=== PATIENT | female | born 1955 | race Caucasian/White ===

== ENCOUNTER 2022-08-14 15:47 | Outpatient (CLI) | payer MEDICARE, SELFPAY ==
--- NOTE | 2022-08-14 16:00 | CRLHL7_ITS ---
For Patients: As a result of the Century Cures Act, medical imaging exams and procedure reports are released immediately into your electronic medical record. You may view this report before your referring provider. If you have questions, please contact your health care provider. INDICATION: Lumbar fusion. COMPARISON: 04/04/2021. TECHNIQUE: Noncontrast CT lumbar spine. FINDINGS: Grade 1 anterolisthesis of L4 on L5 measures approximately 5 mm. Otherwise, normal alignment. Since previous MRI, interval postoperative changes of laminectomies and posterior sho transpedicular screw fixation L4-S1. Hardware appears well-seated. T12-L1 L1-2: No spinal canal neural foraminal narrowing. L2-3: No narrowing of the spinal canal. No neural foraminal narrowing. L3-4: Annular bulge. Flattening of ventral thecal sac. Mild narrowing of spinal canal. No neural foraminal narrowing. Mild facet arthropathy. L4-5: Grade 1 anterolisthesis. Unroofed posterior disc bulge. Spinal canal is decompressed by laminectomy. Allowing for artifact, no severe narrowing of the neural foramina. L5-S1: Postoperative changes. Spinal canal is decompressed by laminectomy. Allowing for artifact, no severe spinal canal narrowing. There may be mild narrowing of bilateral foramina. Degenerative changes of visualized SI joints. Vascular calcifications. IMPRESSION: 1. Grade 1 anterolisthesis of L4 on L5. 2. Otherwise, normal alignment. 3. Interval postop changes L4-S1. Hardware appears well seated. 4. At L3-4, mild narrowing of the spinal canal 5. At L4-5, grade 1 anterolisthesis. No narrowing of the spinal canal. No neural foraminal narrowing. 6. At L5-S1, postoperative changes. Allowing for artifact, there may be mild narrowing of the bilateral neural foramina Please note that all CT scans at this facility use dose modulation, iterative reconstruction, and/or weight-based dosing when appropriate to reduce radiation dose to as low as reasonably achievable. Dictated by Carter Valladares MD @ 08/14/2022 4:23:58 PM (Electronically Signed)
== END 2022-08-14 15:48 | disposition home or self-care (01) ==
LOC: CT 15:49
PROVIDERS: PCP Family Medicine; Visit Provider Physician Assistant Surgical
DX: Q75.0 Craniosynostosis (principal); M51.26 Other intervertebral disc displacement, lumbar region
CPT/HCPCS: 72131

== ENCOUNTER 2023-06-04 14:49 | Outpatient (CLI) | payer MEDICARE, SELFPAY ==
--- NOTE | 2023-06-04 15:20 | CRLHL7_ITS ---
For Patients: As a result of the Century Cures Act, medical imaging exams and procedure reports are released immediately into your electronic medical record. You may view this report before your referring provider. If you have questions, please contact your health care provider. BILATERAL SCREENING MAMMOGRAM WITH COMPUTER-AIDED DETECTION TECHNIQUE: CC and MLO views were obtained. These mammographic images have been obtained using full-field digital technique. These mammographic images were interpreted with the benefit of computer-aided detection. COMPARISON FILM: 04/01/22, 01/14/21, 03/03/18. FINDINGS: There are scattered areas of fibroglandular density. IMPRESSION: There is no radiographic evidence for malignancy. ASSESSMENT: BI-RADS Category 1: Negative RECOMMENDATION: Routine screening mammogram in 1 year. A lay language report of this examination will be provided to the patient. VINCE RHODES M.D. Diagnostic Radiologist [email or web address] Transcribed: 06/07/2023, 1:[address]/Dictated by: Vince Rhodes MD @ 06/07/2023 9:06:00 AM (Electronically Signed)
== END 2023-06-04 14:50 | disposition home or self-care (01) ==
LOC: MAMMO 14:50
PROVIDERS: PCP Family Medicine; Visit Provider Family Medicine
DX: Z12.31 Encounter for screening mammogram for malignant neoplasm of breast (principal)
CPT/HCPCS: 77067

== ENCOUNTER 2023-08-24 16:29 | Outpatient (CLI) | payer MEDICARE, SELFPAY ==
--- NOTE | 2023-08-24 17:00 | CRLHL7_ITS ---
For Patients: As a result of the Century Cures Act, medical imaging exams and procedure reports are released immediately into your electronic medical record. You may view this report before your referring provider. If you have questions, please contact your health care provider. Indication: S/P BACK SURGERY 6 WEEKS AGO, NOW INCREASING LT UPPER ARM SWELLING AND PAIN Technique: Ultrasound venous duplex upper left extremity. Compression venous exam was performed using carvajal-scale, color Doppler, and spectral Doppler imaging. Comparison: none Findings: The left internal jugular, subclavian, and axillary veins are patent with normal waveforms. Occlusive thrombus within the proximal-distal basilic vein. The brachial and cephalic veins are fully compressible. Impression: Occlusive thrombus within the proximal-distal basilic vein. No evidence of DVT. Dictated by Lucio Miranda MD @ 08/24/2023 7:02:07 PM (Electronically Signed)
== END 2023-08-24 16:30 | disposition home or self-care (01) ==
LOC: US 16:30
PROVIDERS: PCP Family Medicine
DX: I82.409 Acute embolism and thrombosis of unspecified deep veins of unspecified lower extremity (principal); I82.4Z2 Acute embolism and thrombosis of unspecified deep veins of left distal lower extremity
CPT/HCPCS: 93971

== ENCOUNTER 2023-08-24 18:05 | Emergency (ER) | payer MEDICARE, SELFPAY ==
[2023-08-24 18:13] VITALS: BP 146/89; PULSE 89; RESP 18; TEMP 36.7; O2SAT 99; BMI 43.1
--- NOTE | 2023-08-24 18:50 | ED_ITS ---
HPI - General Adult General Time Seen by Provider: 18:50 Date Seen: 08/24/23 Chief complaint: Extremity Pain/Injury, Upper Stated complaint: Blood clot L arm Time Seen by Provider: 08/24/23 18:23 History of Present Illness HPI narrative: This is a very pleasant 68-year-old female who was referred from our ultrasound department for evaluation of an ultrasound showing a positive DVT in her left upper extremity basilic vein. She has symptoms of pain and redness and swelling involving the medial aspect of her left arm on the medial aspect of the elbow. It began yesterday morning. She has now also developed mild pain and swelling throughout her left forearm and little bit of pain and swelling up to her left shoulder. She does not have any recent trauma. No recent injury to her arm. No fever chills. No shortness of breath. No history of DVT or PE. Her past medical history includes low back problems. She recently underwent a very large lumbar spine fusion surgery with an anterior and posterior approach. This was done by her surgeon, Dr. Resendez in the [facility], [place]. She recovered in the TCU here in [place] fair few weeks. She has been recovering home now for several weeks. She does not have any recent IV access into her arm or no long to PICC line. She is not having any swelling in her right arm or in her legs. No chest pain or shortness of breath. Her brother had a DVT, associated with malignancy. No other family history of hypercoagulability. Related Data Home Medications Medication Instructions Recorded Confirmed atenolol .ROUTE 08/24/23 cetirizine .ROUTE 08/24/23 duloxetine PO 08/24/23 gabapentin .ROUTE 08/24/23 insulin NPH-regular 70-30 U-100 subcut 08/24/23 insulin 100 unit/mL subcutaneous pen (Novolin 70-30 FlexPen U-100 Insulin) lansoprazole PO 08/24/23 levothyroxine 125 mcg tablet 125 mcg PO DAILY 08/24/23 08/24/23 lisinopril 10 mg tablet 10 mg PO DAILY 08/24/23 08/24/23 simvastatin 40 mg tablet 40 mg PO QPM 08/24/23 08/24/23 tramadol .ROUTE 08/24/23 Allergies Allergy/AdvReac Type Severity Reaction Status Date / Time cephalexin [From Keflex] AdvReac Verified 08/24/23 18:29 cinnamon AdvReac Verified 08/24/23 18:29 clarithromycin [From Biaxin] AdvReac Verified 08/24/23 18:29 erythromycin base AdvReac Verified 08/24/23 18:29 Fish Containing Products AdvReac Verified 08/24/23 18:20 iodine AdvReac Verified 08/24/23 18:29 lanolin AdvReac Hives Verified 08/24/23 18:29 metformin AdvReac Verified 08/24/23 18:20 nystatin AdvReac Verified 08/24/23 18:29 Penicillins AdvReac Verified 08/24/23 18:20 Quinolones AdvReac Verified 08/24/23 18:29 concentrated egg white Allergy Uncoded 08/24/23 18:20 [facility] Medical History (Updated 08/24/23 @ 19:23 by Ran Richter MD) Obesity ?E66.9 - Obesity, unspecified (ICD-10) Loss of all teeth ?K08.109 - Complete loss of teeth, unspecified cause, unspecified class (ICD- 10) Type 2 diabetes mellitus ?E11.9 - Type 2 diabetes mellitus without complications (ICD-10) Adult hypothyroidism ?E03.9 - Hypothyroidism, unspecified (ICD-10) Borderline hyperlipidemia ?E78.5 - Hyperlipidemia, unspecified (ICD-10) HTN (hypertension) ?I10 - Essential (primary) hypertension (ICD-10) JESS (obstructive sleep apnea) ?G47.33 - Obstructive sleep apnea (adult) (pediatric) (ICD-10) GERD (gastroesophageal reflux disease) ?K21.9 - Gastro-esophageal reflux disease without esophagitis (ICD-10) Foot drop, right ?M21.371 - Foot drop, right foot (ICD-10) Acute eczema ?L30.9 - Dermatitis, unspecified (ICD-10) DJD (degenerative joint disease) ?M19.90 - Unspecified osteoarthritis, unspecified site (ICD-10) Depression ?F32.A - Depression, unspecified (ICD-10) Chronic low back pain ?M54.50 - Low back pain, unspecified (ICD-10) ?G89.29 - Other chronic pain (ICD-10) Bulging disc History of anesthesia complications ?Z87.898 - Personal history of other specified conditions (ICD-10) Asthma ?J45.909 - Unspecified asthma, uncomplicated (ICD-10) Anemia ?D64.9 - Anemia, unspecified (ICD-10) Social History Smoking Status: Never smoker How often do you have a drink containing alcohol: never AUDIT-C Alcohol total score: 0 Non-prescribed substance use: denies use Exam Narrative: Exam Narrative: Constitutional: Appears well-developed and well-nourished. Alert. Conversant. Non toxic. HENT: Head: Atraumatic. Nose: Nose normal. Mouth/Throat: Oral mucosa is clear and moist. no trismus. Pharynx normal. Tonsils symmetric. No tonsillar enlargement, erythema, or exudate. Eyes: Conjunctivae normal. EOM normal. Pupils equal, round, and reactive to light. No scleral icterus. Neck: Normal range of motion. Neck supple. No tracheal deviation present. Cardiovascular: Normal rate, regular rhythm. No gallop. No friction rub. No murmur heard. Symmetric radial and PT/deep artery pulses Pulmonary/Chest: Effort normal. No stridor. No respiratory distress. No wheezes. No rales. No rhonchi . No tenderness. Abdominal: Soft. No distension. No mass. No tenderness. No rebound. No guarding. Musculoskeletal: RUE: Normal range of motion. No tenderness. No deformity LUE: She has erythema with mild swelling and tenderness over the skin on the medial aspect of her arm affecting the distal 1/4 of her upper arm/humerus, medial elbow, and proximal 2-3 cm of her medial forearm. She has perhaps subtle edema affecting the rest of her forearm. Range of motion the elbow is limited by discomfort but there is no obvious bony deformity, crepitus, or other signs of fracture on exam. RLE: Normal range of motion. No edema. No tenderness. No deformity LLE: Normal range of motion. No edema. No tenderness. No deformity Lymph: No cervical adenopathy. Neurological: Alert and oriented to person, place, and time. Normal strength. CN II-VII intact. No sensory deficit. GCS eye subscore is 4. GCS verbal subscore is 5. GCS motor subscore is 6. Normal coordination Skin: Skin is warm and dry. No rash noted. No pallor. Normal capillary refill. Psychiatric: Normal mood. Normal affect. Const: Vital Signs, click to edit/add: Vital Signs - 24 hr 10/17/23 18:13 08/24/23 19:34 Temperature 98.0 F Pulse Rate [Left P ulse Oximeter] 89 84 Respiratory Rate 18 18 Blood Pressure [Ri ght Upper Arm] 146/89 H 138/81 Pulse Oximetry 99 Oxygen Delivery Me thod Room Air Course Vital Signs Vital signs: Initial Vital Signs Temperature 98.0 F 08/24/23 18:13 Temperature Source Temporal Artery Scan 08/24/23 18:13 Pulse Rate 89 08/24/23 18:13 Respiratory Rate 18 08/24/23 18:13 Blood Pressure 146/89 H 08/24/23 18:13 Blood Pressure Mean 108 H 08/24/23 18:13 Blood Pressure Position Sitting 08/24/23 18:13 Pulse Oximetry 99 08/24/23 18:13 Oxygen Delivery Method Room Air 08/24/23 18:13 Vital Signs Temperature 98.0 F 08/24/23 18:13 Pulse Rate 89 08/24/23 18:13 Respiratory Rate 18 08/24/23 18:13 Blood Pressure 146/89 H 08/24/23 18:13 Pulse Oximetry 99 08/24/23 18:13 Oxygen Delivery Method Room Air 08/24/23 18:13 Temperature 98.0 F 08/24/23 18:13 Pulse Rate 84 08/24/23 19:34 Respiratory Rate 18 08/24/23 19:34 Blood Pressure 138/81 08/24/23 19:34 Pulse Oximetry 99 08/24/23 18:13 Oxygen Delivery Method Room Air 08/24/23 18:13 Medical Decision Making [facility] Narrative Medical decision making narrative: Pleasant 68-year-old female with no past history of venous thromboembolic disease presents to the ER today with reported left upper extremity DVT affecting her left arm. However, the formal ultrasound report from radiology indicates that this is actually a superficial thrombosis in the base iliac vein, not a deep vein thrombosis. Superficial thrombosis would correlate with a localized area of redness and swelling on her left medial arm, on the medial aspect of the elbow. She is not having history or exam findings of PE. No sign s of phlegmasia cerulea dolens, compartment syndrome, or other arterial compromise of her left upper extremity. At this point I do not think she needs to be hospitalized for anticoagulation or surgical intervention. Will treat supportively for now. Recommend follow-up ultrasound within 3-6 days to make sure there is no extension of the superficial thrombosis. Laboratory workup shows normal kidney function. Electrolytes normal. CbC shows anemia, HGB 9.5 , but otherwise reassuring white count and platelets. She has not had any recent bleeding to suggest an acute anemia. Blood pressure stable. Recommend outpatient follow-up for repeat CBC. Lab Data Labs: Lab Results 08/24/23 Range/Units 19:01 WBC 7.72 (4.50-11.00) K/uL RBC 4.43 (4.00-5.20) m/uL Hgb 9.5 L (12.0-16.0) gm/dL Hct 33.0 (33.0-51.0) % MCV 75 L (80-100) fL MCH 21 L (26-34) pg MCHC 29 L (32-36) gm/dL RDW Coeff of Edwin 16.6 H (11.5-15.5) % Plt Count 305 (140-440) K/uL Neut % (Auto) 65.6 (42.0-72.0) % Lymph % (Auto) 23.8 (20-44) % [place] % (Auto) 7.4 (0.0-11.0) % Eos % (Auto) 3.0 (0.0-7.0) % Baso % (Auto) 0.1 (0.0-3.0) % Neut # (Auto) 5.06 (1.7-7.0) K/uL Lymph # (Auto) 1.84 (0.90-2.90) K/uL Lajas # (Auto) 0.60 (0.00-0.90) K/UL Eos # (Auto) 0.23 (0.00-0.50) K/uL Baso # (Auto) 0.01 (0.00-0.30) K/uL Abs Immat Gran (auto) 0.01 (0.00-0.30) K/uL Imm/Tot Granulo (auto) 0.1 % Sodium 138 (135-149) mmol/L Potassium 3.9 (3.6-5.1) mmol/L Chloride 102 (96-114) mmol/L Carbon Dioxide 25 (20-32) mmol/L Anion Gap 11 (7-15) mEq/L BUN 30 (7-30) mg/dL Creatinine 0.9 (0.5-1.5) mg/dL Estimated Creat Clear 47.14 Estimated GFR 70 ml/min Glucose 114 (60-115) mg/dL Calcium 8.9 (8.4-10.6) mg/dL Imaging Data US Venous LUE: Attestation: I have reviewed the pertinent imaging results. My impression: Preliminary report from semiconductor development technician is that there is a DVT in the left upper extremity. Radiologist's impression: Impression: Occlusive thrombus within the proximal-distal basilic vein. No evidence of DVT. Discharge Plan Discharge Clinical Impression: Superficial venous thrombosis of arm Patient Disposition: Home, Self-Care Condition: Stable Instructions: Superficial Thrombophlebitis (ED) Additional Instructions: Please return to the ER or see your doctor right away if you have worsening symptoms especially worsening pain or swelling in your arm, chest pain or trouble breathing, high fever, or any other problems. Please try to treat the pain in her arm with your regular pain medications, gently elevating her arm, warm packs on the swollen area, and use Percocet if needed for breakthrough pain. Be careful the Percocet because it causes drowsiness, sedation, constipation, and can be addictive. Even if you are not getting worse Follow-up with your regular doctor or come back to the ER for a repeat ultrasound of your arm within the next 3-6 days. Prescriptions: No Action simvastatin 40 mg tablet 40 mg PO QPM levothyroxine 125 mcg tablet 125 mcg PO DAILY lisinopril 10 mg tablet 10 mg PO DAILY Novolin 70-30 FlexPen U-100 100 unit/mL (70-30) insulin pen subcut duloxetine PO cetirizine [Zyrtec] .ROUTE atenolol .ROUTE lansoprazole [Prevacid] PO tramadol .ROUTE gabapentin .ROUTE Follow Up/Referrals: Abilio Reyes MD [Primary Care Provider] - Stand Alone Forms: [employer] Info Instructions
[2023-08-24 19:06] LABS: Basophils Absolute Auto 0.01 K/uL (0.00-0.30); Basophils Percent Auto 0.1 % (0.0-3.0); Eosinophils Absolute Auto 0.23 K/uL (0.00-0.50); Hemoglobin* 9.5 gm/dL (12.0-16.0); Immature Granulocytes Abs Auto 0.01 K/uL (0.00-0.30); Immature Granulocytes Pct Auto 0.1 %; Lymphocytes Absolute Auto 1.84 K/uL (0.90-2.90); Lymphocytes Percent Auto 23.8 % (20-44); Mean Corpuscular HGB Conc 29 gm/dL (32-36); Mean Corpuscular Hemoglobin 21 pg (26-34); Mean Corpuscular Volume 75 fL (80-100); Monocytes Percent Auto 7.4 % (0.0-11.0); Neutrophils Absolute Auto 5.06 K/uL (1.7-7.0); Neutrophils Percent Auto 65.6 % (42.0-72.0); Platelet Count* 305 K/uL (140-440); RDW Coefficient of Variation % 16.6 % (11.5-15.5); Red Blood Count 4.43 m/uL (4.00-5.20); Slide Review Reflex No; White Blood Count* 7.72 K/uL (4.50-11.00)
[2023-08-24 19:17] LABS: Chloride* 102 mmol/L (96-114)
[2023-08-24 19:18] LABS: Potassium* 3.9 mmol/L (3.6-5.1); Sodium* 138 mmol/L (135-149)
[2023-08-24 19:20] LABS: Creatinine* 0.9 mg/dL (0.5-1.5); Est. Creatinine Clearance* 47.14; Estimated Glomerular Filt Rate 70 ml/min
[2023-08-24 19:21] LABS: Anion Gap 11 mEq/L (7-15); Blood Urea Nitrogen* 30 mg/dL (7-30); Calcium* 8.9 mg/dL (8.4-10.6); Carbon Dioxide* 25 mmol/L (20-32); Glucose* 114 mg/dL (60-115)
[2023-08-24 19:34] VITALS: BP 138/81; PULSE 84; RESP 18
== END 2023-08-24 19:34 | disposition home or self-care (01) ==
PROVIDERS: Emergency Provider Emergency Medicine; PCP Family Medicine
DX: I82.612 Acute embolism and thrombosis of superficial veins of left upper extremity (principal)
CPT/HCPCS: 36415; 80048; 85025; 99283

== ENCOUNTER 2023-08-25 13:47 | Outpatient (CLI) | payer MEDICARE, SELFPAY ==
--- NOTE | 2023-08-25 14:00 | CRLHL7_ITS ---
For Patients: As a result of the Century Cures Act, medical imaging exams and procedure reports are released immediately into your electronic medical record. You may view this report before your referring provider. If you have questions, please contact your health care provider. INDICATION: Six weeks status post lumbar decompression an anterior fusion. TECHNIQUE: CT images were acquired through the lumbar spine. Multiplanar reconstructions. COMPARISON: CT lumbar spine dated 08/14/2022. FINDINGS: There has been interval anterior spinal fusion at the L5-S1 level with a at interbody cylinder, and anchoring screws. Preexistent posterior pedicle screw fusion extends from L4 through S1. At the L5-S1 level the bilateral decompressive laminectomy. Bony dimensions of the spinal canal and foramen are adequate. Pedicle screws appear to be in good position. At the L4-5 level preexistent mild grade 1 anterolisthesis. Bilateral decompressive laminectomy. The bony dimensions of the spinal canal and neural foramen appear adequate. At the L3-4 level bilateral decompressive laminectomy. Bony dimensions the spinal canal and neural foramen appear adequate. The no bony stenosis at the L2-3 or L1-2 levels. IMPRESSION: 1. Interval anterior hardware fusion at the L5-S1 level including interbody fusion cylinder and anchoring screws. Intraluminal fusion bone. 2. Preexistent bilateral pedicle screws at L4, L5 and S1 and associated connecting hardware. Unchanged. 3. Bilateral decompressive laminectomies at the L5-S1 L4-5 and L3-4 levels. 4. Preexistent grade 1 anterolisthesis at L4-5 unchanged. Please note that all CT scans at this facility use dose modulation, iterative reconstruction, and/or weight-based dosing when appropriate to reduce radiation dose to as low as reasonably achievable. Dictated by Manjit Robertson MD @ 08/27/2023 9:05:46 AM (Electronically Signed)
== END 2023-08-25 13:48 | disposition home or self-care (01) ==
LOC: CT 13:48
PROVIDERS: PCP Family Medicine; Visit Provider Specialist
DX: M54.16 Radiculopathy, lumbar region (principal); Z48.89 Encounter for other specified surgical aftercare
CPT/HCPCS: 72131

== ENCOUNTER 2023-08-30 13:42 | Outpatient (CLI) | payer MEDICARE, SELFPAY ==
--- NOTE | 2023-08-30 14:00 | CRLHL7_ITS ---
For Patients: As a result of the Century Cures Act, medical imaging exams and procedure reports are released immediately into your electronic medical record. You may view this report before your referring provider. If you have questions, please contact your health care provider. INDICATION: RECHECK SVT COMPARISON: 08/24/2023 TECHNIQUE: Left upper extremity and neck venous ultrasound performed as well as ultrasound of right internal jugular vein including carvajal scale/2D, color Doppler, and spectral Doppler imaging including spectral waveform analysis. FINDINGS: The internal jugular, innominate, subclavian, axillary, cephalic, and brachial veins were patent and negative for thrombus. The right internal jugular vein was also patent and negative for thrombus where seen. Long segment superficial clot within the basilic vein, located 1.5 cm from the axillary vein and extending distally into the mid forearm. IMPRESSION: Long segment superficial clot within the basilic vein, probably similar to the prior study. No DVT. Dictated by Vince Escobar MD @ 08/31/2023 8:39:48 AM (Electronically Signed)
--- NOTE | 2023-08-30 14:00 | CRLHL7_ITS ---
For Patients: As a result of the Century Cures Act, medical imaging exams and procedure reports are released immediately into your electronic medical record. You may view this report before your referring provider. If you have questions, please contact your health care provider. INDICATION: Lung cancer screening. History of smoking. High risk patient with greater than 32 pack-year smoking history. TECHNIQUE: Low-dose lung cancer screening non-contrast CT chest. Dose reduction techniques were used. COMPARISON: None. FINDINGS: NODULES: None. LUNGS AND PLEURA: No infiltrate. MEDIASTINUM: Atherosclerotic changes. No adenopathy. Tortuosity of the descending thoracic aorta. CORONARY ARTERY CALCIFICATION: Present. LIMITED UPPER ABDOMEN: 7.5 cm hiatal hernia. Vascular calcifications. MUSCULOSKELETAL: Degenerative changes at the left shoulder with loose bodies in the subcoracoid recess. Degenerative changes also present at the right shoulder. Degenerative disc disease thoracic spine. No fracture. IMPRESSION: Negative for lung cancer screening purposes. LUNG-RADS CATEGORY: 1: Negative. RADIOLOGIST RECOMMENDATION: Continue annual screening with low-dose CT chest in 12 months. Please note that all CT scans at this facility use dose modulation, iterative reconstruction, and/or weight-based dosing when appropriate to reduce radiation dose to as low as reasonably achievable. Dictated by Vince Escobar MD @ 08/31/2023 9:18:15 AM (Electronically Signed)
== END 2023-08-30 13:43 | disposition home or self-care (01) ==
LOC: CT 13:44
PROVIDERS: PCP Family Medicine; Visit Provider Family Medicine
DX: I82.612 Acute embolism and thrombosis of superficial veins of left upper extremity (principal); Z12.2 Encounter for screening for malignant neoplasm of respiratory organs; Z87.891 Personal history of nicotine dependence
CPT/HCPCS: 71271; 93971

== ENCOUNTER 2023-11-22 13:45 | Outpatient (RCR) | payer MEDICARE, SELFPAY | END 2023-11-22 16:00 | disposition home or self-care (01) | PROVIDERS: PCP Family Medicine; Visit Provider Specialist | DX: Z48.89 Encounter for other specified surgical aftercare (principal); Z51.89 Encounter for other specified aftercare | CPT/HCPCS: 97110; 97140; 97162; 97535 ==

== ENCOUNTER 2023-11-24 06:06 | Day surgery (SDC) | payer MEDICARE, SELFPAY ==
[2023-11-24] MEDS: TETRACAINE 0.5% OPHTH 1 DROP EYE-LEFT ×2 (06:18→06:25)
[2023-11-24] MEDS: KETOROLAC OPHTH 0.5% 1 DROP EYE-LEFT ×2 (06:18→06:25)
[2023-11-24 06:19] VITALS: BMI 41.6
[2023-11-24 06:39] VITALS: BP 155/91; PULSE 60; RESP 18; TEMP 36.4; O2SAT 94
[2023-11-24] MEDS: SODIUM CHLORIDE 0.9 % (FLUSH) 10 ML SYRINGE IVF (06:48)
--- NOTE | 2023-11-24 07:08 | SUR.OPER ---
MD spoke to patient about Iodine allergy. Patient states it is mostly to contrast and caused hives. Patient educated on risks associated with Iodine prep, verbalized understanding of the risks and agrees to continue.
[2023-11-24] MEDS: TETRACAINE 0.5% OPHTH 2 DROP EYE-LEFT (07:14)
[2023-11-24] MEDS: BALANCED SALT IRRIG SOLN 15 ML EYE-LEFT (07:19)
--- NOTE | 2023-11-24 07:27 | W.ANESCHARGE ---
Anesthesia Charges Start Date/Time Anesthesia Start Date: 11/24/23 Anesthesia Start Time: 07:10 Stop Date/Time Anesthesia Stop Date: 11/24/23 Anesthesia Stop Time: 07:42
[2023-11-24 07:37] VITALS: BP 135/91; PULSE 61; RESP 16; TEMP 36.7; O2SAT 95
--- NOTE | 2023-11-24 07:42 | P.OPTPRC_ITS ---
Procedure Note Date of procedure: 11/24/23 Will [facility] bill your pro fee for this procedure?: Yes Procedure Description: SURGEON: Jennifer Davis MD PREOPERATIVE DIAGNOSIS: Nuclear sclerotic cataract, left eye. POSTOPERATIVE DIAGNOSIS: Nuclear sclerotic cataract, left eye. NAME OF OPERATION: Phacoemulsification of cataract with posterior chamber intraocular lens implantation in the left eye. ANESTHESIA: Topical. ESTIMATED BLOOD LOSS: Less than 2 cc. COMPLICATIONS: None. PATHOLOGY SPECIMEN: None. INDICATIONS: See consult note for details. The risks, benefits and alternatives of the procedure were explained to the patient, who elected to proceed and signed informed consent to do so. PROCEDURE: The patient was brought to the pre-holding area where the left eye was identified as the operative eye. I placed my initials above this eye. The patient received eye drops consisting of 0.5% tetracaine, 1% tropicamide, 10% phenylephrine, and 0.5% ketorolac. I discussed the patient's iodine allergy with her. She states that it was not life-threatening and that it was to IV contrast. She states that it caused hives. She is willing to accept the risks with Betadine prep and the dilating drops. The patient was then brought to the operating room where the left eye was again identified as the operative eye. The eye was prepped with Betadine and draped in the usual sterile ophthalmic fashion. A #15 super-sharp blade was used to create a paracentesis site. 1% non-preserved intracameral lidocaine was injected into the anterior chamber. Endocoat was injected into the anterior chamber. A 2.4 mm keratome was used to create a three-plane self-sealing incision 1 mm anterior to the temporal limbus. A cystotome was used to create an anterior capsular leaflet. The Utrata forceps were used to extend this to form a continuous curvilinear capsulorrhexis. Hydrodissection was performed. The cataract was removed with phacoemulsification using the [id number] technique. The irrigation and aspiration tip was used to remove the remaining cortex. Healon was injected into the capsular bag. An FRANTZ ZCB00 intraocular lens of 22.0 diopters was injected into the capsular bag. The irrigation and aspiration tip was used to remove the remaining viscoelastic. Balanced salt solution on a cannula was used to hydrate the wound, and the wound was found to be watertight. The pupil was noted to be round. DISPOSITION: The patient was taken to the recovery room and discharged to home in stable condition. The patient was instructed to call me or go to the emergency department with any sudden change, including dramatic loss of vision, severe pain in the eye or eyebrow region, nausea, or vomiting. The patient will follow up in the clinic tomorrow morning.
--- NOTE | 2023-11-24 08:04 | W.ANESCHARGE ---
Anesthesia Charges Start Date/Time Anesthesia Start Date: 11/24/23 Anesthesia Start Time: 07:10 Stop Date/Time Anesthesia Stop Date: 11/24/23 Anesthesia Stop Time: 07:42
--- NOTE | 2023-11-24 09:32 | SUR.PREOP ---
The eye drops brought by the patient (Ketorolac and Prednisolone) are examined and I have determined they are labeled by the patient's pharmacy for this patient as prescribed by the surgeon. The bottles are intact, recently obtained and appear to be correct. celestina
== END 2023-11-24 08:14 | disposition home or self-care (01) ==
PROVIDERS: PCP Family Medicine; Visit Provider Ophthalmology
PROC: (CPT 66984; principal; 2023-11-24 06:15)
DX: H25.12 Age-related nuclear cataract, left eye (principal); E11.9 Type 2 diabetes mellitus without complications
CPT/HCPCS: 66984; 00142; 82962; A9270; J2250; J3010; V2632

== ENCOUNTER 2023-12-08 06:11 | Day surgery (SDC) | payer MEDICARE, SELFPAY ==
[2023-12-08] MEDS: KETOROLAC OPHTH 0.5% 1 DROP EYE-RIGHT ×2 (06:30→06:45)
[2023-12-08] MEDS: TETRACAINE 0.5% OPHTH 1 DROP EYE-RIGHT ×2 (06:30→06:38)
--- NOTE | 2023-12-08 06:44 | SUR.PREOP ---
The eye drops brought by the patient (Ketorolac and Prednisolone) are examined and I have determined they are labeled by the patient's pharmacy for this patient as prescribed by the surgeon. The bottles are intact, recently obtained and appear to be correct.
[2023-12-08 06:58] VITALS: BP 142/86; PULSE 63; RESP 16; TEMP 36.5; O2SAT 97; BMI 41.8
[2023-12-08] MEDS: SODIUM CHLORIDE 0.9 % (FLUSH) 10 ML SYRINGE IVF (07:04)
[2023-12-08] MEDS: TETRACAINE 0.5% OPHTH 2 DROP EYE-RIGHT (07:10)
[2023-12-08] MEDS: BALANCED SALT IRRIG SOLN 15 ML EYE-RIGHT (07:16)
[2023-12-08 07:33] VITALS: BP 129/82; PULSE 61; RESP 16; TEMP 36.1; O2SAT 93
--- NOTE | 2023-12-08 07:41 | W.ANESCHARGE ---
Anesthesia Charges Start Date/Time Anesthesia Start Date: 12/08/23 Anesthesia Start Time: 07:05 Stop Date/Time Anesthesia Stop Date: 12/08/23 Anesthesia Stop Time: 07:36
--- NOTE | 2023-12-08 07:41 | W.ANESCHARGE ---
Anesthesia Charges Start Date/Time Anesthesia Start Date: 12/08/23 Anesthesia Start Time: 07:05 Stop Date/Time Anesthesia Stop Date: 12/08/23 Anesthesia Stop Time: 07:36
--- NOTE | 2023-12-08 09:05 | P.OPTPRC_ITS ---
Procedure Note Date of procedure: 12/08/23 Will [facility] bill your pro fee for this procedure?: Yes Procedure Description: SURGEON: Jennifer Davis MD PREOPERATIVE DIAGNOSIS: Nuclear sclerotic cataract, right eye. POSTOPERATIVE DIAGNOSIS: Nuclear sclerotic cataract, right eye. NAME OF OPERATION: Phacoemulsification of cataract with posterior chamber intraocular lens implantation in the right eye. ANESTHESIA: Topical. ESTIMATED BLOOD LOSS: Less than 2 cc. COMPLICATIONS: None. PATHOLOGY SPECIMEN: None. INDICATIONS: See consult note for details. The risks, benefits and alternatives of the procedure were explained to the patient, who elected to proceed and signed informed consent to do so. PROCEDURE: The patient was brought to the pre-holding area where the right eye was identified as the operative eye. I placed my initials above this eye. The patient received eye drops consisting of 0.5% tetracaine, 1% tropicamide, 10% phenylephrine, and 0.5% ketorolac. The patient was then brought to the operating room where the right eye was again identified as the operative eye. The eye was prepped with Betadine and draped in the usual sterile ophthalmic fashion. A #15 super-sharp blade was used to create a paracentesis site. 1% non-preserved intracameral lidocaine was injected into the anterior chamber. Endocoat was injected into the anterior chamber. A 2.4 mm keratome was used to create a three-plane self-sealing incision 1 mm anterior to the temporal limbus. A cystotome was used to create an anterior capsular leaflet. The Utrata forceps were used to extend this to form a continuous curvilinear capsulorrhexis. Hydrodissection was performed. The cataract was removed with phacoemulsification using the [id number] technique. The irrigation and aspiration tip was used to remove the remaining cortex. Healon was injected into the capsular bag. An FRANTZ ZCB00 intraocular lens of 21.5 diopters was injected into the capsular bag. The irrigation and aspiration tip was used to remove the remaining viscoelastic. Balanced salt solution on a cannula was used to hydrate the wound, and the wound was found to be watertight. The pupil was noted to be round. DISPOSITION: The patient was taken to the recovery room and discharged to home in stable condition. The patient was instructed to call me or go to the emergency department with any sudden change, including dramatic loss of vision, severe pain in the eye or eyebrow region, nausea, or vomiting. The patient will follow up in the clinic tomorrow morning.
--- NOTE | 2023-12-08 10:33 | W.ANESCHARGE ---
Anesthesia Charges Start Date/Time Anesthesia Start Date: 12/08/23 Anesthesia Start Time: 07:05 Stop Date/Time Anesthesia Stop Date: 12/08/23 Anesthesia Stop Time: 07:36
== END 2023-12-08 08:20 | disposition home or self-care (01) ==
LOC: OR 06:12
PROVIDERS: PCP Family Medicine; Visit Provider Ophthalmology
PROC: (CPT 66984; principal; 2023-12-08 06:15)
DX: H25.11 Age-related nuclear cataract, right eye (principal); E11.9 Type 2 diabetes mellitus without complications
CPT/HCPCS: 66984; 00120; 00142; 82962; A9270; J2250; J3010; V2632

== ENCOUNTER 2023-12-13 13:18 | Outpatient (CLI) | payer MEDICARE, SELFPAY | END 2023-12-13 13:19 | disposition home or self-care (01) | LOC: NFLDREF 12-15 11:35 | PROVIDERS: PCP Family Medicine; Referring Provider Family Medicine; Visit Provider Family Medicine | DX: D64.9 Anemia, unspecified (principal); E03.9 Hypothyroidism, unspecified; E11.9 Type 2 diabetes mellitus without complications; I10 Essential (primary) hypertension; M85.80 Other specified disorders of bone density and structure, unspecified site; M81.0 Age-related osteoporosis without current pathological fracture; E78.5 Hyperlipidemia, unspecified; Z79.4 Long term (current) use of insulin | CPT/HCPCS: 80053; 80061; 82043; 82306; 82570; 82607; 82728; 84443 ==

== ENCOUNTER 2024-01-18 07:05 | Outpatient (CLI) | payer MEDICARE, SELFPAY ==
--- NOTE | 2024-01-18 08:49 | W.ANESCHARGE ---
Anesthesia Charges Start Date/Time Anesthesia Start Date: 01/18/24 Anesthesia Start Time: 07:05 Stop Date/Time Anesthesia Stop Date: 01/18/24 Anesthesia Stop Time: 07:36
--- NOTE | 2024-01-18 09:17 | W.ANESCHARGE ---
Anesthesia Charges Start Date/Time Anesthesia Start Date: 01/18/24 Anesthesia Start Time: 08:06 Stop Date/Time Anesthesia Stop Date: 01/18/24 Anesthesia Stop Time: 09:14
== END 2024-01-18 07:06 | disposition home or self-care (01) ==
LOC: OP CLINIC 07:06
PROVIDERS: PCP Family Medicine; Visit Provider Surgery
DX: K63.5 Polyp of colon (principal); K62.1 Rectal polyp; D17.5 Benign lipomatous neoplasm of intra-abdominal organs; Z86.010 Personal history of colon polyps
CPT/HCPCS: 00811; 45380; 45385; 88305; 88341; 88342; J2704

== ENCOUNTER 2024-03-17 13:20 | Outpatient (CLI) | payer MEDICARE, SELFPAY ==
--- OUTSIDE RECORDS SUMMARY | 2024-04-03 15:43 | XMS_ITS | Encounter Summary ---
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 * Telephone Encounter - Kamilah Mayberry RN - 08/26/2018 8:24 AM CDT Please fax Rx to [facility]. * Telephone Encounter - Frida Almazan MA - 08/25/2018 2:01 PM CDT Patient's last appointment was 02/28/2018, No follow up scheduled at this time. Please advise if patient needs an appointment. documented in this encounter Plan of Treatment Not on file documented as of this encounter Visit Diagnoses Diagnosis Chronic pain due to trauma- Primary documented in this encounter Additional Health Concerns Infection Onset Date Last Indicated Resolved Time COVID-19 Rule Out 05/13/2020 06/04/2020 06/05/2020 7:32 PM CDT documented as of this encounter Care Teams Electric Locomotive Crane Operator Relationship Specialty Start Date End Date Rosalinda Marinelli, GARMENT PARTS CUTTER MACHINE [address] [place] [id number] PCP - General 08/26/23 documented as of this encounter
--- OUTSIDE RECORDS SUMMARY | 2024-04-03 15:43 | XMS_ITS | Encounter Summary ---
Author Organization [facility] er Address [address] [place] [address] Care Team Providers Care Billing Customer Service Representative Name Role Phone Rosalinda Marinelli APRN Primary Care Provider Reason for Visit * Reason Comments Med Refill Encounter Details Date Type Department Care Team (Late st Contact Info) Description 01/20/2021 Refill [place] [address] [place] [address] Nara Reyes MD [address] [place] [address] Encounter for screening colonoscopy Social History Tobacco Use Types Packs/Day Years Used Date Smoking Tobacco: Former Cigarettes Q uit: 2010 Smokeless Tobacco: Never Alcohol Use Standard Drinks/Week Comments Yes 0 (1 standard drink = 0.6 oz pur e alcohol) rare AUDIT-C Answer Date Recorded Frequency of Alcohol Consumption Monthly or less 09/15/2018 Average Number of Drinks 1 or 2 018 Frequency of Binge Drinking Not on file 06/2018 PHQ-2 Answer Date Recorded PHQ-2 Score 0 05/22/2019 [facility] [place] of Occupat ional Health - Occupational Stress Questionnaire Answer Date Recorded Feeling of Stress Not at all 06/14/2019 Exercise Vital Sign Answer Date Recorde d Days of Exercise per Week 0 days 2018 Minutes of Exercise per Session 0 min 06/14/2019 Sex and Gender Information Value Date Recorded Sex Assigned at Not on file Gender Identity Not on file Sexual Orientation Not on file documented as of this encounter Miscellaneous Notes * Telephone Encounter - Licha Cesar LPN - 01/22/2021 12:25 PM CDT Requested Prescriptions Pending Prescriptions Disp Refills ??? polyethylene glycol-electrolytes (NULYTELY) 420 g solution [Pharmacy Med Name: PEG 3350-KCL-NA BICARB-NAC 420 SOLR] 0 Sig: MIX AND DRINK ACCORDING TO DIRECTIONS ON YOUR [facility] [place]P SHEET Pre-procedural rx, no refill. Pharmacy notified. documented in this encounter Plan of Treatment Not on file documented as of this encounter Visit Diagnoses Diagnosis Encounter for screening colonoscopy documented in this encounter Care Teams Billing Customer Service Representative Relationship Specialty Start Date End Date Rosalinda Marinelli, MARINE DRAFTER [address] [place] [address] PCP - General 08/26/23 documented as of this encounter
--- OUTSIDE RECORDS SUMMARY | 2024-04-03 15:43 | XMS_ITS | Encounter Summary ---
Author Organization [facility] er Address [address] [place] [address] Care Team Providers Care Vat Skimmer Name Role Phone Rosalinda Marinelli APRN Primary Care Provider Reason for Visit * Reason Comments Med Refill Encounter Details Date Type Department Care Team (Late st Contact Info) Description 04/26/2020 Refill [place] [address] [place] [address] Nara Reyes MD [address] [facility] [address] [place] [address] Chronic pain due to trauma Social History Tobacco Use Types Packs/Day Years Used Date Smoking Tobacco: Former Cigarettes Q uit: 2010 Smokeless Tobacco: Never Alcohol Use Standard Drinks/Week Comments Yes 0 (1 standard drink = 0.6 oz pur e alcohol) AUDIT-C Answer Date Recorded Frequency of Alcohol Consumption Monthly or less 09/15/2018 Average Number of Drinks 1 or 2 018 Frequency of Binge Drinking Not on file 06/2018 PHQ-2 Answer Date Recorded PHQ-2 Score 0 05/22/2019 [facility] [place] of Occupat ional Health - Occupational Stress [...] encounter Miscellaneous Notes * Telephone Encounter - Luann Loyola - 04/30/2020 4:53 PM CDT Fax rx to [facility] * Telephone Encounter - Randi Nuñez LPN - 04/30/2020 11:09 AM CDT Last visit in provider department: 04/03/2020 Last visit requested medication was discussed: 12/01/2019 Upcoming appointment with provider: Visit date not found Last Rx: 03/27/2020 # 180, 0 refills Requested Prescriptions Pending Prescriptions Disp Refills ??? traMADol (ULTRAM) 50 MG tablet [Pharmacy Med Name: TRAMADOL HCL 50MG TABS] 180 tablet 0 Sig: TAKE TWO TABLETS BY MOUTH THREE TIMES A DAY FOR CHRONIC PAIN (REFILLS NO SOONER THAN EVERY 30 DAYS) documented in this encounter Plan of Treatment Not on file documented as of this encounter Visit Diagnoses Diagnosis Chronic pain due to trauma documented in this encounter Additional Health Concerns Infection Onset Date Last Indicated Resolved Time COVID-19 Rule Out 05/13/2020 06/04/2020 06/05/2020 7:32 PM CDT documented as of this encounter Care Teams Vat Skimmer Relationship Specialty Start Date End Date Rosalinda Marinelli, DATA ENTRY SUPERVISOR [address] [place] [id number] PCP - General 08/26/23 documented as of this encounter
--- OUTSIDE RECORDS SUMMARY | 2024-04-03 15:43 | XMS_ITS | Encounter Summary ---
Author Organization [facility] er Address [address] [place] [address] Care Team Providers Care Epic Willow Specialist Name Role Phone Rosalinda Marinelli APRN Primary Care Provider Encounter Details Date Type Department Care Team (Late st Contact Info) Description 01/19/2024 Orders Only [place] [address] [place] [address] Rosalinda Marinelli APRN [address] [place] [address] Social History Tobacco Use Types Packs/Day Years Used Date Smoking Tobacco: Former Cigarettes Q uit: 2010 Smokeless Tobacco: Never Alcohol Use Standard Drinks/Week Comments Yes 0 (1 standard drink = 0.6 oz pur e alcohol) rare Humiliation, Afraid, Rape, and Kick questionnair e Answer Date Recorded Within the last year, have y ou been afraid of your partner or ex-partner? No 08/02/2023 Within the last year, have y ou been humiliated or emotionally abused in other ways by your partner or ex-partner? No Within the last year, have y ou been kicked, hit, slapped, or otherwise physically hurt by your partner or ex-partner? No 08/02/2023 Within the last year, have y ou been raped or forced to have any kind of sexual activity by your partner or ex-partner? No 08/02/2023 Social Connection and Isolat ion Panel [NHANES] Answer Date Recorded In a typical week, how many times do you talk on the phone with family, friends, or neighbors? More than three times a week 08/02/2023 How often do you get togethe r with friends or relatives? Once a week 08/02/2023 How often do you attend chur or gnosticism services? Never 08/02/2023 Do you belong to any clubs o r organizations such as religion groups, unions, fraternal or athletic groups, or school groups? Yes 08/02/2023 How often do you attend meet ings of the clubs or organizations you belong to? More than 4 times per year 08/02/2023 Are you , , di vorced, , never , or living with a partner? 08/02/2023 AUDIT-C Answer Date Recorded Q1: How often do you have a drink containing alcohol? Never 08/02/2023 Q2: How many drinks containi ng alcohol do you have on a typical day when you are drinking? Patient does not drink Q3: How often do you have si x or more drinks on one occasion? Never 08/02/2023 Overall Financial Resource Strain (CARDIA) Answe r Date Recorded How hard is it for you to pa y for the very basics like food, housing, medical care, and heating? Not hard at all 08/02/2023 PHQ-2 Answer Date Recorded PHQ-9 Total Score 9 08/02/2023 [facility] - Occupational Stress Questionnaire Answer Date Recorded Do you feel stress - tense, restless, nervous, or anxious, or unable to sleep at night because your mind is troubled all the time - these days? Only a little 08/02/2023 Exercise Vital Sign Answer Date Recorde d On average, how many days pe r week do you engage in moderate to strenuous exercise (like a brisk walk)? 0 days 08/02/2023 On average, how many minutes do you engage in exercise at this level? 0 min 08/02/2023 Hunger Vital Sign Answer Date Recorded Within the past 12 months, y ou worried that your food would run out before you got the money to buy more. Never true 08/02/20 23 Within the past 12 months, t he food you bought just didn't last and you didn't have money to get more. Never true 08/02/2023 PRAPARE - Transportation Answer Date Re corded In the past 12 months, has l ack of transportation kept you from medical appointments or from getting medications? No 07/10 In the past 12 months, has l ack of transportation kept you from meetings, work, or from getting things needed for daily living? No 08/02/2023 Housing Stability Vital Sign Answer Shyam e Recorded In the last 12 months, was t here a time when you were not able to pay the mortgage or rent on time? No 08/02/2023 In the last 12 months, how many places have you lived? 1 08/02/2023 In the last 12 months, was t here a time when you did not have a steady place to sleep or slept in a mcc (including now)? No 08/02/2023 Sex and Gender Information Value Date Recorded Sex Assigned at Not on file Gender Identity Not on file Sexual Orientation Not on file documented as of this encounter Plan of Treatment Not on file documented as of this encounter Visit Diagnoses Not on filedocumented in this encounter Care Teams Epic Willow Specialist Relationship Specialty Start Date End Date Rosalinda Marinelli, PROGRAMMER ANALYST [address] [place] [phone] PCP - General 08/26/23 documented as of this encounter
--- OUTSIDE RECORDS SUMMARY | 2024-04-03 15:43 | XMS_ITS | Encounter Summary ---
Author Organization [facility] er Address [address] [place] [address] Care Team Providers Care Technology Infusion Specialist Name Role Phone Rosalinda Marinelli APRN Primary Care Provider Reason for Visit * Reason Comments Med Refill Encounter Details Date Type Department Care Team (Late st Contact Info) Description 12/03/2020 Refill [place] [address] [place] [address] Nara Reyes MD [address] [place] [address] Chronic pain syndrome Social History Tobacco Use Types Packs/Day Years [...] Answer Date Recorded PHQ-2 Score 0 05/22/2019 [facility] [place] of Occupat ional Health - Occupational Stress [...] encounter Miscellaneous Notes * Telephone Encounter - Lilia Zamudio MA - 12/05/2020 11:27 AM CST [facility] 12/05/2020 and its a WC. It was filled 12/03/2020 # 180, 3 refill. E PAINTER HELPER documented in this encounter Plan of Treatment Not on file documented as of this encounter Visit Diagnoses Diagnosis Chronic pain syndrome documented in this encounter Care Teams Technology Infusion Specialist Relationship Specialty Start Date End Date Rosalinda Marinelli, SENIOR HADOOP DEVELOPER [address] [place] [phone] PCP - General 08/26/23 documented as of this encounter
--- OUTSIDE RECORDS SUMMARY | 2024-04-03 15:43 | XMS_ITS | Encounter Summary ---
Author Organization [facility] er Address [address] [place] [address] Care Team Providers Care Lathe Set Up Operator Name Role Phone Rosalinda Marinelli APRN Primary Care Provider Reason for Visit * Reason Comments Med Refill Encounter Details Date Type Department Care Team (Late st Contact Info) Description 07/20/2022 Refill [place] [address] [place] [address] Nara Reyes MD [address] [place] [address] Chronic pain due to trauma Social History Tobacco Use Types Packs/Day Years Used Date Smoking Tobacco: Former Cigarettes Q uit: 2011 Smokeless Tobacco: Never Alcohol Use Standard Drinks/Week Comments Yes 0 (1 standard drink = 0.6 oz pur e alcohol) rare AUDIT-C Answer Date Recorded Q1: How often do you have a drink containing alc ohol? Monthly or less 03/06/2021 Q2: How many drinks containi ng alcohol do you have on a typical day when you are drinking? 1 or 2 03/06/2021 Frequency of Binge Drinking Not on file 02/07 PHQ-2 Answer Date Recorded PHQ-9 Total Score 0 12/24/2021 [facility] [place] of Occupat ional Health - Occupational Stress [...] * Telephone Encounter - Deja Hart - 07/21/2022 10:00 AM CDT Tramadol Rx faxed to [facility] * Telephone Encounter - Lesli Bryant RN - 07/21/2022 9:33 AM CDT Please fax. Thank you. * Telephone Encounter - Kamilah Mayberry RN - 07/20/2022 4:35 PM CDT Please review. * Telephone Encounter - Elmira Starr LPN - 07/20/2022 4:17 PM CDT Last visit in provider department: 02/04/2022 Last visit requested medication was discussed: 02/04/2022 Last Rx: #180 with 5 refills 01/01/2022 Requested Prescriptions Pending Prescriptions Disp Refills ??? traMADol (ULTRAM) 50 MG tablet [Pharmacy Med Name: TRAMADOL HCL 50MG TABS] 180 tablet 5 Sig: TAKE TWO TABLETS BY MOUTH THREE TIMES A DAY Labs: n/a RUDS in last 12 months: none CSA signed in last 12 months: none Vitals: BP Readings from Last 2 Encounters: 02/04/22 132/88 12/24/21 112/86 Upcoming appointment with provider: Visit date not found Patient is due for 3 month follow up appointment. PSR/Nurse: Please contact patient to assist with scheduling. documented in this encounter Plan of Treatment Not on file documented as of this encounter Visit Diagnoses Diagnosis Chronic pain due to trauma documented in this encounter Care Teams Lathe Set Up Operator Relationship Specialty Start Date End Date Rosalinda Marinelli APRN [address] [place] [id number] PCP - General 08/26/23 documented as of this encounter
--- OUTSIDE RECORDS SUMMARY | 2024-04-03 15:43 | XMS_ITS | Encounter Summary ---
Author Organization [facility] er Address [address] [facility] [place] [address] Care Team Providers Care Oracle Etl Developer Name Role Phone Rosalinda Marinelli APRN Primary Care Provider Reason for Visit * Reason Comments Med Refill Encounter Details Date Type Department Care Team (Late st Contact Info) Description 01/19/2024 Refill [place] [address] [place], [place] [id number] Rosalinda Marinelli APRN [address] [place], [place] [address] Gastroesophageal reflux disease without esophagitis Social History Tobacco Use Types Packs/Day Years [...] 08/02/2023 How often do you attend chur ch or yazidism services? Never 08/02/2023 Do you belong to any clubs o r organizations such as islam groups, unions, fraternal or athletic groups, or [...] Date Recorded PHQ-9 Total Score 9 08/02/2023 [facility] of Occupat ional Health - Occupational Stress [...] place to sleep or slept in a retirement (including now)? No 08/02/2023 Sex and Gender Information Value Date Recorded Sex Assigned at Not on file Gender Identity Not on file Sexual Orientation Not on file documented as of this encounter Miscellaneous Notes * Telephone Encounter - Anastasiia Cotton LPN - 01/19/2024 2:46 PM CDT Patient informed * Telephone Encounter - Rosalinda Marinelli APRN - 01/19/2024 2:00 PM CDT Ok, looks like it was sent to [facility] * Telephone Encounter - Anastasiia Cotton LPN - 01/19/2024 12:55 PM CDT Yeap that is the correct pharmacy. * Telephone Encounter - Rosalinda Marinelli APRN - 01/19/2024 12:32 PM CDT What pharmacy? Looks like [facility] is the only pharmacy we have. * Telephone Encounter - Rosalinda Marinelli APRN - 01/19/2024 11:44 AM CDT RX sent to pharmacy * Telephone Encounter - Lesli Bryant RN - 01/19/2024 11:43 AM CDT Sent to [facility]. * Telephone Encounter - Licha Cesar LPN - 01/19/2024 10:44 AM CDT Patient is due for CP appointment. PSR: Please contact patient to assist with scheduling. Upcoming appointment with provider: Visit date not found Last visit in provider department: 08/25/2023 Last visit requested medication was discussed: med/dx has not been reviewed in the last year Last Rx: #180, 3 refills 12/17/2022 Requested Prescriptions Pending Prescriptions Disp Refills lansoprazole (PREVACID) [address] capsule [Pharmacy Med Name: LANSOPRAZOLE 30MG CPDR] 180 capsule 3 Sig: TAKE ONE CAPSULE BY MOUTH TWICE A DAY FOR SEVERE HEART BURN Vitals: BP Readings from Last 2 Encounters: 08/25/23 112/78 08/24/23 (!) 156/86 documented in this encounter Plan of Treatment Not on file documented as of this encounter Visit Diagnoses Diagnosis Gastroesophageal reflux disease without esophagitis Esophageal reflux documented in this encounter Care Teams Oracle Etl Developer Relationship Specialty Start Date End Date Rosalinda Marinelli APRN [address] [place] [id number] PCP - General 08/26/23 documented as of this encounter
--- OUTSIDE RECORDS SUMMARY | 2024-04-03 15:43 | XMS_ITS | Encounter Summary ---
Author Organization [facility] er Address [address] [place] [address] Care Team Providers Care Cotton Gin Yard Supervisor Name Role Phone Rosalinda Marinelli APRN Primary Care Provider Encounter Details Date Type Department Care Team (Late st Contact Info) Description 06/10/2020 Telephone [facility] Medical[facility] [address] [place] [address] [place] [address] [place] [phone] Social History Tobacco Use Types Packs/Day Years [...] Answer Date Recorded PHQ-2 Score 0 05/22/2019 [facility] of Occupat ional Health - Occupational Stress [...] on file Sexual Orientation Not on file COVID-19 Exposure Response Date Recorded In the last month, have you been in contact with someone who was confirmed or suspected to have Coronavirus / COVID-19? No / Unsure 06/07/2020 5:56 AM CDT documented as of this encounter Plan of Treatment Not on file documented as of this encounter Visit Diagnoses Not on filedocumented in this encounter Care Teams Cotton Gin Yard Supervisor Relationship Specialty Start Date End Date Rosalinda Marinelli, ACCESS CLERK [address] [place] [phone] PCP - General 08/26/23 documented as of this encounter
--- OUTSIDE RECORDS SUMMARY | 2024-04-03 15:43 | XMS_ITS | Continuity of Care Document ---
Author Organization [facility] Address [address] [place] [address] Phone Care Team Providers Care Continuous Absorption Process Operator Name Role Phone Doug Resendez MD Unavailable Unavailable Allergies, Adverse Reactions, Alerts Substance Reaction Status Criticality Penicillins Active No Information EGG WHITE Active No Information PENICILLIN Active No Information Fish Containing Products Active No Information DYE Active No Information Medications Medication Instructions Dosage Effective Dates (start - stop) Status Comments meloxicam 15 mg tablet take 1 tablet by oral route every day. Do not take with other NSAIDS - Active TIZANIDINE HCL (unknown strength) Not Available - Active ASPIRIN (unknown strength) Not Available - Active GABAPENTIN (unknown strength) Not Available - Active SIMVASTATIN (unknown strength) Not Available - Active TRAMADOL HCL (unknown strength) Not Available - Active ATENOLOL (unknown strength) Not Available - Active LEVOTHYROXINE SODIUM (unknown strength) Not Available - Active GLIPIZIDE (unknown strength) Not Available - Active PREVACID (unknown strength) Not Available - Active ZYRTEC (unknown strength) Not Available - Active DULOXETINE HCL (unknown strength) Not Available - Active LISINOPRIL (unknown strength) Not Available - Active Procedures Procedure Date Office/Outpatient Visit,Est, Mod 2022 POSTOP FOLLOW-UP VISIT Telephone 2022 PSF, Lumbar - PA Reinsertion of Instrumentation - PA Lami, Facetectomy/Foraminotomy, Lumbar ( Stenosis) Lami, Facetectomy/Foraminotomy - Additio nal Level(s) - PA PEEK/ Cage/ Implant, For Interbody Fusio n - PA PSF, Lumbar Reinsertion of Instrumentation 23 ALIF / OLIF Anterior Lumbar Interbody Fu douglas Lami, Facetectomy/Foraminotomy, Lumbar ( Stenosis) Lami, Facetectomy/Foraminotomy - Additio nal Level(s) PEEK/ Cage/ Implant, For Interbody Fusio n Office/Outpatient Visit,Est, Mod 2022 Office/Outpatient Visit,Est, Mod 2021 Office/Outpatient Visit,Est, Mod 2021 Postop Followup Visit PSF, Lumbar - PA PSF - Additional Level(s) - PA 22 Lami, Facetectomy/Foraminotomy, Lumbar ( Stenosis) Lami, Facetectomy/Foraminotomy - Additio nal Level(s) - PA Posterior Instrumentation, 3-6 Segments - PA PSF, Lumbar PSF - Additional Level(s) Lami, Facetectomy/Foraminotomy, Lumbar ( Stenosis) Lami, Facetectomy/Foraminotomy - Additio nal Level(s) Posterior Instrumentation, 3-6 Segments Bone Marrow Aspiration, From I ncision Allograft, Morcelized, and/or BMP Office/Outpatient Visit,New, Mod 2020 Advance Directives Directive Yes / No Effective Date File Name No Information Encounters Encounter Description Practice Location Reason(s) For Visit Diagnoses Date Provider Providers Copied on Encounter Office/Outpat ient Visit,Est, Mod [facility], [address], [place], [id number], [place] tel:[phone] [facility] Encounter for other specified surgical aftercare 3 Dipti Camacho. [facility], [address] [place] [address], [address], [place], [place], [id number] , [place]. tel:[phone] Referring Provider: Abilio Del Cid, [address] , [place], [address]. tel:[phone] [facility], [address], [place], [id number], [place] tel:[phone] [facility] No Information 3 Resendez Doug. [facility], [address], [address], [place], [place], [id number] , [place]. tel:[phone] Referring Provider: Abilio Del Cid, [address] , [place], [address]. tel:[phone] [facility], [address], [place], [id number], [place] tel:[phone] [facility] No Information 3 Panvica Lee. [facility], [address], [address], [place], [place], [id number] , [place]. tel:[phone] Referring Provider: Abilio Del Cid, [address], [place], [address]. tel:[phone] [facility], [address], [place], [id number], [place] tel:[phone] [facility] No Information 3 Resendez Doug. [facility], [address], [address], [place], [place], [id number] , [place]. tel:[phone] Referring Provider: Abilio Del Cid, [address], [place], [address]. tel:[phone] Office/Outpat ient Visit,Est, Mod [facility], [address], [place], [id number], [place] tel:[phone] [facility] Pseudarthrosis after fusion or arthrodesis March-0 3 Resendez Doug. [facility], [address] [place] [address], [address], [place], [place], [id number] , [place]. [phone] Referring Provider: Abilio Del Cid, [address] , [place], [address]. tel:[phone] Office/Outpat ient Visit,Est, Mod [facility], [address], [place], [id number], [place] tel:[phone] [facility] Encounter for other specified surgical aftercare Sep-2 2 Panvica Lee. [facility], [address] [place] [address], [address], [place], [place], [id number] , [place]. [phone] Referring Provider: Abilio Del Cid, [address], [place], [address]. tel:[phone] Office/Outpat ient Visit,Est, Mod [facility], [address], [place], [id number], [place] tel:[phone] [facility] Encounter for other specified surgical aftercare Andre-3 2 Panvica Lee. [facility], [address] [place] [address], [address], [place], [place], [id number] , [place]. tel:[phone] Referring Provider: Abilio Del Cid, [address], [place], [address]. tel:[phone] [facility], [address], [place], [id number], [place] tel:[phone] [facility] Encounter for other specified surgical aftercare Apr- 2 Resendez Doug. [facility], [address] [place] [address], [address], [place], [place], [id number] , [place]. tel:[phone] Referring Provider: Abilio Del Cid, [address], [place], [address]. tel:[phone] [facility], [address], [facility] [place], [id number], [place] tel:[phone] [facility] No Information Jan-0 3- 2 Panwua Lee. [facility], [address] [place] [address], [facility] [address], [place], [place], [id number] , [place]. tel:[phone] Referring Provider: Abilio Del Cid, [address], [address]. tel:[phone] [facility], [address], [facility] [place], [id number], [place] tel:[phone] [facility] No Information 0 2-202 2 Dipti Camacho. [facility], [address] [place] [address] [address], [place], [place], [id number] , [place]. tel:[phone] Referring Provider: Abilio Del Cid, [address], [place], [address]. tel:[phone] Office/Outpat ient Visit,New, Mod [facility], [address], [facility] [place], [id number], [place] tel:[phone] [facility] - [facility] Other spondylosis, lumbosacral regionSpondylol isthesis, lumbar regionOther intervertebral disc displacement, lumbosacral regionRadiculop athy, lumbosacral region 1 Perez Cook. [facility], [address] [place] [address] [address], [place], [place], [id number] , [place]. tel:[phone] Referring Provider: Abilio Del Cid, [address], [place], [address]. tel:[phone] Family History Family Member Type Diagnosis Age At Onset No Information Payers Payer name Insurance type Covered republican ID Tami burroughs(s) jason Medicare [facility] 2021 CI [id number] Social History Type Description Quantity Date Captured Comments Alcohol Use Details Unknown Caffeine Use Details Unknown Tobacco Use Status Ex-cigarette smoker 023 Smoking Status Former smoker Non-Smoking Tobacco Use Details : No Details Available : No Details Available Sex Female Vital Signs Date / Time: Height Weight BMI Pulse Rate Blood Pressure Temperature Respiratory Rate Body Surface Area Head Circumference Head Circ. Percentile Wt./[place]. Percentile BMI percentile Pulse Ox Inhaled Ox 9:02 AM 63.50 in 108.862 kg (240.00 lbs) 41.8 5 kg/m eter (2) Chief Complaint And Reason For Visit No Information Reason For Referral Reason For Referral No Information Plan Of Treatment Date Type Action Status Appointment Yesica Cancino BOOKED History Of Present Illness Encounter Date Complaint History Of Prese nt Illness No Information Functional Status Date Functional Assessmen t No Information Instructions Date Instruction Additional Infor mation No Information Assessments Type Assessment Date No Information Patient Care Teams Name Effective Dates (start - stop) Status Members No Information
--- OUTSIDE RECORDS SUMMARY | 2024-04-03 15:43 | XMS_ITS | Encounter Summary ---
Author Organization [facility] er Address [address] [place] [address] Care Team Providers Care Quality Assurance Monitor Body Name Role Phone Rosalinda Marinelli APRN Primary Care Provider Encounter Details Date Type Department Care Team (Late st Contact Info) Description 05/07/2023 Telephone [facility] [address] [place] [address] Rad Cerda RN [address] [place] [address] Social History Tobacco Use Types Packs/Day Years [...] Date Recorded PHQ-9 Total Score 0 12/24/2021 [facility] - Occupational [...] on filedocumented in this encounter Care Teams Quality Assurance Monitor Body Relationship Specialty Start Date End Date Rosalinda Marinelli, MASTER YACHT [address] [place] [address] PCP - General 08/26/23 documented as of this encounter
--- OUTSIDE RECORDS SUMMARY | 2024-04-03 15:43 | XMS_ITS | Encounter Summary ---
Author Organization [facility] er Address [address] [place] [address] Care Team Providers Care An/Sqq 89(V)15 Sonar System Journeyman Name Role Phone Rosalinda Marinelli APRN Primary Care Provider Encounter Details Date Type Department Care Team (Late st Contact Info) Description 05/24/2020 Telephone [facility] [address] [place] [address] [place] [address] [place] [address] Social History Tobacco Use Types Packs/Day [...] Answer Date Recorded PHQ-2 Score 0 05/22/2019 [facility] [place] of Occupat ional Health - Occupational Stress [...] Diagnoses Not on filedocumented in this encounter Additional Health Concerns Infection Onset Date Last Indicated Resolved Time COVID-19 Rule Out 05/13/2020 06/04/2020 06/05/2020 7:32 PM CDT documented as of this encounter Care Teams An/Sqq 89(V)15 Sonar System Journeyman Relationship Specialty Start Date End Date Rosalinda Marinelli APRN [address] [place] [address] PCP - General 08/26/23 documented as of this encounter
--- OUTSIDE RECORDS SUMMARY | 2024-04-03 15:43 | XMS_ITS | Encounter Summary ---
Author Organization [facility] er Address [address] [place] [address] Care Team Providers Care Driver Operator Name Role Phone Rosalinda Marinelli APRN Primary Care Provider Encounter Details Date Type Department Care Team (Late st Contact Info) Description 06/10/2020 Telephone [facility] [address] [place] [address] Lesli Valadez RN [address] [place] [address] Social History Tobacco Use Types Packs/Day [...] Answer Date Recorded PHQ-2 Score 0 05/22/2019 [facility] [place] of Occupat ional Health - Occupational Stress [...] on filedocumented in this encounter Care Teams Driver Operator Relationship Specialty Start Date End Date Rosalinda Marinelli APRN [address] [place] [address] PCP - General 08/26/23 documented as of this encounter
--- OUTSIDE RECORDS SUMMARY | 2024-04-03 15:43 | XMS_ITS | Clinical Summary ---
Author Organization [facility] Address [place], [place] [address] Care Team Providers Care Sales Support Advisor Name Role Phone Abilio Reyes Primary Care Provider [phone] Allergies Active Allergy Reactions Criticality Noted Date Comments Animal Dander Shortness Of Breath 12/14/2013 Clarithromycin Dyspnea High 04/05/2007 Asthma attack Cinnamon Other - Describe In Comment Field 01/06/2022 Dust , gives asthma attack Erythromycin Hives High 02/15/2012 Fish Containing Products Anaphylaxis,Karime rtnes s Of Breath High 08/02/2019 Facial swelling Iodine Hives,Dyspnea High 04/05/2007 Contrast dye Cephalexin Hives,Dyspnea High 04/05/2007 Allergies to other abx ; doesn't not know the names Lanolin Hives 01/07/2022 Levofloxacin Other - Describe In Comment Field 01/05/2012 Pain, tendon damage Metformin Hives 04/21/2021 Tree Nut Anaphylaxis High 01/07/2022 Nystatin Hives 01/07/2022 Penicillins Rash,Dyspnea High 04/05/2007 Pollen Extracts Other - Describe In Comment Field 01/06/2022 Asthma, breathing ,Environmental, trees Quinolones *Unknown 07/06/2023 Ragweed Runny Nose 01/07/2022 Unlisted Allergen (Include Detail In Comments) Runny Nose 08/26/2018 Trees, [place], [place], wool, feathers, Venom-Honey Bee Anaphylaxis High 12/14/2013 Medications Medication Sig Dispensed Refills Start Date End Date Status LANSOPRAZOLE (PREVACID ORAL)Indications:symp tomatic gastroesophageal reflux disease Take 30 mg by mouth 2 times daily. Active gabapentin (NEURONTIN) 800 mg tablet Take by mouth three times daily. 1.5 tablets (1200 mg) in morning and afternoon, 1 tablet (800 mg) at bedtime. 0 08/02/2019 Active simvastatin (ZOCOR) 40 mg tabletIndications:mix ed hyperlipidemia Take 1 tablet by mouth at bedtime. 0 08/02/2019 Active aspirin (ECOTRIN) 81 mg enteric coated tablet Take 1 tablet by mouth once daily with a meal. 0 08/02/2019 Active cetirizine (ZYRTEC) 10 mg tabletIndications:per ennial allergic rhinitis Take 1 tablet by mouth once daily. 0 08/02/2019 Active DULoxetine (CYMBALTA) 60 mg Delayed-release capsuleIndications:di abetic peripheral neuropathy Take 60 mg by mouth once daily. Active ondansetron (ZOFRAN) 4 mg tablet Take 4 mg by mouth every 8 hours if needed for Nausea/Vomiting. Active levothyroxine (SYNTHROID) 125 mcg tabletIndications:hyp othyroidism Take 125 mcg by mouth before breakfast. Active sennosides-docusate (SENOKOT S) (8.6-50 mg) tabletIndications:Con stipation due to opioid therapy Take 2 Tablets by mouth 2 times daily if needed for Constipation. 20 tablet. 01/11/2022 Active atenoloL (TENORMIN) 50 mg tabletIndications:hyp ertension Take 50 mg by mouth once daily. 03/16/2023 Active NovoLIN 70-30 FlexPen U-100 100 unit/mL (70-30) penIndications:Type 2 diabetes mellitus without complication, with long-term current use of insulin (HC) Inject 12 units subcutaneous two times daily before meals. 0 07/14/2023 Active lisinopriL (PRINIVIL; ZESTRIL) 10 mg tabletIndications:HTN (hypertension) Take 0.5 Tablets (5 mg) by mouth once daily. Hold if SBP if under 110 0 07/20/2023 Active oxyCODONE (ROXICODONE) 5 mg immediate release tabletIndications:Spo ndylolisthesis of lumbar region Take 1-2 Tablets (5-10 mg) by mouth every 4 hours if needed for Pain. 50 Tablet 07/20/2023 Active methocarbamoL (ROBAXIN) 500 mg tabletIndications:Sta tus post lumbar spine surgery for decompression of spinal cord Take 250 mg every 4 hours as needed for muscle spasm, pain. 0 07/20/2023 Active Active Problems Problem Noted Date Diagnosed Date LINDA (acute kidney injury) 01/09/2022 Normocytic anemia 01/09/2022 ACP (advance care planning) 01/09/2022 Overview: Patient has identified Health Care Agent(s): Yes Add Health Care Agents: Yes Health Care Agent(s): Primary Health Care Agent: Ruperto Cancino Relationship: Secondary Health Care Agent: Relationship: Phone: Conservator: Relationship: Phone: Guardian: Relationship: Phone: Patient has Advance Care Plan Documents (Health Care Directive, POLST): No, Health Care Packet given to declined. Patient has identified Specific Treatment Preferences: No Specific limits to treatment preferences NOT identified: ASSUME FULL TREATMENT. Spondylolisthesis of lumbar region 01/07/2022 DM2 (diabetes mellitus, type 2) 01/07/2022 JESS (obstructive sleep apnea) 01/07/2022 Narcotic dependence 01/07/2022 HTN (hypertension) 01/07/2022 Hyperlipidemia 01/07/2022 Morbid obesity 01/07/2022 Encounters Date Type Department Care Team Description 01/18/2024 Lab Requisition [facility] [phone] Elisabeth Medina MD from Last 3 Months Family History Medical History Relation Name Comments Hypertrophic cardiomyopathy Mother Relation Name Status Comments Mother Social History Tobacco Use Types Packs/Day Years Used Date Smoking Tobacco: Former Cigarettes Q uit: 04/05/2005 Smokeless Tobacco: Never Tobacco Cessation:Counseling Given: Not Answered Comments:chews nicorette gum Alcohol Use Standard Drinks/Week Comments No 0 (1 standard drink = 0.6 oz pur e alcohol) minimal Social Connections Answer Date Recorded Frequency of Communication with Friends and Fami ly Not on file 07/07/2023 Sex and Gender Information Value Date Recorded Sex Assigned at Not on file Gender Identity Not on file Sexual Orientation Not on file Obstetrics History Last Filed Vital Signs Vital Sign Reading Time Taken Comments Blood Pressure 144/67 07/14/2023 3:36 PM CDT Pulse 69 07/14/2023 3:36 PM CDT Temperature 36.8 ??C (98.2 ??F) 07/14/2023 3:36 PM CD T Respiratory Rate 17 07/14/2023 3:36 PM CDT Oxygen Saturation 98% 07/14/2023 3:36 PM CDT Inhaled Oxygen Concentration - - Weight 108.7 kg (239 lb 10.2 oz) 07/07/2023 7:24 AM CDT Height 161.8 cm (5' 3.7) 07/07/2023 7:24 AM CDT Body Mass Index 41.52 07/07/2023 7:24 AM CDT Plan of Treatment Health Maintenance Due Date Last Done Comments Pneumococcal series for age 65+ (1 of 2 - PCV) 962 Tdap 1967 Depression screening for age 12+ 1968 BMI (ht and wt on same day) for age 18+ 1974 Hepatitis C screening for age 18-79 1974 Tetanus booster 1976 Colonoscopy through age 75 2001 Lipids for age 45-75 2001 Mammogram for age 45-75 2001 Zoster (shingles) series for age 50+ (1 of 2) 03/08/20 06 DEXA/DXA scan for age 65+ 2021 Medicare Wellness for age 65+ 2021 COVID-19 vaccine series (2022- season) 3 Influenza for age 65+ 07/09/2024 Medical Devices Implanted Type Area Funds Development Director Device Identifier Shelf Expiration Date Model / Serial / Lot Bone 1-4mm 90cc Medtronic Chips Canclls Freeze Dried - Sabino: [id number] Implanted:Qty: 1 on 01/07/2022 by Doug Resendez MD at [facility] Lumbar Vertebrae Medtronic Spine/Ortho 02/21/2026 [id number] / ID: [id number] / [id number] Description: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 L4-S1 Screw Lmbr Post 7.5x45mm Solera 5.5/6 Va Cocr - [id number] Implanted:Qty: 1 on 07/07/2023 by Doug Resendez MD at [facility] N/A: Lumbar Vertebrae Medtronic Spine/Ortho [id number] / / Screw Lmbr Post 8.5x45mm Solera 5.5/6 Va Cocr - [id number] Implanted:Qty: 3 on 07/07/2023 by Doug Resendez MD at [facility] N/A: Lumbar Vertebrae Medtronic Spine/Ortho [id number] / / Screw Lmbr Post 9.5x40mm Solera 5.5/6 Va Cocr - [id number] Implanted:Qty: 2 on 07/07/2023 by Doug Resendez MD at [facility] N/A: Lumbar Vertebrae Medtronic Spine/Ortho [id number] / / Nawaf Lmbr 70x5.5mm Solera 5.5/6 Cvd Titnm - [id number] Implanted:Qty: 2 on 07/07/2023 by Doug Resendez MD at [facility] N/A: Lumbar Vertebrae Medtronic Spine/Ortho [id number] / / Putty Easypack 5cc Magnetos - [id number] Implanted:Qty: 1 on 07/07/2023 by Doug Resendez MD at [facility] N/A: Lumbar Vertebrae [employer] 10/08/2025 [id number] / / [id number] Endoskeleton Tas Implant Implanted:Qty: 1 on 07/07/2023 by Dogu Resendez MD at [facility] N/A: Lumbar Vertebrae Medtronic 10/08/2026 [id number] / / [id number] 5.5x25 Screw Implanted:Qty: 3 on 07/07/2023 by Doug Resendez MD at [facility] N/A: Lumbar Vertebrae Medtronic [id number] / / Description:anterior Bone Matrix 3cc [place] Dbf Putty Dbm - [id number] Implanted:Qty: 1 on 07/07/2023 by Doug Resendez MD at [facility] N/A: Lumbar Vertebrae Medtronic Spine/Ortho 05/24/2025 [id number] / [id number] / Bone Matrix 3cc [employer] [place] Dbf Putty Dbm - [id number] Implanted:Qty: 1 on 07/07/2023 by Doug Resendez MD at [facility] N/A: Lumbar Vertebrae Medtronic Spine/Ortho 05/24/2025 [id number] / [id number] / Bone Matrix Sm Infuse Bmp - [id number] Implanted:Qty: 1 on 07/07/2023 by Doug Resendez MD at [facility] N/A: Lumbar Vertebrae Medtronic Spine/Ortho 11/08/2024 [id number] / / [id number] Bone 1-4mm 60cc Medtronic Fine Canclls Freeze Dried - [id number] Implanted:Qty: 1 on 07/07/2023 by Doug Resendez MD at [facility] N/A: Lumbar Vertebrae Medtronic Spine/Ortho 01/20/2027 [id number] / [id number] / Set Screw Lmbr Ant 5.5mm Solera Break Off - [id number] Implanted:Qty: 6 on 07/07/2023 by Doug Resendez MD at [facility] N/A: Lumbar Vertebrae Medtronic Spine/Ortho [id number] / / Explanted Type Area Funds Development Director Device Identifier Shelf Expiration Date Model / Serial / Lot Set Screw Lmbr Ant 5.5mm Solera Break Off - [id number] Implanted:Qty : 6 on 01/07/2022 by Doug Resendez MD at [facility] Explanted:Qty : 6 on 07/07/2023 by Doug Resendez MD at [facility] Lumbar Vertebrae Medtronic Spine/Ortho [id number] / / Description: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 L4-S1 Screw Lmbr Post 6.5x45mm Solera 5.5/6 Va Cocr - [id number] Implanted:Qty : 1 on 01/07/2022 by Doug Resendez MD at [facility] Explanted:Qty : 1 on 07/07/2023 by Doug Resendez MD at [facility] Lumbar Vertebrae Medtronic Spine/Ortho [id number] / / Description: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 L4-S1 Screw Lmbr Post 7.5x40mm Solera 5.5/6 Va Cocr - [id number] Implanted:Qty : 2 on 01/07/2022 by Doug Resendez MD at [facility] Explanted:Qty : 2 on 07/07/2023 by Doug Resendez MD at [facility] Lumbar Vertebrae Medtronic Spine/Ortho [id number] / / Description: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 L4-S1 Screw Lmbr Post 7.5x45mm Solera 5.5/6 Va Cocr - [id number] Implanted:Qty : 3 on 01/07/2022 by Doug Resendez MD at [facility] Explanted:Qty : 3 on 07/07/2023 by Doug Resendez MD at [facility] Lumbar Vertebrae Medtronic Spine/Ortho [id number] / / Description: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 L4-S1 Nawaf Lmbr 70x5.5mm Solera 5.5/6 Cvd Titnm - [id number] Implanted:Qty : 2 on 01/07/2022 by Doug Resendez MD at [facility] Explanted:Qty : 2 on 07/07/2023 by Doug Resendez MD at [facility] Lumbar Vertebrae Medtronic Spine/Ortho [id number] / / Description: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 [place] [address], * PATH TISSUE EXAM (01/18/2024 8:40 AM CDT) Case Report Pathology Report ?Case: [id number] ? Authorizing Provider: ??Elisabeth Medina MD ??Collected: ? 01/18/2024 0840 ? Ordering Location: ? [facility] ?Received: ?01/19/2024826 ? Pathologist: ? Gricelda Olson MD ? Specimens: ?? A) - Splenic Flexure Polyp ? B) - Descending Colon Polyp ? C) - Rectal Biopsy ? 01/21/2024 11:26 AM CDT [facility] Final Diagnosis A) COLON, SPLENIC FLEXURE, BIOPSY: 1. Normal colonic mucosa; a lymphoid aggregate is present (clinically,1 polyp) 2. Negative for serrated change, dysplasia, and malignancy B) COLON, DESCENDING, BIOPSY: 1. Normal colonic mucosa; a lymphoid aggregate is present (clinically,1 polyp) 2. Negative for serrated change, dysplasia, and malignancy C) RECTUM, LIPOMA, BIOPSY: 1. Colonic mucosa with no diagnostic abnormalities (see comment) 2. Negative for serrated change, dysplasia and malignancy 01/21/2024 11:26 AM CDT [facility] Comment B) Seen in consultation with Dr. Diego C) The clinical impression of a possible lipoma is noted; there is too little submucosal tissue present here to histologically evaluate this possibility. There is no diagnostic abnormalities in the sampled tissue. 01/21/2024 11:26 AM CDT [facility] Clinical Information Surveillance colonoscopy 01/21/2024 11:26 AM CDT [facility] Gross Description A) Received in formalin is a arias mucosal fragment measuring 4 mm in greatest dimension, which is entirely submitted in one cassette. It is labeled with the patient's name and designated splenic flexure polyp. B) Received in formalin are 4 arias mucosal fragments averaging 3 mm in greatest dimension, which are entirely submitted in one cassette. It is labeled with the patient's name and designated descending polyp. C) Received in formalin are 2 arias mucosal fragments averaging 2 mm in greatest dimension, which are entirely submitted in one cassette. It is labeled with the patient's name and designated rectum, lipoma. Yulisa Dorsey 01/19/2024 11:12 AM 01/21/2024 11:26 AM CDT [facility] Microscopic Description The final diagnosis is based on microscopic examination of appropriate sections of all specimens. Immunohistochemical stains were performed on block B1. CD3: Highlights T cells CD20: Highlights B cells CD5: Shows coexpression in T cells only CD43: Shows coexpression in T cells only These findings support a reactive lymphoid population. 01/21/2024 11:26 AM CDT [facility] Additional Information Interpreted at [facility] - [address], [place] [address] 01/21/2024 11:26 AM CDT [facility] Other (Splenic Flexure Polyp) 01/18/2024 8:40 AM CDT 01/19/2024 8:27 AM CDT Specimen (specimen) (Descending Colon Polyp) 01/18/2024 8:40 AM CDT 01/19/2024 8:27 AM CDT Specimen (specimen) (Rectal Biopsy) 01/18/2024 8:40 AM CDT 01/19/2024 8:27 AM CDT Elisabeth Medina MD PATHOLOGY/CYTOLO GY [facility] [address] [address], [place] from Last 3 Months Advance Directives * Full Code (Latest Code Status on File) Date Activated Date Inactivated Comments 07/07/2023 3:37 PM 07/14/2023 6:19 PM Question Answer Comments Code Status Discussion: Reviewed Preferences * Full Code Date Activated Date Inactivated Comments 01/07/2022 5:14 PM 01/13/2022 12:20 PM Question Answer Comments Code Status Discussion: Reviewed Preferences * Full Code Date Activated Date Inactivated Comments 02/15/2012 8:07 AM 02/15/2012 1:49 PM Care Teams Sales Support Advisor Relationship Specialty Start Date End Date Abilio Reyes [address] [place] [address] PCP - General Family Practice 12/17/21
--- OUTSIDE RECORDS SUMMARY | 2024-04-03 15:43 | XMS_ITS | Clinical Summary ---
Author Organization [facility] er Address [address] [place] [address] Care Team Providers Care Residential Collections Name Role Phone Rosalinda Marinelli APRN Primary Care Provider Allergies Active Allergy Reactions Criticality Noted Date Comments Animal Dander 12/14/2013 Bee Venom 12/14/2013 Cephalexin Shortness of breath,Hives High 04/05/2007 Allergies to other abx ; doesn't not know the names Cinnamon Clarithromycin Anaphylaxis High Egg-Derived Products Patient can eat foods that contain eggs ( example brownie, pancakes, mayonnaise) Fish Nausea And Vomiting,Other (see comments) 08/26/2018 BREATHING DIFFICULTY, FACIAL EDEMA, Iodinated Contrast Media Iodine Shortness of breath,Hives High 04/05/2007 Contrast dye Lanolin Levofloxacin Other (see comments) 01/05/2012 Pain, tendon damage Metformin Hives 04/21/2021 Nuts Nystatin Other 08/26/2018 Trees, [place], [place], wool, feathers, Penicillins Most of this family Ragweed Medications Medication Sig Dispensed Refills Start Date End Date Status aspirin 81 MG chewable tablet Chew 1 tablet (81 mg total) 1 (one) time each day Active cetirizine (ZyrTEC) 10 MG tablet Take 1 tablet (10 mg total) by mouth 1 (one) time each day Seasonal allergies Active EPINEPHrine (EpiPen 2-Christ) 0.3 MG/0.3ML injection syringeIndications:B ee sting allergy Inject 0.3 mL (0.3 mg total) into the thigh if needed for anaphylaxis. Call 911 after use. Use as directed for severe allergy reaction 1 each 2 05/15/2020 Active Additional Information Patient not taking.Reported on 08/25/2023 hydroCHLOROthiazide (HYDRODIURIL) 12.5 MG tabletIndications:Es sential hypertension TAKE ONE TABLET BY MOUTH EVERY DAY FOR BLOOD PRESSURE/FLUID 90 tablet 3 07/30/2022 Active Additional Information Patient not taking.Reported on 08/25/2023 ondansetron (ZOFRAN) 4 MG tabletIndications:Na usea TAKE ONE TABLET BY MOUTH EVERY 6 HOURS NEEDED FOR NAUSEA 30 tablet 3 09/02/2022 Active insulin NPH-insulin regular (NovoLIN 70/30 FlexPen) (70-30) 100 UNIT/ML injectionIndications :Type 2 diabetes mellitus without complication, with long-term current use of insulin (HCC) Inject 70/30 insulin twice a day: Current doses: Mornin units. Evenin units. Doses will be titrated. (Doses adjusted: 02/05/2023). 36 mL 5 02/13/2023 Active Additional Information Patient taking differently: Inject 70/30 insulin twice a day: Current doses: Mornin units. Evenin units. (Doses adjusted: 09/10/2023)., Reported on 09/10/2023 TechLite Pen [place] 31G X 5 MM [facility] [place] Active Fluocinonide Emulsified Base 0.05 % creamIndications:Ecz mac, unspecified type May use a SMALL amount up to twice a day for eczema/itchy skin sparingly. Do not use of face/groin or sensitive skin areas. 60 g 08/02/2023 Active methocarbamol (ROBAXIN) 500 MG tabletIndications:Mu scle spasm May take 1/2 to one tab every 4-6 hours if needed for muscle spasm/pain limit four tabs in a day. 60 tablet 2 08/05/2023 Active Additional Information Patient taking differently: 500 mg Oral, May take 1/2 to one tab every 4-6 hours if needed for muscle spasm/pain limit four tabs in a day., Reported on 08/25/2023 DULoxetine (CYMBALTA) [address] capsuleIndications:D epression, unspecified depression type TAKE ONE CAPSULE BY MOUTH ONCE EVERY DAY FOR PAIN DO NOT CRUSH OR CHEW 90 capsule 3 08/15/2023 Active traMADol (ULTRAM) 50 MG tabletIndications:Ch ronic pain due to trauma TAKE TWO TABLETS BY MOUTH THREE TIMES A DAY CAUTION: OPIOID - RISK OF OVERDOSE AND ADDICTION . 180 tablet 5 08/19/2023 Active Additional Information Patient taking differently: 100 mg Oral 2 times daily, TAKE TWO TABLETS BY MOUTH THREE TIMES A DAY CAUTION: OPIOID - RISK OF OVERDOSE AND ADDICTION .Patient reports will go back to TID when done with Oxycodone, Reported on 08/25/2023 lisinopril (ZESTRIL) 10 MG tabletIndications:Es sential hypertension TAKE ONE TABLET BY MOUTH ONCE EVERY DAY 90 tablet 3 09/09/2023 Active simvastatin (ZOCOR) 40 MG tabletIndications:Mi xed hyperlipidemia TAKE ONE TABLET BY MOUTH EVERY EVENING 90 tablet 3 09/09/2023 Active oxyCODONE (ROXICODONE) 10 MG immediate release tabletIndications:Po stoperative pain May take 1/2 to one tab every 6-8 hours if needed for pain 20 tablet 09/13/2023 Active levothyroxine (SYNTHROID) 125 MCG tabletIndications:Hy pothyroidism, unspecified type TAKE ONE TABLET BY MOUTH EVERY DAY 90 tablet 3 09/23/2023 Active gabapentin (NEURONTIN) 800 MG tabletIndications:Ne uropathy TAKE ONE AND ONE-HALF TABLET (1200MG) BY MOUTH EVERY MORNING AND AFTERNOON, AND ONE TABLET AT BEDTIME DIRECTED 360 tablet 3 10/11/2023 Active atenolol (TENORMIN) 50 MG tabletIndications:Es sential hypertension TAKE ONE TABLET BY MOUTH ONCE EVERY DAY . 90 tablet 1 12/10/2023 Active lansoprazole (PREVACID) [address] capsuleIndications:G astroesophageal reflux disease without esophagitis TAKE ONE CAPSULE BY MOUTH TWICE A DAY FOR SEVERE HEART BURN 180 capsule 01/19/2024 Active Active Problems Problem Noted Date Diagnosed Date Elevated blood pressure read ing in office with diagnosis of hypertension 08/24/2023 Last Assessment & Plan: Return in 1-2 weeks for blood pressure recheck when not in pain Suspected DVT (deep vein thrombosis) 08/24/2023 Last Assessment & Plan: Ultrasound of left upper extremity to rule out DVT today at 5 pm at [facility]. LINDA (acute kidney injury) 01/09/2022 Normocytic anemia 01/09/2022 JESS (obstructive sleep apnea) 01/07/2022 Spondylolisthesis of lumbar region 01/07/2022 Adenomatous polyp of ascending colon 08/09/2021 Lumbosacral radiculopathy 05/22/2021 Lumbosacral spondylosis 05/22/2021 Osteoarthritis of spine with radiculopathy, lumb ar region 12/03/2020 DJD (degenerative joint disease), ankle and foot , right 12/03/2020 Abnormality of gait and mobility 06/10/2020 H/O total ankle replacement 06/07/2020 Family history of hypertrophic cardiomyopathy Chronic pain syndrome 12/31/2018 Class 2 obesity due to exces s calories without serious comorbidity with body mass index (BMI) of 35.0 to 35.9 in adult 12/31/2018 Essential hypertension 12/31/2018 Right foot drop 12/31/2018 Major depressive disorder wi th single episode, in full remission 12/31/2018 Postoperative hypothyroidism 12/31/2018 Uncomplicated opioid dependence 08/18/2017 Type 2 diabetes mellitus without complications 1 12/26/2014 Asthma 10/07/2011 Overview: Asthma (bronchial) (allergic) Asthma GERD (gastroesophageal reflux disease) 1 Mixed hyperlipidemia 11/13/2010 Resolved Problems Problem Noted Date Diagnosed Date Resolved Date Encounter for screening for malignant neoplasm of lung in former smoker who quit in past 15 years with 30 pack year history or greater 08/31/2023 08/31/2023 Preoperative cardiovascular examination 04/18/2020 12/03/2020 Mixed hyperlipidemia 12/31/2018 020 Gastroesophageal reflux dise ase without esophagitis 12/31/2018 12/03/2020 Subclinical hypothyroidism 12/14/2013 0 05/16/2020 Essential (primary) hypertension 11/13/2010 12/03/2020 Overview: Benign Essential Hypertension Essential hypertension, benign Encounters Date Type Department Care Team Description 01/19/2024 Orders Only [facility] [place] [address] [place] [address] Rosalinda Marinelli, ADMINISTRATION DEAN 01/19/[address] [address] Rosalinda Marinelli APRN Gastroesophageal reflux disease without esophagitis from Last 3 Months Immunizations Name Administration Dates Next Due Hepatitis B 10/27/1996,06/23/1996,04/28/1996 Pneumococcal Polysaccharide 11/22/2013, 4 Tdap 11/22/2013,11/10/2013 Family History Medical History Relation Comments Cancer Brother 1 Adrenal Cardiomyopathy Brother 1 Clotting disorder Brother 1 Cancer Father LUNG Heart disease Mother Hypertension Mother Relation Status Comments Brother 1 Brother 2 Alive Father Mother Sister 1 Alive Sister 2 Alive Son 1 Alive Son 2 Alive Social History Tobacco Use Types Packs/Day Years Used Date Smoking Tobacco: Former Cigarettes Q uit: 2010 Smokeless Tobacco: Never Tobacco Cessation:Counseling Given: Not Answered Alcohol Use Standard Drinks/Week Comments Yes 0 [...] often do you attend chur ch or druze services? Never 08/02/2023 Do you belong to any clubs o r organizations such as mandaen groups, unions, fraternal or athletic groups, or [...] Date Recorded PHQ-9 Total Score 9 08/02/2023 [facility] - Occupational [...] place to sleep or slept in a group home (including now)? No 08/02/2023 Sex and Gender Information Value Date Recorded Sex Assigned at Not on file Gender Identity Not on file Sexual Orientation Not on file Last Filed Vital Signs Vital Sign Reading Time Taken Comments Blood Pressure 112/78 08/25/2023 10:45 AM CDT Pulse 65 08/25/2023 10:45 AM CDT Temperature 36.6 ??C (97.8 ??F) 08/25/2023 10:45 AM C DT Respiratory Rate 20 08/25/2023 10:45 AM CDT Oxygen Saturation 94% 08/25/2023 10:45 AM CDT Inhaled Oxygen Concentration - - Weight 109 kg (241 lb 6.4 oz) 08/25/2023 10:45 A M CDT Height 162 cm (5' 3.78) 08/24/2023 3:09 PM CDT Body Mass Index 41.72 08/24/2023 3:09 PM CDT Plan of Treatment Health Maintenance Due Date Last Done Comments CT Colonography 1956 FIT-DNA 1956 Sigmoidoscopy 1955 iFOBT 1956 Zoster Vaccines (1 of 2) 2006 Pneumococcal Vaccine: 65+ Years (2 of 2 - PCV) 11/22/2014 11/22/2013, 11/10/2013 Diabetes: Retinopathy Screening 05/08/2021 05/08/2019 Diabetes: Urine Protein Screening 02/04/2023 02/04/2022, 12/02/2020, 12/01/2019, Additional history exists COVID-19 Vaccine ( - season) 2023 Lipid Panel 08/27/2023 08/27/2022, 11/09, 12/01/2019, Additional history exists DTaP,Tdap,and Td Vaccines (3 - Td or Tdap) 11/22/2023 11/22/2013, 11/10/2013 Diabetes: Hemoglobin A1C 12/24/2023 023, 03/22/2023, 08/27/2022, Additional history exists Mammogram 06/04/2024 06/04/2023, 04/01/2022 Diabetic: Foot Exam 06/23/2024 06/23/2023, 02/04/2022, 12/02/2020, Additional history exists Fall Risk Performed 06/23/2024 06/23/2023 Medicare Annual Wellness Visit (AWV) 06/23/2024 06/23/2023 Influenza Vaccine (Season Ended) 2024 Colonoscopy 01/16/2026 01/16/2021 Colorectal Cancer Screening 01/16/2026 Bone Density Scan 04/07/2028 04/07/2023, 11/07/2014 HPV Vaccines Aged Out No longer eligi ble based on patient's age to complete this topic Medical Devices Implanted Type Area Technical Rep Device Identifier Shelf Expiration Date Model / Serial / Lot Infinity Tibial Tray Sz 3 Lng Total Ankle System - [id number] Implanted:Qty: 1 on 06/07/2020 by Jordan Tan MD at [facility] Right: Ankle 06/19/2027 REF [id number] / / [id number] Infinity Talar Dome Sz 2 Total Ankle System - [id number] Implanted:Qty: 1 on 06/07/2020 by Jordan Tan MD at [facility] Right: Ankle 03/19/2028 REF# [id number] / / [id number] Infinity Poly Sz 2+ 6mm Total Ankle System - [id number] Implanted:Qty: 1 on 06/07/2020 by Jordan Tan MD at [facility] Right: Ankle 04/19/2027 REF# [id number] / / [id number] Procedures Procedure Name Priority Date/Time Associated Diagnosis Comments HEMOGLOBIN A1C Routine 06/23/2023 3:18 PM CDT Preop examination LIPID PANEL Routine 08/27/2022 2:43 PM CDT Screening cholesterol level MICROALBUMIN/CREATI NINE RATIO Routine 02/04/2022 3:35 PM CDT Type 2 diabetes mellitus without complication, without long-term current use of insulin (HCC) DEXA BONE DENSITY Routine 11/07/2014 1:5 1 PM PASSENGER CAR INSPECTOR from Last 3 Months or Most Recently Relevant to Health Maintenance Results * (ABNORMAL) Hemoglobin A1c (06/23/2023 3:18 PM CDT) Hemoglobin A1C 6.9(H) 4.0 - 5.6 % A1C 06/24/2023 4:13 PM CDT [facility] Comment: Reference Range 4.0-5.6% is for non- adults >=18 yrs <5.6% ? Non-Diabetic 5.7-6.4% ??Increased risk of Diabetes >=6.5% ?Indicative of Diabetes <7.0% ? ADA goal for glycemic control Methodology may not detect all hemoglobin variants which can affect A1c results. Method certified by National Glycohemoglobin Standardization Program. Blood 06/23/2023 3:18 PM CDT 06/24/2023 12:41 PM CDT Nara Reyes MD LAB BLOOD ORDERABLES [facility] [address] [place] [address] * (ABNORMAL) Lipid panel (08/27/2022 2:43 PM CDT) Cholesterol 205(H) 0 - 199 mg/dL 08/28/2022 2:05 PM CDT [facility] Comment: Recommended by National Cholesterol Education Program (ATP III) -------- Cholesterol Ranges -------- <200 ?Desirable 200-239 ? Borderline high >=240 ? High Triglycerides 190(H) 0 - 149 mg/dL 08/28/2022 2:05 PM CDT [facility] Comment: -------- TRIG Ranges -------- <150 ?Normal 150-199 ? Borderline high 200-499 ? High >=500 ? Very high HDL 41 40 - 250 mg/dL 08/28/2022 2:05 PM CDT [facility] Comment: -------- HDL Ranges -------- <40 ?Low 40-59 ?Normal >=60 ? Optimal LDL Calculated 126(H) 0 - 99 mg/dL 08/28/2022 2:05 PM CDT [facility] Comment: -------- LDL Ranges -------- <100 ? Optimal 100-129 ?Near optimal/above optimal 130-159 ?Borderline high 160-189 ?High >=190 ?Very high Blood 08/27/2022 2:43 PM CDT 08/28/2022 12:45 PM CDT Nara Reyes MD LAB BLOOD ORDERABLES Performing Organization Address City/[facility] Co de Phone Number [facility] [address] [place] [address] * (ABNORMAL) Microalbumin/Creatinine Ratio (02/04/2022 3:35 PM CDT) Microalbumin,mg/ day 94.1(H) 0.0 - 16.6 mg/L 02/05/2022 2:26 PM CDT [facility] Comment: . Creatinine, Urine 182 mg/dL 02/05/2022 2:26 PM CDT [facility] Comment: No established reference range. Microalb/Creat Ratio 52(H) 0 - 24 mg/g 02/05/2022 2:26 PM CDT [facility] Urine 02/04/2022 3:35 PM CDT 02/05/2022 12:33 PM CDT Narrative Authorizing Provider Result Kimo Reyes MD LAB URINE ORDERABLES [facility] [address] [place] [address] * Dexa bone density axial skeleton (11/07/2014 1:51 PM PASSENGER CAR INSPECTOR) Anatomical Region Laterality Modality Wrist, Hip, L-spine Radiographic Imaging 11/07/2014 1:51 PM PASSENGER CAR INSPECTOR Narrative 11/07/2014 5:10 PM PASSENGER CAR INSPECTOR Clinical History Hyperthyroidism/Post menopause; Indication for exam: Post menopause (age-related, natural); Select if this is not a new diagnosis: New Diagnosis; Current treatment: New Diagnosis; Any additional reason for follow-up exam (cannot be listed alone): New Diagnosis; Comparison None Findings DXA SCAN ?? AP spine L1 through L4 bone mineral density is 1.334 grams per cm squared (T-score 1.3 ). Left femoral neck bone mineral density is 0.768 grams per cm squared (T-score -1.9 ). Right femoral neck bone mineral density is 0.736 grams per cm squared (T-score -2.2 ). Left femoral total bone mineral density is 0.992 grams per cm squared (T-score -0.1 ). Right femoral total bone mineral density is 0.948 grams per cm squared (T-score -0.5 ). Bilateral femoral total mean bone mineral density is 0.970 grams per cm squared (T-score -0.3 ). Impression AP spine L1 through L4 total T-score is considered normal. Or Bilateral femoral total mean T-score is considered normal. National Osteoporosis Foundation Guidelines recommend initiating therapy to reduce fracture risk in patients with bone mineral density T-score below -1.5 with risk factors present or below -2 without risk factors. Follow-up DXA exam in 1-2 years may be helpful in monitoring response to therapy. ?? Definition of T-score: ?? T-score is the number of standard deviations that the bone mineral density is above or below the mean compared to young adult normal standard. If the T-score is 0.0, then the bone mineral density is equal to the mean compared to young adult normal standard. Normal, osteopenic and osteoporotic are defined as follows when referencing the T-score: Normal: ?? T-score at or above -1 ?? Osteopenic: ?? T-score between -1 and -2.5 Osteoporotic: ?? T-score at or below -2.5 Procedure Note Dashawn Cisneros - 07/31/2018 Clinical History Hyperthyroidism/Post menopause; Indication for exam: Post menopause (age-related, natural); Select if this is not a new diagnosis: New Diagnosis; Current treatment: New Diagnosis; Any additional reason for follow-up exam (cannot be listed alone): New Diagnosis; Comparison None Findings DXA SCAN AP spine L1 through L4 bone mineral density is 1.334 grams per cm squared (T-score 1.3 ). Left femoral neck bone mineral density is 0.768 grams per cm squared (T-score -1.9 ). Right femoral neck bone mineral density is 0.736 grams per cm squared (T-score -2.2 ). Left femoral total bone mineral density is 0.992 grams per cm squared (T-score -0.1 ). Right femoral total bone mineral density is 0.948 grams per cm squared (T-score -0.5 ). Bilateral femoral total mean bone mineral density is 0.970 grams per cm squared (T-score -0.3 ). Impression AP spine L1 through L4 total T-score is considered normal. Or Bilateral femoral total mean T-score is considered normal. National Osteoporosis Foundation Guidelines recommend initiating therapy to reduce fracture risk in patients with bone mineral density T-score below -1.5 with risk factors present or below -2 without risk factors. Follow-up DXA exam in 1-2 years may be helpful in monitoring response to therapy. Definition of T-score: T-score is the number of standard deviations that the bone mineral density is above or below the mean compared to young adult normal standard. If the T-score is 0.0, then the bone mineral density is equal to the mean compared to young adult normal standard. Normal, osteopenic and osteoporotic are defined as follows when referencing the T-score: Normal: T-score at or above -1 Osteopenic: T-score between -1 and -2.5 Osteoporotic: T-score at or below -2.5 Giovanna VENTURA DXA PROCEDURES from Last 3 Months or Most Recently Relevant to Health Maintenance Advance Directives For more information, please contact: [phone] * Full Code (Latest Code Status on File) Date Activated Date Inactivated Comments 06/07/2020 11:29 AM 06/08/2020 12:03 PM Care Teams Residential Collections Relationship Specialty Start Date End Date Rosalinda Marinelli, ADMINISTRATION DEAN [address] [place] [id number] PCP - General 08/26/23
== END 2024-03-17 13:21 | disposition home or self-care (01) ==
LOC: NFLDREF 04-03 15:41
PROVIDERS: PCP Family Medicine; Referring Provider Family Medicine; Visit Provider Family Medicine
DX: D64.9 Anemia, unspecified (principal); E03.9 Hypothyroidism, unspecified; E11.9 Type 2 diabetes mellitus without complications; I10 Essential (primary) hypertension; M85.80 Other specified disorders of bone density and structure, unspecified site; D51.9 Vitamin B12 deficiency anemia, unspecified; E55.9 Vitamin D deficiency, unspecified; E78.5 Hyperlipidemia, unspecified; M81.0 Age-related osteoporosis without current pathological fracture
CPT/HCPCS: 80053; 80061; 82043; 82306; 82570; 82607

== ENCOUNTER 2024-05-03 12:42 | Outpatient (CLI) | payer MEDICARE, SELFPAY ==
--- OUTSIDE RECORDS SUMMARY | 2024-05-03 12:46 | XMS_ITS | Encounter Summary ---
Author Organization [facility] er Address [address] [place] [address] Care Team Providers Care Fry Cook Name Role Phone Rosalinda Marinelli APRN Primary Care Provider Reason for Visit * Reason Comments Med Refill Encounter Details Date Type Department Care Team (Late st Contact Info) Description 04/26/2020 Refill [place] [address] [place] [address] Nara Reyes MD [address] [facility] [address] [place] [address] Chronic pain due to trauma Social History [...] Answer Date Recorded PHQ-2 Score 0 05/22/2019 [facility] [place] [facility] Occupat ional Health - Occupational Stress [...] 04/30/2020 4:53 PM CDT Fax rx to [facility] * Telephone Encounter - Randi Nuñez LPN [...] documented as of this encounter Care Teams Fry Cook Relationship Specialty Start Date End Date Rosalinda Marinelli, PLATE AND WELD INSPECTOR [address] [place] [id number] PCP - General 08/26/23 documented as of this encounter
--- OUTSIDE RECORDS SUMMARY | 2024-05-03 12:46 | XMS_ITS | Encounter Summary ---
Author Organization [facility] er Address [address] [place] [address] Care Team Providers Care Diet Assistant Name Role Phone Rosalinda Marinelli APRN Primary Care Provider Encounter Details Date Type Department Care Team (Late st Contact Info) Description 06/10/2020 Telephone [facility] [address] [place] [id number] Lesli Valadez RN [address] [place] [address] Social History Tobacco Use Types [...] Answer Date Recorded PHQ-2 Score 0 05/22/2019 [facility] [place] of Occupat ional Health - Occupational Stress [...] on filedocumented in this encounter Care Teams Diet Assistant Relationship Specialty Start Date End Date Rosalinda Marinelli APRN [address] [place] [id number] PCP - General 08/26/23 documented as of this encounter
--- OUTSIDE RECORDS SUMMARY | 2024-05-03 12:46 | XMS_ITS | Clinical Summary ---
Author Organization [facility] Address [place], [place] [address] Care Team Providers Care Account Officer Name Role Phone Abilio Reyes Primary Care Provider [phone] Allergies Active Allergy Reactions Criticality Noted Date [...] Detail In Comments) Runny Nose 08/26/2018 Trees, Navarro, Capok, wool, feathers, Venom-Honey Bee Anaphylaxis High [...] (hypertension) 01/07/2022 Hyperlipidemia 01/07/2022 Morbid obesity 01/07/2022 Family History Medical History Relation Name Comments [...] 65+ 07/09/2024 Medical Devices Implanted Type Area Legal Executive Device Identifier Shelf Expiration Date Model / Serial / Lot Bone 1-4mm 90cc Medtronic Chips Canclls Freeze Dried - Sabino: [id number] Implanted:Qty: 1 on 01/07/2022 by Doug Resendez MD at [facility] Lumbar Vertebrae Medtronic Spine/Ortho 02/21/2026 [id number] / ID: [id number] / [id number] Description:Implanted foundry molder ior spine L4-S1 Screw Lmbr Post 7.5x45mm Solera 5.5/6 Va Cocr - [id number] Implanted:Qty: 1 on 07/07/2023 by Doug Resendez MD at [facility] N/A: Lumbar Vertebrae Medtronic Spine/Ortho [id number] / / Screw Lmbr Post 8.5x45mm Solera 5.5/6 Va Cocr - [id number] Implanted:Qty: 3 on 07/07/2023 by Doug Resendez MD at [facility] N/A: Lumbar Vertebrae Medtronic Spine/Ortho [id number] / / Screw Lmbr Post 9.5x40mm Solera 5.5/6 Va Cocr - [id number] Implanted:Qty: 2 on 07/07/2023 by Doug Resendez MD at [facility] N/A: Lumbar Vertebrae Medtronic Spine/Ortho [id number] / / Nawaf Lmbr 70x5.5mm Solera 5.5/6 Cvd Titnm - [id number] Implanted:Qty: 2 on 07/07/2023 by Doug Resendez MD at [facility] N/A: Lumbar Vertebrae Medtronic Spine/Ortho [id number] / / Putty Easypack 5cc Magnetos - [id number] Implanted:Qty: 1 on 07/07/2023 by Doug Resendez MD at [facility] N/A: Lumbar Vertebrae [employer] 10/08/2025 [id number] / / [id number] Endoskeleton Tas Implant Implanted:Qty: 1 on 07/07/2023 by Doug Resendez MD at [facility] N/A: Lumbar Vertebrae Medtronic 10/08/2026 [id number] / / [id number] 5.5x25 Screw Implanted:Qty: 3 on 07/07/2023 by Doug Resendez MD at [facility] N/A: Lumbar Vertebrae Medtronic [id number] / / Description:anterior Bone Matrix 3cc Nowata Dbf Putty Dbm - [id number] Implanted:Qty: 1 on 07/07/2023 by Doug Resendez MD at [facility] N/A: Lumbar Vertebrae Medtronic Spine/Ortho 05/24/2025 [id number] / [id number] / Bone Matrix 3cc Nowata Dbf Putty Dbm - [id number] Implanted:Qty: 1 on 07/07/2023 by Doug Resendez MD at [facility] N/A: Lumbar Vertebrae Medtronic Spine/Ortho 05/24/2025 [id number] / [id number] / Bone Matrix Sm Infuse Bmp - [id number] Implanted:Qty: 1 on 07/07/2023 by Doug Resendez MD at [facility] N/A: Lumbar Vertebrae Medtronic Spine/Ortho 11/08/2024 [id number] / / [id number] Bone 1-4mm 60cc Medtronic Fine Canclls Freeze Dried - [id number] Implanted:Qty: 1 on 07/07/2023 by Doug Resendez MD at [facility] N/A: Lumbar Vertebrae Medtronic Spine/Ortho 01/20/2027 [id number] / [id number] / Set Screw Lmbr Ant 5.5mm Solera Break Off - [id number] Implanted:Qty: 6 on 07/07/2023 by Doug Resendez MD at [facility] N/A: Lumbar Vertebrae Medtronic Spine/Ortho [id number] / / Explanted Type Area Legal Executive Device Identifier Shelf Expiration Date Model / Serial / Lot Set Screw Lmbr Ant 5.5mm Solera Break Off - [id number] Implanted:Qty : 6 on 01/07/2022 by Doug Resendez MD at [facility] Explanted:Qty : 6 on 07/07/2023 by Doug Resendez MD at [facility] Lumbar Vertebrae Medtronic Spine/Ortho [id number] / / Description:Implanted foundry molder ior spine L4-S1 Screw Lmbr Post 6.5x45mm Solera 5.5/6 Va Cocr - [id number] Implanted:Qty : 1 on 01/07/2022 by Doug Resendez MD at [facility] Explanted:Qty : 1 on 07/07/2023 by Doug Resendez MD at [facility] Lumbar Vertebrae Medtronic Spine/Ortho [id number] / / Description:Implanted foundry molder ior spine L4-S1 Screw Lmbr Post 7.5x40mm Solera 5.5/6 Va Cocr - [id number] Implanted:Qty : 2 on 01/07/2022 by Doug Resendez MD at [facility] Explanted:Qty : 2 on 07/07/2023 by Doug Resendez MD at [facility] Lumbar Vertebrae Medtronic Spine/Ortho [id number] / / Description:Implanted foundry molder ior spine L4-S1 Screw Lmbr Post 7.5x45mm Solera 5.5/6 Va Cocr - [id number] Implanted:Qty : 3 on 01/07/2022 by Doug Resendez MD at [facility] Explanted:Qty : 3 on 07/07/2023 by Doug Resendez MD at [facility] Lumbar Vertebrae Medtronic Spine/Ortho [id number] / / Description:Implanted foundry molder ior spine L4-S1 Nawaf Lmbr 70x5.5mm Solera 5.5/6 Cvd Titnm - [id number] Implanted:Qty : 2 on 01/07/2022 by Doug Resendez MD at [facility] Explanted:Qty : 2 on 07/07/2023 by Doug Resendez MD at [facility] Lumbar Vertebrae Medtronic Spine/Ortho [id number] / / Description:Implanted foundry molder ior spine L4-S1 Advance Directives * Full Code (Latest Code [...] 8:07 AM 02/15/2012 1:49 PM Care Teams Account Officer Relationship Specialty Start Date End Date Abilio Reyes [address] [place] [address] PCP - General Family Practice 12/17/21
--- OUTSIDE RECORDS SUMMARY | 2024-05-03 12:46 | XMS_ITS | Encounter Summary ---
Author Organization [facility] er Address [address] [place] [address] Care Team Providers Care Locomotive Engineer Electric Name Role Phone Rosalinda Marinelli APRN Primary Care Provider Reason for Visit * Reason Comments Med Refill Encounter Details Date Type Department Care Team (Late st Contact Info) Description 12/03/2020 Refill [place] [address] [place] [address] Nara Reyes MD [address] [place] [address] Chronic pain syndrome Social History Tobacco Use [...] Answer Date Recorded PHQ-2 Score 0 05/22/2019 [facility] [place] of Occupat ional Health - Occupational Stress [...] was filled 12/03/2020 # 180, 3 refill. ICATION SECURITY ENGINEER documented in this encounter Plan of Treatment Not on file documented as of this encounter Visit Diagnoses Diagnosis Chronic pain syndrome documented in this encounter Care Teams Locomotive Engineer Electric Relationship Specialty Start Date End Date Rosalinda Marinelli, WILDLIFE VETERINARIAN [address] [place] [address] PCP - General 08/26/23 documented as of this encounter
--- OUTSIDE RECORDS SUMMARY | 2024-05-03 12:46 | XMS_ITS | Encounter Summary ---
Author Organization [facility] er Address [address] [place] [address] Care Team Providers Care Ui Ux Engineer Name Role Phone Rosalinda Marinelli APRN Primary Care Provider Encounter Details Date Type Department Care Team (Late st Contact Info) Description 05/07/2023 Telephone [facility] [address] [place] [address] Rad Cerda RN [address] [place] [address] Social History Tobacco Use Types [...] Date Recorded PHQ-9 Total Score 0 12/24/2021 [facility] of Occupat ional Health - Occupational Stress [...] on filedocumented in this encounter Care Teams Ui Ux Engineer Relationship Specialty Start Date End Date Rosalinda Marinelli, SOIL TECHNOLOGIST [address] [place] [address] PCP - General 08/26/23 documented as of this encounter
--- OUTSIDE RECORDS SUMMARY | 2024-05-03 12:46 | XMS_ITS | Encounter Summary ---
Author Organization [facility] er Address [address] [place] [address] Care Team Providers Care Diamond Merchant Name Role Phone Rosalinda Marinelli APRN Primary Care Provider Reason for Visit * Reason Comments Med Refill Encounter Details Date Type Department Care Team (Late st Contact Info) Description 07/20/2022 Refill [place] [address] [place] [address] Nara Reyes MD [address] [place] [address] Chronic pain due to trauma Social History [...] Date Recorded PHQ-9 Total Score 0 12/24/2021 [facility] [place] of Occupat ional Health - Occupational Stress [...] trauma documented in this encounter Care Teams Diamond Merchant Relationship Specialty Start Date End Date Rosalinda Marinelli APRN [address] [place] [address] PCP - General 08/26/23 documented as of this encounter
--- OUTSIDE RECORDS SUMMARY | 2024-05-03 12:46 | XMS_ITS | Encounter Summary ---
Author Organization [facility] er Address [address] [place] [address] Care Team Providers Care Panel Sewer Name Role Phone Rosalinda Marinelli APRN Primary Care Provider Encounter Details Date Type Department Care Team (Late st Contact Info) Description 01/19/2024 Orders Only [place] [address] [place] [address] Rosalinda Marinelli APRN [address] [place] [address] Social History Tobacco Use Types Packs/Day Years [...] How often do you attend chur or moravian services? Never 08/02/2023 Do you belong to any clubs o r organizations such as temple groups, unions, fraternal or athletic groups, or [...] Date Recorded PHQ-9 Total Score 9 08/02/2023 [facility] of Occupat community healthal Health - Occupational Stress Questionnaire Answer Date [...] place to sleep or slept in a penitentiary (including now)? No 08/02/2023 Sex and Gender Information Value Date Recorded Sex Assigned at Not on file Gender Identity Not on file Sexual Orientation Not on file documented as of this encounter Plan of Treatment Not on file documented as of this encounter Visit Diagnoses Not on filedocumented in this encounter Care Teams Panel Sewer Relationship Specialty Start Date End Date Rosalinda Marinelli, MEDICAL SALES CONSULTANT [address] [place] [address] PCP - General 08/26/23 documented as of this encounter
--- OUTSIDE RECORDS SUMMARY | 2024-05-03 12:46 | XMS_ITS | Encounter Summary ---
Author Organization [facility] er Address [address] [place] [address] Care Team Providers Care Linen Supervisor Name Role Phone Rosalinda Marinelli APRN Primary Care Provider Encounter Details Date Type Department Care Team (Late st Contact Info) Description 05/24/2020 Telephone [facility] [address] [place] [address] [place] [address] [place] [address] Social History Tobacco Use Types Packs/Day [...] Answer Date Recorded PHQ-2 Score 0 05/22/2019 [facility] [place] of Occupat ional Health - Occupational Stress [...] documented as of this encounter Care Teams Linen Supervisor Relationship Specialty Start Date End Date Rosalinda Marinelli APRN [address] [place] [address] PCP - General 08/26/23 documented as of this encounter
--- OUTSIDE RECORDS SUMMARY | 2024-05-03 12:46 | XMS_ITS | Encounter Summary ---
Author Organization [facility] er Address [address] [place] [address] Care Team Providers Care Civil Preparedness Training Officer Name Role Phone Rosalinda Marinelli APRN Primary Care Provider Reason for Visit * Reason Onset Date Comments Med Refill 08/25/2018 Encounter Details Date Type Department Care Team (Late st Contact Info) Description 08/25/2018 Refill [place] [address] [place] [address] Nara Reyes MD [address] [place] [address] Chronic pain due to trauma (Primary Dx) [...] 08/26/2018 8:51 AM [facility] * Telephone Encounter - Kamilah Mayberry RN - 08/26/2018 8:24 AM CDT Please fax Rx to [facility]. * Telephone Encounter - Frida [...] documented as of this encounter Care Teams Civil Preparedness Training Officer Relationship Specialty Start Date End Date Rosalinda Marinelli, GUIDANCE CONSULTANT [address] [place] [address] PCP - General 08/26/23 documented as of this encounter
--- OUTSIDE RECORDS SUMMARY | 2024-05-03 12:46 | XMS_ITS | Continuity of Care Document ---
Author Organization [facility] Address [address] [place] [address] Phone Care Team Providers Care Counter Helper Name Role Phone Lee Coates Unavailable Unavailable Allergies, Adverse Reactions, Alerts Substance [...] not take with other NSAIDS - Active LISINOPRIL (unknown strength) Not Available - Active DULOXETINE HCL (unknown strength) Not Available - Active ZYRTEC (unknown strength) Not Available - Active PREVACID (unknown strength) Not Available - Active GLIPIZIDE (unknown strength) Not Available - Active LEVOTHYROXINE SODIUM (unknown strength) Not Available - Active ATENOLOL (unknown strength) Not Available - Active TRAMADOL HCL (unknown strength) Not Available - Active SIMVASTATIN (unknown strength) Not Available - Active GABAPENTIN (unknown strength) Not Available - Active ASPIRIN (unknown strength) Not Available - Active TIZANIDINE HCL (unknown strength) Not Available - Active Procedures Procedure Date Office/Outpatient Visit,Est, Mod 2023 Office/Outpatient Visit,Est, Mod 2022 POSTOP FOLLOW-UP VISIT [...] PA PSF - Additional Level(s) - PA Lami, Facetectomy/Foraminotomy, Lumbar ( Stenosis) [...] Copied on Encounter Office/Outpat ient Visit,Est, Mod [facility], [address], [place], [id number], [place] tel:[phone] [facility] Encounter for other specified surgical aftercare Lazara Howard. [facility], [address], [address], [facility] [place], [place], [id number] , [place]. tel:[phone] Referring Provider: Lee Escamilla, [facility] [address] [place] [address], [address], [place], [address] . tel:[phone] Office/Outpat ient Visit,Est, Mod [facility], [address], [place], [id number], [place] tel:[phone] [facility] Encounter for other specified surgical aftercare 3 Resendez Doug. [facility], [address], [address], [facility] [place], [place], [id number] , [place]. tel:[phone] Referring Provider: Abilio Del Cid, [address] , [place], [address]. tel:[phone] [facility], [address], [facility], [id number], [place] tel:[phone] [facility] No Information 3 Resendez Doug. [facility], [address], [address], [facility] [place], [id number] , [place]. tel:[phone] Referring Provider: Abilio Del Cid, [address], [place], [address]. tel:[phone] [facility], [address], [place], [id number], [place] tel:[phone] [facility] No Information 3 Lazara Howard. [facility], [address], [address], [facility] [place], [place], [id number] , [place]. tel:[phone] Referring Provider: Abilio Del Cid, [address], [place], [address]. tel:[phone] [facility], [address], [place], [id number], [place] tel:[phone] [facility] Information 3 Resendez Doug. [facility], [address], [address], [place], [place], [id number] , [place]. tel:[phone] Referring Provider: Abilio Del Cid, [address] , [place], [address]. tel:[phone] Office/Outpat ient Visit,Est, Mod [facility], [address], [place], [id number], [place] tel:[phone] [facility] Pseudarthrosis after fusion or arthrodesis 3 Resendez Doug. [facility], [address] [place] [address], [address], [place], [place], [id number] , [place]. tel:[phone] Referring Provider: Abilio Del Cid, [address], [place], [address]. tel:[phone] Office/Outpat ient Visit,Est, Mod [facility], [address], [place], [id number], [place] tel:[phone] [facility] Encounter for other specified surgical aftercare 2 Panvica Lee. [facility], [address] [place] [address], [address], [facility] [place], [id number] , [place]. tel:[phone] Referring Provider: Abilio Del Cid, [address], [place], [address]. tel:[phone] Office/Outpat ient Visit,Est, Mod [facility], [address], [place], [id number], [place] tel:[phone] [facility] Encounter for other specified surgical aftercare 2 Panvica Lee. [facility], [address], [address], [place], [place], [id number] , [place]. tel:[phone] Referring Provider: Abilio eDl Cid, [address] , [place], [address]. tel:[phone] [facility], [address], [facility] [place], [id number], [place] tel:[phone] [facility] Encounter for other specified surgical aftercare Apr- 4-202 2 Resendez Doug. [facility], [address], [address], [place], [place], [id number] , [place]. tel:[phone] Referring Provider: Abilio Del Cid, [address], [place], [address]. tel:[phone] [facility], [address], [place], [place], [id number], [place] tel:[phone] [facility] No Information Mar-0 3-202 2 Panvica Lee. [facility], [address], [address], [place], [place], [id number] , [place]. tel:[phone] Referring Provider: Abilio Del Cid, [address], [place], [address]. tel:[phone] [facility], [address], [facility] [place], [id number], [place] tel:[phone] [facility] No Information Mar-0 2-202 2 Resendez Doug. [facility], [address], [address], [place], [place], [id number] , [place]. tel:[phone] Referring Provider: Abilio Del Cid, [address], [place], [address]. tel:[phone] Office/Outpat ient Visit,New, Mod [facility], [address], [place], [id number], [place] tel:[phone] [facility] Other spondylosis, lumbosacral regionSpondylol isthesis, lumbar regionOther intervertebral disc displacement, lumbosacral regionRadiculop athy, lumbosacral region 1 Perez Cook. [facility], [address], [place], [id number] , [place]. tel:[phone] Referring Provider: Abilio Del Cid, [facility] [address] [facility] [address], [place], [address]. tel:[phone] Family History Family Member Type Diagnosis Age At Onset No Information Payers Payer name Insurance type Covered alliance party ID Tami burroughs(s) [facility] Medicare [facility] 2021 CI [id number] Social History Type Description Quantity Date Captured Comments Alcohol Use Details Unknown Caffeine Use Details Unknown Tobacco Use Status No Information Smoking Status No Information Sex Female Vital Signs Date / Time: Height Weight BMI Pulse Rate Blood Pressure Temperature Respiratory Rate Body Surface Area Head Circumference Head Circ. Percentile Wt./Domingo. Percentile BMI percentile Pulse Ox Inhaled Ox 10:16 AM 63.50 in 107.955 kg (238.00 lbs) 41.5 0 kg/m eter (2) Chief Complaint And Reason For Visit No Information Reason For Referral Reason For Referral No Information History Of Present Illness Encounter Date Complaint History Of Prese nt Illness No Information Functional Status Date Functional Assessmen t No Information Instructions Date Instruction Additional Infor mation No Information Assessments Type Assessment Date assessment Encounter for other specified erickson rgical aftercare Patient Care Teams Name Effective Dates (start - stop) Status Members No Information
--- OUTSIDE RECORDS SUMMARY | 2024-05-03 12:46 | XMS_ITS | Clinical Summary ---
Author Organization [facility] er Address [address] [place] [address] Care Team Providers Care Slab Worker Name Role Phone Rosalinda Marinelli APRN Primary [...] Hives 04/21/2021 Nuts Nystatin Other 08/26/2018 Trees, [place], [place], wool, feathers, Penicillins Most of this [...] adjusted: 09/10/2023)., Reported on 09/10/2023 TechLite Pen [place] 31G X 5 MM [facility] 06/29/2023 Active Fluocinonide Emulsified Base 0.05 % [...] out DVT today at 5 pm at [facility]. LINDA (acute kidney injury) 01/09/2022 Normocytic anemia [...] Overview: Benign Essential Hypertension Essential hypertension, benign Immunizations Name Administration Dates Next Due Hepatitis [...] Cigarettes Q uit: 2011 Smokeless Tobacco: Never Tobacco Cessation:Counseling Given: Not [...] often do you attend chur ch or quaker services? Never 08/02/2023 Do you belong to [...] Date Recorded PHQ-9 Total Score 9 08/02/2023 [facility] of Occupat ional Health - Occupational Stress [...] place to sleep or slept in a care home (including now)? No 08/02/2023 Sex and [...] 12/01/2019, Additional history exists COVID-19 Vaccine ( season) 2023 Lipid Panel 08/27/2023 08/27/2022, 11/09, [...] this topic Medical Devices Implanted Type Area Computer Aide Device Identifier Shelf Expiration Date Model / Serial / Lot Infinity Tibial Tray Sz 3 Lng Total Ankle System - [id number] Implanted:Qty: 1 on 06/07/2020 by Jordan Tan MD at [facility] Right: Ankle 06/19/2027 REF [id number] / / [id number] Infinity Talar Dome Sz 2 Total Ankle System - [id number] Implanted:Qty: 1 on 06/07/2020 by Jordan Tan MD at [facility] Right: Ankle 03/19/2028 REF# [id number] / / [id number] Infinity Poly Sz 2+ 6mm Total Ankle System - [id number] Implanted:Qty: 1 on 06/07/2020 by Jordan Tan MD at [facility] Right: Ankle 04/19/2027 REF# [id number] / / [id number] Procedures Procedure Name Priority Date/Time Associated Diagnosis Comments HEMOGLOBIN A1C Routine 06/23/2023 3:18 PM CDT Preop examination LIPID PANEL Routine 08/27/2022 2:43 PM CDT Screening cholesterol level MICROALBUMIN/CREATI NINE RATIO Routine 02/04/2022 3:35 PM CDT Type 2 diabetes mellitus without complication, without long-term current use of insulin (HCC) DEXA BONE DENSITY Routine 11/07/2014 1:5 1 PM MOTHER REPAIRER from Last 3 Months or Most Recently Relevant to Health Maintenance Results * (ABNORMAL) Hemoglobin A1c (06/23/2023 3:18 PM CDT) Hemoglobin A1C 6.9(H) 4.0 - 5.6 % A1C 06/24/2023 4:13 PM CDT [facility] Comment: Reference Range 4.0-5.6% is for [...] CDT Nara Reyes MD LAB BLOOD ORDERABLES [facility] [address] [place] [address] * (ABNORMAL) Lipid panel (08/27/2022 2:43 PM CDT) Cholesterol 205(H) 0 - 199 mg/dL 08/28/2022 2:05 PM T [facility] Comment: Recommended by National Cholesterol Education Program (ATP III) -------- Cholesterol Ranges -------- <200 ?Desirable 200-239 ? Borderline high >=240 ? High Triglycerides 190(H) 0 - 149 mg/dL 08/28/2022 2:05 PM T [facility] Comment: -------- TRIG Ranges -------- <150 ?Normal 150-199 ? Borderline high 200-499 ? High >=500 ? Very high HDL 41 40 - 250 mg/dL 08/28/2022 2:05 PM T [facility] Comment: -------- HDL Ranges -------- <40 ?Low 40-59 ?Normal >=60 ? Optimal LDL Calculated 126(H) 0 - 99 mg/dL 08/28/2022 2:05 PM CDT [facility] Comment: -------- LDL Ranges -------- <100 ? Optimal 100-129 ?Near optimal/above optimal 130-159 ?Borderline high 160-189 ?High >=190 ?Very high Blood 08/27/2022 2:43 PM CDT 08/28/2022 12:45 PM CDT Nara Reyes MD LAB BLOOD ORDERABLES Performing Organization Address [facility] de Phone Number [facility] [address] [place] [address] * (ABNORMAL) Microalbumin/Creatinine Ratio (02/04/2022 3:35 PM CDT) Microalbumin,mg/ day 94.1(H) 0.0 - 16.6 mg/L 02/05/2022 2:26 PM CDT [facility] Comment: . Creatinine, Urine 182 mg/dL 02/05/2022 2:26 PM T [facility] Comment: No established reference range. Microalb/Creat Ratio 52(H) 0 - 24 mg/g 02/05/2022 2:26 PM CDT [facility] Urine 02/04/2022 3:35 PM CDT 02/05/2022 12:33 PM CDT Nara Reyes MD LAB URINE ORDERABLES Performing Organization Address [facility] Co de Phone Number [facility] [address] [place] [address] * Dexa bone density axial skeleton (11/07/2014 1:51 PM MOTHER REPAIRER) Anatomical Region Laterality Modality Wrist, Hip, L-spine Radiographic Imaging 11/07/2014 1:51 PM MOTHER REPAIRER Narrative 11/07/2014 5:10 PM MOTHER REPAIRER Clinical History Hyperthyroidism/Post menopause; Indication for exam: [...] Osteoporotic: T-score at or below -2.5 Giovanna Jimenez MD IMG DXA PROCEDURES from Last 3 Months or Most Recently Relevant to Health Maintenance Advance Directives For more information, please contact: [phone] * Full Code (Latest Code Status on File) Date Activated Date Inactivated Comments 06/07/2020 11:29 AM 06/08/2020 12:03 PM Care Teams Slab Worker Relationship Specialty Start Date End Date Rosalinda Marinelli APRN [address] [place] [address] PCP - General 08/26/23
--- OUTSIDE RECORDS SUMMARY | 2024-05-03 12:46 | XMS_ITS | Encounter Summary ---
Author Organization [facility] er Address [address] [place] [address] Care Team Providers Care Veneer Matcher Name Role Phone Rosalinda Marinelli APRN Primary Care Provider Reason for Visit * Reason Comments Med Refill Encounter Details Date Type Department Care Team (Late st Contact Info) Description 01/20/2021 Refill [place] [address] [place] [address] Nara Reyes MD [address] [place] [address] Encounter for screening colonoscopy Social History Tobacco [...] Answer Date Recorded PHQ-2 Score 0 05/22/2019 [facility] [place] of Occupat ional Health - Occupational Stress [...] AND DRINK ACCORDING TO DIRECTIONS ON YOUR [facility] [place]ONOSCOPY PREP SHEET Pre-procedural rx, no refill. Pharmacy notified. documented in this encounter Plan of Treatment Not on file documented as of this encounter Visit Diagnoses Diagnosis Encounter for screening colonoscopy documented in this encounter Care Teams Veneer Matcher Relationship Specialty Start Date End Date Rosalinda Marinelli, BULK FOLDER [address] [place] [address] PCP - General 08/26/23 documented as of this encounter
--- OUTSIDE RECORDS SUMMARY | 2024-05-03 12:46 | XMS_ITS | Encounter Summary ---
Author Organization [facility] er Address [address] [place] [address] Care Team Providers Care Peoplesoft Business Analyst Name Role Phone Rosalinda Marinelli APRN Primary Care Provider Encounter Details Date Type Department Care Team (Late st Contact Info) Description 06/10/2020 Telephone [facility] [address] [place] [address] [place] [address] [place] [address] Social History Tobacco Use Types Packs/Day [...] Answer Date Recorded PHQ-2 Score 0 05/22/2019 [facility] [place] of Occupat ional Health - Occupational Stress [...] on filedocumented in this encounter Care Teams Peoplesoft Business Analyst Relationship Specialty Start Date End Date Rosalinda Marinelli, SCIENTIST PROPAGATOR [address] [place] [address] PCP - General 08/26/23 documented as of this encounter
--- NOTE | 2024-05-03 13:00 | CRLHL7_ITS ---
For Patients: As a result of the Century Cures Act, medical imaging exams and procedure reports are released immediately into your electronic medical record. You may view this report before your referring provider. If you have questions, please contact your health care provider. Indication: Lumbar pain status post lumbar spinal fusion Technique: Noncontrast axial CT of the lumbar spine with coronal and sagittal reformats. Comparison: No relevant comparison studies available at this institution. Findings: The normal lumbar lordosis is preserved. There is grade 1 anterolisthesis at L4-5, with posterior transpedicular screw and sho fusion changes at L4-S1, and anterior interbody fusion changes at L5-S1. Spinal hardware appears intact and well-seated. No acute osseous abnormality identified. Included SI joints are unremarkable. Aortoiliac atherosclerotic plaquing. T11-T12: Diffuse right eccentric disc-osteophyte complex, facet arthropathy. No right, mild left neural foraminal narrowing. No spinal canal stenosis. T12-L1: No neural foraminal or spinal canal stenosis. L1-L2: Mild diffuse disc bulge. No neural foraminal or spinal canal stenosis. L2-L3: Mild diffuse disc bulge. No right, mild left neural foraminal narrowing. No spinal canal stenosis. L3-L4: Mild diffuse disc bulge, mild facet arthropathy. No right, mild-moderate left neural foraminal narrowing. Laminectomy decompression of the spinal canal. L4-L5: Postop changes, disc unroofing/bulge, left asymmetric facet arthropathy. No neural foraminal stenosis. Laminectomy decompression of the spinal canal. L5-S1: Postop changes, facet arthropathy. Suspect no right and mild left neural foraminal narrowing. Artifact obscures the spinal canal. Impression: 1. Postsurgical changes of L4-S1 spinal fusion, with grade 1 anterolisthesis at L4-5. 2. Spinal hardware appears intact and well seated. No acute osseous abnormality identified. 3. Scattered spondylosis and low-grade neural foraminal narrowing as detailed. No convincing spinal canal stenosis. Please note that all CT scans at this facility use dose modulation, iterative reconstruction, and/or weight-based dosing when appropriate to reduce radiation dose to as low as reasonably achievable. Dictated by Miracle Guardado MD @ 05/04/2024 10:08:12 AM (Electronically Signed)
== END 2024-05-03 12:43 | disposition home or self-care (01) ==
LOC: CT 12:44
PROVIDERS: PCP Family Medicine; Visit Provider Physician Assistant Surgical
DX: M54.16 Radiculopathy, lumbar region (principal); M47.896 Other spondylosis, lumbar region
CPT/HCPCS: 72131

== ENCOUNTER 2024-05-12 14:01 | Outpatient (CLI) | payer MEDICARE, SELFPAY ==
--- OUTSIDE RECORDS SUMMARY | 2024-05-12 14:03 | XMS_ITS | Encounter Summary ---
Author Organization [facility] er Address [address] [place] [address] Care Team Providers Care Sole Layer Hand Name Role Phone Rosalinda Marinelli APRN Primary Care Provider Reason for Visit * Reason Comments Med Refill Encounter Details Date Type Department Care Team (Late st Contact Info) Description 04/26/2020 Refill [place] [address] [place] [address] Nara Reyes MD [address] [facility] 20 [place] [address] Chronic pain due to trauma Social History [...] Answer Date Recorded PHQ-2 Score 0 05/22/2019 [place] [facility] [place] of Occupat ional Health - Occupational Stress [...] 04/30/2020 4:53 PM CDT Fax rx to [facility] * Telephone Encounter - Randi [...] documented as of this encounter Care Teams Sole Layer Hand Relationship Specialty Start Date End Date Rosalinda Marinelli, FIELD ARTILLERY BASIC [address] [place] [address] PCP - General 08/26/23 documented as of this encounter
--- OUTSIDE RECORDS SUMMARY | 2024-05-12 14:03 | XMS_ITS | Encounter Summary ---
Author Organization [facility] er Address [address] [place] [address] Care Team Providers Care Commercial Lender Name Role Phone Rosalinda Marinelli APRN Primary Care Provider Encounter Details Date Type Department Care Team (Late st Contact Info) Description 06/10/2020 Telephone [facility] [address] [place] [address] Lesli Valadez RN [address] [place] [address] Social History Tobacco Use Types [...] Answer Date Recorded PHQ-2 Score 0 05/22/2019 [facility] of Occupat ional Health - Occupational Stress [...] on filedocumented in this encounter Care Teams Commercial Lender Relationship Specialty Start Date End Date Rosalinda Marinelli APRN [address] [place] [address] PCP - General 08/26/23 documented as of this encounter
--- OUTSIDE RECORDS SUMMARY | 2024-05-12 14:03 | XMS_ITS | Encounter Summary ---
Author Organization [facility] er Address [address] [place] [address] Care Team Providers Care Museum Security Chief Name Role Phone Rosalinda Marinelli APRN Primary Care Provider Reason for Visit * Reason Comments Med Refill Encounter Details Date Type Department Care Team (Late st Contact Info) Description 12/03/2020 Refill [place] [address] [place] [address] Nara Reyes MD [address] [place] [address] Chronic pain syndrome Social History Tobacco Use [...] Answer Date Recorded PHQ-2 Score 0 05/22/2019 [facility] [place] of Occupat ional Health - Occupational Stress [...] was filled 12/03/2020 # 180, 3 refill. CREW LABORER documented in this encounter Plan of Treatment Not on file documented as of this encounter Visit Diagnoses Diagnosis Chronic pain syndrome documented in this encounter Care Teams Museum Security Chief Relationship Specialty Start Date End Date Rosalinda Marinelli, TELECOMMUNICATIONS EQUIPMENT INSTALLER [address] [place] [address] PCP - General 08/26/23 documented as of this encounter
--- OUTSIDE RECORDS SUMMARY | 2024-05-12 14:03 | XMS_ITS | Encounter Summary ---
Author Organization [facility] er Address [address] [place] [address] Care Team Providers Care Regional Sales Trainer Name Role Phone Rosalinda Marinelli APRN Primary Care Provider Reason for Visit * Reason Comments Med Refill Encounter Details Date Type Department Care Team (Late st Contact Info) Description 07/20/2022 Refill [place] [address] [place] [address] Nara Reyes MD [address] [place] [address] Chronic pain due to trauma Social History [...] Date Recorded PHQ-9 Total Score 0 12/24/2021 [facility] of Occupat ional Health - Occupational Stress [...] trauma documented in this encounter Care Teams Regional Sales Trainer Relationship Specialty Start Date End Date Rosalinda Marinelli APRN [address] [place] [address] PCP - General 08/26/23 documented as of this encounter
--- OUTSIDE RECORDS SUMMARY | 2024-05-12 14:03 | XMS_ITS | Continuity of Care Document ---
Author Organization [facility] Address [address] [place] [address] Phone Care Team Providers Care Forge Operator Name Role Phone Lee Coates Unavailable Unavailable [...] ient Visit,Est, Mod [facility], [address], [place], [id number], [place] tel:[phone] [facility] Encounter for other specified surgical aftercare Lazara Howard. [facility], [address], [address], [facility], [place], [id number] , [place]. tel:[phone] Referring Provider: Lee Escamilla, [facility] [address] [place] [address], [address], [place], [address] . tel:[phone] Office/Outpat ient Visit,Est, Mod [facility], [address], [place], [id number], [place] tel:[phone] [facility] Encounter for other specified surgical aftercare 3 Resendez Doug. [facility], [address], [address], [facility] [place], [id number] , [place]. tel:[phone] Referring Provider: Abilio Del Cid, [address] , [place], [address]. tel:[phone] [facility], [address], [place], [id number], [place] tel:[phone] [facility] No Information 3 Resendez Doug. [facility], [address], [address], [facility] [place], [place], [id number] , [place]. tel:[phone] Referring Provider: Abilio Del Cid, [address], [place], [address]. tel:[phone] [facility], [address], [place], [id number], [place] tel:[phone] [facility] No Information 3 Lazara Howard. [facility], [address], [address], [facility], [place], [id number] , [place]. tel:[phone] Referring Provider: Abilio Del Cid, [address], [place], [address]. tel:[phone] [facility], [address], [place], [id number], [place] tel:[phone] [facility] Information 3 Resendez Doug. [facility], [address], [address], [place], [place], [id number] , [place]. tel:[phone] Referring Provider: Abilio Del Cid, [address] , [place], [address]. tel:[phone] Office/Outpat ient Visit,Est, Mod [facility], [address], [place], [id number], [place] tel:[phone] [facility] Pseudarthrosis after fusion or arthrodesis 3 Resendez Doug. [facility], [address] [place] [address], [address], [place], [place], [id number] , [place]. tel:[phone] Referring Provider: Abilio Del Cid, [address], [place], [address]. tel:[phone] Office/Outpat ient Visit,Est, Mod [facility], [address], [place], [id number], [place] tel:[phone] [facility] Encounter for other specified surgical aftercare 2 Panvica Lee. [facility], [address] [place] [address], [address], [facility] [place], [id number] , [place]. tel:[phone] Referring Provider: Abilio Del Cid, [address], [place], [address]. tel:[phone] Office/Outpat ient Visit,Est, Mod [facility], [address], [place], [id number], [place] tel:[phone] [facility] Encounter for other specified surgical aftercare 2 Panvica Lee. [facility], [address], [address], [place], [place], [id number] , [place]. tel:[phone] Referring Provider: Abilio Del Cid, [address] , [place], [address]. tel:[phone] [facility], [address], [facility], [id number], [place] tel:[phone] [facility] Encounter for other specified surgical aftercare Apr- 4-202 2 Resendez Doug. [facility], [address], [address], [place], [place], [id number] , [place]. tel:[phone] Referring Provider: Abilio Del Cid, [address], [place], [address]. tel:[phone] [facility], [address], [place], [place], [id number], [place] tel:[phone] [facility] No Information Mar-0 3-202 2 Panvica Lee. [facility], [address], [address], [place], [place], [id number] , [place]. tel:[phone] Referring Provider: Abilio Del Cid, [address], [place], [address]. tel:[phone] [facility], [address], [facility], [id number], [place] tel:[phone] [facility] No Information Mar-0 2-202 2 Resendez Doug. [facility], [address], [address], [place], [place], [id number] , [place]. tel:[phone] Referring Provider: Abilio Del Cid, [address], [place], [address]. tel:[phone] Office/Outpat ient Visit,New, Mod [facility], [address], [place], [id number], [place] tel:[phone] [facility] Other spondylosis, lumbosacral regionSpondylol isthesis, lumbar regionOther intervertebral disc displacement, lumbosacral regionRadiculop athy, lumbosacral region 1 Perez Cook. [facility], [address], [place], [id number] , [place]. tel:[phone] Referring Provider: Abilio Del Cid, [facility] [address] [facility] [address], [place], [address]. tel:[phone] Family History Family Member Type Diagnosis Age At Onset No Information Payers Payer name Insurance type Covered green party ID Tami burroughs(s) [facility] Medicare [facility] 2021 CI [id number] Social History Type Description Quantity Date Captured [...]
--- OUTSIDE RECORDS SUMMARY | 2024-05-12 14:03 | XMS_ITS | Encounter Summary ---
Author Organization [facility] er Address [address] [place] [address] Care Team Providers Care Business Center Representative Name Role Phone Rosalinda Marinelli APRN Primary Care Provider Encounter Details Date Type Department Care Team (Late st Contact Info) Description 05/07/2023 Telephone [facility] [address] [place] [address] Rad Cerda RN [address] [place] [address] Social History Tobacco Use Types [...] Date Recorded PHQ-9 Total Score 0 12/24/2021 [facility] of Occupat ional Health - [...] on filedocumented in this encounter Care Teams Business Center Representative Relationship Specialty Start Date End Date Rosalinda Marinelli, AGRICULTURAL SERVICES DIRECTOR [address] [place] [address] PCP - General 08/26/23 documented as of this encounter
--- OUTSIDE RECORDS SUMMARY | 2024-05-12 14:03 | XMS_ITS | Clinical Summary ---
Author Organization [facility] er Address [address] [place] [address] Care Team Providers Care Flower Cheniller Name Role Phone Rosalinda Marinelli APRN Primary [...] Hives 04/21/2021 Nuts Nystatin Other 08/26/2018 Trees, [place], Capok, wool, feathers, Penicillins Most of this [...] adjusted: 09/10/2023)., Reported on 09/10/2023 TechLite Pen [place] 31G X 5 MM [facility] 06/29/2023 Active Fluocinonide Emulsified Base 0.05 % [...] out DVT today at 5 pm at [employer] LINDA (acute kidney injury) 01/09/2022 Normocytic anemia [...] often do you attend chur ch or taoism services? Never 08/02/2023 Do you belong to any clubs o r organizations such as holiness groups, unions, fraternal or athletic groups, or [...] Date Recorded PHQ-9 Total Score 9 08/02/2023 [facility] ional [facility] - Occupational [...] place to sleep or slept in a senior living (including now)? No 08/02/2023 Sex and Gender [...] Wellness Visit (AWV) 06/23/2024 06/23/2023 Influenza Vaccine (#1) 2024 Colonoscopy 01/16/2026 01/16/2021 Colorectal Cancer Screening 01/16/2026 Bone Density Scan 04/07/2028 04/07/2023, 11/07/2014 HPV Vaccines Aged Out No longer eligi ble based on patient's age to complete this topic Medical Devices Implanted Type Area Cigarette Tester Device Identifier Shelf Expiration Date Model / Serial / Lot Infinity Tibial Tray Sz 3 Lng Total Ankle System - [id number] Implanted:Qty: 1 on 06/07/2020 by Jordan Tan MD at [facility] Right: Ankle 06/19/2027 REF [id number] / / [id number] Infinity Talar Dome Sz 2 Total Ankle System - [id number] Implanted:Qty: 1 on 06/07/2020 by Jordan Tan MD at [facility] Right: Ankle 03/19/2028 REF# [id number] / / [id number] Infinity Poly Sz 2+ 6mm Total Ankle System - [id number] Implanted:Qty: 1 on 06/07/2020 by Jordan Tan MD at [facility] Right: Ankle 04/19/2027 REF# [id number] / / [id number] Procedures Procedure Name Priority Date/Time Associated Diagnosis Comments HEMOGLOBIN A1C Routine 06/23/2023 3:18 PM CDT Preop examination LIPID PANEL Routine 08/27/2022 2:43 PM CDT Screening cholesterol level MICROALBUMIN/CREATI NINE RATIO Routine 02/04/2022 3:35 PM CDT Type 2 diabetes mellitus without complication, without long-term current use of insulin (HCC) DEXA BONE DENSITY Routine 11/07/2014 1:5 1 PM HOSE STRIPPER from Last 3 Months or Most Recently Relevant to Health Maintenance Results * (ABNORMAL) Hemoglobin A1c (06/23/2023 3:18 PM CDT) Hemoglobin A1C 6.9(H) 4.0 - 5.6 % A1C 06/24/2023 4:13 PM CDT [facility] Comment: Reference Range 4.0-5.6% is [...] CDT Nara Reyes MD LAB BLOOD ORDERABLES [facility] [address] [place] [address] * (ABNORMAL) Lipid panel (08/27/2022 2:43 PM CDT) Cholesterol 205(H) 0 - 199 mg/dL 08/28/2022 2:05 PM T [facility] Comment: Recommended by National Cholesterol Education Program (ATP III) -------- Cholesterol Ranges -------- <200 ?Desirable 200-239 ? Borderline high >=240 ? High Triglycerides 190(H) 0 - 149 mg/dL 08/28/2022 2:05 PM T [facility] Comment: -------- TRIG Ranges -------- <150 ?Normal 150-199 ? Borderline high 200-499 ? High >=500 ? Very high HDL 41 40 - 250 mg/dL 08/28/2022 2:05 PM T [facility] Comment: -------- HDL Ranges -------- <40 ?Low 40-59 ?Normal >=60 ? Optimal LDL Calculated 126(H) 0 - 99 mg/dL 08/28/2022 2:05 PM CDT [facility] Comment: -------- LDL Ranges -------- <100 ? Optimal 100-129 ?Near optimal/above optimal 130-159 ?Borderline high 160-189 ?High >=190 ?Very high Blood 08/27/2022 2:43 PM CDT 08/28/2022 12:45 PM CDT Nara Reyes MD LAB BLOOD ORDERABLES Performing Organization Address [facility] de Phone Number [facility] [address] [place] [address] * (ABNORMAL) Microalbumin/Creatinine Ratio (02/04/2022 3:35 PM CDT) Microalbumin,mg/ day 94.1(H) 0.0 - 16.6 mg/L 02/05/2022 2:26 PM CDT [facility] Comment: . Creatinine, Urine 182 mg/dL 02/05/2022 2:26 PM T [facility] Comment: No established reference range. Microalb/Creat Ratio 52(H) 0 - 24 mg/g 02/05/2022 2:26 PM CDT [facility] Urine 02/04/2022 3:35 PM CDT 02/05/2022 12:33 PM CDT Nara Reyes MD LAB URINE ORDERABLES Performing Organization Address [facility] Co de Phone Number [facility] [address] [place] [address] * Dexa bone density axial skeleton (11/07/2014 1:51 PM HOSE STRIPPER) Anatomical Region Laterality Modality Wrist, Hip, L-spine Radiographic Imaging 11/07/2014 1:51 PM HOSE STRIPPER Narrative 11/07/2014 5:10 PM HOSE STRIPPER Clinical History Hyperthyroidism/Post menopause; Indication for exam: [...] Advance Directives For more information, please contact: [phone] * Full Code (Latest Code Status on File) Date Activated Date Inactivated Comments 06/07/2020 11:29 AM 06/08/2020 12:03 PM Care Teams Flower Cheniller Relationship Specialty Start Date End Date Rosalinda Marinelli APRN [address] [place] [address] PCP - General 08/26/23
--- OUTSIDE RECORDS SUMMARY | 2024-05-12 14:03 | XMS_ITS | Encounter Summary ---
Author Organization [facility] er Address [address] [place] [address] Care Team Providers Care Chaplain Resident Name Role Phone Rosalinda Marinelli APRN Primary Care Provider Encounter Details Date Type Department Care Team (Late st Contact Info) Description 05/24/2020 Telephone [facility] Medical/Surgical [address] [place] [address] [place] [address] [place] [phone] Social History Tobacco Use Types Packs/Day [...] Answer Date Recorded PHQ-2 Score 0 05/22/2019 [facility] [place] [facility] Occupat ional Health - Occupational Stress [...] documented as of this encounter Care Teams Chaplain Resident Relationship Specialty Start Date End Date Rosalinda Marinelli APRN [address] [place] [address] PCP - General 08/26/23 documented as of this encounter
--- OUTSIDE RECORDS SUMMARY | 2024-05-12 14:03 | XMS_ITS | Encounter Summary ---
Author Organization [facility] er Address [address] [place] [address] Care Team Providers Care Ballast Regulator Operator Name Role Phone Rosalinda Marinelli APRN Primary Care Provider Reason for Visit * Reason Comments Med Refill Encounter Details Date Type Department Care Team (Late st Contact Info) Description 01/20/2021 Refill [place] [address] [place] [address] Nara Reyes MD [address] [place] [address] Encounter for screening colonoscopy Social History Tobacco [...] Answer Date Recorded PHQ-2 Score 0 05/22/2019 [facility] [place] of Occupat ional Health - Occupational Stress [...] ACCORDING TO DIRECTIONS ON YOUR [facility] COLONOSCOPY PREP SHEET Pre-procedural rx, no refill. Pharmacy notified. documented in this encounter Plan of Treatment Not on file documented as of this encounter Visit Diagnoses Diagnosis Encounter for screening colonoscopy documented in this encounter Care Teams Ballast Regulator Operator Relationship Specialty Start Date End Date Rosalinda Marinelli, CHILD WELFARE COUNSELOR [address] [place] [address] PCP - General 08/26/23 documented as of this encounter
--- OUTSIDE RECORDS SUMMARY | 2024-05-12 14:03 | XMS_ITS | Encounter Summary ---
Author Organization [facility] er Address [address] [place] [address] Care Team Providers Care Head Batcher Name Role Phone Rosalinda Marinelli APRN Primary Care Provider Encounter Details Date Type Department Care Team (Late st Contact Info) Description 06/10/2020 Telephone [facility] Medical/Surgical [address] [place] [address] [place] [address] [place] [phone] Social History Tobacco Use Types Packs/Day [...] Answer Date Recorded PHQ-2 Score 0 05/22/2019 [facility] [place] of Occupat ional Health - Occupational Stress [...] on filedocumented in this encounter Care Teams Head Batcher Relationship Specialty Start Date End Date Rosalinda Marinelli, STATION CAPTAIN [address] [place] [address] PCP - General 08/26/23 documented as of this encounter
--- OUTSIDE RECORDS SUMMARY | 2024-05-12 14:04 | XMS_ITS | Clinical Summary ---
Author Organization [facility] Address [place], [place] [address] Care Team Providers Care Booster Assembler Name Role Phone Abilio Reyes Primary Care Provider [phone] Allergies Active Allergy Reactions Criticality Noted Date [...] Detail In Comments) Runny Nose 08/26/2018 Trees, [place], Capok, wool, feathers, Venom-Honey Bee Anaphylaxis High [...] 65+ 07/09/2024 Medical Devices Implanted Type Area Sheriffs Device Identifier Shelf Expiration Date Model / Serial / Lot Bone 1-4mm 90cc Medtronic Chips Canclls Freeze Dried - Sabino: [id number] Implanted:Qty: 1 on 01/07/2022 by Doug Resendez MD at [facility] Lumbar Vertebrae Medtronic Spine/Ortho 02/21/2026 [id number] / ID: [id number] / [id number] Description:Implanted packing room worker ior spine L4-S1 Screw Lmbr Post 7.5x45mm Solera 5.5/6 Va Cocr - [id number] Implanted:Qty: 1 on 07/07/2023 by Doug Resendez MD at [facility] N/A: Lumbar Vertebrae Medtronic Spine/Ortho [id number] / / Screw Lmbr Post 8.5x45mm Solera 5.5/6 Va Cocr - [id number] Implanted:Qty: 3 on 07/07/2023 by Doug Resendez MD at [facility] N/A: Lumbar Vertebrae Medtronic Spine/Ortho [id number] / / Screw Lmbr Post 9.5x40mm Solera 5.5/6 Va Cocr - [id number] Implanted:Qty: 2 on 07/07/2023 by Doug Resendez MD at [facility] N/A: Lumbar Vertebrae Medtronic Spine/Ortho [id number] / / Nawaf Lmbr 70x5.5mm Solera 5.5/6 Cvd Titnm - [id number] Implanted:Qty: 2 on 07/07/2023 by Doug Resendez MD at [facility] N/A: Lumbar Vertebrae Medtronic Spine/Ortho [id number] / / Putty Easypack 5cc Magnetos - [id number] Implanted:Qty: 1 on 07/07/2023 by Doug Resendez MD at [facility] N/A: Lumbar Vertebrae [employer] 10/08/2025 [id number] / / [id number] Endoskeleton Tas Implant Implanted:Qty: 1 on 07/07/2023 by Doug Resendez MD at [facility] N/A: Lumbar Vertebrae Medtronic 10/08/2026 [id number] / / [id number] 5.5x25 Screw Implanted:Qty: 3 on 07/07/2023 by Doug Resendez MD at [facility] N/A: Lumbar Vertebrae Medtronic [id number] / / Description:anterior Bone Matrix 3cc Umberto Dbf Putty Dbm - [id number] Implanted:Qty: 1 on 07/07/2023 by Doug Resendez MD at [facility] N/A: Lumbar Vertebrae Medtronic Spine/Ortho 05/24/2025 [id number] / [id number] / Bone Matrix 3cc Umberto Dbf Putty Dbm - [id number] Implanted:Qty: 1 on 07/07/2023 by Doug Resendez MD at [facility] N/A: Lumbar Vertebrae Medtronic Spine/Ortho 05/24/2025 [id number] / [id number] / Bone Matrix Sm Infuse Bmp - [id number] Implanted:Qty: 1 on 07/07/2023 by Doug Resendez MD at [facility] N/A: Lumbar Vertebrae Medtronic Spine/Ortho 11/08/2024 [id number] / / [id number] Bone 1-4mm 60cc Medtronic Fine Canclls Freeze Dried - [id number] Implanted:Qty: 1 on 07/07/2023 by Doug Resendez MD at [facility] N/A: Lumbar Vertebrae Medtronic Spine/Ortho 01/20/2027 [id number] / [id number] / Set Screw Lmbr Ant 5.5mm Solera Break Off - [id number] Implanted:Qty: 6 on 07/07/2023 by Doug Resendez MD at [facility] N/A: Lumbar Vertebrae Medtronic Spine/Ortho [id number] / / Explanted Type Area Sheriffs Device Identifier Shelf Expiration Date Model / Serial / Lot Set Screw Lmbr Ant 5.5mm Solera Break Off - [id number] Implanted:Qty : 6 on 01/07/2022 by Duog Resendez MD at [facility] Explanted:Qty : 6 on 07/07/2023 by Doug Resendez MD at [facility] Lumbar Vertebrae Medtronic Spine/Ortho [id number] / / Description:Implanted packing room worker ior spine L4-S1 Screw Lmbr Post 6.5x45mm Solera 5.5/6 Va Cocr - [id number] Implanted:Qty : 1 on 01/07/2022 by Doug Resendez MD at [facility] Explanted:Qty : 1 on 07/07/2023 by Doug Resendez MD at [facility] Lumbar Vertebrae Medtronic Spine/Ortho [id number] / / Description:Implanted packing room worker ior spine L4-S1 Screw Lmbr Post 7.5x40mm Solera 5.5/6 Va Cocr - [id number] Implanted:Qty : 2 on 01/07/2022 by Doug Resendez MD at [facility] Explanted:Qty : 2 on 07/07/2023 by Doug Resendez MD at [facility] Lumbar Vertebrae Medtronic Spine/Ortho [id number] / / Description:Implanted packing room worker ior spine L4-S1 Screw Lmbr Post 7.5x45mm Solera 5.5/6 Va Cocr - [id number] Implanted:Qty : 3 on 01/07/2022 by Doug Resendez MD at [facility] Explanted:Qty : 3 on 07/07/2023 by Doug Resendez MD at [facility] Lumbar Vertebrae Medtronic Spine/Ortho [id number] / / Description:Implanted packing room worker ior spine L4-S1 Nawaf Lmbr 70x5.5mm Solera 5.5/6 Cvd Titnm - [id number] Implanted:Qty : 2 on 01/07/2022 by Doug Resendez MD at [facility] Explanted:Qty : 2 on 07/07/2023 by Doug Resendez MD at [facility] Lumbar Vertebrae Medtronic Spine/Ortho [id number] / / Description:Implanted packing room worker ior spine L4-S1 Advance Directives * Full [...] 8:07 AM 02/15/2012 1:49 PM Care Teams Booster Assembler Relationship Specialty Start Date End Date Abilio Reyes [address] [place] [address] PCP - General Family Practice 12/17/21
--- OUTSIDE RECORDS SUMMARY | 2024-05-12 14:04 | XMS_ITS | Encounter Summary ---
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 * Telephone Encounter - Kamilah Mayberry RN - 08/26/2018 8:24 AM CDT Please fax Rx to [facility]. * Telephone Encounter - Frida [...] documented as of this encounter Care Teams Food Service Supervisor Relationship Specialty Start Date End Date Rosalinda Marinelli, COMPUTER VIDEO GAME DESIGNER [address] [place] [address] PCP - General 08/26/23 documented as of this encounter
--- NOTE | 2024-05-12 14:30 | CRLHL7_ITS ---
For Patients: As a result of the 21st Century Cures Act, medical imaging exams and procedure reports are released immediately into your electronic medical record. You may view this report before your referring provider. If you have questions, please contact your health care provider. Indication: OTHER DISEASES OF SALIVARY GLANDS Technique: MRI soft tissue neck without contrast. Sagittal T1, axial T2, T1 fat-suppressed, axial T2 fat-suppressed, axial diffusion-weighted, coronal T1 and STIR sequences Comparison: No prior studies available for comparison at this institution. Findings: There is no significant lymphadenopathy. Bilateral pseudophakia. Multiple scattered foci of T2 prolongation in the supratentorial white matter are nonspecific. Expected intracranial vascular flow voids are preserved. The pituitary gland, optic chiasm, pineal gland, and cerebellar tonsils are unremarkable. Calvarial bone marrow signal is within normal limits. The scalp and soft tissues are grossly normal there is no evidence of diffusion restriction. Slight rightward deviation of the nasal septum. The paranasal sinuses are unremarkable. There is a well-circumscribed T2 hyperintense T1 isointense lesion in the tail of the right parotid gland that measures 1.3 x 1.1 x 1.2 cm (series 5, image 25). The left parotid gland is unremarkable. The submandibular glands and sublingual glands are unremarkable. All the major vascular structures demonstrate normal flow-related signal voids. The airway is widely patent. No mass, signal abnormality or pathologic enhancement is demonstrated in the nasopharynx, oral cavity, tongue or floor of mouth, oropharynx, hypopharynx or larynx. The retropharyngeal, prevertebral, parapharyngeal and overhead foreman spaces are normal in appearance. The signal arising from the marrow of the skull base and visualized spine is normal. The paraspinous muscles are symmetric and normal in size, signal and morphology. The cervical and upper thoracic spinal cord is normal in contour, calibre and signal. Visualized portions of the brain, the orbits and their contents are unremarkable. No mass or fluid-intensity signal is demonstrated in the sinonasal cavities, middle ear clefts or mastoid air cells. No mass or signal abnormality is demonstrated in the mediastinum, visualized pulmonary apices, supraclavicular fossae, superior sulci or visualized portions of the axillae. No pleural effusion is demonstrated. Impression: 1. No evidence acute inflammation in the neck. 2. There is a well-circumscribed 1.3 x 1.1 centimeter mass lesion in the tail of the right parotid gland suggestive of seborrheic neoplasm versus intraparotid lymph node. 3. Normal deep soft tissues of the neck. 4. Multiple scattered foci of T2 prolongation in the supratentorial white matter nonspecific but may represent chronic small vessel ischemic changes. Dictated by Vince Loco MD @ 05/12/2024 4:41:59 PM (Electronically Signed)
== END 2024-05-12 14:02 | disposition home or self-care (01) ==
LOC: MRI 14:01
PROVIDERS: PCP Family Medicine; Visit Provider Otolaryngology
DX: K11.9 Disease of salivary gland, unspecified (principal)
CPT/HCPCS: 70540

== ENCOUNTER 2024-06-07 11:06 | Outpatient (CLI) | payer MEDICARE, SELFPAY ==
--- OUTSIDE RECORDS SUMMARY | 2024-06-07 11:12 | XMS_ITS | Continuity of Care Document ---
Author Organization [facility] Address [address] [place] [address] Phone Care Team Providers Care Barrel Cooper Name Role Phone Lee Coates Unavailable Unavailable [...] ient Visit,Est, Mod [facility], [address], [place], [place], [id number], [place] tel:[phone] [facility] Encounter for other specified surgical aftercare Lazara Howard. [facility], [address], [address], [facility], [id number] , [place]. tel:[phone] Referring Provider: Lee Escamilla, [facility] [address] [place] [address], [address], [place], [address] . tel:[phone] Office/Outpat ient Visit,Est, Mod [facility], [address], [place], [id number], [place] tel:[phone] [place] Encounter for other specified surgical aftercare 3 Resendez Doug. [facility] [place], [address], [address], [facility] [place], [place], [id number] , [place]. tel:[phone] Referring Provider: Abilio Del Cid, [address] , [place], [address]. tel:[phone] [facility], [address], [facility], [id number], [place] tel:[phone] [place] No Information 3 Resendez Doug. [facility] [place], [address], [address], [facility] [place], [place], [id number] , [place]. tel:[phone] Referring Provider: Abilio Del Cid, [address], [place], [address]. tel:[phone] [facility], [address], [place], [id number], [place] tel:[phone] [facility] No Information 3 Lazara Howard. [facility] [place], [address], [address], [facility] [place], [id number] , [place]. tel:[phone] Referring Provider: Abilio Del Cid, [address], [place], [address]. tel:[phone] [facility], [address], [place], [id number], [place] tel:[phone] [facility] Information 3 Resendez Doug. [facility] [place], [address], [address], [place], [place], [id number] , [place]. tel:[phone] Referring Provider: Abilio Del Cid, [address] , [place], [address]. tel:[phone] Office/Outpat ient Visit,Est, Mod [facility], [address], [place], [id number], [place] tel:[phone] [place] Pseudarthrosis after fusion or arthrodesis [address] [facility], [address] [place] [address], [address], [place], [place], [id number] , [place]. tel:[phone] Referring Provider: Abilio Del Cid, [address], [place], [address]. tel:[phone] Office/Outpat ient Visit,Est, Mod [facility], [address], [place], [id number], [place] tel:[phone] [facility] Encounter for other specified surgical aftercare 2 Panvica Lee. [facility] [place], [address] [place] [address], [address], [facility] [place], [id number] , [place]. tel:[phone] Referring Provider: Abilio Del Cid, [address], [place], [address]. tel:[phone] Office/Outpat ient Visit,Est, Mod [facility], [address], [place], [id number], [place] tel:[phone] [facility] Encounter for other specified surgical aftercare 2 Panvica Lee. [facility], [address], [address], [place], [place], [id number] , [place]. tel:[phone] Referring Provider: Abilio Del Cid, [address] , [place], [address]. tel:[phone] [facility], [address], [facility] [place] [place] [id number], [place] tel:[phone] [place] Encounter for other specified surgical aftercare Apr- 4-202 2 Resendez Doug. [facility] [place], [address], [address], [place], [place], [id number] , [place]. tel:[phone] Referring Provider: Abilio Del Cid, [address], [place], [address]. tel:[phone] [facility], [address], [place], [place], [id number], [place] tel:[phone] [facility] No Information Mar-0 3-202 2 Panvica Lee. [facility] [place], [address], [address], [place], [place], [id number] , [place]. tel:[phone] Referring Provider: Abilio Del Cid, [address], [place], [address]. tel:[phone] [facility], [address], [place] [place] [place] [id number], [place] tel:[phone] [facility] No Information Mar-0 2-202 2 Resendez Doug. [facility] [place], [address], [address], [place], [place], [id number] , [place]. tel:[phone] Referring Provider: Abilio Del Cid, [address], [place], [address]. tel:[phone] Office/Outpat ient Visit,New, Mod [facility], [address], [place], [id number], [place] tel:[phone] [facility] Other spondylosis, lumbosacral regionSpondylol isthesis, lumbar regionOther intervertebral disc displacement, lumbosacral regionRadiculop athy, lumbosacral region 1 Perez Cook. [facility], [address], [place], [id number] , [place]. tel:[phone] Referring Provider: Abilio Del Cid, [facility] [address] [facility] [address], [place], [address]. tel:[phone] Family History Family Member Type Diagnosis Age At Onset No Information Payers Payer name Insurance type Covered libertarian ID Tami burroughs(s) [facility] Medicare [facility] 2021 CI [id number] Social History Type Description Quantity Date Captured [...]
--- OUTSIDE RECORDS SUMMARY | 2024-06-07 11:12 | XMS_ITS | Continuity of Care Document ---
Author Organization [facility] Address [address] [facility] [place] [address] Phone Care Team Providers Care Ocular Care Aide Name Role Phone Beth Lyon PhD, LP, Peg Unavailable Unava ilable Allergies, Adverse Reactions, Alerts Substance Reaction Status Criticality egg HivesHivesHives Active No Informati on Penicillins Hives/Skin Rash Active No Informati on Medications Medication Instructions Dosage Effective Dates (start - stop) Status Comments hydrocodone 7.5 mg-acetaminophen 325 mg tablet take 1 tablet by oral route every 8 hours as needed for pain. Start date: 05/23/2024 - Active chronic pain, ok to fill today tizanidine 4 mg tablet take 1 tablet by oral route daily as needed. - Active gabapentin 800 mg tablet take 1.5 tablet by oral route in the AM 1 at 5pm and 1.5 in the PM - Active tramadol 50 mg tablet take 1 tablet by oral route 3 times a day - Active lansoprazole 30 mg delayed release,disintegrati ng tablet place 1 tablet by translingual route every day on top of the tongue where it will dissolve, then swallow 30 MG - Active Zyrtec 10 mg tablet take 1 tablet by oral route every day 10 MG - Active levothyroxine 125 mcg capsule take 1 capsule by oral route every day 125 MCG - Active calcium 600 mg (as calcium carbonate 1,500 mg) tablet Take 2 times per day - Active atenolol 50 mg tablet take 1 tablet by oral route every day 50 MG - Active Vitamin B-12 1,000 mcg tablet Every other day - Active duloxetine 60 mg capsule,delayed release take 1 capsule by oral route every day 60 MG - Active Vitamin D3 50 mcg (2,000 unit) tablet - Active Flonase Allergy Relief 50 mcg/actuation nasal spray,suspension spray 1 - 2 spray by intranasal route every day in each nostril as needed 50-100 MCG - Active Systane Complete PF 0.6 % eye drops - Active Vazalore 81 mg capsule take 1 capsule by oral route every day 81 MG - Active lisinopril 10 mg tablet take 1 tablet by oral route every day 10 MG - Active rosuvastatin 10 mg tablet take 1 tablet by oral route every day 10 MG - Active naproxen sodium 220 mg capsule take 1 capsule by oral route every 12 hours as needed as needed 220 MG - Active Benadryl 25 mg capsule take 1 capsule by oral route every 4 - 6 hours as needed 25 MG - Active Procedures Procedure Date Psych Dx Eval OFFICE/OUTPATIENT VISIT, EST OFFICE/OUTPATIENT VISIT, NEW Drug Urine Toxology With Chromatography Drug test def 8-14 classes Advance Directives Directive Yes / No Effective Date File Name No Information Encounters Encounter Description Practice Location Reason(s) For Visit Diagnoses Date Provider Providers Copied on Encounter Psych Dx Eval [facility], [address] [place], [place], [id number] , [place] tel: [phone] Telehealth Pain disorder with related psychological factors 4 Beth Morales. [address] [place], [place], [id number] , [place]. tel:[phone] OFFICE/OUTPA TIENT VISIT, EST [facility], [address], [place], [id number] , [place] tel:[phone] [facility] [place] low [place] pain (chief complaint) Chronic pain syndromePostlamine ctomy syndrome, not elsewhere classifiedRadiculo zachery, lumbar regionLong term (current) use of opiate analgesicPain in left shoulderPain in right shoulder [address] [facility], [place], [place], [id number] , [place]. tel:[phone] Referring Provider: Makenzie Márquez[address], [address]. tel:[phone] OFFICE/OUTPA TIENT VISIT, NEW [facility], [address], [place], [id number] , [place] tel:[phone] [facility] [place] low [place] pain (chief complaint) Chronic pain syndromePostlamine ctomy syndrome, not elsewhere classifiedRadiculo zachery, lumbar regionEncounter for therapeutic drug level monitoringLong term (current) use of opiate analgesicPain in left shoulderPain in right shoulder 4 Jose Alfredoediecory Leroy. [address] [facility], [place], [place], [id number] , [place]. tel:[phone] Referring Provider: Makenzie Márquez, [address], [address]. tel:[phone] Family History Family Member Type Diagnosis Age At Onset Problem Family history of Back pain Payers Payer name Insurance type Covered libertarian ID Tami hubbardsparkle(s) [facility] Medicare Advantage Replacement [id number] Social History Type Description Quantity Date Captured Comments Alcohol Use Details Unknown Caffeine Use Details Unknown Tobacco Use Status Smoking Status No Information Sex Female Chief Complaint And Reason For Visit No Information Reason For Referral Reason For Referral No Information Plan Of Treatment Date Type Action Status Goal PRECAST CONCRETE IRONWORKER Scanned. Due on 024 due Goal Order Annual PT. Due on due Goal UDT. Due on due Goal LINOTYPER Paperwork. Due on due Goal Creatinine. Due on due Goal ALT (SGPT). Due on due Goal AST (SGOT). Due on due Goal OARS. Due on due Goal Medication Recon ciliation. Due on due Goal Height. Due on d ue Goal Weight. Due on d ue Goal Zoster vaccine ( 1st). Due on due Goal FIT. Due on due Goal Review Allergy L ist. Due on due Goal PHQ-9. Due on du e Goal Unhealthy drug u se screening. Due on due Goal Hepatitis C scre ening. Due on due Goal Update Social Hi story. Due on due Goal Lipid panel. Due on due Goal FIT-DNA. Due on due Goal Tobacco Use. Due on due Goal CT-Colonography. Due on due Goal FIT-DNA. Due on due Goal Update Social Hi story. Due on due Goal Height. Due on d ue Goal Lipid panel. Due on due Goal Weight. Due on d ue Goal Medication Recon ciliation. Due on due Goal PHQ-9. Due on du e Goal Hepatitis C scre ening. Due on due Goal Tobacco Use. Due on due Goal Review Allergy L ist. Due on due Goal Zoster vaccine ( 1st). Due on due Goal Unhealthy drug u se screening. Due on due Goal FIT. Due on due Goal CT-Colonography. Due on due Goal UDT. Due on due Goal Order Annual PT. Due on due Goal ALT (SGPT). Due on due Goal PRECAST CONCRETE IRONWORKER Scanned. Due on due Goal Creatinine. Due on due Goal OARS. Due on due Goal AST (SGOT). Due on due Goal LINOTYPER Paperwork. Due on due Goal CT-Colonography. Due on due Goal Update Social Hi story. Due on due Goal Height. Due on d ue Goal Medication Recon ciliation. Due on due Goal Tobacco Use. Due on due Goal Review Allergy L ist. Due on due Goal Lipid panel. Due on due Goal Unhealthy drug u se screening. Due on due Goal Hepatitis C scre ening. Due on due Goal FIT. Due on due Goal PHQ-9. Due on du e Goal Zoster vaccine ( 1st). Due on due Goal Weight. Due on d ue Goal FIT-DNA. Due on due Goal Lifestyle educat ion regarding diet completed Appointment Yesica Cancino COPAY $30 BOOKE D Future Order: Radiology Order Thoracic RENÉE (MRTHORWO), Sent on: Sent History Of Present Illness Encounter Date Complaint History Of Prese nt Illness Comments: Yesica is present here today for initial follow up and medication refill for ongoing low back pain with radiation to her BLE. States pain has been stable since last OV.C/o ongoing low back pain with radiation to her BL legs. Endorses muscle spasms and leg cramps, making it difficult to walk or stand for longer than 5 minutes. States after surgery, pain in her BL legs has increased and she found no relief from surgery to her low back. Reports she has been going to painting classes for the elderly and her pain has made it signficantly difficult to participate, stating her pain will make her sweat purfusely. Reports current medication regimen provides minimal pain relief and allows for some increased functionality. States she has been utilizing Tramadol 50mg TID with limited relief. Admits to utilizing old prescriptions of Tylenol #3 as well, as indicated on her UDT. Inquires about trialing an alternative medication to better cover her pain. Also utilizes tizanidine 4mg HS and requests a refill today. Denies any side effects with current medication. No other concerns today. low back pain Severity level i s 8. Duration: chronic. The problem is stable. It occurs persistently. Location of pain is lower back and legs. The client describes the pain as an ache, burning, sharp and tingling. Symptoms are aggravated by ascending stairs, bending, daily activities, descending stairs, lifting, standing, twisting, walking, rising from sitting, standing on one leg and movement. Symptoms are relieved by rest, standing and changing positions. low back pain Onset: gradual w ith injury. Severity level is 7. Duration: chronic. It occurs persistently. Location of pain is lower back, legs and bilateral shoulders. The client describes the pain as burning, numbness, sharp, compression and shaking. Symptoms are aggravated by ascending stairs, bending, descending stairs, lying/rest, standing, twisting, walking and housework. Symptoms are relieved by lying down and sitting. Comments: Yesica is a 69 y/o female here for initial consult regarding ongoing low back pain with radiation to her BLE. Patient referred by her PCP Makenzie Quijano MD at [facility]. Pain began several years ago and has been progressively worsening. Pain averages 7/10 and is described as a sharp, burning, numbness, compression in her lower back, and shaking/weakness in her BL legs.C/o ongoing low back pain with radiation to her BL legs. Endorses muscle spasms and weakness, making it difficult to walk or stand for longer than 5 minutes. States after surgery pain in her BL legs has increased and she found no relief from surgery to her low back. Notes she has had numerous bone spurs in her back which have led to complications with hardware in her back. She continues to follow with Dr. Resendez at [facility] and recently completed an updated lumbar CT. C/o BL shoulder pain, made worse after having to use her arms to transfer herself after R ankle surgery on 06/07/2020. Pain contributed to limited painful ROM, noting she is unable to life her arms above her head. States she is hesitant to pursue injections. Reports the following treatments have been tried in the past:- 2 prior lumbar surgeries, most recently in 07/07/2023- PT, last completed at [facility] in 2022 and 2023 with limited relief- HEP- Oxycodone, hydrocodone, and naproxenCurrently managed on Tramadol 50mg TID, Gabapentin 800mg TID, Duloxetine 60mg, and tizandine HS with limited relief Yesica is interested in pain management through [facility]. Reports no other concerns today. Functional Status Date Functional Assessmen t No Information Instructions Date Instruction Additional Infor mation Lifestyle education regarding di et Related to Body mass index [BMI] 40.0-44.9, adult Assessments Type Assessment Date assessment Pain disorder with related psych ological factors Patient Care Teams Name Effective Dates (start - stop) Status Members No Information
--- OUTSIDE RECORDS SUMMARY | 2024-06-07 11:13 | XMS_ITS | Encounter Summary ---
Author Organization [facility] er Address [address] [place] [address] Care Team Providers Care Gang Drill Press Operator Name Role Phone Rosalinda Marinelli APRN Primary Care Provider Reason for Visit * Reason Comments Med Refill Encounter Details Date Type Department Care Team (Late st Contact Info) Description 06/05/2024 Refill [place] [address] [place], [place] [phone] Rosalinda Marinelli APRN [address] [place], [place] [phone] Gastroesophageal reflux disease without esophagitis Social History [...] often do you attend chur ch or congregation services? Never 08/02/2023 Do you belong to any clubs o r organizations such as adventism groups, unions, fraternal or athletic groups, or [...] Date Recorded PHQ-9 Total Score 9 08/02/2023 [facility] of Occupat ional Health - [...] place to sleep or slept in a mcfp (including now)? No 08/02/2023 Sex and Gender Information Value Date Recorded Sex Assigned at Not on file Gender Identity Not on file Sexual Orientation Not on file documented as of this encounter Miscellaneous Notes * Telephone Encounter - Guillermina Nuñez - 06/07/2024 9:16 AM CDT Contacted to schedule annual physical. Has switched care to Dr. Makenzie Quijano in [place], [place]. * Telephone Encounter - Aleksandra Kemp MA - 06/07/2024 7:38 AM CDT Patient is due for annual exam appointment. PSR: Please contact patient to assist with scheduling. Upcoming appointment with provider: Visit date not found Last visit in provider department: 08/25/23 Last visit requested medication was discussed: med/dx has not discussed in the last year. Last Rx: 01/19/24, #180, 0 refills Requested Prescriptions Pending Prescriptions Disp Refills lansoprazole (PREVACID) [address] capsule [Pharmacy Med Name: LANSOPRAZOLE 30MG CPDR] 180 capsule 0 Sig: TAKE ONE CAPSULE BY MOUTH TWICE A DAY FOR SEVERE HEART BURN Labs: Vitals: BP Readings from Last 2 Encounters: 08/25/23 112/78 08/24/23 (!) 156/86 Last Controlled Substance Agreement (CSA): Last Random Urine Drug Screen (RUDS): documented in this encounter Plan of Treatment Not on file documented as of this encounter Visit Diagnoses Diagnosis Gastroesophageal reflux disease without esophagitis Esophageal reflux documented in this encounter Care Teams Gang Drill Press Operator Relationship Specialty Start Date End Date Rosalinda Marinelil APRN [address] [place] [address] PCP - General 08/26/23 06/06/24 documented as of this encounter
--- OUTSIDE RECORDS SUMMARY | 2024-06-07 11:13 | XMS_ITS | Encounter Summary ---
Author Organization [facility] er Address [address] [place] [address] Care Team Providers Care Knife Operator Name Role Phone Rosalinda Marinelli APRN Primary Care Provider Encounter Details Date Type Department Care Team (Late st Contact Info) Description 06/10/2020 Telephone [facility] Medical/Surgical [address] [place] [address] Lesli Valadez RN [address] [place] [address] Social History Tobacco Use Types [...] Answer Date Recorded PHQ-2 Score 0 05/22/2019 [facility] [place] of Occupat ional Health - Occupational Stress [...] on filedocumented in this encounter Care Teams Knife Operator Relationship Specialty Start Date End Date Rosalinda Marinelli, CLINICAL PHARMACOLOGIST [address] [place] [id number] PCP - General 08/26/23 06/06/24 documented as of this encounter
--- OUTSIDE RECORDS SUMMARY | 2024-06-07 11:13 | XMS_ITS | Encounter Summary ---
Author Organization [facility] er Address [address] [place] [address] Care Team Providers Care Package Delivery Driver Name Role Phone Rosalinda Marinelli APRN Primary Care Provider Encounter Details Date Type Department Care Team (Late st Contact Info) Description 05/24/2020 Telephone [facility] Medical/Surgical [address] [place] [address] [place] [address] [place] [phone] Social History Tobacco Use Types Packs/Day [...] Answer Date Recorded PHQ-2 Score 0 05/22/2019 [facility] [place] of Occupat ional Health - Occupational Stress [...] documented as of this encounter Care Teams Package Delivery Driver Relationship Specialty Start Date End Date Rosalinda Marinelli APRN [address] [place] [address] PCP - General 08/26/23 06/06/24 documented as of this encounter
--- OUTSIDE RECORDS SUMMARY | 2024-06-07 11:13 | XMS_ITS | Encounter Summary ---
Author Organization [facility] er Address [address] [place] [address] Care Team Providers Care Immigration Manager Name Role Phone Rosalinda Marinelli APRN Primary Care Provider Reason for Visit * Reason Comments Med Refill Encounter Details Date Type Department Care Team (Late st Contact Info) Description 12/03/2020 Refill [place] [address] [place] [address] Nara Reyes MD [address] [place] [address] Chronic pain syndrome Social History Tobacco Use [...] Answer Date Recorded PHQ-2 Score 0 05/22/2019 [facility] [place] of Occupat ional Health - Occupational Stress [...] Zamudio MA - 12/05/2020 11:27 AM CST [facility] 12/05/2020 and its a WC. It was filled 12/03/2020 # 180, 3 refill. TILE FLOOR LAYER documented in this encounter Plan of Treatment Not on file documented as of this encounter Visit Diagnoses Diagnosis Chronic pain syndrome documented in this encounter Care Teams Immigration Manager Relationship Specialty Start Date End Date Rosalinda Marinelli, BACK PADDER [address] [place] [address] PCP - General 08/26/23 06/06/24 documented as of this encounter
--- OUTSIDE RECORDS SUMMARY | 2024-06-07 11:13 | XMS_ITS | Encounter Summary ---
Author Organization [facility] er Address [address] [place] [address] Care Team Providers Care Reeling Machine Setup Operator Name Role Phone Rosalinda Marinelli APRN Primary Care Provider Encounter Details Date Type Department Care Team (Late st Contact Info) Description 05/07/2023 Telephone [facility] [address] [place] [address] Rad Cerda RN [address] [place] [address] Social History Tobacco Use Types [...] Date Recorded PHQ-9 Total Score 0 12/24/2021 [facility] of Occupat ional Health - Occupational [...] on filedocumented in this encounter Care Teams Reeling Machine Setup Operator Relationship Specialty Start Date End Date Rosalinda Marinelli, PRINT CONTROLLER [address] [place] [address] PCP - General 08/26/23 06/06/24 documented as of this encounter
--- OUTSIDE RECORDS SUMMARY | 2024-06-07 11:13 | XMS_ITS | Encounter Summary ---
Author Organization [facility] er Address [address] [place] [address] Care Team Providers Care Motion Picture Camera Lens Technician Name Role Phone Rosalinda Marinelli APRN Primary Care Provider Reason for Referral * Consultation (Routine) - Authorized Specialty Diagnoses / Procedures Referred By Sherita raymond Referred To Contact [facility] Care Diagnoses Elevated blood pressure reading in office with diagnosis of hypertension Rosalinda Marinelli APRN [address] [place] [address] [facility] Remote Monitoring [address] [place] [address] Referral ID Status Reason Start Date Expiration Date V isits Requested Visits Authorized [id number] Authorized 05/16/2024 05/17/2025 1 1 Encounter Details Date Type Department Care Team (Late st Contact Info) Description 05/16/2024 Orders Only [facility] 4th Floor [address] [place] [address] Rosalinda Marinelli APRN [address] [place], [place] [phone] Elevated blood pressure reading in office with diagnosis of hypertension Social History Tobacco Use Types Packs/Day Years [...] week 08/02/2023 How often do you attend [facility] or cheondoism services? Never 08/02/2023 Do you belong to any clubs o r organizations such as baptism groups, unions, fraternal or athletic groups, or [...] Date Recorded PHQ-9 Total Score 9 08/02/2023 [facility] of Occupat ional Health - [...] place to sleep or slept in a fci (including now)? No 08/02/2023 Sex and Gender Information Value Date Recorded Sex Assigned at Not on file Gender Identity Not on file Sexual Orientation Not on file documented as of this encounter Plan of Treatment Scheduled Referrals Name Type Priority Associated Diagnoses Orde r Schedule Ambulatory Referral for Remote Monitoring Outpatient Referral Routine Elevated blood pressure reading in office with diagnosis of hypertension Ordered: 05/16/2024 documented as of this encounter Visit Diagnoses Diagnosis Elevated blood pressure reading in office with diagnosis of hypertension documented in this encounter Care Teams Motion Picture Camera Lens Technician Relationship Specialty Start Date End Date Rosalinda Marinelli APRN [address] [place] [address] PCP - General 08/26/23 06/06/24 documented as of this encounter
--- OUTSIDE RECORDS SUMMARY | 2024-06-07 11:13 | XMS_ITS | Encounter Summary ---
Author Organization [facility] er Address [address] [place] [address] Care Team Providers Care Pleat Patternmaker Name Role Phone Rosalinda Marinelli APRN Primary Care Provider Reason for Visit * Reason Comments Med Refill Encounter Details Date Type Department Care Team (Late st Contact Info) Description 04/26/2020 Refill [place] [address] [place] [address] Nara Reyes MD [address] [facility] [address] [place] [address] Chronic pain due to trauma Social History [...] Answer Date Recorded PHQ-2 Score 0 05/22/2019 [facility] [place] of Occupat ional Health - Occupational Stress [...] documented as of this encounter Care Teams Pleat Patternmaker Relationship Specialty Start Date End Date Rosalinda Marinelli, LEAD CAREGIVER [address] [place] [address] PCP - General 08/26/23 06/06/24 documented as of this encounter
--- OUTSIDE RECORDS SUMMARY | 2024-06-07 11:13 | XMS_ITS | Encounter Summary ---
Author Organization [facility] er Address [address] [place] [address] Care Team Providers Care Energy And Sustainability Manager Name Role Phone Rosalinda Marinelli APRN Primary Care Provider Reason for Visit * Reason Comments Med Refill Encounter Details Date Type Department Care Team (Late st Contact Info) Description 01/20/2021 Refill [place] [address] [place] [address] Nara Reyes MD [address] [place] [address] Encounter for screening colonoscopy Social History Tobacco [...] Answer Date Recorded PHQ-2 Score 0 05/22/2019 [facility] [place] of Occupat ional Health - Occupational Stress [...] AND DRINK ACCORDING TO DIRECTIONS ON YOUR [facility] COLONOSCOPY PREP SHEET Pre-procedural rx, no refill. Pharmacy notified. documented in this encounter Plan of Treatment Not on file documented as of this encounter Visit Diagnoses Diagnosis Encounter for screening colonoscopy documented in this encounter Care Teams Energy And Sustainability Manager Relationship Specialty Start Date End Date Rosalinda Marinelli APRN [address] [place] [address] PCP - General 08/26/23 06/06/24 documented as of this encounter
--- OUTSIDE RECORDS SUMMARY | 2024-06-07 11:13 | XMS_ITS | Encounter Summary ---
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 * Telephone Encounter - Kamilah Mayberry RN - 08/26/2018 8:24 AM CDT Please fax Rx to [facility]. * Telephone Encounter - Frida [...] documented as of this encounter Care Teams Aircraft Hydraulic Equipment Mechanic Relationship Specialty Start Date End Date Rosalinda Marinelli, INTERLOCKING MACHINE OPERATOR [address] [place] [address] PCP - General 08/26/23 06/06/24 documented as of this encounter
--- OUTSIDE RECORDS SUMMARY | 2024-06-07 11:13 | XMS_ITS | Encounter Summary ---
Author Organization [facility] er Address [address] [place] [address] Care Team Providers Care High Risk Ob Name Role Phone Rosalinda Marinelli APRN Primary Care Provider Encounter Details Date Type Department Care Team (Late st Contact Info) Description 06/10/2020 [facility] [address] [place] [address] [place] [address] [place] [id number] Social History Tobacco Use Types Packs/Day [...] Answer Date Recorded PHQ-2 Score 0 05/22/2019 [facility] [place] of Occupat ional Health - Occupational Stress [...] on filedocumented in this encounter Care Teams High Risk Ob Relationship Specialty Start Date End Date Rosalinda Marinelli, WASTEWATER ENGINEER [address] [place] [address] PCP - General 08/26/23 06/06/24 documented as of this encounter
--- OUTSIDE RECORDS SUMMARY | 2024-06-07 11:13 | XMS_ITS | Clinical Summary ---
Author Organization [facility] er Address [address] [place] [address] Care Team Providers Care Answerer Name Role Phone Unavailable Primary Care Provider Unavailabl e Allergies Active Allergy Reactions Criticality Noted Date [...] Hives 04/21/2021 Nuts Nystatin Other 08/26/2018 Trees, [place], [place], wool, feathers, Penicillins Most of this family Ragweed Medications Medication Sig Dispensed Refills Start Date End Date Status aspirin 81 MG chewable tablet Chew 1 tablet (81 mg total) 1 (one) time each day Active cetirizine (ZyrTEC) 10 MG tablet Take 1 tablet (10 mg total) by mouth 1 (one) time each day Seasonal allergies Active EPINEPHrine (EpiPen 2-Christ) 0.3 MG/0.3ML injection syringeIndications: Bee sting allergy Inject 0.3 mL (0.3 mg total) into the thigh if needed for anaphylaxis. Call 911 after use. Use as directed for severe allergy reaction 1 each 2 0 Active Additional Information Patient not taking.Reported on 08/25/2023 hydroCHLOROthiazide (HYDRODIURIL) 12.5 MG tabletIndications:E ssential hypertension TAKE ONE TABLET BY MOUTH EVERY DAY FOR BLOOD PRESSURE/FLUID 90 tablet 3 2 Active Additional Information Patient not taking.Reported on 08/25/2023 ondansetron (ZOFRAN) 4 MG tabletIndications:N ausea TAKE ONE TABLET BY MOUTH EVERY 6 HOURS NEEDED FOR NAUSEA 30 tablet 3 2 Active insulin NPH-insulin regular (NovoLIN 70/30 FlexPen) (70-30) 100 UNIT/ML injectionIndication s:Type 2 diabetes mellitus without complication, with long-term current use of insulin (HCC) Inject 70/30 insulin twice a day: Current doses: Mornin units. Evenin units. Doses will be titrated. (Doses adjusted: 02/05/2023). 36 mL 5 3 Active Additional Information Patient taking differently: Inject 70/30 insulin twice a day: Current doses: Mornin units. Evenin units. (Doses adjusted: 09/10/2023)., Reported on 09/10/2023 TechLite Pen Mott 31G X 5 MM misc 3 Active Fluocinonide Emulsified Base 0.05 % creamIndications:Ec zema, unspecified type May use a SMALL amount up to twice a day for eczema/itchy skin sparingly. Do not use of face/groin or sensitive skin areas. 60 g 3 Active methocarbamol (ROBAXIN) 500 MG tabletIndications:M uscle spasm May take 1/2 to one tab every 4-6 hours if needed for muscle spasm/pain limit four tabs in a day. 60 tablet 2 3 Active Additional Information Patient taking differently: 500 mg Oral, May take 1/2 to one tab every 4-6 hours if needed for muscle spasm/pain limit four tabs in a day., Reported on 08/25/2023 DULoxetine (CYMBALTA) [address] capsuleIndications: Depression, unspecified depression type TAKE ONE CAPSULE BY MOUTH ONCE EVERY DAY FOR PAIN DO NOT CRUSH OR CHEW 90 capsule 3 3 Active traMADol (ULTRAM) 50 MG tabletIndications:C hronic pain due to trauma TAKE TWO TABLETS BY MOUTH THREE TIMES A DAY CAUTION: OPIOID - RISK OF OVERDOSE AND ADDICTION . 180 tablet 5 3 Active Additional Information Patient taking differently: 100 mg Oral 2 times daily, TAKE TWO TABLETS BY MOUTH THREE TIMES A DAY CAUTION: OPIOID - RISK OF OVERDOSE AND ADDICTION .Patient reports will go back to TID when done with Oxycodone, Reported on 08/25/2023 lisinopril (ZESTRIL) 10 MG tabletIndications:E ssential hypertension TAKE ONE TABLET BY MOUTH ONCE EVERY DAY 90 tablet 3 3 Active simvastatin (ZOCOR) 40 MG tabletIndications:M ixed hyperlipidemia TAKE ONE TABLET BY MOUTH EVERY EVENING 90 tablet 3 3 Active oxyCODONE (ROXICODONE) 10 MG immediate release tabletIndications:P ostoperative pain May take 1/2 to one tab every 6-8 hours if needed for pain 20 tablet 3 Active levothyroxine (SYNTHROID) 125 MCG tabletIndications:H ypothyroidism, unspecified type TAKE ONE TABLET BY MOUTH EVERY DAY 90 tablet 3 3 Active gabapentin (NEURONTIN) 800 MG tabletIndications:N europathy TAKE ONE AND ONE-HALF TABLET (1200MG) BY MOUTH EVERY MORNING AND AFTERNOON, AND ONE TABLET AT BEDTIME DIRECTED 360 tablet 3 3 Active atenolol (TENORMIN) 50 MG tabletIndications:E ssential hypertension TAKE ONE TABLET BY MOUTH ONCE EVERY DAY . 90 tablet 1 4 Active lansoprazole (PREVACID) [address] capsuleIndications: Gastroesophageal reflux disease without esophagitis TAKE ONE CAPSULE BY MOUTH TWICE A DAY FOR SEVERE HEART BURN 180 capsule 4 Active lansoprazole (PREVACID) [address] capsuleIndications: Gastroesophageal reflux disease without esophagitis TAKE ONE CAPSULE BY MOUTH TWICE A DAY FOR SEVERE HEART BURN 180 capsule 4 06/07/20 24 Discontinued Active Problems Problem Noted Date Diagnosed Date Elevated blood pressure read ing in office with diagnosis of hypertension 08/24/2023 Last Assessment & Plan: Return in 1-2 weeks for blood pressure recheck when not in pain Suspected DVT (deep vein thrombosis) 08/24/2023 Last Assessment & Plan: Ultrasound of left upper extremity to rule out DVT today at [address] [facility]. LINDA (acute kidney [...] Encounters Date Type Department Care Team Description 06/05/[address] [address] Rosalinda Marinelli APRN Gastroesophageal reflux disease without esophagitis 05/16/2024 Orders Only [facility] [address] [place] [address] Rosalinda Marinelli APRN Elevated blood pressure reading in office with diagnosis of hypertension from Last 3 Months Immunizations Name Administration [...] How often do you attend chur or latter-day services? Never 08/02/2023 Do you belong to any clubs o r organizations such as pentecostal groups, unions, fraternal or athletic groups, or [...] Date Recorded PHQ-9 Total Score 9 08/02/2023 [facility] - Occupational Stress Questionnaire Answer Date Recorded [...] Additional history exists COVID-19 Vaccine ( - 2022- season) 2023 Lipid Panel 08/27/2023 08/27/2022, 11/09, [...] this topic Medical Devices Implanted Type Area Control Room Helper Device Identifier Shelf Expiration Date Model / Serial / Lot Infinity Tibial Tray Sz 3 Lng Total Ankle System - [id number] Implanted:Qty: 1 on 06/07/2020 by Jordan Tan MD at [facility] Right: Ankle 06/19/2027 REF [id number] / / [id number] Infinity Talar Dome Sz 2 Total Ankle System - [id number] Implanted:Qty: 1 on 06/07/2020 by Jordan Tan MD at [facility] Right: Ankle 03/19/2028 REF# [id number] / / [id number] Infinity Poly Sz 2+ 6mm Total Ankle System - [id number] Implanted:Qty: 1 on 06/07/2020 by Jordan Tan MD at [facility] Right: Ankle 04/19/2027 REF# [id number] / / [id number] Procedures Procedure Name Priority Date/Time Associated Diagnosis Comments HEMOGLOBIN A1C Routine 06/23/2023 3:18 PM CDT Preop examination LIPID PANEL Routine 08/27/2022 2:43 PM CDT Screening cholesterol level MICROALBUMIN/CREATI NINE RATIO Routine 02/04/2022 3:35 PM CDT Type 2 diabetes mellitus without complication, without long-term current use of insulin (HCC) DEXA BONE DENSITY Routine 11/07/2014 1:5 1 PM [employer] from Last 3 Months or Most Recently Relevant to Health Maintenance Results * (ABNORMAL) Hemoglobin A1c (06/23/2023 3:18 PM CDT) Hemoglobin A1C 6.9(H) 4.0 - 5.6 % A1C 06/24/2023 4:13 PM CDT [facility] Comment: Reference Range 4.0-5.6% is for non- adults >=18 yrs <5.6% ? Non-Diabetic 5.7-6.4% ??Increased risk of Diabetes >=6.5% ?Indicative of Diabetes <7.0% ? ADA goal for glycemic control Methodology may not detect all hemoglobin variants which can affect A1c results. Method certified by National Glycohemoglobin Standardization Program. Blood 06/23/2023 3:18 PM CDT 06/24/2023 12:41 PM CDT D. Abilio Reyes MD LAB BLOOD ORDERABLES [facility] [address] [place] [address] * (ABNORMAL) Lipid panel (08/27/2022 2:43 PM CDT) Cholesterol 205(H) 0 - 199 mg/dL 08/28/2022 2:05 PM CDT [facility] Comment: Recommended by National Cholesterol Education Program (ATP III) -------- Cholesterol Ranges -------- <200 ?Desirable 200-239 ? Borderline high >=240 ? High Triglycerides 190(H) 0 - 149 mg/dL 08/28/2022 2:05 PM CDT [facility] Comment: -------- TRIG Ranges -------- <150 ?Normal 150-199 ? Borderline high 200-499 ? High >=500 ? Very high HDL 41 40 - 250 mg/dL 08/28/2022 2:05 PM CDT [facility] Comment: -------- HDL Ranges -------- <40 ?Low 40-59 ?Normal >=60 ? Optimal LDL Calculated 126(H) 0 - 99 mg/dL 08/28/2022 2:05 PM CDT [facility] Comment: -------- LDL Ranges -------- <100 ? Optimal 100-129 ?Near optimal/above optimal 130-159 ?Borderline high 160-189 ?High >=190 ?Very high Blood 08/27/2022 2:43 PM CDT 08/28/2022 12:45 PM CDT Nara Reyes MD LAB BLOOD ORDERABLES [facility] [address] [place] [address] * (ABNORMAL) Microalbumin/Creatinine Ratio (02/04/2022 3:35 PM CDT) Microalbumin,mg/ day 94.1(H) 0.0 - 16.6 mg/L 02/05/2022 2:26 PM CDT [facility] Comment: . Creatinine, Urine 182 mg/dL 02/05/2022 2:26 PM CDT [facility] Comment: No established reference range. Microalb/Creat Ratio 52(H) 0 - 24 mg/g 02/05/2022 2:26 PM CDT [facility] Urine 02/04/2022 3:35 PM CDT 02/05/2022 12:33 PM CDT Narrative Authorizing Provider Result Kimo Reyes MD LAB URINE ORDERABLES [facility] [address] [place] [address] * Dexa bone density axial skeleton (11/07/2014 1:51 PM [employer]) Anatomical Region Laterality Modality Wrist, Hip, L-spine Radiographic Imaging 11/07/2014 1:51 PM [employer] Narrative 11/07/2014 5:10 PM [employer] Clinical History Hyperthyroidism/Post menopause; Indication for exam: [...] Advance Directives For more information, please contact: [phone] * Full Code (Latest Code Status on File) Date Activated Date Inactivated Comments 06/07/2020 11:29 AM 06/08/2020 12:03 PM
--- OUTSIDE RECORDS SUMMARY | 2024-06-07 11:13 | XMS_ITS | Clinical Summary ---
Author Organization [facility] Address [place], [place] [address] Care Team Providers Care Checkerer Hand Name Role Phone Abilio Reyes Primary Care Provider [phone] Allergies Active Allergy Reactions Criticality Noted Date [...] Detail In Comments) Runny Nose 08/26/2018 Trees, [place], [place], wool, feathers, Venom-Honey Bee Anaphylaxis High [...] 65+ 07/09/2024 Medical Devices Implanted Type Area Learning Services Coordinator Device Identifier Shelf Expiration Date Model / Serial / Lot Bone 1-4mm 90cc Medtronic Chips Canclls Freeze Dried - Sabino: [id number] Implanted:Qty: 1 on 01/07/2022 by Doug Resendez MD at [facility] Lumbar Vertebrae Medtronic Spine/Ortho 02/21/2026 [id number] / ID: [id number] / [id number] Description:Implanted router machine operator ior spine L4-S1 Screw Lmbr Post 7.5x45mm Solera 5.5/6 Va Cocr - [id number] Implanted:Qty: 1 on 07/07/2023 by Doug Resendez MD at [facility] N/A: Lumbar Vertebrae Medtronic Spine/Ortho [id number] / / Screw Lmbr Post 8.5x45mm Solera 5.5/6 Va Cocr - [id number] Implanted:Qty: 3 on 07/07/2023 by Doug Resendez MD at [facility] N/A: Lumbar Vertebrae Medtronic Spine/Ortho [id number] / / Screw Lmbr Post 9.5x40mm Solera 5.5/6 Va Cocr - [id number] Implanted:Qty: 2 on 07/07/2023 by Doug Resendez MD at [facility] N/A: Lumbar Vertebrae Medtronic Spine/Ortho [id number] / / Nawaf Lmbr 70x5.5mm Solera 5.5/6 Cvd Titnm - [id number] Implanted:Qty: 2 on 07/07/2023 by Doug Resendez MD at [facility] N/A: Lumbar Vertebrae Medtronic Spine/Ortho [id number] / / Putty Easypack 5cc Magnetos - [id number] Implanted:Qty: 1 on 07/07/2023 by Doug Resendez MD at [facility] N/A: Lumbar Vertebrae [employer] 10/08/2025 [id number] / / [id number] Endoskeleton Tas Implant Implanted:Qty: 1 on 07/07/2023 by Doug Resendez MD at [facility] N/A: Lumbar Vertebrae Medtronic 10/08/2026 [id number] / / [id number] 5.5x25 Screw Implanted:Qty: 3 on 07/07/2023 by Doug Resendez MD at [facility] N/A: Lumbar Vertebrae Medtronic [id number] / / Description:anterior Bone Matrix 3cc Harnett Dbf Putty Dbm - [id number] Implanted:Qty: 1 on 07/07/2023 by Doug Resendez MD at [facility] N/A: Lumbar Vertebrae Medtronic Spine/Ortho 05/24/2025 [id number] / [id number] / Bone Matrix 3cc Harnett Dbf Putty Dbm - [id number] Implanted:Qty: 1 on 07/07/2023 by Doug Resendez MD at [facility] N/A: Lumbar Vertebrae Medtronic Spine/Ortho 05/24/2025 [id number] / [id number] / Bone Matrix Sm Infuse Bmp - [id number] Implanted:Qty: 1 on 07/07/2023 by Doug Resendez MD at [facility] N/A: Lumbar Vertebrae Medtronic Spine/Ortho 11/08/2024 [id number] / / [id number] Bone 1-4mm 60cc Medtronic Fine Canclls Freeze Dried - [id number] Implanted:Qty: 1 on 07/07/2023 by Doug Resendez MD at [facility] N/A: Lumbar Vertebrae Medtronic Spine/Ortho 01/20/2027 [id number] / [id number] / Set Screw Lmbr Ant 5.5mm Solera Break Off - [id number] Implanted:Qty: 6 on 07/07/2023 by Doug Resendez MD at [facility] N/A: Lumbar Vertebrae Medtronic Spine/Ortho [id number] / / Explanted Type Area Learning Services Coordinator Device Identifier Shelf Expiration Date Model / Serial / Lot Set Screw Lmbr Ant 5.5mm Solera Break Off - [id number] Implanted:Qty : 6 on 01/07/2022 by Doug Resendez MD at [facility] Explanted:Qty : 6 on 07/07/2023 by Doug Resendez MD at [facility] Lumbar Vertebrae Medtronic Spine/Ortho [id number] / / Description:Implanted router machine operator ior spine L4-S1 Screw Lmbr Post 6.5x45mm Solera 5.5/6 Va Cocr - [id number] Implanted:Qty : 1 on 01/07/2022 by Doug Resendez MD at [facility] Explanted:Qty : 1 on 07/07/2023 by Doug Resendez MD at [facility] Lumbar Vertebrae Medtronic Spine/Ortho [id number] / / Description:Implanted router machine operator ior spine L4-S1 Screw Lmbr Post 7.5x40mm Solera 5.5/6 Va Cocr - [id number] Implanted:Qty : 2 on 01/07/2022 by Doug Resendez MD at [facility] Explanted:Qty : 2 on 07/07/2023 by Doug Resendez MD at [facility] Lumbar Vertebrae Medtronic Spine/Ortho [id number] / / Description:Implanted router machine operator ior spine L4-S1 Screw Lmbr Post 7.5x45mm Solera 5.5/6 Va Cocr - [id number] Implanted:Qty : 3 on 01/07/2022 by Doug Resendez MD at [facility] Explanted:Qty : 3 on 07/07/2023 by Doug Resendez MD at [facility] Lumbar Vertebrae Medtronic Spine/Ortho [id number] / / Description:Implanted router machine operator ior spine L4-S1 Nawaf Lmbr 70x5.5mm Solera 5.5/6 Cvd Titnm - [id number] Implanted:Qty : 2 on 01/07/2022 by Doug Resendez MD at [facility] Explanted:Qty : 2 on 07/07/2023 by Doug Resendez MD at [facility] Lumbar Vertebrae Medtronic Spine/Ortho [id number] / / Description:Implanted router machine operator ior spine L4-S1 Advance Directives * Full [...] 8:07 AM 02/15/2012 1:49 PM Care Teams Checkerer Hand Relationship Specialty Start Date End Date Abilio Reyes [address] [place] [address] PCP - General Family Practice 12/17/21
--- OUTSIDE RECORDS SUMMARY | 2024-06-07 11:13 | XMS_ITS | Encounter Summary ---
Author Organization [facility] er Address [address] [place] [address] Care Team Providers Care Second Baker Name Role Phone Rosalinda Marinelli APRN Primary Care Provider Reason for Visit * Reason Comments Med Refill Encounter Details Date Type Department Care Team (Late st Contact Info) Description 07/20/2022 Refill [facility] [address] [place] [address] Nara Reyes MD [address] [place] [address] Chronic pain due to trauma Social History [...] Date Recorded PHQ-9 Total Score 0 12/24/2021 [facility] of Occupat ional Health - Occupational Stress [...] trauma documented in this encounter Care Teams Second Baker Relationship Specialty Start Date End Date Rosalinda Marinelli APRN [address] [place] [address] PCP - General 08/26/23 06/06/24 documented as of this encounter
--- NOTE | 2024-06-07 11:15 | CRLHL7_ITS ---
For Patients: As a result of the Century Cures Act, medical imaging exams and procedure reports are released immediately into your electronic medical record. You may view this report before your referring provider. If you have questions, please contact your health care provider. EXAMINATION / PROCEDURE: Ultrasound-guided biopsy of right parotid mass. 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 COMPLICATIONS: None. PROCEDURE: The procedure, risks, and alternative therapies were discussed in detail, and written informed consent was obtained. A time out was performed to verify correct patient and procedure. A time out was performed to verify correct patient and procedure. The patient was placed supine on the table. Initial ultrasound of the right parotid mass was performed. The biopsy site was localized. A judith was made on the patient`s skin. The site was prepped and draped in the usual sterile fashion. All elements of maximum sterile barrier technique were used. Soft tissues were anesthetized with 1% lidocaine. Under real time sonographic guidance, a 18 gauge coaxial needle was advanced into the right parotid mass. A total of 6 core biopsies were obtained. The samples were sent to pathology. The needle was removed and the site was covered with a sterile dressing. Completion ultrasound was performed which demonstrated no extravasation, hematoma or active bleeding.. The patient tolerated the procedure well without immediate postprocedural complication. IMPRESSION: Successful ultrasound-guided biopsy of right parotid mass, with pathology pending. Dictated by Jeffry Mcfarland MD @ 06/07/2024 12:22:40 PM (Electronically Signed)
== END 2024-06-07 11:07 | disposition home or self-care (01) ==
LOC: US 11:08
PROVIDERS: PCP Family Medicine
DX: R22.0 Localized swelling, mass and lump, head (principal); D11.9 Benign neoplasm of major salivary gland, unspecified
CPT/HCPCS: 38505; 76942; 88305

== ENCOUNTER 2024-07-24 13:25 | Outpatient (CLI) | payer MEDICARE, SELFPAY ==
--- OUTSIDE RECORDS SUMMARY | 2024-07-27 11:37 | XMS_ITS | Continuity of Care Document ---
Author Organization [facility] Address [address] [place] [address] Phone Care Team Providers Care Bobbin Sorter Name Role Phone Lee Coates Unavailable Unavailable [...] ient Visit,Est, Mod [facility], [address], [place], [place], [id number], [place] tel:[phone] [facility] Encounter for other specified surgical aftercare Lazara Howard. [facility], [address], [address], [facility], [id number] , [place]. tel:[phone] Referring Provider: Lee Escamilla, [facility] [address] [place] [address], [address], [facility], [address] . tel:[phone] Office/Outpat ient Visit,Est, [facility], [address], [place], [id number], [place] tel:[phone] [facility] Encounter for other specified surgical aftercare 3 Resendez Doug. [facility], [address], [address], [facility] [place], [id number] , [place]. tel:[phone] Referring Provider: Abilio Del Cid, [address] , [place], [address]. tel:[phone] [facility], [address], [facility] [place], [id number], [place] tel:[phone] [facility] No Information 3 Resendez Doug. [facility], [address], [address], [facility], [place], [id number] , [place]. tel:[phone] Referring Provider: Abilio Del Cid, [address], [place], [address]. tel:[phone] [facility], [address], [place], [id number], [place] tel:[phone] [facility] No Information 3 Lazara Howard. [facility], [address], [address], [facility], [place], [id number] , [place]. tel:[phone] Referring Provider: Abilio Del Cid, [address], [place], [address]. tel:[phone] [facility], [address], [place], [id number], [place] tel:[phone] [facility] Information 3 Resendez Doug. [facility], [address], [address], [place], [place], [id number] , [place]. tel:[phone] Referring Provider: Abilio Del Cid, [address] , [place], [address]. tel:[phone] Office/Outpat ient Visit,Est, [facility], [address], [place], [id number], [place] tel:[phone] [facility] Pseudarthrosis after fusion or arthrodesis 3 Resendez Doug. [facility], [address] [place] [address], [address], [place], [place], [id number] , [place]. tel:[phone] Referring Provider: Abilio Del Cid, [address], [place], [address]. tel:[phone] Office/Outpat ient Visit,Est, [facility], [address], [place], [id number], [place] tel:[phone] [facility] Encounter for other specified surgical aftercare 2 Panvica Lee. [facility], [address] [place] [address], [address], [facility] [place], [id number] , [place]. tel:[phone] Referring Provider: Abilio Del Cid, [address], [place], [address]. tel:[phone] Office/Outpat ient Visit,Est, [facility], [address], [place], [id number], [place] tel:[phone] [facility] Encounter for other specified surgical aftercare 2 Panvica Lee. [facility], [address], [address], [place], [place], [id number] , [place]. tel:[phone] Referring Provider: Abilio Del Cid, [address] , [place], [address]. tel:[phone] [facility], [address], [facility] [place], [id number], [place] tel:[phone] [facility] Encounter for other specified surgical aftercare Apr- 4-202 2 Resendez Doug. [facility], [address], [address], [place], [place], [id number] , [place]. tel:[phone] Referring Provider: Abilio Del Cid, [address], [place], [address]. tel:[phone] [facility], [address], [place], [place], [id number], [place] tel:[phone] [facility] No Information Mar-0 3-202 2 Panvica Lee. [facility], [address], [address], [place], [place], [id number] , [place]. tel:[phone] Referring Provider: Abilio Del Cid, [address], [place], [address]. tel:[phone] [facility], [address], [facility] [place], [id number], [place] tel:[phone] [facility] No Information Mar-0 2-202 2 Resendez Doug. [facility], [address], [address], [place], [place], [id number] , [place]. tel:[phone] Referring Provider: Abilio Del Cid, [address], [place], [address]. tel:[phone] Office/Outpat ient Visit,New, Mod [facility], [address], [place], [id number], [place] tel:[phone] [facility] Other spondylosis, lumbosacral regionSpondylol isthesis, lumbar regionOther intervertebral disc displacement, lumbosacral regionRadiculop athy, lumbosacral region 1 Perez Cook. [facility], [address], [place], [id number] , [place]. tel:[phone] Referring Provider: Abilio Del Cid, [facility] [address] [facility] [address], [place], [address]. tel:[phone] Family History Family Member Type Diagnosis Age At Onset No Information Payers Payer name Insurance type Covered constitution party ID Tami burroughs(s) [facility] 2021 CI [id number] Social History Type Description Quantity Date Captured [...]
--- OUTSIDE RECORDS SUMMARY | 2024-07-27 11:37 | XMS_ITS | Clinical Summary ---
Author Organization [facility] Address [address] [place] [address] Care Team Providers Care Doormaker Name Role Phone Unavailable Primary Care Provider [...] Hives 04/21/2021 Nuts Nystatin Other 08/26/2018 Trees, [place], [place], wool, feathers, Penicillins Most of this [...] adjusted: 09/10/2023)., Reported on 09/10/2023 TechLite Pen [place] 31G X 5 MM [facility] 06/29/2023 Active Fluocinonide Emulsified Base 0.05 % [...] DAY FOR SEVERE HEART BURN 180 capsule 06/07/2024 Active Active Problems Problem Noted Date Diagnosed Date Elevated blood pressure read ing in office with diagnosis of hypertension 08/24/2023 Last Assessment & Plan: Return in 1-2 weeks for blood pressure recheck when not in pain Suspected DVT (deep vein thrombosis) 08/24/2023 Last Assessment & Plan: Ultrasound of left upper extremity to rule out DVT today at 5 pm at [facility]. LINDA (acute kidney injury) 01/09/2022 [...] Type Department Care Team Description 06/05/[address] [address] Rosalinda Marinelli APRN Gastroesophageal reflux disease without esophagitis 05/16/2024 Orders Only Family Medicine 4th Floor [address] [place] [address] Rosalinda Marinelli APRN Elevated blood pressure reading [...] often do you attend chur ch or rastafari services? Never 08/02/2023 Do you belong to any clubs o r organizations such as buddhist groups, unions, fraternal or athletic groups, or [...] Date Recorded PHQ-9 Total Score 9 08/02/2023 [facility] [...] place to sleep or slept in a half-way (including now)? No 08/02/2023 Sex and Gender [...] 02/04/2023 02/04/2022, 12/02/2020, 12/01/2019, Additional history exists Lipid Panel 08/27/2023 08/27/2022, 11/09, 12/01/2019, Additional history exists DTaP,Tdap,and Td Vaccines (3 - Td or Tdap) 11/22/2023 11/22/2013, 11/10/2013 Diabetes: Hemoglobin A1C 12/24/2023 023, 03/22/2023, 08/27/2022, Additional history exists Mammogram 06/04/2024 06/04/2023, 04/01/2022 Diabetic: Foot Exam 06/23/2024 06/23/2023, 02/04/2022, 12/02/2020, Additional history exists Fall Risk Performed 06/23/2024 06/23/2023 Medicare Annual Wellness Visit (AWV) 06/23/2024 06/23/2023 COVID-19 Vaccine ( season) 2024 Influenza Vaccine (#1) 2024 Colonoscopy 01/16/2026 01/16/2021 Colorectal Cancer Screening 01/16/2026 Bone Density Scan 04/07/2028 04/07/2023, 11/07/2014 HPV Vaccines Aged Out No longer eligi ble based on patient's age to complete this topic Medical Devices Implanted Type Area Machine Oiler Device Identifier Shelf Expiration Date Model / Serial / Lot Infinity Tibial Tray Sz 3 Lng Total Ankle System - [id number] Implanted:Qty: 1 on 06/07/2020 by Jordan Tan MD at [facility] Right: Ankle 06/19/2027 REF [id number] / / [id number] Infinity Talar Dome Sz 2 Total Ankle System - [id number] Implanted:Qty: 1 on 06/07/2020 by Jordan Tan MD at [facility] Right: Ankle 03/19/2028 REF# [id number] / / [id number] Infinity Poly Sz 2+ 6mm Total Ankle System - [id number] Implanted:Qty: 1 on 06/07/2020 by Jordan Tan MD at [facility] Right: Ankle 04/19/2027 REF# [id number] / / [id number] Procedures Procedure Name Priority Date/Time Associated Diagnosis Comments HEMOGLOBIN A1C Routine 06/23/2023 3:18 PM CDT Preop examination LIPID PANEL Routine 08/27/2022 2:43 PM CDT Screening cholesterol level MICROALBUMIN/CREATI NINE RATIO Routine 02/04/2022 3:35 PM CDT Type 2 diabetes mellitus without complication, without long-term current use of insulin (HCC) DEXA BONE DENSITY Routine 11/07/2014 1:5 1 PM SCREENER AND BLENDER OPERATOR from Last 3 Months or Most Recently Relevant to Health Maintenance Results * (ABNORMAL) Hemoglobin A1c (06/23/2023 3:18 PM CDT) Hemoglobin A1C 6.9(H) 4.0 - 5.6 % A1C 06/24/2023 4:13 PM CDT [facility] Comment: Reference Range 4.0-5.6% is for non- adults >=18 yrs <5.6% ? Non-Diabetic 5.7-6.4% ??Increased risk of Diabetes >=6.5% ?Indicative of Diabetes <7.0% ? ADA goal for glycemic control Methodology may not detect all hemoglobin variants which can affect A1c results. Method certified by National Glycohemoglobin Standardization Program. Blood 06/23/2023 3:18 PM CDT 06/24/2023 12:41 PM CDT DJeremy Reyes MD LAB BLOOD ORDERABLES [facility] [address] [place] [address] * (ABNORMAL) Lipid panel (08/27/2022 2:43 PM CDT) Cholesterol 205(H) 0 - 199 mg/dL 08/28/2022 2:05 PM CDT [facility] Comment: Recommended by National Cholesterol Education Program (ATP III) -------- Cholesterol Ranges -------- <200 ?Desirable 200-239 ? Borderline high >=240 ? High Triglycerides 190(H) 0 - 149 mg/dL 08/28/2022 2:05 PM CDT [facility] Comment: -------- TRIG Ranges -------- <150 ?Normal 150-199 ? Borderline high 200-499 ? High >=500 ? Very high HDL 41 40 - 250 mg/dL 08/28/2022 2:05 PM CDT [facility] Comment: -------- HDL Ranges -------- <40 ?Low 40-59 ?Normal >=60 ? Optimal LDL Calculated 126(H) 0 - 99 mg/dL 08/28/2022 2:05 PM CDT [facility] Comment: -------- LDL Ranges -------- <100 ? Optimal 100-129 ?Near optimal/above optimal 130-159 ?Borderline high 160-189 ?High >=190 ?Very high Blood 08/27/2022 2:43 PM CDT 08/28/2022 12:45 PM CDT Nara Reyes MD LAB BLOOD ORDERABLES Performing Organization Address [facility] Co de Phone Number [facility] [address] [place] [address] * (ABNORMAL) Microalbumin/Creatinine Ratio (02/04/2022 3:35 PM CDT) Microalbumin,mg/ day 94.1(H) 0.0 - 16.6 mg/L 02/05/2022 2:26 PM CDT [facility] Comment: . Creatinine, Urine 182 mg/dL 02/05/2022 2:26 PM CDT [facility] Comment: No established reference range. Microalb/Creat Ratio 52(H) 0 - 24 mg/g 02/05/2022 2:26 PM CDT [facility] Urine 02/04/2022 3:35 PM CDT 02/05/2022 12:33 PM CDT Nara Reyes MD LAB URINE ORDERABLES Performing Organization Address [facility]/ZIP Co de Phone Number [facility] [address] [place] [address] * Dexa bone density axial skeleton (11/07/2014 1:51 PM SCREENER AND BLENDER OPERATOR) Anatomical Region Laterality Modality Wrist, Hip, L-spine Radiographic Imaging 11/07/2014 1:51 PM SCREENER AND BLENDER OPERATOR Narrative 11/07/2014 5:10 PM SCREENER AND BLENDER OPERATOR Clinical History Hyperthyroidism/Post menopause; Indication for exam: [...] Advance Directives For more information, please contact: [phone] * Full Code (Latest Code Status on File) Date Activated Date Inactivated Comments 06/07/2020 11:29 AM 06/08/2020 12:03 PM
--- OUTSIDE RECORDS SUMMARY | 2024-07-27 11:37 | XMS_ITS | Continuity of Care Document ---
Author Organization [facility] Address [address] [place] [address] Care Team Providers Care Township Supervisor Name Role Phone Nithin Hooper CRNA Unavailable Unavailable Procedures Procedure Date Percutaneous Image guided neuromodulatio n or intra Advance Directives Directive Yes / No Effective Date File Name No Information Encounters Encounter Description Practice Location Reason(s) For Visit Diagnoses Date Provider Providers Copied on Encounter [facility], [address] [place], [place], [id number], [place] [facility] No Information Rufus Weller. [address] [place], [place], [id number] , . tel:[phone] Referring Provider: Rad Gleason, [address] [facility], [place], [address] . tel:[phone] Family History Family Member Type Diagnosis Age At Onset No Information Payers Payer name Insurance type Covered republican ID Tami burroughs(s) [facility] Medicare Advantage Replacement [id number] Social History Type Description Quantity Date Captured Comments Sex Female Smoking Status No Information Chief Complaint And Reason For Visit No [...]
--- OUTSIDE RECORDS SUMMARY | 2024-07-27 11:37 | XMS_ITS | Continuity of Care Document ---
Author Organization [facility] Address [address] [facility] [place] [address] Phone Care Team Providers Care Application Security Architect Name Role Phone Rad Gleason DO Unavailable Unavailable Allergies, Adverse Reactions, Alerts Substance Reaction Status Criticality DYE HivesHivesHives Active No Informati on metformin HivesHivesHives Active No Informati on bee pollen Active No Information ragweed pollen Active No Informatio n lanolin HivesHivesHives Active No Informati on FISH OIL CONCENTRATE Swelling Active No Info rmation egg HivesHivesHives Active No Informati on Penicillins Hives/Skin RashAnaphylaxis Active N o Information Medications Medication Instructions Dosage Effective Dates (start - stop) Status Comments hydromorphone 2 mg tablet take 1 tablet by oral route every 4 - 6 hours as needed 2 MG - Active post-op pain tizanidine 4 mg capsule take 1 capsule by oral route nightly as needed. - Active 3 month supply hydrocodone 7.5 mg-acetaminophen 325 mg tablet take 1 tablet by oral route every 8 hours as needed for pain. Start date: 06/19/2024- - Active chronic pain, ok to fill today NOVOLOG FLEXPEN (unknown strength) inject by subcutaneous route per prescriber's instructions. Insulin dosing requires individualization. Not Available - Active gabapentin 800 mg tablet take 1.5 tablet by oral route in the AM 1 at 5pm and 1.5 in the PM - Active tramadol 50 mg tablet take 1 tablet by oral route 3 times a day - Active lansoprazole 30 mg delayed release,disintegrat ing tablet place 1 tablet by translingual route [...] 25 MG - Active Procedures Procedure Date IMPLANT NEUROELECTRODES IMPLANT NEUROELECTRODES ASC INSRT/REDO SPINE N GENERATOR Implt neurostim elctr each OFFICE VISIT, EST TELEMEDICINE No Charge For Visit Per Prov ORTHOTIC MGMT AND TRAINING Lower Back LSO Brace IMPLANT NEUROELECTRODES IMPLANT NEUROELECTRODES OFFICE/OUTPATIENT VISIT, EST Psych Dx Eval OFFICE/OUTPATIENT VISIT, EST OFFICE/OUTPATIENT VISIT, NEW Drug Urine Toxology With Chromatography Drug test def 8-14 classes Advance Directives Directive Yes / No Effective Date File Name No Information Encounters Encounter Description Practice Location Reason(s) For Visit Diagnoses Date Provider Providers Copied on Encounter [facility], [address] [place] [address], [id number] , [place] tel: [phone] [facility] Postlaminectomy syndrome, not elsewhere classified Rosibel Leroy. [address] [place] [address] [facility] [place], [place], [place], [id number] , [place]. tel: [phone] Referring Provider: Makenzie Márquez [facility] [address] [place], [address]. [phone] OFFICE VISIT, EST TELEMEDICINE [facility], [address] [place] [address], [id number] , [place] tel: [phone] [facility] Postlaminectomy syndrome, not elsewhere classified 4 Rosibel Leroy. [address] [place] [address] [facility] [place], [place], [place], [id number] , [place]. tel: [phone] [facility], [address] [place] [address], [id number] , [place] tel: [phone] [facility] Postlaminectomy syndrome, not elsewhere classified 4 Rosibel Leroy. [address] [place] [address], [place], [place], [id number] , [place]. tel: [phone] Referring Provider: Makenzie Márquez [facility] [address] [place], [address]. tel:[phone] [facility], [address] [place] [address], [id number] , [place] tel:[phone] [facility] No Information 4 Rosibel Leroy. [address] [place] [address], [id number] , [place]. tel:[phone] Referring Provider: Makenzie Márquez [facility] [address] [place], [address]. tel:[phone] [facility], [address] [place] [address], [id number] , [place] tel: [phone] [facility] Postlaminectomy syndrome, not elsewhere classified 4 Rosibel Leroy. [address] [place] [address] [facility] [place], [place], [place], [id number] , [place]. tel: [phone] Referring Provider: Makenzie Márquez [facility] [address] [place], [address]. tel:[phone] [facility], [address] [place] [address], [id number] , [place] tel: [phone] [facility] No Information 4 Rosibel Leroy. [address] [place] [address] [facility] [place], [place], [place], [id number] , [place]. tel: [phone] OFFICE/OUTPAT IENT VISIT, EST [facility], [address] [place] [address], [id number] , [place] tel: [phone] [facility] Postlaminectomy syndrome, not elsewhere classified 4 Rosibel Leroy. [address] [place] [address], [place], [place], [id number] , [place]. tel: [phone] Referring Provider: Makenzie Márquez [address], [address]. tel:[phone] Psych Dx Eval [facility], [address] [place] [address], [id number] , [place] tel: [phone] Telehealth Pain disorder with related psychological factors 4 Beth Morales. [address] [place] [address], [id number] , [place]. tel: [phone] OFFICE/OUTPAT IENT VISIT, EST [facility], [address] [place] [address], [id number] , [place] tel: [phone] [facility] low back pain (chief complaint) Chronic pain syndromePostlamin ectomy syndrome, not elsewhere classifiedRadicul opathy, lumbar regionLong term (current) use of opiate analgesicPain in left shoulderPain in right shoulder 4 Rosibel Leroy. [address] [facility] [place], [place], [id number] , [place]. tel:[phone] Referring Provider: Makenzie Márquez [facility] [address] [place], [address]. tel:[phone] OFFICE/OUTPAT IENT VISIT, NEW [facility], [address] [place], [place], [id number] , [place] tel:[phone] [facility] low back pain (chief complaint) Chronic pain syndromePostlamin ectomy syndrome, not elsewhere classifiedRadicul opathy, lumbar regionEncounter for therapeutic drug level monitoringLong term (current) use of opiate analgesicPain in left shoulderPain in right shoulder 4 Rosibel Leroy. [address] [place], [place], [id number] , [place]. tel:[phone] Referring Provider: Makenzie Márquez [address], [address]. tel:[phone] Family History Family Member Type Diagnosis Age At Onset Problem Family history of Back pain Payers Payer name Insurance type Covered libertarian ID Talmelba burroughs(s) [employer] Medicare Advantage Replacement [id number] Social History Type Description Quantity Date Captured Comments Sex Female Smoking Status No Information Chief Complaint And Reason For Visit No Information Reason For Referral Reason For Referral No Information Plan Of Treatment Date Type Action Status Goal OARS. Due on due Goal Height. Due on d ue Goal LOCKER OPERATOR Scanned. Due on 024 due Goal ALT (SGPT). Due on 24 due Goal EXECUTIVE COMMUNITY PLANNING Paperwork. Due on due Goal Order Annual PT. Due on due Goal AST (SGOT). Due on due Goal Creatinine. Due on due Goal UDT. Due on due Goal FIT. Due on due Goal Update Social Hi story. Due on due Goal Tobacco Use. Due on due Goal FIT-DNA. Due on due Goal Unhealthy drug u se screening. Due on due Goal Weight. Due on d ue Goal Hepatitis C scre ening. Due on due Goal Lipid panel. Due on due Goal PHQ-9. Due on du e Goal CT-Colonography. Due on due Goal Zoster vaccine ( 1st). Due on due Goal Medication Recon ciliation. Due on due Goal Review Allergy L ist. Due on due Goal Hepatitis C scre ening. Due on due Goal Tobacco Use. Due on due Goal Creatinine. Due on due Goal EXECUTIVE COMMUNITY PLANNING Paperwork. Due on due Goal AST (SGOT). Due on due Goal UDT. Due on due Goal LOCKER OPERATOR Scanned. Due on due Goal OARS. Due on due Goal Order Annual PT. Due on due Goal ALT (SGPT). Due on due Goal Medication Recon ciliation. Due on due Goal Update Social Hi story. Due on due Goal Review Allergy L ist. Due on due Goal FIT. Due on due Goal PHQ-9. Due on du e Goal Lipid panel. Due on due Goal Weight. Due on d ue Goal Unhealthy drug u se screening. Due on due Goal FIT-DNA. Due on due Goal CT-Colonography. Due on due Goal Zoster vaccine ( 1st). Due on due Goal Height. Due on d ue Goal Height. Due on d ue Goal Weight. Due on d ue Goal FIT-DNA. Due on due Goal Medication Recon ciliation. Due on due Goal Hepatitis C scre ening. Due on due Goal Unhealthy drug u se screening. Due on due Goal Lipid panel. Due on due Goal CT-Colonography. Due on due Goal EXECUTIVE COMMUNITY PLANNING Paperwork. Due on due Goal Creatinine. Due on due Goal LOCKER OPERATOR Scanned. Due on due Goal ALT (SGPT). Due on due Goal AST (SGOT). Due on due Goal OARS. Due on due Goal Order Annual PT. Due on due Goal UDT. Due on due Goal Review Allergy L ist. Due on due Goal Zoster vaccine ( 1st). Due on due Goal Tobacco Use. Due on due Goal PHQ-9. Due on du e Goal Update Social Hi story. Due on due Goal FIT. Due on due Goal OARS. Due on [...] due Goal CT-Colonography. Due on due Goal LOCKER OPERATOR Scanned. Due on due Goal Order Annual PT. Due on due Goal UDT. Due on due Goal EXECUTIVE COMMUNITY PLANNING Paperwork. Due on due Goal Creatinine. Due on due Goal ALT (SGPT). Due on due Goal AST (SGOT). Due on due Goal FIT-DNA. Due on due Goal EXECUTIVE COMMUNITY PLANNING Paperwork. Due on due Goal Update Social Hi [...] Goal ALT (SGPT). Due on due Goal LOCKER OPERATOR Scanned. Due on due Goal Creatinine. Due on due Goal OARS. Due on due Goal AST (SGOT). Due on due Goal FIT-DNA. Due on due Goal Weight. Due on d ue Goal Zoster vaccine ( ). Due on due Goal PHQ-9. Due on du e Goal FIT. Due on due Goal Hepatitis C scre ening. Due on due Goal Unhealthy drug u se screening. Due on due Goal Lipid panel. Due on due Goal Review Allergy L ist. Due on due Goal Tobacco Use. Due on due Goal Medication Recon ciliation. Due on due Goal Height. Due on d ue Goal Update Social Hi story. Due on due Goal CT-Colonography. Due on due Goal Lifestyle educat ion regarding diet completed Appointment Yesica Cancino Med tronic SCS Implant Post Op BOOKED Appointment Yesica Cancino tronic SCS Implant 2 Week Post Op BOOKED Future Order: Radiology Order MR Thoracic WO ([id number]), Sent on: Sent History Of Present Illness Encounter Date Complaint History Of Prese nt Illness low back pain Severity level i s [...] relieved by rest, standing and changing positions. Comments: Yesica is present here today for [...] No other concerns today. low back pain Onset: gradual w ith [...] by her PCP Makenzie Quijano MD at [facility]. Pain began several years [...] continues to follow with Dr. Resendez at [facility] and recently completed an updated [...] recently in 07/07/2023- PT, last completed at [facility] in 2022 and 2023 with limited relief- HEP- Oxycodone, hydrocodone, and naproxenCurrently managed on Tramadol 50mg TID, Gabapentin 800mg TID, Duloxetine 60mg, and tizandine HS with limited relief Yesica is interested in pain management through [facility]. Reports no other concerns today. Functional Status Date Functional Assessmen t No Information Instructions Date Instruction Additional Infor dante Lifestyle education regarding di et Related to Body mass index [BMI] 40.0-44.9, adult Assessments Type Assessment Date No Information Patient Care Teams Name Effective Dates (start - stop) Status Members No Information
--- OUTSIDE RECORDS SUMMARY | 2024-07-27 11:37 | XMS_ITS | Continuity of Care Document ---
Author Organization [facility] enter Address [address] [place] [address] Phone Care Team Providers Care Internet Sales Representative Name Role Phone [facility] Unavailable Unava ilable Procedures Procedure Date IMPLANT NEUROELECTRODES INSRT/REDO SPINE N GENERATOR Implt neurostim elctr each IMPLANT NEUROELECTRODES IMPLANT NEUROELECTRODES Advance Directives Directive Yes / No Effective Date File Name No Information Encounters Encounter Description Practice Location Reason(s) For Visit Diagnoses Date Provider Providers Copied on Encounter [facility], [address] [place] [address], [id number], tel:[phone] [place] [address] No Information 4 [facility]. [address] [place] [address], [id number], [place]. tel:[phone] Referring Provider: Rad Gleason, [address] [facility] Surgery [place], [place], [address] . tel:[phone] [facility], [address] [place] [address], [id number], tel:[phone] [place] [address] No Information 4 [facility]. [address] [place] [address], [id number], [place]. tel:[phone] Referring Provider: Rad Gleason, [address] [facility], [place], [address] . tel:[phone] Family History Family Member Type Diagnosis Age At Onset No Information Payers Payer name Insurance type Covered alliance party ID Tami burroughs(s) [facility] Medicare Advantage Replacement [id number] Social History Type Description Quantity Date Captured [...]
--- OUTSIDE RECORDS SUMMARY | 2024-07-27 11:38 | XMS_ITS | Encounter Summary ---
Author Organization [facility] er Address [address] [place] [address] Care Team Providers Care Abstract Writer Name Role Phone Rosalinda Marinelli APRN Primary Care Provider Reason for Visit * Reason Comments Med Refill Encounter Details Date Type Department Care Team (Late st Contact Info) Description 01/20/2021 Refill [place] [address] [place] [address] Nara Reyes MD [address] [place] [address] Encounter for screening colonoscopy Social History Tobacco [...] Answer Date Recorded PHQ-2 Score 0 05/22/2019 [facility] [place] of Occupat ional Health - Occupational Stress [...] AND DRINK ACCORDING TO DIRECTIONS ON YOUR [facility] COLONOSCOPY PREP SHEET Pre-procedural rx, no refill. Pharmacy notified. documented in this encounter Plan of Treatment Not on file documented as of this encounter Visit Diagnoses Diagnosis Encounter for screening colonoscopy documented in this encounter Care Teams Abstract Writer Relationship Specialty Start Date End Date Rosalinda Marinelli APRN [address] [place] [address] PCP - General 08/26/23 06/06/24 documented as of this encounter
--- OUTSIDE RECORDS SUMMARY | 2024-07-27 11:38 | XMS_ITS | Encounter Summary ---
Author Organization [facility] er Address [address] [place] [address] Care Team Providers Care Service And Repair Supervisor Name Role Phone Rosalinda Marinelli APRN Primary Care Provider Encounter Details Date Type Department Care Team (Late st Contact Info) Description 05/07/2023 Telephone [facility] [address] [place] [address] Rad Cerda RN [address] [place] [address] Social History Tobacco Use Types [...] Date Recorded PHQ-9 Total Score 0 12/24/2021 [facility] of Occupat ional Health - Occupational [...] on filedocumented in this encounter Care Teams Service And Repair Supervisor Relationship Specialty Start Date End Date Rosalinda Marinelli, BOOK SHELVER [address] [place] [address] PCP - General 08/26/23 06/06/24 documented as of this encounter
--- OUTSIDE RECORDS SUMMARY | 2024-07-27 11:38 | XMS_ITS | Encounter Summary ---
Author Organization [facility] er Address [address] [place] [address] Care Team Providers Care Tongue And Groove Machine Feeder Name Role Phone Rosalinda Marinelli APRN Primary Care Provider Encounter Details Date Type Department Care Team (Late st Contact Info) Description 06/10/2020 Telephone [facility] Medical/Surgical [address] [place] [address] Lesli Valadez RN [address] [place] [address] Social History Tobacco Use Types [...] Answer Date Recorded PHQ-2 Score 0 05/22/2019 [facility] [place] of Occupat ional Health - Occupational Stress [...] on filedocumented in this encounter Care Teams Tongue And Groove Machine Feeder Relationship Specialty Start Date End Date Rosalinda Marinelli, YOUTH SERVICES LIBRARIAN [address] [place] [address] PCP - General 08/26/23 06/06/24 documented as of this encounter
--- OUTSIDE RECORDS SUMMARY | 2024-07-27 11:38 | XMS_ITS | Encounter Summary ---
Author Organization [facility] er Address [address] [place] [address] Care Team Providers Care Quarter Doper Name Role Phone Rosalinda Marinelli APRN Primary Care Provider Reason for Visit * Reason Comments Med Refill Encounter Details Date Type Department Care Team (Late st Contact Info) Description 06/05/2024 Refill [place] [address] [place], [place] [phone] Rosalinda Marinelli APRN [address] [place], [place] [phone] Gastroesophageal reflux disease without esophagitis Social History [...] any clubs o r organizations such as cheondoism groups, unions, fraternal or athletic groups, or [...] Date Recorded PHQ-9 Total Score 9 08/02/2023 [facility] of Occupat ional Health - Occupational [...] place to sleep or slept in a long term (including now)? No 08/02/2023 Sex and Gender Information Value Date Recorded Sex Assigned at Not on file Gender Identity Not on file Sexual Orientation Not on file documented as of this encounter Miscellaneous Notes * Telephone Encounter - Guillermina Nuñez - 06/07/2024 9:16 AM CDT Contacted to schedule annual physical. Has switched care to Dr. Makenzie Quijano in [place], [place]. * Telephone Encounter - Aleksandra Kemp [...] reflux documented in this encounter Care Teams Quarter Doper Relationship Specialty Start Date End Date Rosalinda Marinelli APRN [address] [place] [address] PCP - General 08/26/23 06/06/24 documented as of this encounter
--- OUTSIDE RECORDS SUMMARY | 2024-07-27 11:38 | XMS_ITS | Encounter Summary ---
Author Organization [facility] er Address [address] [place] [address] Care Team Providers Care Admin Dir Name Role Phone Rosalinda Marinelli APRN Primary Care Provider Reason for Visit * Reason Comments Med Refill Encounter Details Date Type Department Care Team (Late st Contact Info) Description 04/26/2020 Refill [place] [address] [place] [address] Nara Reyes MD [address] [facility] [address] [place] [address] Chronic pain due to trauma Social History [...] Answer Date Recorded PHQ-2 Score 0 05/22/2019 [facility] [place] of Occupat ional Health - Occupational Stress [...] 04/30/2020 4:53 PM CDT Fax rx to [facility] * Telephone Encounter - Randi Nuñez [...] documented as of this encounter Care Teams Admin Dir Relationship Specialty Start Date End Date Rosalinda Marinelli, MOLD LAMINATOR [address] [place] [address] PCP - General 08/26/23 06/06/24 documented as of this encounter
--- OUTSIDE RECORDS SUMMARY | 2024-07-27 11:38 | XMS_ITS | Encounter Summary ---
Author Organization [facility] er Address [address] [place] [address] Care Team Providers Care Blade Aligner Name Role Phone Rosalinda Marinelli APRN Primary Care Provider Reason for Visit * Reason Comments Med Refill Encounter Details Date Type Department Care Team (Late st Contact Info) Description 07/20/2022 Refill [place] [address] [place] [address] Nara Reyes MD [address] [place] [address] Chronic pain due to trauma Social History [...] Date Recorded PHQ-9 Total Score 0 12/24/2021 [facility] of Occupat ional Health - Occupational Stress [...] trauma documented in this encounter Care Teams Blade Aligner Relationship Specialty Start Date End Date Rosalinda Marinelli APRN [address] [place] [address] PCP - General 08/26/23 06/06/24 documented as of this encounter
--- OUTSIDE RECORDS SUMMARY | 2024-07-27 11:38 | XMS_ITS | Encounter Summary ---
Author Organization [facility] er Address [address] [place] [address] Care Team Providers Care Application Support Developer Name Role Phone Rosalinda Marinelli APRN Primary Care Provider Encounter Details Date Type Department Care Team (Late st Contact Info) Description 06/10/2020 Telephone [facility] Medical/Surgical [address] [place] [address] [place] [address] [place] [address] Social History Tobacco Use Types Packs/Day [...] Answer Date Recorded PHQ-2 Score 0 05/22/2019 [facility] [place] of Occupat ional Health - Occupational Stress [...] on filedocumented in this encounter Care Teams Application Support Developer Relationship Specialty Start Date End Date Rosalinda Marinelli, MUSIC PRODUCER [address] [place] [address] PCP - General 08/26/23 06/06/24 documented as of this encounter
--- OUTSIDE RECORDS SUMMARY | 2024-07-27 11:38 | XMS_ITS | Encounter Summary ---
Author Organization [facility] er Address [address] [place] [address] Care Team Providers Care Goodyear Welter Name Role Phone Rosalinda Marinelli APRN Primary Care Provider Reason for Referral * Consultation (Routine) - Authorized Specialty Diagnoses / Procedures Referred By Sherita raymond Referred To Contact [facility] Care Diagnoses Elevated blood pressure reading in office with diagnosis of hypertension Rosalinda Marinelli APRN [address] [place] [address] [facility] Monitoring [address] [facility] [place] [address] Referral ID Status Reason Start Date Expiration Date V isits Requested Visits Authorized [id number] Authorized 05/16/2024 05/17/2025 1 1 Encounter Details Date Type Department Care Team (Late st Contact Info) Description 05/16/2024 Orders Only [facility] 4th Floor [address] [place] [address] Rosalinda Marinelli APRN [address] [place], [place] [address] Elevated blood pressure reading in office with [...] week 08/02/2023 How often do you attend [facility] or alevism services? Never 08/02/2023 Do you belong to any clubs o r organizations such as zoroastrianism groups, unions, fraternal or athletic groups, or [...] Date Recorded PHQ-9 Total Score 9 08/02/2023 [facility] of Occupat ional Health - Occupational Stress [...] place to sleep or slept in a halfway (including now)? No 08/02/2023 Sex and Gender [...] hypertension documented in this encounter Care Teams Goodyear Welter Relationship Specialty Start Date End Date Rosalinda Marinelli APRN [address] [place] [address] PCP - General 08/26/23 06/06/24 documented as of this encounter
--- OUTSIDE RECORDS SUMMARY | 2024-07-27 11:38 | XMS_ITS | Encounter Summary ---
Author Organization [facility] er Address [address] [place] [address] Care Team Providers Care Data Software Engineer Name Role Phone Rosalinda Marinelli APRN Primary Care Provider Reason for Visit * Reason Comments Med Refill Encounter Details Date Type Department Care Team (Late st Contact Info) Description 12/03/2020 Refill [place] [address] [place] [address] Nara Reyes MD [address] [place] [address] Chronic pain syndrome Social History Tobacco Use [...] Answer Date Recorded PHQ-2 Score 0 05/22/2019 [facility] [place] of Occupat ional Health - Occupational Stress [...] was filled 12/03/2020 # 180, 3 refill. Y LEVEL ELECTRICAL ENGINEER documented in this encounter Plan of Treatment Not on file documented as of this encounter Visit Diagnoses Diagnosis Chronic pain syndrome documented in this encounter Care Teams Data Software Engineer Relationship Specialty Start Date End Date Rosalinda Marinelli, BANK CLERK [address] [place] [address] PCP - General 08/26/23 06/06/24 documented as of this encounter
--- OUTSIDE RECORDS SUMMARY | 2024-07-27 11:38 | XMS_ITS | Clinical Summary ---
Author Organization [facility] Address [place], [place] [address] Care Team Providers Care Electrical Controls Assembler Name Role Phone Abilio Reyes Primary Care Provider [phone] Allergies Active Allergy Reactions Criticality Noted Date [...] Detail In Comments) Runny Nose 08/26/2018 Trees, [place], [place], wool, feathers, Venom-Honey Bee Anaphylaxis High [...] anemia 01/09/2022 ACP (advance care planning) 01/09/2022 Overview (01/09/2022): Patient has identified Health Care Agent(s): Yes Add Health Care Agents: Yes Health Care Agent(s): Primary Health Care Agent: Ruperto Barak Relationship: Secondary Health Care Agent: Relationship: Phone: [...] Encounters Date Type Department Care Team Description 06/07/2024 Lab Requisition [facility] [phone] Unknown, Doctor from Last 3 Months Family History Medical [...] Health Maintenance Due Date Last Done Comments Tdap 1967 Depression screening for age 12+ [...] 2021 Medicare Wellness for age 65+ 2021 Pneumococcal series for age 65+ (1 of 1 - PCV) 021 COVID-19 vaccine series (2022- season) 4 Influenza for age 65+ 07/09/2024 Medical Devices Implanted Type Area Enrolled Agent Device Identifier Shelf Expiration Date Model / Serial / Lot Bone 1-4mm 90cc Medtronic Chips Canclls Freeze Dried - Sabino: [id number] Implanted:Qty: 1 on 01/07/2022 by Doug Resendez MD at [facility] Lumbar Vertebrae Medtronic Spine/Ortho 02/21/2026 [id number] / ID: [id number] Description:Implanted at[employer]t retailer sales 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 spine L4-S1 Screw Lmbr Post 7.5x45mm Solera 5.5/6 Va Cocr - [id number] Implanted:Qty: 1 on 07/07/2023 by Doug Resendez MD at [facility] N/A: Lumbar Vertebrae Medtronic Spine/Ortho [id number] / / Screw Lmbr Post 8.5x45mm Solera 5.5/6 Va Cocr - [id number] Implanted:Qty: 3 on 07/07/2023 by Doug Resendez MD at [facility] N/A: Lumbar Vertebrae Medtronic Spine/Ortho [id number] / / Screw Lmbr Post 9.5x40mm Solera 5.5/6 Va Cocr - [id number] Implanted:Qty: 2 on 07/07/2023 by Doug Resendez MD at [facility] N/A: Lumbar Vertebrae Medtronic Spine/Ortho [id number] / / Nawaf Lmbr 70x5.5mm Solera 5.5/6 Cvd Titnm - [id number] Implanted:Qty: 2 on 07/07/2023 by Doug Resendez MD at [facility] N/A: Lumbar Vertebrae Medtronic Spine/Ortho [id number] / / Putty Easypack 5cc Magnetos - [id number] Implanted:Qty: 1 on 07/07/2023 by Doug Resendez MD at [facility] N/A: Lumbar Vertebrae [employer] 10/08/2025 [id number] / / [id number] Endoskeleton Tas Implant Implanted:Qty: 1 on 07/07/2023 by Doug Resendez MD at [facility] N/A: Lumbar Vertebrae Medtronic 10/08/2026 [id number] / / [id number] 5.5x25 Screw Implanted:Qty: 3 on 07/07/2023 by Doug Resendez MD at [facility] N/A: Lumbar Vertebrae Medtronic [id number] / / Description:anterior Bone Matrix 3cc Umberto Dbf Putty Dbm - [id number] Implanted:Qty: 1 on 07/07/2023 by Doug Resendez MD at [facility] N/A: Lumbar Vertebrae Medtronic Spine/Ortho 05/24/2025 [id number] / [id number] / Bone Matrix 3cc Bennett Dbf Putty Dbm - [id number] Implanted:Qty: 1 on 07/07/2023 by Doug Resendez MD at [facility] N/A: Lumbar Vertebrae Medtronic Spine/Ortho 05/24/2025 [id number] / [id number] / Bone Matrix Sm Infuse Bmp - [id number] Implanted:Qty: 1 on 07/07/2023 by Doug Resendez MD at [facility] N/A: Lumbar Vertebrae Medtronic Spine/Ortho 11/08/2024 [id number] / / [id number] Bone 1-4mm 60cc Medtronic Fine Canclls Freeze Dried - [id number] Implanted:Qty: 1 on 07/07/2023 by Doug Resendez MD at [facility] N/A: Lumbar Vertebrae Medtronic Spine/Ortho 01/20/2027 [id number] / [id number] / Set Screw Lmbr Ant 5.5mm Solera Break Off - [id number] Implanted:Qty: 6 on 07/07/2023 by Doug Resendez MD at [facility] N/A: Lumbar Vertebrae Medtronic Spine/Ortho [id number] / / Explanted Type Area Enrolled Agent Device Identifier Shelf Expiration Date Model / Serial / Lot Set Screw Lmbr Ant 5.5mm Solera Break Off - [id number] Implanted:Qty : 6 on 01/07/2022 by Doug Resendez MD at [facility] Explanted:Qty : 6 on 07/07/2023 by Doug Resendez MD at [facility] Lumbar Vertebrae Medtronic Spine/Ortho [id number] / / Description:Implanted at[employer]t retailer sales 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 spine L4-S1 Screw Lmbr Post 6.5x45mm Solera 5.5/6 Va Cocr - [id number] Implanted:Qty : 1 on 01/07/2022 by Doug Resendez MD at [facility] Explanted:Qty : 1 on 07/07/2023 by Doug Resendez MD at [facility] Lumbar Vertebrae Medtronic Spine/Ortho [id number] / / Description:Implanted at&t retailer sales 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 spine L4-S1 Screw Lmbr Post 7.5x40mm Solera 5.5/6 Va Cocr - [id number] Implanted:Qty : 2 on 01/07/2022 by Doug Resendez MD at [facility] Explanted:Qty : 2 on 07/07/2023 by Doug Resendez MD at [facility] Lumbar Vertebrae Medtronic Spine/Ortho [id number] / / Description:Implanted at&t retailer sales 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 spine L4-S1 Screw Lmbr Post 7.5x45mm Solera 5.5/6 Va Cocr - [id number] Implanted:Qty : 3 on 01/07/2022 by Doug Resendez MD at [facility] Explanted:Qty : 3 on 07/07/2023 by Doug Resendez MD at [facility] Lumbar Vertebrae Medtronic Spine/Ortho [id number] / / Description:Implanted at&t retailer sales 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 spine L4-S1 Nawaf Lmbr 70x5.5mm Solera 5.5/6 Cvd Titnm - [id number] Implanted:Qty : 2 on 01/07/2022 by Doug Resendez MD at [facility] Explanted:Qty : 2 on 07/07/2023 by Doug Resendez MD at [facility] Lumbar Vertebrae Medtronic Spine/Ortho [id number] / / Description:Implanted at&t retailer sales 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 spine L4-S1 Procedures Procedure Name Priority Date/Time Associated Diagnosis Comments LAB TRACKING EVENT Routine 06/07/2024 11 :56 AM CDT PATH TISSUE EXAM Routine 06/07/2024 11:5 6 AM CDT from Last 3 Months Results * LAB TRACKING EVENT (06/07/2024 11:56 AM CDT) Other (Other) Client Collect / Unknown 06/07/2024 11:56 AM CDT 06/07/2024 9:45 PM CDT Doctor Unknown LAB BILL ONLY [facility] [address] [place] [address], * PATH TISSUE EXAM (06/07/2024 11:56 AM CDT) Case Report Pathology Report ?Case: [id number] ? Authorizing Provider: ??Unknown, Doctor ?Collected: ? 06/07/2024 1156 ? Ordering Location: ? [facility] ?Received: ?06/08/2024 0803 ? Pathologist: ? Ml Scales ? MD Aleksandra ? Specimen: ?Right Parotid ? 06/09/2024 11:34 AM CDT [facility] Final Diagnosis SALIVARY GLAND, RIGHT PAROTID, BIOPSY: 1. Warthin tumor 2. Negative for malignancy 06/09/2024 11:34 AM CDT [facility] Clinical Information No information provided. 06/09/2024 11:34 AM CDT [facility] Gross Description A) Received in formalin, labeled with the patient's name and right parotid gland, are 10 arias, friable, delicate needle core biopsies ranging from 0.2 to 0.8 cm in length and averaging less than 0.1 cm in diameter. ??The specimen is entirely submitted in 2 cassettes. WINNIE 06/08/2024 06/09/2024 11:34 AM CDT [facility] Microscopic Description The final diagnosis is based on microscopic examination of appropriate sections of all specimens. 06/09/2024 11:34 AM CDT [facility] Additional Information [facility] at [facility] Laboratory - [address] [place] [address] [facility] [address] [address] 06/09/2024 11:34 AM CDT [facility] Other (Right Parotid) 06/07/2024 11:56 AM CDT 06/08/2024 8:03 AM CDT Doctor Unknown PATHOLOGY/CYTOLOGY [facility] [facility] [address] [place] [address], from Last 3 Months Advance Directives * [...] 8:07 AM 02/15/2012 1:49 PM Care Teams Electrical Controls Assembler Relationship Specialty Start Date End Date Abilio Reyes [address] [place] [address] PCP - General Family Practice 12/17/21
--- OUTSIDE RECORDS SUMMARY | 2024-07-27 11:38 | XMS_ITS | Encounter Summary ---
Author Organization [facility] er Address [address] [place] [address] Care Team Providers Care Front Desk Officer Name Role Phone Rosalinda Marinelli APRN Primary Care Provider Reason for Visit * Reason Onset Date Comments Med Refill 08/25/2018 Encounter Details Date Type Department Care Team (Late st Contact Info) Description 08/25/2018 Refill [place] [address] [place] [address] Nara Reyes MD [address] [place] [address] Chronic pain due to trauma (Primary Dx) [...] 08/26/2018 8:51 AM CD[facility] * Telephone Encounter - Kamilah Mayberry RN - 08/26/2018 8:24 AM CDT Please fax Rx to [facility]. * Telephone Encounter - Frida Almazan [...] documented as of this encounter Care Teams Front Desk Officer Relationship Specialty Start Date End Date Rosalinda Marinelli, DICTAPHONE TRANSCRIBER [address] [place] [address] PCP - General 08/26/23 06/06/24 documented as of this encounter
--- OUTSIDE RECORDS SUMMARY | 2024-07-27 11:38 | XMS_ITS | Encounter Summary ---
Author Organization [facility] er Address [address] [place] [address] Care Team Providers Care Bus Trolley And Taxi Instructor Name Role Phone Rosalinda Marinelli APRN Primary Care Provider Encounter Details Date Type Department Care Team (Late st Contact Info) Description 05/24/2020 [facility]phone [facility] [address] [place] [address] [place] [address] [place] [phone] Social History Tobacco Use Types Packs/Day [...] Answer Date Recorded PHQ-2 Score 0 05/22/2019 [facility] - Occupational Stress [...] documented as of this encounter Care Teams Bus Trolley And Taxi Instructor Relationship Specialty Start Date End Date Rosalinda Marinelli APRN [address] [place] [address] PCP - General 08/26/23 06/06/24 documented as of this encounter
== END 2024-07-24 13:26 | disposition home or self-care (01) ==
LOC: NFLDREF 07-27 11:35
PROVIDERS: PCP Family Medicine; Referring Provider Family Medicine; Visit Provider Family Medicine
DX: E61.1 Iron deficiency (principal); I10 Essential (primary) hypertension; E55.9 Vitamin D deficiency, unspecified; M81.0 Age-related osteoporosis without current pathological fracture
CPT/HCPCS: 80053; 82306; 82728

== ENCOUNTER 2024-08-24 14:23 | Outpatient (CLI) | payer MEDICARE, SELFPAY ==
--- OUTSIDE RECORDS SUMMARY | 2024-08-24 14:27 | XMS_ITS | Continuity of Care Document ---
Author Organization [facility] enter Address [address] [place] [address] Phone Care Team Providers Care Shower Enclosure Installer Name Role Phone [facility] Unavailable Unava ilable Procedures Procedure Date IMPLANT NEUROELECTRODES INSRT/REDO SPINE N GENERATOR Implt neurostim elctr each IMPLANT NEUROELECTRODES IMPLANT NEUROELECTRODES IMPLANT NEUROELECTRODES Advance Directives Directive Yes / No Effective Date File Name No Information Encounters Encounter Description Practice Location Reason(s) For Visit Diagnoses Date Provider Providers Copied on Encounter [facility], [address] [place] [address], [id number], tel:[phone] [place] [address] No Information 4 [facility]. [address] [place] [address], [id number], [place]. tel:[phone] Referring Provider: Rad Gleason, [address] [facility], [place], [address] . tel:[phone] [facility], [address] [place] [address], [id number], tel:[phone] [place] [address] No Information [facility]. [address] [place] [address], [id number], [place]. tel:[phone] Referring Provider: Rad Gleason, [address] [facility], [place], [address] . tel:[phone] Family History Family Member Type Diagnosis Age At Onset No Information Payers Payer name Insurance type Covered constitution party ID Tami burroughs(s) [facility] Medicare Advantage Replacement [id number] Social History Type Description Quantity Date Captured [...]
--- OUTSIDE RECORDS SUMMARY | 2024-08-24 14:27 | XMS_ITS | Clinical Summary ---
Author Organization [facility] er Address [address] [place] [address] Care Team Providers Care Record Keeper Name Role Phone Unavailable Primary Care Provider [...] Hives 04/21/2021 Nuts Nystatin Other 08/26/2018 Trees, [place], [place], wool, feathers, Penicillins Most of this [...] adjusted: 09/10/2023)., Reported on 09/10/2023 TechLite Pen [place] 31G X 5 MM [facility] 06/29/2023 Active Fluocinonide Emulsified [...] out DVT today at 5 pm at [facility]. LINDA (acute kidney injury) 01/09/2022 Normocytic anemia [...] Type Department Care Team Description 06/05/[address] [address] Rosalinda Marinelli APRN Gastroesophageal reflux disease without [...] How often do you attend chur or sikh services? Never 08/02/2023 Do you belong to any clubs o r organizations such as confucianist groups, unions, fraternal or athletic groups, or [...] Date Recorded PHQ-9 Total Score 9 08/02/2023 [facility] - Occupational [...] this topic Medical Devices Implanted Type Area Assistant Professor Of Religion Device Identifier Shelf Expiration Date Model / Serial / Lot Infinity Tibial Tray Sz 3 Lng Total Ankle System - [id number] Implanted:Qty: 1 on 06/07/2020 by Jordan Tan MD at [facility] Right: Ankle 06/19/2027 REF [id number] / / [id number] Infinity Talar Dome Sz 2 Total Ankle System - [id number] Implanted:Qty: 1 on 06/07/2020 by Jordan Tan MD at [facility] Right: Ankle 03/19/2028 REF# [id number] / / [id number] Infinity Poly Sz 2+ 6mm Total Ankle System - [id number] Implanted:Qty: 1 on 06/07/2020 by Jordan Tan MD at [facility] Right: Ankle 04/19/2027 REF# [id number] / / [id number] Procedures Procedure Name Priority Date/Time Associated Diagnosis Comments HEMOGLOBIN A1C Routine 06/23/2023 3:18 PM CDT Preop examination LIPID PANEL Routine 08/27/2022 2:43 PM CDT Screening cholesterol level MICROALBUMIN/CREATI NINE RATIO Routine 02/04/2022 3:35 PM CDT Type 2 diabetes mellitus without complication, without long-term current use of insulin (HCC) DEXA BONE DENSITY Routine 11/07/2014 1:5 1 PM SHUTTLE FIXER from Last 3 Months or Most Recently Relevant to Health Maintenance Results * (ABNORMAL) Hemoglobin A1c (06/23/2023 3:18 PM CDT) Hemoglobin A1C 6.9(H) 4.0 - 5.6 % A1C 06/24/2023 4:13 PM CDT [facility] Comment: Reference Range 4.0-5.6% is for [...] CDT Nara Reyes MD LAB BLOOD ORDERABLES [facility] [address] [place] [address] * (ABNORMAL) Lipid panel (08/27/2022 2:43 PM CDT) Cholesterol 205(H) 0 - 199 mg/dL 08/28/2022 2:05 PM T [facility] Comment: Recommended by National Cholesterol Education Program (ATP III) -------- Cholesterol Ranges -------- <200 ?Desirable 200-239 ? Borderline high >=240 ? High Triglycerides 190(H) 0 - 149 mg/dL 08/28/2022 2:05 PM T [facility] Comment: -------- TRIG Ranges -------- <150 ?Normal 150-199 ? Borderline high 200-499 ? High >=500 ? Very high HDL 41 40 - 250 mg/dL 08/28/2022 2:05 PM T [facility] Comment: -------- HDL Ranges -------- <40 ?Low 40-59 ?Normal >=60 ? Optimal LDL Calculated 126(H) 0 - 99 mg/dL 08/28/2022 2:05 PM CDT [facility] Comment: -------- LDL Ranges -------- <100 ? Optimal 100-129 ?Near optimal/above optimal 130-159 ?Borderline high 160-189 ?High >=190 ?Very high Blood 08/27/2022 2:43 PM CDT 08/28/2022 12:45 PM CDT Nara Reyes MD LAB BLOOD ORDERABLES Performing Organization Address [facility] [address] [facility] de Phone Number [facility] [address] [place] [phone] * (ABNORMAL) Microalbumin/Creatinine Ratio (02/04/2022 3:35 PM CDT) Microalbumin,mg/ day 94.1(H) 0.0 - 16.6 mg/L 02/05/2022 2:26 PM CDT [facility] Comment: . Creatinine, Urine 182 mg/dL 02/05/2022 2:26 PM CDT [facility] Comment: No established reference range. Microalb/Creat Ratio 52(H) 0 - 24 mg/g 02/05/2022 2:26 PM CDT [facility] Urine 02/04/2022 3:35 PM CDT 02/05/2022 12:33 PM CDT Nara Reyes MD LAB URINE ORDERABLES Performing Organization Address [facility] [address]/[facility] de Phone Number [facility] [address] [place] [address] * Dexa bone density axial skeleton (11/07/2014 1:51 PM SHUTTLE FIXER) Anatomical Region Laterality Modality Wrist, Hip, L-spine Radiographic Imaging 11/07/2014 1:51 PM SHUTTLE FIXER Narrative 11/07/2014 5:10 PM SHUTTLE FIXER Clinical History Hyperthyroidism/Post menopause; Indication for exam: [...] Advance Directives For more information, please contact: [phone] * Full Code (Latest Code Status on File) Date Activated Date Inactivated Comments 06/07/2020 11:29 AM 06/08/2020 12:03 PM
--- OUTSIDE RECORDS SUMMARY | 2024-08-24 14:27 | XMS_ITS | Continuity of Care Document ---
Author Organization [facility] Address [address] [place] [address] Phone Care Team Providers Care Corridor Redevelopment Manager Name Role Phone Lee Coates Unavailable Unavailable [...] ient Visit,Est, Mod [facility], [address], [place], [place], [id number], [place] tel:[phone] [facility] Encounter for other specified surgical aftercare Lazara Howard. [facility], [address], [address], [facility] [place], [id number] , [place]. tel:[phone] Referring Provider: Lee Escamilla, [facility] [address] [place] [address], [address], [place], [address] . tel:[phone] Office/Outpat ient Visit,Est, Mod [facility], [address], [place], [id number], [place] tel:[phone] [facility] Encounter for other specified surgical aftercare [address] [facility] [place], [address], [address], [facility] [place], [place], [id number] , [place]. tel:[phone] Referring Provider: Abilio Del Cid, [address] , [place], [address]. tel:[phone] [facility], [address], [facility], [id number], [place] tel:[phone] [facility] No Information [address] [facility] [place], [address], [address], [facility] [place], [id number] , [place]. tel:[phone] Referring Provider: Abilio Del Cid, [address], [place], [address]. tel:[phone] [facility], [address], [place], [id number], [place] tel:[phone] [facility] No Information [address] [facility] [place], [address], [address], [facility] [place], [id number] , [place]. tel:[phone] Referring Provider: Abilio Del Cid, [address], [place], [address]. tel:[phone] [facility], [address], [place], [id number], [place] tel:[phone] [facility] Information [address] [facility] [place], [address], [address], [place], [place], [id number] , [place]. tel:[phone] Referring Provider: Abilio Del Cid, [address] , [place], [address]. tel:[phone] Office/Outpat ient Visit,Est, Mod [facility], [address], [place], [id number], [place] tel:[phone] [facility] Pseudarthrosis after fusion or arthrodesis 3 Resendez Doug. [facility], [address] [place] [address], [address], [place], [place], [id number] , [place]. tel:[phone] Referring Provider: Abilio Del Cid, [address], [place], [address]. tel:[phone] Office/Outpat ient Visit,Est, Mod [facility], [address], [place], [id number], [place] tel:[phone] [facility] Encounter for other specified surgical aftercare [address] [facility] [place], [address] [place] [address], [address], [facility] [place], [id number] , [place]. tel:[phone] Referring Provider: Abilio Del Cid, [address], [place], [address]. tel:[phone] Office/Outpat ient Visit,Est, Mod [facility], [address], [place], [id number], [place] tel:[phone] [facility] Encounter for other specified surgical aftercare [address] [facility], [address], [address], [place], [place], [id number] , [place]. tel:[phone] Referring Provider: Abilio Del Cid, [address] , [place], [address]. tel:[phone] [facility], [address], [facility] [place], [id number], [place] tel:[phone] [facility] Encounter for other specified surgical aftercare Apr- 4-[address] [facility] [place], [address], [address], [place], [place], [id number] , [place]. tel:[phone] Referring Provider: Abilio Del Cid, [address], [place], [address]. tel:[phone] [facility], [address], [place], [place], [id number], [place] tel:[phone] [facility] No Information Mar-0 3-[address] [facility] [place], [address], [address], [place], [place], [id number] , [place]. tel:[phone] Referring Provider: Abilio Del Cid, [address], [place], [address]. tel:[phone] [facility], [address], [facility] [place], [id number], [place] tel:[phone] [facility] No Information Mar-0 2-[address] [facility] [place], [address], [address], [place], [place], [id number] , [place]. tel:[phone] Referring Provider: Abilio Del Cid, [address], [place], [address]. tel:[phone] Office/Outpat ient Visit,New, Mod [facility], [address], [place], [id number], [place] tel:[phone] [facility] Other spondylosis, lumbosacral regionSpondylol isthesis, lumbar regionOther intervertebral disc displacement, lumbosacral regionRadiculop athy, lumbosacral region [address] [facility], [address], [place], [id number] , [place]. tel:[phone] Referring Provider: Abilio Del Cid, [facility] [address] [facility] [address], [place], [address]. tel:[phone] Family History Family Member Type Diagnosis Age At Onset No Information Payers Payer name Insurance type Covered green party ID Tami burroughs(s) [facility] Medicare [facility] 2021 CI [id number] Social History Type Description Quantity Date Captured [...]
--- OUTSIDE RECORDS SUMMARY | 2024-08-24 14:27 | XMS_ITS | Continuity of Care Document ---
Author Organization [facility] Address [address] [place] [address] Care Team Providers Care Upsetting Machine Operator Name Role Phone Nithin Hooper CRNA Unavailable Unavailable Procedures Procedure Date ANESTH, HEAD/NECK/PTRUNK Percutaneous Image guided neuromodulatio n or intra Advance Directives Directive Yes / No Effective Date File Name No Information Encounters Encounter Description Practice Location Reason(s) For Visit Diagnoses Date Provider Providers Copied on Encounter [facility], [address] [place] [address], [id number], [facility] No Information 4 Rufus Weller. [address] [place], [place], [id number] , . tel:[phone] Referring Provider: Rad Gleason, [address] [facility], [place], [address] . tel:[phone] [facility], [address] [place], [place], [id number], [facility] No Information 4 Rufus Weller. [address] [facility] [address], [place], [place], [id number] , . tel:[phone] Referring Provider: Rad Gleason, [address] [facility], [place], [address] . tel:[phone] Family History Family Member Type Diagnosis Age At Onset No Information Payers Payer name Insurance type Covered alliance party ID Tami burroughs(s) [facility] Medicare Advantage Replacement [id number] Social History Type Description Quantity Date Captured [...]
--- OUTSIDE RECORDS SUMMARY | 2024-08-24 14:27 | XMS_ITS | Encounter Summary ---
Author Organization [facility] er Address [address] [place] [address] Care Team Providers Care Dry Cleaner Helper Name Role Phone Rosalinda Marinelli APRN Primary Care Provider Reason for Visit * Reason Comments Med Refill Encounter Details Date Type Department Care Team (Late st Contact Info) Description 06/05/2024 Refill [place] [address] [place], [place] [phone] Rosalinda Marinelli APRN [address] [place], [place] [phone] Gastroesophageal reflux disease without esophagitis Social History [...] often do you attend chur ch or roman catholic services? Never 08/02/2023 Do you belong to any clubs o r organizations such as orthodox groups, unions, fraternal or athletic groups, or [...] Date Recorded PHQ-9 Total Score 9 08/02/2023 [facility] - [...] place to sleep or slept in a jail (including now)? No 08/02/2023 Sex and Gender Information Value Date Recorded Sex Assigned at Not on file Gender Identity Not on file Sexual Orientation Not on file documented as of this encounter Miscellaneous Notes * Telephone Encounter - Guillermina Nuñez - 06/07/2024 9:16 AM CDT Contacted to schedule annual physical. Has switched care to Dr. Makenzie Quijano in [place], [place]. * Telephone Encounter - Aleksandra Kemp [...] reflux documented in this encounter Care Teams Dry Cleaner Helper Relationship Specialty Start Date End Date Rosalinda Marinelli APRN [address] [place] [address] PCP - General 08/26/23 06/06/24 documented as of this encounter
--- OUTSIDE RECORDS SUMMARY | 2024-08-24 14:27 | XMS_ITS | Continuity of Care Document ---
Author Organization [facility] Address [address] [facility] [place] [address] Phone Care Team Providers Care Cage Tender Name Role Phone Rad Gleason DO Unavailable [...] as needed 2 MG - Active post-op pain. Ok to fill today oxycodone 10 mg tablet take 1 tablet by oral route every 6 hours as needed for pain - Active ok to fill today. Post op pain. tizanidine 4 mg capsule take 1 capsule [...] 25 MG - Active Procedures Procedure Date OFFICE VISIT, EST TELEMEDICINE No Charge For Visit Per Prov IMPLANT NEUROELECTRODES IMPLANT NEUROELECTRODES INSRT/REDO SPINE N GENERATOR OFFICE VISIT, EST TELEMEDICINE No Charge For [...] Diagnoses Date Provider Providers Copied on Encounter OFFICE VISIT, EST TELEMEDICINE [facility], [address] [place] [address], [id number] , [place] tel: [phone] [facility] low back pain (chief complaint) Postlaminectomy syndrome, not elsewhere classifiedRadicul opathy, lumbar regionLong term (current) use of opiate analgesicPain in left shoulderPain in right shoulderChronic pain syndrome 4 Rosibel Leroy. [address] [place] [address], [id number] , [place]. tel: [phone] [facility], [address] [place] [address], [id number] , [place] tel: [phone] [facility] Postlaminectomy syndrome, not elsewhere classified Sep- 4 Rosibel Leroy. [address] [place] [address], [place], [place], [id number] , [place]. tel: [phone] Referring Provider: Makenzie Márquez [address], [address]. tel:[phone] [facility], [address] [place] [address], [id number] , [place] tel: [phone] [facility] No Information Jul- 4 Pito Dunbar. [address] [place] [address], [id number] , [place]. tel:[phone] [facility], [address] [place] [address], [id number] , [place] tel: [phone] [facility] Postlaminectomy syndrome, not elsewhere classified Sep- 4 Rosibel Leroy. [address] [place] [address] [place], [place], [place], [id number] , [place]. tel: [phone] Referring Provider: Makenzie Márquez [facility] [address] [place], [address]. tel:[phone] OFFICE VISIT, EST TELEMEDICINE [facility], [address] [place] [address] [place], [id number] , [place] tel: [phone] [facility] Postlaminectomy syndrome, not elsewhere classified 4 Crehal Leroy. [address] [place] [address] [facility] [place], [place], [place], [id number] , [place]. tel: [phone] [facility], [address] [place] [address], [id number] , [place] tel: [phone] [facility] Postlaminectomy syndrome, not elsewhere classified 4 Rosibel Leroy. [address] [place] [address] [facility] [place], [place], [place], [id number] , [place]. tel: [phone] Referring Provider: Makenzie Márquez [facility] [address] [place], [address]. tel:[phone] [facility], [address] [place] [address], [id number] , [place] tel: [phone] [facility] No Information 4 Rosibel Leroy. [address] [place] [address] [facility] [place], [place], [place], [id number] , [place]. tel: [phone] Referring Provider: Makenzie Márquez [facility] [address] [place], [address]. tel:[phone] [facility], [address] [place] [address], [id number] , [place] tel: [phone] [facility] Postlaminectomy syndrome, not elsewhere classified 4 Rosibel Leroy. [address] [place] [address] [facility] [place], [place], [place], [id number] , [place]. tel: [phone] Referring Provider: Makenzie Márquez [facility] [address] [place], [address]. tel:[phone] [facility], [address] [place] [address], [id number] , [place] tel:[phone] [facility] No Information 4 Rosibel Leroy. [address] [place] [address] [facility] [place], [place], [place], [id number] , [place]. tel: [phone] OFFICE/OUTPAT IENT VISIT, EST [facility], [address] [place] [address], [id number] , [place] tel:[phone] [facility] Postlaminectomy syndrome, not elsewhere classified 4 Rosibel Lreoy. [address] [place] [address], [id number] , [place]. tel:[phone] Referring Provider: Makenzie Márquez [facility] [address] [place], [address]. [phone] Psych Dx Eval [facility], [address] [place] [address], [id number] , [place] tel:[phone] [facility] Pain disorder with related psychological factors 4 Beth Morales. [address] [place] [address], [id number] , [place]. tel: [phone] OFFICE/OUTPAT IENT VISIT, EST [facility], [address] [place] [address], [id number] , [place] tel: [phone] [facility] low back pain (chief complaint) Chronic pain syndromePostlamin ectomy syndrome, not elsewhere classifiedRadicul opathy, lumbar regionLong term (current) use of opiate analgesicPain in left shoulderPain in right shoulder 4 Rosibel Leroy. [address] [place] [address], [place], [place], [id number] , [place]. tel: [phone] Referring Provider: Makenzie Hernberg [address], [address]. tel:[phone] OFFICE/OUTPAT IENT VISIT, NEW [facility], [address] [place], [place], [id number] , [place] tel:[phone] [facility] low back pain (chief complaint) Chronic pain syndromePostlamin ectomy syndrome, not elsewhere classifiedRadicul opathy, lumbar regionEncounter for therapeutic drug level monitoringLong term (current) use of opiate analgesicPain in left shoulderPain in right shoulder 4 Jose Alfredoediecory Leroy. [address] [facility] [place], [place], [place], [id number] , [place]. tel:[phone] Referring Provider: Makenzie Márquez[address], [address]. tel:[phone] Family History Family Member Type Diagnosis Age At Onset Problem Family history of Back pain Payers Payer name Insurance type Covered constitution party ID danny burroughs(s) [facility] Medicare Advantage Replacement [id number] Social History Type Description Quantity Date Captured Comments Alcohol Use Details Unknown Caffeine Use Details Unknown Tobacco Use Status Smoking Status No Information Sex Female Chief Complaint And Reason For Visit From encounter dated 08/10/2024 13:31'. low back pain (chief complaint). Description: Severity level is 6. Duration: chronic. The problem is improving. Reason For Referral Reason For Referral No Information Plan Of Treatment Date Type Action Status Goal NOUGAT CUTTER MACHINE Scanned. Due on 024 due Goal OARS. Due on due Goal Order Annual PT. Due on due Goal AST (SGOT). Due on due Goal UDT. Due on due Goal ALT (SGPT). Due on due Goal Creatinine. Due on due Goal CONSOLE OPERATOR Paperwork. Due on due Goal PHQ-9. Due on du e Goal CT-Colonography. Due on due Goal Height. Due on d ue Goal FIT-DNA. Due on due Goal Unhealthy drug u se screening. Due on due Goal Lipid panel. Due on due Goal Medication Recon ciliation. Due on due Goal Review Allergy L ist. Due on due Goal Weight. Due on d ue Goal Tobacco Use. Due on due Goal Hepatitis C scre ening. Due on due Goal Zoster vaccine ( 1st). Due on due Goal Update Social Hi story. Due on due Goal FIT. Due on due Goal UDT. Due on due Goal Order Annual PT. Due on due Goal OARS. Due on due Goal AST (SGOT). Due on due Goal Creatinine. Due on due Goal NOUGAT CUTTER MACHINE Scanned. Due on due Goal ALT (SGPT). Due on due Goal CONSOLE OPERATOR Paperwork. Due on due Goal Height. Due on d ue Goal Lipid panel. Due on due Goal PHQ-9. Due on du e Goal Tobacco Use. Due on due Goal Review Allergy L ist. Due on due Goal CT-Colonography. Due on due Goal Zoster vaccine ( ). Due on due Goal Hepatitis C scre ening. Due on due Goal Update Social Hi story. Due on due Goal Unhealthy drug u se screening. Due on due Goal Weight. Due on d ue Goal Medication Recon ciliation. Due on due Goal FIT-DNA. Due on due Goal FIT. Due on due Goal Order Annual PT. Due on due Goal Creatinine. Due on due Goal CONSOLE OPERATOR Paperwork. Due on due Goal UDT. Due on due Goal AST (SGOT). Due on due Goal ALT (SGPT). Due on due Goal NOUGAT CUTTER MACHINE Scanned. Due on due Goal OARS. Due on due Goal Unhealthy drug u se screening. Due on due Goal Update Social Hi story. Due on due Goal Zoster vaccine ( 1st). Due on due Goal PHQ-9. Due on du e Goal Weight. Due on d ue Goal Tobacco Use. Due on due Goal Lipid panel. Due on due Goal Medication Recon ciliation. Due on due Goal Hepatitis C scre ening. Due on due Goal FIT-DNA. Due on due Goal FIT. Due on due Goal Height. Due on d ue Goal Review Allergy L ist. Due on due Goal CT-Colonography. Due on due Goal OARS. Due on due Goal NOUGAT CUTTER MACHINE Scanned. Due on due Goal ALT (SGPT). Due on due Goal CONSOLE OPERATOR Paperwork. Due on due Goal Order Annual [...] Allergy L ist. Due on due Goal Height. Due on d ue Goal Creatinine. Due on due Goal CONSOLE OPERATOR Paperwork. Due on due Goal AST (SGOT). Due on due Goal UDT. Due on due Goal NOUGAT CUTTER MACHINE Scanned. Due on due Goal OARS. Due [...] Goal Height. Due on d ue Goal Hepatitis C scre ening. Due on due Goal Tobacco Use. Due on due Goal CT-Colonography. Due on due Goal Lipid panel. Due on due Goal Unhealthy drug u se screening. Due on due Goal Hepatitis C scre ening. Due on due Goal Medication Recon ciliation. Due on due Goal FIT-DNA. Due on due Goal Height. Due on d ue Goal Weight. Due on d ue Goal CONSOLE OPERATOR Paperwork. Due on due Goal Creatinine. Due on due Goal NOUGAT CUTTER MACHINE Scanned. Due on due Goal ALT (SGPT). [...] due Goal FIT. Due on due Goal NOUGAT CUTTER MACHINE Scanned. Due on due Goal Order Annual PT. Due on due Goal UDT. Due on due Goal CONSOLE OPERATOR Paperwork. Due on due Goal Creatinine. Due [...] Goal ALT (SGPT). Due on due Goal NOUGAT CUTTER MACHINE Scanned. Due on due Goal Creatinine. Due on due Goal OARS. Due on due Goal AST (SGOT). Due on due Goal CONSOLE OPERATOR Paperwork. Due on due Goal CT-Colonography. Due [...] on du e Goal Zoster vaccine ( ). Due on due Goal Weight. Due on d ue Goal FIT-DNA. Due on due Goal Lifestyle educat ion regarding diet completed Appointment Yesica Cancino BOOKED Future Order: Radiology Order MR Thoracic WO (MRTHORWO), Sent on: Sent History Of Present Illness Encounter Date Complaint History Of Prese nt Illness Comments: Yesica is present here via [facility] for a virtual follow up and medication refill for ongoing low back pain with radiation to her BLE. States pain has been improving since last OV. States she has a really bad cold which contributes to some increased pain.S/p SCS implant on 07/25/2024 with overall benefit, however, notes increased pain in her BL legs. Pain made it difficult for her to sleep last night. Has been following with Lanny from [employer] for reprogrammings. Reports current medication regimen provides moderate pain relief and allows for increased functionality. Denies any side effects with current medication. No other concerns today. low back pain Severity level i s 6. Duration: chronic. The problem is improving. Comments: Yesica is present here today for [...] by her PCP Makenzie Quijano MD at [facility]. Pain began several years ago and has [...] continues to follow with Dr. Resendez at [facility] and recently completed an [...] recently in 07/07/2023- PT, last completed at [facility] in 2022 and 2023 with limited relief- [...] 40.0-44.9, adult Assessments Type Assessment Date assessment Postlaminectomy syndrome, not el sewhere classified impression S/p SCS implant on with overall benefit, however, notes increased pain in her BL legs. Pain made it difficult for her to sleep last night. States she has been following with Lanny from [employer] for reprogrammings. PSHx of lumbar surgery on 01/07/2023 and an additional revision surgery on 07/07/2024. Instrumentation Replacement Levels: L5 to S1, Decompression L3-L4 Side: Bilateral Redo Foramintomy Levels: L5 to S1 Side: Bilateral Pseudoarthrosis Repair Levels: L5 to S1 Pseudoarthrosis Repair Levels: L4 to L5 ASF - Anterior Spine interbody Fusion Levels: L5 to S1 (Spine, Lumbar) [Forwarded Hx]States after surgery pain in her BL legs has increased and she found no relief from surgery to her low back. Notes she has had numerous bone spurs in her back which have led to complications with hardware in her back. She continues to follow with Dr. Resendez at [facility].SCS trial recommended as this is a late/last resort treatment option to manage this patient's chronic low back and BL leg pain.? She has failed at least 12 months of a multidisciplinary program including the following medications and therapies:? OTC medications, opioid medications like Tramadol, hydrocodone, and oxycodone, TCAs, gabapentin, Cymbalta, and PT. Patient does not want to pursue surgery.?She has completed physical therapy within the last year at [facility] which has determined she is an appropriate candidate for an implantable device. Psych is pending. The patient will continue to participate in a HEP.MRI Thoracic 05/12/2024ONCLUSION: Diffuse thoracic disc degeneration with a mild thoracic curve to the right and significant findings as follows:1. Moderate-sized 4-5 mm central posterior disc herniation at T6-7 with right ventral cord flattening.2. 4 mm central posterior disc herniation at T9-10 with mild ventral cord flattening.3. 2 mm left paracentral disc protrusion at T7-8 without neural impingement.4. Moderate to advanced facet arthropathy at multiple levels with minimal spondylolisthesis at T2-3.5. No cord abnormality, and no neoplasm, fracture or infection assessment Radiculopathy, lumbar region Aug impression Ongoing low back varun n with radiation into the BLE. Improving. Finds benefit from [employer] SCS implant.Has tried:- PT, last completed at [facility] in 2022 and 2023 with limited relief- HEPMRI Lumbar 04/04/2021 RAYUS:CONCLUSION: Lumbar spondylosis in lordotic alignment, and the following specific findings:1. L4-5 moderate central stenosis.2. L4-5 and L5-S1 left foraminal stenosis with exiting neural impingement, left foraminal protrusions.3. L4-5 left subarticular stenosis with descending L5 impingement from hypertrophic facet degeneration.Since MRI of the lumbar spine dated 06/08/2019, the L4-5 left foraminal disc herniation is new.CT Lumbar 08/25/2023IMPRESSION:1. Interval anterior hardware fusion at the L5-S1 level including interbody fusion cylinder and anchoring screws. Intraluminal fusion bone. 2. Preexistent bilateral pedicule screws at L4, L5, and S1 and associated connecting hardware. Unchanged.3. Bilateral decompression laminectomies at the L5-S1, L4-5, and L3-4 levels.4. 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 Pain improving since SCS implant on 07/25/2024.Had been managed on Tramadol 50mg TID with no significant relief. Admits to utilizing old prescriptions of Tylenol #3 as well, as indicated on her UDT. NOUGAT CUTTER MACHINE was reviewed. Inquires about trialing an alternative medication to better cover her pain. Denies SEs.Also currently managed on Gabapentin 800mg TID, Duloxetine 60mg, and tizandine 4mg HS. Requests a refill of Tizandine. Has tried: - Tylenol #3, Oxycodone, hydrocodone, and naproxenMME was 22.5 mg/day. Patient has been managing medications appropriately, and is not confused or oversedated during our office visit. UDT results from 05/09/2024 previously reviewed and are (+) Codeine, (+) Morphine, (+) Hydrocodone, (+) Tramadol. Patient admits to utilizing prior prescriptions of medications. Will continue opioid therapy assessment Pain in left shoulder 4 impression Ongoing pain in BL s [facility], made worse after her R ankle surgery in which she had to use her arms to transfer herself. Of secondary concern today assessment Pain in right shoulder 24 impression Per above assessment Chronic pain syndrome 4 impression Yesica is a 69 y/o f emale here regarding ongoing low back pain with radiation to her BLE. Pain began several years ago and has been progressively worsening. Pain averages 7/10 and is described as a sharp, burning, numbness, compression in her lower back, and shaking/weakness in her BL legs Mental Status Date Cognitive Assessment Orientation - [place] ed to time, place, person, situation. Patient Care Teams Name Effective Dates (start - stop) Status Members No Information
--- OUTSIDE RECORDS SUMMARY | 2024-08-24 14:28 | XMS_ITS | Encounter Summary ---
Author Organization [facility] er Address [address] [place] [address] Care Team Providers Care Wine Consultant Name Role Phone Rosalinda Marinelli APRN Primary Care Provider Reason for Visit * Reason Comments Med Refill Encounter Details Date Type Department Care Team (Late st Contact Info) Description 07/20/2022 Refill [place] [address] [place] [address] Nara Reyes MD [address] [place] [address] Chronic pain due to trauma Social History [...] Date Recorded PHQ-9 Total Score 0 12/24/2021 [facility] - Occupational Stress [...] trauma documented in this encounter Care Teams Wine Consultant Relationship Specialty Start Date End Date Rosalinda Marinelli APRN [address] [place] [id number] PCP - General 08/26/23 06/06/24 documented as of this encounter
--- OUTSIDE RECORDS SUMMARY | 2024-08-24 14:28 | XMS_ITS | Clinical Summary ---
Author Organization [employer] [facility] Address [place], [place] [address] Care Team Providers Care Road Mixer Operator Name Role Phone Makenzie Quijano MD Primary Care Provider + Allergies Active Allergy Reactions Criticality Noted Date [...] Detail In Comments) Runny Nose 08/26/2018 Trees, [place], Capok, wool, feathers, Venom-Honey Bee Anaphylaxis High [...] Department Care Team Description 06/07/2024 Lab Requisition [facility] [phone] Unknown, Doctor from Last 3 Months Family [...] 07/07/2023 7:24 AM CDT Plan of Treatment Upcoming Encounters Date Type Department Care Team (Latest Contact Info) Description 09/05/2024 12:45 PM CDT Hospital Encounter [address] [id number] Daniel Vazquez MD [address] [place] [address] [phone] 09/05/2024 12:45 PM CDT - 09/05/2024 3:48 PM CDT Surgery [address] [id number] Daniel Vazquez MD [address] [place] [address] [id number] right superficial parotidectomy with facial nerve monitoring Scheduled Procedures Name Priority Associated Diagnoses Date/Ti me PAROTIDECTOMY Other diseases of salivary glands 09/05/2024 12:45 PM CDT Health Maintenance Due Date Last Done Comments [...] 1 - PCV) 021 COVID-19 vaccine series (2023-25 season) 4 Influenza for age 65+ 07/09/2024 Medical Devices Implanted Type Area Tube Pusher Device Identifier Shelf Expiration Date Model / Serial / Lot Bone 1-4mm 90cc Medtronic Chips Canclls Freeze Dried - [id number]: [id number] Implanted:Qty: 1 on 01/07/2022 by Doug Resendez MD at [facility] Lumbar Vertebrae Medtronic Spine/Ortho 02/21/2026 [id number] / [id number]: [id number] / [id number] Description:Implanted interviewing clerk ior spine L4-S1 Screw Lmbr Post 7.5x45mm Solera 5.5/6 Va Cocr - [id number] Implanted:Qty: 1 on 07/07/2023 by Doug Resendez MD at [facility] N/A: Lumbar Vertebrae Medtronic Spine/Ortho [id number] / / Screw Lmbr Post 8.5x45mm Solera 5.5/6 Va Cocr - [id number] Implanted:Qty: 3 on 07/07/2023 by Doug Resendez MD at [facility] N/A: Lumbar Vertebrae Medtronic Spine/Ortho [id number] / / Screw Lmbr Post 9.5x40mm Solera 5.5/6 Va Cocr - [id number] Implanted:Qty: 2 on 07/07/2023 by Doug Resendez MD at [facility] N/A: Lumbar Vertebrae Medtronic Spine/Ortho [id number] / / Nawaf Lmbr 70x5.5mm Solera 5.5/6 Cvd Titnm - [id number] Implanted:Qty: 2 on 07/07/2023 by Doug Resendez MD at [facility] N/A: Lumbar Vertebrae Medtronic Spine/Ortho [id number] / / Putty Easypack 5cc Magnetos - [id number] Implanted:Qty: 1 on 07/07/2023 by Doug Resendez MD at [facility] N/A: Lumbar Vertebrae [employer] 10/08/2025 [id number] / / [id number] Endoskeleton Tas Implant Implanted:Qty: 1 on 07/07/2023 by Doug Resendez MD at [facility] N/A: Lumbar Vertebrae Medtronic 10/08/2026 [id number] / / [id number] 5.5x25 Screw Implanted:Qty: 3 on 07/07/2023 by Doug Resendez MD at [facility] N/A: Lumbar Vertebrae Medtronic [id number] / / Description:anterior Bone Matrix 3cc [place] Dbf Putty Dbm - [id number] Implanted:Qty: 1 on 07/07/2023 by Doug Resendez MD at [facility] N/A: Lumbar Vertebrae Medtronic Spine/Ortho 05/24/2025 [id number] / [id number] / Bone Matrix 3cc [place] Dbf Putty Dbm - [id number] Implanted:Qty: 1 on 07/07/2023 by Doug Resendez MD at [facility] N/A: Lumbar Vertebrae Medtronic Spine/Ortho 05/24/2025 [id number] / [id number] / Bone Matrix Sm Infuse Bmp - [id number] Implanted:Qty: 1 on 07/07/2023 by Doug Resendez MD at [facility] N/A: Lumbar Vertebrae Medtronic Spine/Ortho 11/08/2024 [id number] / / [id number] Bone 1-4mm 60cc Medtronic Fine Canclls Freeze Dried - [id number] Implanted:Qty: 1 on 07/07/2023 by Doug Resendez MD at [facility] N/A: Lumbar Vertebrae Medtronic Spine/Ortho 01/20/2027 [id number] / [id number] / Set Screw Lmbr Ant 5.5mm Solera Break Off - [id number] Implanted:Qty: 6 on 07/07/2023 by Doug Resendez MD at [facility] N/A: Lumbar Vertebrae Medtronic Spine/Ortho [id number] / / Explanted Type Area Tube Pusher Device Identifier Shelf Expiration Date Model / Serial / Lot Set Screw Lmbr Ant 5.5mm Solera Break Off - [id number] Implanted:Qty : 6 on 01/07/2022 by Doug Resendez MD at [facility] Explanted:Qty : 6 on 07/07/2023 by Doug Resendez MD at [facility] Lumbar Vertebrae Medtronic Spine/Ortho [id number] / / Description:Implanted interviewing clerk ior spine L4-S1 Screw Lmbr Post 6.5x45mm Solera 5.5/6 Va Cocr - [id number] Implanted:Qty : 1 on 01/07/2022 by Doug Resendez MD at [facility] Explanted:Qty : 1 on 07/07/2023 by Doug Resendez MD at [facility] Lumbar Vertebrae Medtronic Spine/Ortho [id number] / / Description:Implanted interviewing clerk ior spine L4-S1 Screw Lmbr Post 7.5x40mm Solera 5.5/6 Va Cocr - [id number] Implanted:Qty : 2 on 01/07/2022 by Doug Resendez MD at [facility] Explanted:Qty : 2 on 07/07/2023 by Doug Resendez MD at [facility] Lumbar [facility] Medtronic Spine/Ortho [id number] / / Description:Implanted interviewing clerk ior spine L4-S1 Screw Lmbr Post 7.5x45mm Solera 5.5/6 Va Cocr - [id number] Implanted:Qty : 3 on 01/07/2022 by Doug Resendez MD at [facility] Explanted:Qty : 3 on 07/07/2023 by Doug Resendez MD at [facility] Lumbar Vertebrae Medtronic Spine/Ortho [id number] / / Description:Implanted interviewing clerk ior spine L4-S1 Nawaf Lmbr 70x5.5mm Solera 5.5/6 Cvd Titnm - [id number] Implanted:Qty : 2 on 01/07/2022 by Doug Resendez MD at [facility] Explanted:Qty : 2 on 07/07/2023 by Doug Resendez MD at [facility] Lumbar Vertebrae Medtronic Spine/Ortho [id number] / / Description:Implanted interviewing clerk ior spine L4-S1 Procedures Procedure Name Priority Date/Time Associated Diagnosis Comments LAB TRACKING EVENT Routine 06/07/2024 11 :56 AM CDT PATH TISSUE EXAM Routine 06/07/2024 11:5 6 AM CDT from Last 3 Months Results * LAB TRACKING EVENT (06/07/2024 11:56 AM CDT) Other (Other) Client Collect / Unknown 06/07/2024 11:56 AM CDT 06/07/2024 9:45 PM CDT Doctor Unknown LAB BILL ONLY [facility] [address] [place] [address], * PATH TISSUE EXAM (06/07/2024 11:56 AM CDT) Case Report Pathology Report ?Case: [id number] ? Authorizing Provider: ??Unknown, Doctor ?Collected: ? 06/07/2024 1156 ? Ordering Location: ? [facility] ?Received: ?06/08/2024 0803 ? Pathologist: ? Ml Scales ? MD Aleksandra ? Specimen: ?Right Parotid ? 06/09/2024 11:34 AM CDT [facility] Final Diagnosis SALIVARY GLAND, RIGHT PAROTID, BIOPSY: 1. Warthin tumor 2. Negative for malignancy 06/09/2024 11:34 AM T [facility] Clinical Information No information provided. 06/09/2024 11:34 AM T [facility] Gross Description A) Received in formalin, labeled with the patient's name and right parotid gland, are 10 arias, friable, delicate needle core biopsies ranging from 0.2 to 0.8 cm in length and averaging less than 0.1 cm in diameter. ??The specimen is entirely submitted in 2 cassettes. WINNIE 06/08/2024 06/09/2024 11:34 AM T [facility] Microscopic Description The final diagnosis is based on microscopic examination of appropriate sections of all specimens. 06/09/2024 11:34 AM T [facility] Additional Information Interpreted at [facility] - [address], [place] [address] 06/09/2024 11:34 AM T [facility] Other (Right Parotid) 06/07/2024 11:56 AM CDT 06/08/2024 8:03 AM CDT Doctor Unknown PATHOLOGY/CYTOLOGY [facility] [address] [place] [address], from Last 3 Months Advance Directives * [...] 8:07 AM 02/15/2012 1:[address] Mixer Operator Relationship Specialty Start Date End Date Makenzie Quijano MD [address] [place] [address] PCP - General Family Practice 08/16/24
--- OUTSIDE RECORDS SUMMARY | 2024-08-24 14:28 | XMS_ITS | Encounter Summary ---
Author Organization [facility] er Address [address] [place] [address] Care Team Providers Care Tank Furnace Operator Name Role Phone Rosalinda Marinelli APRN Primary Care Provider Encounter Details Date Type Department Care Team (Late st Contact Info) Description 06/10/2020 Telephone [facility] Medical/Surgical [address] [place] [address] Lesli Valadez RN [address] [place] [address] Social History Tobacco Use Types [...] Answer Date Recorded PHQ-2 Score 0 05/22/2019 [facility] [place] of Occupat ional Health - Occupational [...] on filedocumented in this encounter Care Teams Tank Furnace Operator Relationship Specialty Start Date End Date Rosalinda Marinelli, DRAFTER STRUCTURAL [address] [place] [address] PCP - General 08/26/23 06/06/24 documented as of this encounter
--- OUTSIDE RECORDS SUMMARY | 2024-08-24 14:28 | XMS_ITS | Encounter Summary ---
Author Organization [facility] er Address [address] [place] [address] Care Team Providers Care Insurance Sales Executive Name Role Phone Rosalinda Marinelli APRN Primary Care Provider Reason for Visit * Reason Onset Date Comments Med Refill 08/25/2018 Encounter Details Date Type Department Care Team (Late st Contact Info) Description 08/25/2018 Refill [place] [address] [place] [address] Nara Reyes MD [address] [place] [address] Chronic pain due to trauma (Primary Dx) [...] 08/26/2018 8:51 AM CDT [facility] * Telephone Encounter - Kamilah Mayberry RN - 08/26/2018 8:24 AM CDT Please fax Rx to [facility]. * Telephone Encounter - Frida [...] documented as of this encounter Care Teams Insurance Sales Executive Relationship Specialty Start Date End Date Rosalinda Marinelli, COMPUTER ASSEMBLER [address] [place] [address] PCP - General 08/26/23 06/06/24 documented as of this encounter
--- OUTSIDE RECORDS SUMMARY | 2024-08-24 14:28 | XMS_ITS | Encounter Summary ---
Author Organization [facility] er Address [address] [place] [address] Care Team Providers Care Negotiator Sales Name Role Phone Rosalinda Marinelli APRN Primary Care Provider Encounter Details Date Type Department Care Team (Late st Contact Info) Description 06/10/2020 Telephone [facility] Medical/Surgical [address] [place] [address] [place] [address] [place] [phone] Social History Tobacco Use Types Packs/Day [...] Answer Date Recorded PHQ-2 Score 0 05/22/2019 [facility] [place] of Occupat ional Health - Occupational Stress [...] on filedocumented in this encounter Care Teams Negotiator Sales Relationship Specialty Start Date End Date Rosalinda Marinelli, BLOOD BANK ATTENDANT [address] [place] [address] PCP - General 08/26/23 06/06/24 documented as of this encounter
--- OUTSIDE RECORDS SUMMARY | 2024-08-24 14:28 | XMS_ITS | Encounter Summary ---
Author Organization [facility] er Address [address] [place] [address] Care Team Providers Care Slate Cutter Operator Name Role Phone Rosalinda Marinelli APRN Primary Care Provider Reason for Visit * Reason Comments Med Refill Encounter Details Date Type Department Care Team (Late st Contact Info) Description 12/03/2020 Refill [place] [address] [place] [address] Nara Reyes MD [address] [place] [address] Chronic pain syndrome Social History Tobacco Use [...] Answer Date Recorded PHQ-2 Score 0 05/22/2019 [facility] [place] of Occupat ional Health - Occupational Stress [...] was filled 12/03/2020 # 180, 3 refill. OR COMPENSATION CONSULTANT documented in this encounter Plan of Treatment Not on file documented as of this encounter Visit Diagnoses Diagnosis Chronic pain syndrome documented in this encounter Care Teams Slate Cutter Operator Relationship Specialty Start Date End Date Rosalinda Marinelli, PIPE JEEPER [address] [place] [address] PCP - General 08/26/23 06/06/24 documented as of this encounter
--- OUTSIDE RECORDS SUMMARY | 2024-08-24 14:28 | XMS_ITS | Encounter Summary ---
Author Organization [facility] er Address [address] [place] [address] Care Team Providers Care Sole Leveling Machine Operator Name Role Phone Rosalinda Marinelli APRN Primary Care Provider Encounter Details Date Type Department Care Team (Late st Contact Info) Description 05/24/2020 Telephone [facility] Medical/Surgical [address] [place] [address] [place] [address] [place] [phone] Social History Tobacco Use Types Packs/Day [...] Date Recorded PHQ-2 Score 0 05/22/2019 [facility] [place] of Occupat ional Health - Occupational Stress [...] as of this encounter Care Teams Sole Leveling Machine Operator Relationship Specialty Start Date End Date Rosalinda Marinelli APRN [address] [place] [address] PCP - General 08/26/23 06/06/24 documented as of this encounter
--- OUTSIDE RECORDS SUMMARY | 2024-08-24 14:28 | XMS_ITS | Encounter Summary ---
Author Organization [facility] er Address [address] [place] [address] Care Team Providers Care Building Repair Maintenance Supervisor Name Role Phone Rosalinda Marinelli APRN Primary Care Provider Reason for Visit * Reason Comments Med Refill Encounter Details Date Type Department Care Team (Late st Contact Info) Description 04/26/2020 Refill [place] [address] [place] [address] Nara Reyes MD [address] [facility] [address] [place] [address] Chronic pain due to trauma Social History [...] Answer Date Recorded PHQ-2 Score 0 05/22/2019 [facility] of Occupat ional Health - Occupational Stress [...] 04/30/2020 4:53 PM CDT [facility] * Telephone Encounter - Randi Nuñez [...] documented as of this encounter Care Teams Building Repair Maintenance Supervisor Relationship Specialty Start Date End Date Rosalinda Marinelli, FORMING TUBE SELECTOR [address] [place] [address] PCP - General 08/26/23 06/06/24 documented as of this encounter
--- OUTSIDE RECORDS SUMMARY | 2024-08-24 14:28 | XMS_ITS | Encounter Summary ---
Author Organization [facility] er Address [address] [place] [address] Care Team Providers Care Cardiology Manager Name Role Phone Rosalinda Marinelli APRN Primary Care Provider Encounter Details Date Type Department Care Team (Late st Contact Info) Description 05/07/2023 Telephone [facility] [address] [place] [address] Rad Cerda RN [address] [place] [address] Social History Tobacco Use Types [...] on filedocumented in this encounter Care Teams Cardiology Manager Relationship Specialty Start Date End Date Rosalinda Marinelli, WINDOWS LAPTOP TECHNICIAN [address] [place] [address] PCP - General 08/26/23 06/06/24 documented as of this encounter
--- OUTSIDE RECORDS SUMMARY | 2024-08-24 14:28 | XMS_ITS | Encounter Summary ---
Author Organization [facility] er Address [address] [place] [address] Care Team Providers Care Salesperson Surgical Appliances Name Role Phone Rosalinda Marinelli APRN Primary Care Provider Reason for Referral * Consultation (Routine) - Authorized Specialty Diagnoses / Procedures Referred By Sherita raymond Referred To Contact [facility] Care Diagnoses Elevated blood pressure reading in office with diagnosis of hypertension Rosalinda Marinelli APRN [address] [place] [address] [facility] [address] [facility] [place] [address] Referral ID Status Reason Start Date Expiration Date V isits Requested Visits Authorized [id number] Authorized 05/16/2024 05/17/2025 1 1 Encounter Details Date Type Department Care Team (Late st Contact Info) Description 05/16/2024 Orders Only [facility] 4th Floor [address] [place] [address] Rosalinda Marinelli APRN [address] [place], [place] [address] Elevated blood pressure reading in office with [...] week 08/02/2023 How often do you attend [facility] or mandaeism services? Never 08/02/2023 Do you belong to [...] Date Recorded PHQ-9 Total Score 9 08/02/2023 [facility] of Occupat ional Health - Occupational [...] place to sleep or slept in a assisted (including now)? No 08/02/2023 Sex and Gender [...] hypertension documented in this encounter Care Teams Salesperson Surgical Appliances Relationship Specialty Start Date End Date Rosalinda Marinelli APRN [address] [place] [address] PCP - General 08/26/23 06/06/24 documented as of this encounter
--- OUTSIDE RECORDS SUMMARY | 2024-08-24 14:28 | XMS_ITS | Encounter Summary ---
Author Organization [facility] er Address [address] [place] [address] Care Team Providers Care Sr Solutions Consultant Name Role Phone Rosalinda Marinelli APRN Primary Care Provider Reason for Visit * Reason Comments Med Refill Encounter Details Date Type Department Care Team (Late st Contact Info) Description 01/20/2021 Refill [place] [address] [place] [address] Nara Reyes MD [address] [place] [address] Encounter for screening colonoscopy Social History Tobacco [...] Answer Date Recorded PHQ-2 Score 0 05/22/2019 [facility] [place] of Occupat ional Health - Occupational Stress [...] AND DRINK ACCORDING TO DIRECTIONS ON YOUR [facility] COLONOSCOPY PREP SHEET Pre-procedural rx, no refill. Pharmacy notified. documented in this encounter Plan of Treatment Not on file documented as of this encounter Visit Diagnoses Diagnosis Encounter for screening colonoscopy documented in this encounter Care Teams Sr Solutions Consultant Relationship Specialty Start Date End Date Rosalinda Marinelli APRN [address] [place] [address] PCP - General 08/26/23 06/06/24 documented as of this encounter
== END 2024-08-24 14:24 | disposition home or self-care (01) ==
LOC: NFLDREF 14:25
PROVIDERS: PCP Family Medicine; Visit Provider Family Medicine
DX: Z01.818 Encounter for other preprocedural examination (principal); I10 Essential (primary) hypertension
CPT/HCPCS: 80048

== ENCOUNTER 2024-08-31 15:05 | Outpatient (CLI) | payer MEDICARE, SELFPAY ==
--- OUTSIDE RECORDS SUMMARY | 2024-08-31 15:08 | XMS_ITS | Clinical Summary ---
Author Organization [facility] er Address [address] [place] [address] Care Team Providers Care Shine Worker Name Role Phone Unavailable Primary Care Provider [...] Hives 04/21/2021 Nuts Nystatin Other 08/26/2018 Trees, [place], Capok, wool, feathers, Penicillins Most of this [...] adjusted: 09/10/2023)., Reported on 09/10/2023 TechLite Pen [place] 31G X 5 [facility] 06/29/2023 Active Fluocinonide Emulsified Base 0.05 % [...] out DVT today at 5 pm at [facility]. LINDA (acute kidney injury) 01/09/2022 Normocytic anemia [...] Type Department Care Team Description 06/05/[address] [address] Rosalinda Marinelli APRN Gastroesophageal reflux disease without [...] How often do you attend chur or mandaen services? Never 08/02/2023 Do you belong to any clubs o r organizations such as adventist groups, unions, fraternal or athletic groups, or [...] Date Recorded PHQ-9 Total Score 9 08/02/2023 [facility] of Occupat ional Health - [...] place to sleep or slept in a residential (including now)? No 08/02/2023 Sex and Gender [...] this topic Medical Devices Implanted Type Area Reeler Operator Device Identifier Shelf Expiration Date Model / Serial / Lot Infinity Tibial Tray Sz 3 Lng Total Ankle System - [id number] Implanted:Qty: 1 on 06/07/2020 by Jordan Tan MD at [facility] Right: Ankle 06/19/2027 REF [id number] / / [id number] Infinity Talar Dome Sz 2 Total Ankle System - [id number] Implanted:Qty: 1 on 06/07/2020 by Jordan Tan MD at [facility] Right: Ankle 03/19/2028 REF# [id number] / / [id number] Infinity Poly Sz 2+ 6mm Total Ankle System - [id number] Implanted:Qty: 1 on 06/07/2020 by Jordan Tan MD at [facility] Right: Ankle 04/19/2027 REF# [id number] / / [id number] Procedures Procedure Name Priority Date/Time Associated Diagnosis Comments HEMOGLOBIN A1C Routine 06/23/2023 3:18 PM CDT Preop examination LIPID PANEL Routine 08/27/2022 2:43 PM CDT Screening cholesterol level MICROALBUMIN/CREATI NINE RATIO Routine 02/04/2022 3:35 PM CDT Type 2 diabetes mellitus without complication, without long-term current use of insulin (HCC) DEXA BONE DENSITY Routine 11/07/2014 1:5 1 PM PRODUCTION COORDINATOR from Last 3 Months or Most Recently Relevant to Health Maintenance Results * (ABNORMAL) Hemoglobin A1c (06/23/2023 3:18 PM CDT) Hemoglobin A1C 6.9(H) 4.0 - 5.6 % A1C 06/24/2023 4:13 PM CDT [facility] Comment: Reference Range 4.0-5.6% is [...] CDT Nara Reyes MD LAB BLOOD ORDERABLES [facility] [address] [place] [address] * (ABNORMAL) Lipid panel (08/27/2022 2:43 PM CDT) Cholesterol 205(H) 0 - 199 mg/dL 08/28/2022 2:05 PM T [facility] Comment: Recommended by National Cholesterol Education Program (ATP III) -------- Cholesterol Ranges -------- <200 ?Desirable 200-239 ? Borderline high >=240 ? High Triglycerides 190(H) 0 - 149 mg/dL 08/28/2022 2:05 PM T [facility] Comment: -------- TRIG Ranges -------- <150 ?Normal 150-199 ? Borderline high 200-499 ? High >=500 ? Very high HDL 41 40 - 250 mg/dL 08/28/2022 2:05 PM T [facility] Comment: -------- HDL Ranges -------- <40 ?Low 40-59 ?Normal >=60 ? Optimal LDL Calculated 126(H) 0 - 99 mg/dL 08/28/2022 2:05 PM CDT [facility] Comment: -------- LDL Ranges -------- <100 ? Optimal 100-129 ?Near optimal/above optimal 130-159 ?Borderline high 160-189 ?High >=190 ?Very high Blood 08/27/2022 2:43 PM CDT 08/28/2022 12:45 PM CDT Nara Reyes MD LAB BLOOD ORDERABLES Performing Organization Address [facility] de Phone Number [facility] [address] [place] [address] * (ABNORMAL) Microalbumin/Creatinine Ratio (02/04/2022 3:35 PM CDT) Microalbumin,mg/ day 94.1(H) 0.0 - 16.6 mg/L 02/05/2022 2:26 PM CDT [facility] Comment: . Creatinine, Urine 182 mg/dL 02/05/2022 2:26 PM CDT [facility] Comment: No established reference range. Microalb/Creat Ratio 52(H) 0 - 24 mg/g 02/05/2022 2:26 PM CDT [facility] Urine 02/04/2022 3:35 PM CDT 02/05/2022 12:33 PM CDT Nara Reyes MD LAB URINE ORDERABLES Performing Organization Address [facility] de Phone Number [facility] [address] [place] [address] * Dexa bone density axial skeleton (11/07/2014 1:51 PM PRODUCTION COORDINATOR) Anatomical Region Laterality Modality Wrist, Hip, L-spine Radiographic Imaging 11/07/2014 1:51 PM PRODUCTION COORDINATOR Narrative 11/07/2014 5:10 PM PRODUCTION COORDINATOR Clinical History Hyperthyroidism/Post menopause; Indication for exam: [...] Advance Directives For more information, please contact: [phone] * Full Code (Latest Code Status on File) Date Activated Date Inactivated Comments 06/07/2020 11:29 AM 06/08/2020 12:03 PM
--- OUTSIDE RECORDS SUMMARY | 2024-08-31 15:08 | XMS_ITS | Continuity of Care Document ---
Author Organization [facility] Address [address] [place] [address] Care Team Providers Care Arbitrator Name Role Phone Nithin Hooper CRNA Unavailable Unavailable Procedures Procedure Date ANESTH, HEAD/NECK/PTRUNK Percutaneous Image guided neuromodulatio n or intra Advance Directives Directive Yes / No Effective Date File Name No Information Encounters Encounter Description Practice Location Reason(s) For Visit Diagnoses Date Provider Providers Copied on Encounter [facility], [address] [place] [address], [id number], [facility] No Information 4 Rufus Weller. [address] [place], [place], [id number] , . tel:[phone] Referring Provider: Rad Gleason, [address] [facility], [place], [address] . tel:[phone] [facility], [address] [place], [place], [id number], [facility] No Information 4 Rufus Weller. [address], [place], [place], [id number] , . tel:[phone] Referring Provider: Rad Gleason, [address] [facility], [place], [address] . tel:[phone] Family History Family Member Type Diagnosis Age At Onset No Information Payers Payer name Insurance type Covered libertarian ID Tami burroughs(s) [facility] Medicare Advantage Replacement [id number] Social History Type Description Quantity Date Captured [...]
--- OUTSIDE RECORDS SUMMARY | 2024-08-31 15:08 | XMS_ITS | Continuity of Care Document ---
Author Organization [facility] Address [address] [place] [address] Phone Care Team Providers Care Fourth Hand Name Role Phone Lee Coates Unavailable Unavailable [...] ient Visit,Est, [facility], [address], [place], [id number], [place] tel:[phone] [facility] Encounter for other specified surgical aftercare Lazara Howard. [facility], [address], [address], [facility], [place], [id number] , [place]. tel:[phone] Referring Provider: Lee Escamilla, [facility] [address] [place] [address], [address], [place], [address] . tel:[phone] Office/Outpat ient Visit,Est, [facility], [address], [place], [id number], [place] tel:[phone] [facility] Encounter for other specified surgical aftercare 3 Resendez Doug. [facility] [place], [address], [address], [facility] [place], [place], [id number] , [place]. tel:[phone] Referring Provider: Abilio Del Cid, [address] , [place], [address]. tel:[phone] [facility], [address], [place] [facility] [place], [id number], [place] tel:[phone] [facility] No Information 3 Resendez Doug. [facility] [place], [address], [address], [facility] [place], [place], [id number] , [place]. tel:[phone] Referring Provider: Abilio Del Cid, [address], [place], [address]. tel:[phone] [facility], [address], [place], [id number], [place] tel:[phone] [facility] No Information 3 Lazara Howard. [facility] [place], [address], [address], [facility] [place], [place], [id number] , [place]. tel:[phone] Referring Provider: Abilio Del Cid, [address], [place], [address]. tel:[phone] [facility], [address], [place], [id number], [place] tel:[phone] [facility] Information 3 Resendez Doug. [facility] [place], [address], [address], [place], [place], [id number] , [place]. tel:[phone] Referring Provider: Abilio Del Cid, [address] , [place], [address]. tel:[phone] Office/Outpat ient Visit,Est, [facility], [address], [place], [id number], [place] tel:[phone] [facility] Pseudarthrosis after fusion or arthrodesis 3 Resendez Doug. [facility], [address] [place] [address], [address], [place], [place], [id number] , [place]. tel:[phone] Referring Provider: Abilio Del Cid, [address], [place], [address]. tel:[phone] Office/Outpat ient Visit,Est, [facility], [address], [place], [id number], [place] tel:[phone] [facility] Encounter for other specified surgical aftercare 2 Panvica Lee. [facility] [place], [address] [place] [address], [address], [facility] [place], [id number] , [place]. tel:[phone] Referring Provider: Abilio Del Cid, [address], [place], [address]. tel:[phone] Office/Outpat ient Visit,Est, [facility], [address], [place], [id number], [place] tel:[phone] [facility] Encounter for other specified surgical aftercare 2 Panvica Lee. [facility], [address], [address], [place], [place], [id number] , [place]. tel:[phone] Referring Provider: Abilio Del Cid, [address] , [place], [address]. tel:[phone] [facility], [address], [facility] [place] [place] [id number], [place] tel:[phone] [facility] Encounter for other specified surgical aftercare Apr- 4-202 2 Resendez Doug. [facility] [place], [address], [address], [place], [place], [id number] , [place]. tel:[phone] Referring Provider: Abilio Del Cid, [address], [place], [address]. tel:[phone] [facility], [address], [place], [place], [id number], [place] tel:[phone] [facility] No Information Mar-0 3-202 2 Panvica Lee. [facility] [place], [address], [address], [place], [place], [id number] , [place]. tel:[phone] Referring Provider: Abilio Del Cid, [address], [place], [address]. tel:[phone] [facility], [address], [facility] [place] [place], [address], [place] tel:[phone] [facility] No Information Mar-0 2-202 2 Resendez Doug. [facility] [place], [address], [address], [place], [place], [address] , [place]. tel:[phone] Referring Provider: Abilio Del Cid, [address], [place], [address]. tel:[phone] Office/Outpat ient Visit,New, Mod [facility], [address], [place], [id number], [place] tel:[phone] [facility] Other spondylosis, lumbosacral regionSpondylol isthesis, lumbar regionOther intervertebral disc displacement, lumbosacral regionRadiculop athy, lumbosacral region 1 Perez Cook. [facility], [address], [place], [id number] , [place]. tel:[phone] Referring Provider: Abilio Del Cid, [facility] [address] [facility] [address], [place], [address]. tel:[phone] Family History Family Member Type Diagnosis Age At Onset No Information Payers Payer name Insurance type Covered alliance party ID Tami burroughs(s) [facility] Medicare [facility] 2021 CI [id number] Social History Type Description Quantity Date Captured [...]
--- OUTSIDE RECORDS SUMMARY | 2024-08-31 15:08 | XMS_ITS | Encounter Summary ---
Author Organization [facility] Address [address] [place] [address] Care Team Providers Care Profile Stitching Machine Operator Name Role Phone Rosalinda Marinelli APRN Primary Care Provider Encounter Details Date Type Department Care Team (Late st Contact Info) Description 05/07/2023 Telephone [facility] [address] [place] [address] Rad Cerda RN [address] [place] [address] Social History Tobacco Use Types [...] Date Recorded PHQ-9 Total Score 0 12/24/2021 [facility] - Occupational [...] on filedocumented in this encounter Care Teams Profile Stitching Machine Operator Relationship Specialty Start Date End Date Rosalinda Marinelli, RESTAURANT SHIFT LEADER [address] [place] [address] PCP - General 08/26/23 06/06/24 documented as of this encounter
--- OUTSIDE RECORDS SUMMARY | 2024-08-31 15:08 | XMS_ITS | Continuity of Care Document ---
Author Organization [facility] rub[facility] Address [address] [facility] [place] [address] Phone Care Team Providers Care Bench Inspector Name Role Phone Raheel YBARRAT, Thomas Unavailable Unava ilable Allergies, Adverse Reactions, Alerts [...] dosing requires individualization. Not Available - Active Systane Complete PF 0.6 % [...] hours as needed 25 MG - Active calcium 600 mg (as calcium carbonate 1,500 mg) tablet Take 2 times per day - Active levothyroxine 125 mcg capsule take 1 capsule by oral route every day 125 MCG - Active Zyrtec 10 mg tablet take 1 tablet by oral route every day 10 MG - Active lansoprazole 30 mg delayed release,disintegrat ing tablet place 1 tablet by translingual route every day on top of the tongue where it will dissolve, then swallow 30 MG - Active tramadol 50 mg tablet take 1 tablet by oral route 3 times a day - Active gabapentin 800 mg tablet take 1.5 tablet by oral route in the AM 1 at 5pm and 1.5 in the PM - Active Flonase Allergy Relief 50 mcg/actuation nasal spray,suspension spray 1 - 2 spray by intranasal route every day in each nostril as needed 50-100 MCG - Active Vitamin D3 50 mcg (2,000 unit) tablet - Active duloxetine 60 mg capsule,delayed release take 1 capsule by oral route every day 60 MG - Active Vitamin B-12 1,000 mcg tablet Every other day - Active atenolol 50 mg tablet take 1 tablet by oral route every day 50 MG - Active Procedures Procedure Date OFFICE [...] Diagnoses Date Provider Providers Copied on Encounter [facility], [address] [place] [address], [id number] , [place] tel: [phone] [facility] lumbago (chief complaint) No Information 4 Raheel Guzman. [address] [place] [address], [id number] , [place]. tel: [phone] OFFICE VISIT, EST TELEMEDICINE [facility], [address] [place] [address], [id number] , [place] tel: [phone] [facility] low back pain (chief complaint) Postlaminectomy syndrome, not elsewhere classifiedRadicul opathy, lumbar regionLong term (current) use of opiate analgesicPain in left shoulderPain in right shoulderChronic pain syndrome 4 Rosibel Leroy. [address] [facility] [place], [place], [id number] , [place]. tel: [phone] [facility], [address] [place] [address], [id number] , [place] tel: [phone] [facility] Postlaminectomy syndrome, not elsewhere classified 4 Rosibel Leroy. [address] [facility] [place], [place], [id number] , [place]. tel: [phone] Referring Provider: Makenzie Márquez [address], [address]. [phone] [facility], [address] [place] [address], [id number] , [place] tel: [phone] [facility] [place] No Information 4 Pito Dunbar. [address] [facility] [address], [place], [place], [id number] , [place]. tel: [phone] [facility], [address] [place] [address] [place], [id number] , [place] tel: [phone] [facility] Postlaminectomy syndrome, not elsewhere classified 4 Rosibel Leroy. [address] [place] [address] [facility], [place], [place], [id number] , [place]. tel: [phone] Referring Provider: Makenzie Márquez [facility] [address] [place], [address]. [phone] OFFICE VISIT, [facility] TELEMEDICINE [facility], [address] [place] [address] [place], [id number] , [place] tel: [phone] [facility] Postlaminectomy syndrome, not elsewhere classified 4 Rosibel Leroy. [address] [place] [address] [facility], [place], [place], [id number] , [place]. [phone] [facility], [address] [place] [address], [id number] , [place] tel: [phone] [facility] Postlaminectomy syndrome, not elsewhere classified 4 Rosibel Leroy. [address] [place] [address], [place], [place], [id number] , [place]. tel:[phone] Referring Provider: Makenzie Márquez [facility] [address] [place], [address]. tel:[phone] [facility], [address] [place] [address], [id number] , [place] tel:[phone] [facility] No Information 4 Rosibel Leroy. [address] [place] [address] [facility], [place], [place], [id number] , [place]. [phone] Referring Provider: Makenzie Márquez [facility] [address] [place], [address]. tel:[phone] [facility], [address] [place] [address], [id number] , [place] tel: [phone] [facility] Postlaminectomy syndrome, not elsewhere classified 4 Rosibel Leroy. [address] [place] [address] [facility], [place], [place], [id number] , [place]. tel: [phone] Referring Provider: Makenzie Márquez [facility] [address] [place], [address]. tel:[phone] [facility], [address] [place] [address], [id number] , [place] tel: [phone] [facility] No Information 4 Rosibel Leroy. [address] [place] [address] [facility], [place], [place], [id number] , [place]. tel: [phone] OFFICE/OUTPAT IENT VISIT, EST [facility], [address] [place] [address], [id number] , [place] tel: [phone] [facility] Postlaminectomy syndrome, not elsewhere classified 4 Rosibel Leroy. [address] [place] [address] [facility], [place], [place], [id number] , [place]. tel: [phone] Referring Provider: Makenzie Márquez [address], [address]. tel:[phone] Psych Dx Eval [facility], [address] [place] [address], [id number] , [place] tel: [phone] Telehealth Pain disorder with related psychological factors 4 Beth Morales. [address] [place] [address], [id number] , [place]. tel: [phone] OFFICE/OUTPAT IENT VISIT, EST [facility], [address] [place] [address], [id number] , [place] tel: [phone] [facility] low back pain (chief complaint) Chronic pain syndromePostlamin ectomy syndrome, not elsewhere classifiedRadicul opathy, lumbar regionLong term (current) use of opiate analgesicPain in left shoulderPain in right shoulder 4 Rosibel Leroy. [address] [facility] [place], [place], [id number] , . tel:[phone] Referring Provider: Makenzie Márquez [address], [address]. tel:[phone] OFFICE/OUTPAT IENT VISIT, [facility], [address] [place], [place], [id number] , [place] tel:[phone] [facility] [place] low back pain (chief complaint) Chronic pain syndromePostlamin ectomy syndrome, not elsewhere classifiedRadicul opathy, lumbar regionEncounter for therapeutic drug level monitoringLong term (current) use of opiate analgesicPain in left shoulderPain in right shoulder 4 Rosibel Leroy. [address] [facility] [place], [place], [id number] , [place]. tel:[phone] Referring Provider: Makenzie Márquez [address], [address]. tel:[phone] Family History Family Member Type Diagnosis Age At Onset Problem Family history of Back pain Payers Payer name Insurance type Covered green party ID Tami burroughs(s) [facility] Medicare Advantage Replacement [id number] Social History Type Description Quantity Date Captured Comments Alcohol Use Details Unknown Caffeine Use Details Unknown Tobacco Use Status Smoking Status Unknown if ever smoked Sex Female Chief Complaint And Reason For Visit From encounter dated '08/28/2024 13:10'. lumbago (chief complaint). Description: Patient is a 69 year old female presenting approximately 1 month s/p lumbar SCS implant. She has a history of lumbar fusion surgeries with significant low backand bilateral legs pain. She notes that her pain is no longer constant, but walking is still challenging. Her symptoms include radicular []. Patient notes associated weakness. Her symptoms are increased with []. Symptoms are somewhat relieved with []. She has tried multiple different interventions,including physical therapy but []. She notes that her current level of discomfort limits everythingshe is able to do each day and is currently limiting her overall quality of life. She would like to decrease her overall discomfort to allow her to perform her daily, functional activities with less limitation and an improved quality of life.- still experiencing break out pain- pain with walking- Reason For Referral Reason For Referral No Information Plan Of Treatment Date Type Action Status Goal Creatinine. Due on due Goal Weight. Due on d ue Goal PHQ-9. Due on du e Goal Height. Due on d ue Goal Update Social Hi story. Due on due Goal PATENT CHEMIST Paperwork. Due on due Goal Hepatitis C scre ening. Due on due Goal UDT. Due on due Goal FIT. Due on due Goal FIT-DNA. Due on due Goal Unhealthy drug u se screening. Due on due Goal OARS. Due on due Goal Order Annual PT. Due on due Goal LAND LEASING EXAMINER Scanned. Due on due Goal Lipid panel. Due on due Goal ALT (SGPT). Due on due Goal Medication Recon ciliation. Due on due Goal AST (SGOT). Due on due Goal Tobacco Use. Due on due Goal Review Allergy L ist. Due on due Goal CT-Colonography. Due on due Goal Zoster vaccine ( ). Due on due Goal Unhealthy drug u se screening. Due on due Goal FIT. Due on due Goal Lipid panel. Due on due Goal Medication Recon ciliation. Due on due Goal Review Allergy L ist. Due on due Goal Weight. Due on d ue Goal Tobacco Use. Due on due Goal Hepatitis C scre ening. Due on due Goal Zoster vaccine ( ). Due on due Goal Update Social Hi story. Due on due Goal PHQ-9. Due on du e Goal CT-Colonography. Due on due Goal Height. Due on d ue Goal FIT-DNA. Due on due Goal OARS. Due on due Goal Order Annual PT. Due on due Goal AST (SGOT). Due on due Goal UDT. Due on due Goal ALT (SGPT). Due on due Goal Creatinine. Due on due Goal PATENT CHEMIST Paperwork. Due on due Goal LAND LEASING EXAMINER Scanned. Due on due Goal Height. Due on d ue Goal AST (SGOT). Due on due Goal Weight. Due on d ue Goal Creatinine. Due on due Goal Medication Recon ciliation. Due on due Goal LAND LEASING EXAMINER Scanned. Due on due Goal FIT-DNA. Due on due Goal ALT (SGPT). Due on due Goal PATENT CHEMIST Paperwork. Due on due Goal FIT. Due on due Goal Lipid panel. Due on due Goal PHQ-9. Due on du e Goal UDT. Due on due Goal Order Annual PT. Due on due Goal OARS. Due on due Goal Tobacco Use. Due on due Goal Review Allergy L ist. Due on due Goal CT-Colonography. Due on due Goal Zoster vaccine ( 1st). Due on due Goal Hepatitis C scre ening. Due on due Goal Update Social Hi story. Due on due Goal Unhealthy drug u se screening. Due on due Goal Unhealthy drug u se screening. Due on due Goal OARS. Due on due Goal Order Annual PT. Due on due Goal Update Social Hi story. Due on due Goal Creatinine. Due on due Goal Zoster vaccine ( 1st). Due on due Goal PATENT CHEMIST Paperwork. Due on due Goal UDT. Due on due Goal PHQ-9. Due on du e Goal Weight. Due on d ue Goal Tobacco Use. Due on due Goal AST (SGOT). Due on due Goal ALT (SGPT). Due on due Goal LAND LEASING EXAMINER Scanned. Due on due Goal Lipid panel. Due on due Goal Medication Recon ciliation. Due on due Goal Hepatitis C scre ening. Due on due Goal FIT-DNA. Due on due Goal FIT. Due on due Goal Height. Due on d ue Goal Review Allergy L ist. Due on due Goal CT-Colonography. Due on due Goal Review Allergy L ist. Due on due Goal Height. Due on d ue Goal Tobacco Use. Due on due Goal Update Social Hi story. Due on due Goal FIT. Due on due Goal UDT. Due on due Goal Creatinine. Due on due Goal AST (SGOT). Due on due Goal Order Annual PT. Due on due Goal PATENT CHEMIST Paperwork. Due on due Goal ALT (SGPT). Due on due Goal LAND LEASING EXAMINER Scanned. Due on due Goal OARS. Due on due Goal Medication Recon ciliation. Due on due Goal Zoster vaccine ( 1st). Due on due Goal CT-Colonography. Due on due Goal PHQ-9. Due on du e Goal Lipid panel. Due on due Goal Hepatitis C scre ening. Due on due Goal Weight. Due on d ue Goal Unhealthy drug u se screening. Due on due Goal FIT-DNA. Due on due Goal Medication Recon ciliation. Due on due Goal Tobacco Use. Due on due Goal Creatinine. Due on due Goal Update Social Hi story. Due on due Goal Review Allergy L ist. Due on due Goal FIT. Due on due Goal PHQ-9. Due on du e Goal Lipid panel. Due on due Goal Weight. Due on d ue Goal Unhealthy drug u se screening. Due on due Goal FIT-DNA. Due on due Goal PATENT CHEMIST Paperwork. Due on due Goal AST (SGOT). Due on due Goal UDT. Due on due Goal CT-Colonography. Due on due Goal LAND LEASING EXAMINER Scanned. Due on due Goal Zoster vaccine ( ). Due on due Goal OARS. Due on due Goal Height. Due on d ue Goal Order Annual PT. Due on due Goal ALT (SGPT). Due on due Goal Hepatitis C scre ening. Due on due Goal Review Allergy L ist. Due on due Goal Zoster vaccine ( ). Due on due Goal Tobacco Use. Due on due Goal PHQ-9. Due on du e Goal Update Social Hi story. Due on due Goal FIT. Due on due Goal UDT. Due on due Goal PATENT CHEMIST Paperwork. Due on due Goal Creatinine. Due on due Goal LAND LEASING EXAMINER Scanned. Due on due Goal ALT (SGPT). Due on due Goal AST (SGOT). Due on due Goal OARS. Due on due Goal Order Annual PT. Due on due Goal CT-Colonography. Due on due Goal Lipid panel. Due on due Goal Unhealthy drug u se screening. Due on due Goal Height. Due on d ue Goal Weight. Due on d ue Goal Hepatitis C scre ening. Due on due Goal Medication Recon ciliation. Due on due Goal FIT-DNA. Due on due Goal Review Allergy L ist. Due on due Goal Creatinine. Due on due Goal ALT (SGPT). Due on due Goal Update Social Hi story. Due on due Goal AST (SGOT). Due on due Goal Lipid panel. Due on due Goal FIT-DNA. Due on due Goal OARS. Due on due Goal Tobacco Use. Due on due Goal CT-Colonography. Due on due Goal Order Annual PT. Due on due Goal PHQ-9. Due on du e Goal Unhealthy drug u se screening. Due on due Goal Hepatitis C scre ening. Due on due Goal UDT. Due on due Goal PATENT CHEMIST Paperwork. Due on due Goal Medication Recon ciliation. Due on due Goal Height. Due on d ue Goal LAND LEASING EXAMINER Scanned. Due on due Goal Weight. Due on d ue Goal Zoster vaccine ( ). Due on due Goal FIT. Due on due Goal Tobacco Use. Due on due Goal Review Allergy L ist. Due on due Goal Zoster vaccine ( ). Due on due Goal Unhealthy drug u se screening. Due on due Goal FIT. Due on due Goal CT-Colonography. Due on due Goal FIT-DNA. Due on due Goal UDT. Due on due Goal Update Social Hi story. Due on due Goal Order Annual PT. Due on due Goal ALT (SGPT). Due on due Goal LAND LEASING EXAMINER Scanned. Due on due Goal Height. Due on d ue Goal Lipid panel. Due on due Goal Weight. Due on d ue Goal Medication Recon ciliation. Due on due Goal Creatinine. Due on due Goal OARS. Due on due Goal PHQ-9. Due on du e Goal AST (SGOT). Due on due Goal Hepatitis C scre ening. Due on due Goal PATENT CHEMIST Paperwork. Due on due Goal CT-Colonography. Due on due Goal Update Social Hi story. Due on due Goal Height. Due on d ue Goal Medication Recon ciliation. Due on due Goal Weight. Due on d ue Goal FIT-DNA. Due on due Goal Tobacco Use. Due on due Goal Review Allergy L ist. Due on due Goal Lipid panel. Due on due Goal Unhealthy drug u se screening. Due on due Goal Hepatitis C scre ening. Due on due Goal FIT. Due on due Goal PHQ-9. Due on du e Goal Zoster vaccine ( 1st). Due on due Goal Lifestyle educat ion regarding diet completed Future Order: Radiology Order Thoracic WO (MRTHORWO), Sent on: Sent History Of Present Illness Encounter Date Complaint History Of Prese nt Illness lumbago Patient is a 69 year old female presenting approximately 1 month s/p lumbar SCS implant. She has a history of lumbar fusion surgeries with significant low back and bilateral legs pain. She notes that her pain is no longer constant, but walking is still challenging. Her symptoms include radicular []. Patient notes associated weakness. Her symptoms are increased with []. Symptoms are somewhat relieved with []. She has tried multiple different interventions, including physical therapy but []. She notes that her current level of discomfort limits everything she is able to do each day and is currently limiting her overall quality of life. She would like to decrease her overall discomfort to allow her to perform her daily, functional activities with less limitation and an improved quality of life.- still experiencing break out pain- pain with walking- Comments: Yesica is present here via [facility] [...] night. Has been following with Lanny from [employer] for reprogrammings. Reports current medication regimen provides [...] standing and changing positions. Comments: Yesica is a 69 y/o female here for initial consult regarding ongoing low back pain with radiation to her BLE. Patient referred by her PCP Makenzie Quijano MD at [facility]. Pain began several years ago [...] continues to follow with Dr. Resendez at [facility] and recently completed an updated [...] recently in 07/07/2023- PT, last completed at [facility] in 2022 and 2023 with limited relief- HEP- Oxycodone, hydrocodone, and naproxenCurrently managed on Tramadol 50mg TID, Gabapentin 800mg TID, Duloxetine 60mg, and tizandine HS with limited relief Yesica is interested in pain management through [facility]. Reports no other concerns today. low back pain Onset: [...] are relieved by lying down and sitting. Functional Status Date Functional Assessmen t No Information Instructions Date Instruction Additional Infor dante Lifestyle education regarding di et Related to Body mass index [BMI] 40.0-44.9, adult Assessments Type Assessment Date No Information Patient Care Teams Name Effective Dates (start - stop) Status Members No Information
--- OUTSIDE RECORDS SUMMARY | 2024-08-31 15:08 | XMS_ITS | Continuity of Care Document ---
Author Organization [facility] enter Address [address] [place] [phone] Phone Care Team Providers Care Sales Order Coordinator Name Role Phone [facility] Unavailable Unava ilable Procedures Procedure Date IMPLANT NEUROELECTRODES INSRT/REDO SPINE N GENERATOR Implt neurostim elctr each IMPLANT NEUROELECTRODES IMPLANT NEUROELECTRODES IMPLANT NEUROELECTRODES Advance Directives Directive Yes / No Effective Date File Name No Information Encounters Encounter Description Practice Location Reason(s) For Visit Diagnoses Date Provider Providers Copied on Encounter [facility], [address] [place] [address], [id number], tel:[phone] [place] [address] [facility]. [address] [place] [address], [id number], [place]. tel:[phone] Referring Provider: Rad Gleason, [address] [facility], [place], [address] . tel:[phone] [facility], [address] [place] [address], [id number], tel:[phone] [place] [address] [facility]. [address] [place] [address], [id number], [place]. tel:[phone] Referring Provider: Rad Gleason, [address] [facility], [place], [address] . tel:[phone] Family History Family Member Type Diagnosis Age At Onset No Information Payers Payer name Insurance type Covered democrat ID Tami burroughs(s) [facility] Medicare Advantage Replacement [id number] Social History Type Description Quantity Date Captured [...]
--- OUTSIDE RECORDS SUMMARY | 2024-08-31 15:08 | XMS_ITS | Encounter Summary ---
Author Organization [facility] er Address [address] [place] [address] Care Team Providers Care Senior Warehouse Clerk Name Role Phone Rosalinda Marinelli APRN Primary Care Provider Reason for Visit * Reason Comments Med Refill Encounter Details Date Type Department Care Team (Late st Contact Info) Description 06/05/2024 Refill [place] [address] [place], [place] [phone] Rosalinda Marinelli APRN [address] [place], [place] [phone] Gastroesophageal reflux disease without esophagitis Social History [...] often do you attend chur ch or anglican services? Never 08/02/2023 Do you belong to any clubs o r organizations such as gnosticist groups, unions, fraternal or athletic groups, or [...] place to sleep or slept in a correction (including now)? No 08/02/2023 Sex and Gender Information Value Date Recorded Sex Assigned at Not on file Gender Identity Not on file Sexual Orientation Not on file documented as of this encounter Miscellaneous Notes * Telephone Encounter - Guillermina Nuñez - 06/07/2024 9:16 AM CDT Contacted to schedule annual physical. Has switched care to Dr. Makenzie Quijano in [place], [place]. * Telephone Encounter - Aleksandra Kemp [...] reflux documented in this encounter Care Teams Senior Warehouse Clerk Relationship Specialty Start Date End Date Rosalinda Marinelli APRN [address] [place] [id number] PCP - General 08/26/23 06/06/24 documented as of this encounter
--- OUTSIDE RECORDS SUMMARY | 2024-08-31 15:09 | XMS_ITS | Encounter Summary ---
Author Organization [facility] er Address [address] [place] [address] Care Team Providers Care Used Car Manager Name Role Phone Rosalinda Marinelli APRN Primary Care Provider Reason for Visit * Reason Comments Med Refill Encounter Details Date Type Department Care Team (Late st Contact Info) Description 12/03/2020 Refill [place] [address] [place] [address] Nara Reyes MD [address] [place] [address] Chronic pain syndrome Social History Tobacco Use [...] Answer Date Recorded PHQ-2 Score 0 05/22/2019 [facility] Occupat ional [facility] - Occupational Stress [...] was filled 12/03/2020 # 180, 3 refill. CUTTER documented in this encounter Plan of Treatment Not on file documented as of this encounter Visit Diagnoses Diagnosis Chronic pain syndrome documented in this encounter Care Teams Used Car Manager Relationship Specialty Start Date End Date Rosalinda Marinelli, RN MEDICAL SURGICAL [address] [place] [id number] PCP - General 08/26/23 06/06/24 documented as of this encounter
--- OUTSIDE RECORDS SUMMARY | 2024-08-31 15:09 | XMS_ITS | Encounter Summary ---
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 * Telephone Encounter - Kamilah Mayberry RN - 08/26/2018 8:24 AM CDT Please fax Rx to [facility]. * Telephone Encounter - Frida [...] documented as of this encounter Care Teams Drainage Inspector Relationship Specialty Start Date End Date Rosalinda Marinelli, PROPERTY DISPOSAL OFFICER [address] [place] [id number] PCP - General 08/26/23 06/06/24 documented as of this encounter
--- OUTSIDE RECORDS SUMMARY | 2024-08-31 15:09 | XMS_ITS | Encounter Summary ---
Author Organization [facility] er Address [address] [place] [address] Care Team Providers Care Bass Guitar Teacher Name Role Phone Rosalinda Marinelli APRN Primary Care Provider Reason for Visit * Reason Comments Med Refill Encounter Details Date Type Department Care Team (Late st Contact Info) Description 07/20/2022 Refill [place] [address] [place] [address] Nara Reyes MD [address] [place] [address] Chronic pain due to trauma Social History [...] Date Recorded PHQ-9 Total Score 0 12/24/2021 [facility] [place] of Occupat ional Health - Occupational Stress [...] trauma documented in this encounter Care Teams Bass Guitar Teacher Relationship Specialty Start Date End Date Rosalinda Marinelli APRN [address] [place] [address] PCP - General 08/26/23 06/06/24 documented as of this encounter
--- OUTSIDE RECORDS SUMMARY | 2024-08-31 15:09 | XMS_ITS | Encounter Summary ---
Author Organization [facility] er Address [address] [place] [address] Care Team Providers Care Corrugator Supervisor Name Role Phone Rosalinda Marinelli APRN Primary Care Provider Encounter Details Date Type Department Care Team (Late st Contact Info) Description 05/24/2020 Telephone [facility] Medical/Surgical [address] [place] [address] [place] [address] [place] [phone] Social History Tobacco Use Types Packs/Day [...] Answer Date Recorded PHQ-2 Score 0 05/22/2019 [facility] of Occupat ional Health - Occupational Stress [...] documented as of this encounter Care Teams Corrugator Supervisor Relationship Specialty Start Date End Date Rosalinda Marinelli APRN [address] [place] [address] PCP - General 08/26/23 06/06/24 documented as of this encounter
--- OUTSIDE RECORDS SUMMARY | 2024-08-31 15:09 | XMS_ITS | Clinical Summary ---
Author Organization [facility] Address [place], [place] [address] Care Team Providers Care Finance Consultant Name Role Phone Makenzie Quijano MD Primary [...] Detail In Comments) Runny Nose 08/26/2018 Trees, Healy, Capok, wool, feathers, Venom-Honey Bee Anaphylaxis High [...] Department Care Team Description 06/07/2024 Lab Requisition [facility] [phone] Unknown, Doctor from Last 3 Months Family [...] Description 09/05/2024 12:45 PM CDT Hospital Encounter [address] [id number] Daniel Vazquez MD [address] [place] [address] [phone] 09/05/2024 12:45 PM CDT - 09/05/2024 3:48 PM CDT Surgery [address] [id number] Daniel Vazquez MD [address] [place] [address] [phone] right superficial parotidectomy with facial nerve monitoring [...] 65+ 07/09/2024 Medical Devices Implanted Type Area Sound Effects Supervisor Device Identifier Shelf Expiration Date Model / Serial / Lot Bone 1-4mm 90cc Medtronic Chips Canclls Freeze Dried - [id number]: [id number] Implanted:Qty: 1 on 01/07/2022 by Doug Resendez MD at [facility] Lumbar Vertebrae Medtronic Spine/Ortho 02/21/2026 [id number] / ID: [id number] / [id number] Description:Implanted home health nurse licensed practical ior spine L4-S1 Screw Lmbr Post 7.5x45mm Solera 5.5/6 Va Cocr - [id number] Implanted:Qty: 1 on 07/07/2023 by Doug Resendez MD at [facility] N/A: Lumbar Vertebrae Medtronic Spine/Ortho [id number] / / Screw Lmbr Post 8.5x45mm Solera 5.5/6 Va Cocr - [id number] Implanted:Qty: 3 on 07/07/2023 by Doug Resendez MD at [facility] N/A: Lumbar Vertebrae Medtronic Spine/Ortho [id number] / / Screw Lmbr Post 9.5x40mm Solera 5.5/6 Va Cocr - [id number] Implanted:Qty: 2 on 07/07/2023 by Doug Resendez MD at [facility] N/A: Lumbar Vertebrae Medtronic Spine/Ortho [id number] / / Nawaf Lmbr 70x5.5mm Solera 5.5/6 Cvd Titnm - [id number] Implanted:Qty: 2 on 07/07/2023 by Doug Resendez MD at [facility] N/A: Lumbar Vertebrae Medtronic Spine/Ortho [id number] / / Putty Easypack 5cc Magnetos - [id number] Implanted:Qty: 1 on 07/07/2023 by Doug Resendez MD at [facility] N/A: Lumbar Vertebrae [employer] 10/08/2025 [id number] / / [id number] Endoskeleton Tas Implant Implanted:Qty: 1 on 07/07/2023 by Doug Resendez MD at [facility] N/A: Lumbar Vertebrae Medtronic 10/08/2026 [id number] / / [id number] 5.5x25 Screw Implanted:Qty: 3 on 07/07/2023 by Doug Resendez MD at [facility] N/A: Lumbar Vertebrae Medtronic [id number] / / Description:anterior Bone Matrix 3cc Erie Dbf Putty Dbm - [id number] Implanted:Qty: 1 on 07/07/2023 by Doug Resendez MD at [facility] N/A: Lumbar Vertebrae Medtronic Spine/Ortho 05/24/2025 [id number] / [id number] / Bone Matrix 3cc Erie Dbf Putty Dbm - [id number] Implanted:Qty: 1 on 07/07/2023 by Doug Resendez MD at [facility] N/A: Lumbar Vertebrae Medtronic Spine/Ortho 05/24/2025 [id number] / [id number] / Bone Matrix Sm Infuse Bmp - [id number] Implanted:Qty: 1 on 07/07/2023 by Doug Resendez MD at [facility] N/A: Lumbar Vertebrae Medtronic Spine/Ortho 11/08/2024 [id number] / / [id number] Bone 1-4mm 60cc Medtronic Fine Canclls Freeze Dried - [id number] Implanted:Qty: 1 on 07/07/2023 by Doug Resendez MD at [facility] N/A: Lumbar Vertebrae Medtronic Spine/Ortho 01/20/2027 [id number] / [id number] / Set Screw Lmbr Ant 5.5mm Solera Break Off - [id number] Implanted:Qty: 6 on 07/07/2023 by Doug Resendez MD at [facility] N/A: Lumbar Vertebrae Medtronic Spine/Ortho [id number] / / Explanted Type Area Sound Effects Supervisor Device Identifier Shelf Expiration Date Model / Serial / Lot Set Screw Lmbr Ant 5.5mm Solera Break Off - [id number] Implanted:Qty : 6 on 01/07/2022 by Doug Resendez MD at [facility] Explanted:Qty : 6 on 07/07/2023 by Doug Resendez MD at [facility] Lumbar Vertebrae Medtronic Spine/Ortho [id number] / / Description:Implanted home health nurse licensed practical ior spine L4-S1 Screw Lmbr Post 6.5x45mm Solera 5.5/6 Va Cocr - [id number] Implanted:Qty : 1 on 01/07/2022 by Doug Resendez MD at [facility] Explanted:Qty : 1 on 07/07/2023 by Doug Resendez MD at [facility] Lumbar Vertebrae Medtronic Spine/Ortho [id number] / / Description:Implanted home health nurse licensed practical ior spine L4-S1 Screw Lmbr Post 7.5x40mm Solera 5.5/6 Va Cocr - [id number] Implanted:Qty : 2 on 01/07/2022 by Doug Resendez MD at [facility] Explanted:Qty : 2 on 07/07/2023 by Doug Resendez MD at [facility] Lumbar [facility] Medtronic Spine/Ortho [id number] / / Description:Implanted home health nurse licensed practical ior spine L4-S1 Screw Lmbr Post 7.5x45mm Solera 5.5/6 Va Cocr - [id number] Implanted:Qty : 3 on 01/07/2022 by Doug Resendez MD at [facility] Explanted:Qty : 3 on 07/07/2023 by Doug Resendez MD at [facility] Lumbar Vertebrae Medtronic Spine/Ortho [id number] / / Description:Implanted home health nurse licensed practical ior spine L4-S1 Nawaf Lmbr 70x5.5mm Solera 5.5/6 Cvd Titnm - [id number] Implanted:Qty : 2 on 01/07/2022 by Doug Resendez MD at [facility] Explanted:Qty : 2 on 07/07/2023 by Doug Resendez MD at [facility] Lumbar Vertebrae Medtronic Spine/Ortho [id number] / / Description:Implanted home health nurse licensed practical ior spine L4-S1 Procedures Procedure Name Priority Date/Time Associated Diagnosis Comments LAB TRACKING EVENT Routine 06/07/2024 11 :56 AM CDT PATH TISSUE EXAM Routine 06/07/2024 11:5 6 AM CDT from Last 3 Months Results * LAB TRACKING EVENT (06/07/2024 11:56 AM CDT) Other (Other) Client Collect / Unknown 06/07/2024 11:56 AM CDT 06/07/2024 9:45 PM CDT Doctor Unknown LAB BILL ONLY [facility] [address] [place] [address], * PATH TISSUE EXAM (06/07/2024 11:56 AM CDT) Case Report Pathology Report ?Case: [id number] ? Authorizing Provider: ??Unknown, Doctor ?Collected: ? 06/07/2024 1156 ? Ordering Location: ? [facility] ?Received: ?06/08/2024 0803 ? Pathologist: ? Ml Scales ? MD Aleksandra ? Specimen: ?Right Parotid ? 06/09/2024 11:34 AM CDT [facility] Final Diagnosis SALIVARY GLAND, RIGHT PAROTID, BIOPSY: 1. Warthin tumor 2. Negative for malignancy 06/09/2024 11:34 AM T [facility] Clinical Information No information provided. 06/09/2024 11:34 AM T [facility] Gross Description A) Received in formalin, labeled with the patient's name and right parotid gland, are 10 arias, friable, delicate needle core biopsies ranging from 0.2 to 0.8 cm in length and averaging less than 0.1 cm in diameter. ??The specimen is entirely submitted in 2 cassettes. WINNIE 06/08/2024 06/09/2024 11:34 AM T [facility] Microscopic Description The final diagnosis is based on microscopic examination of appropriate sections of all specimens. 06/09/2024 11:34 AM T [facility] Additional Information Interpreted at [facility] - [address], [place] [address] 06/09/2024 11:34 AM T [facility] Other (Right Parotid) 06/07/2024 11:56 AM CDT 06/08/2024 8:03 AM CDT Doctor Unknown PATHOLOGY/CYTOLOGY [facility] [address] [place] [address], from Last 3 Months Advance Directives * [...] 8:07 AM 02/15/2012 1:49 PM Care Teams Finance Consultant Relationship Specialty Start Date End Date Makenzie Quijano MD [address] [place] [address] PCP - General Family Practice 08/16/24
--- OUTSIDE RECORDS SUMMARY | 2024-08-31 15:09 | XMS_ITS | Encounter Summary ---
Author Organization [facility] er Address [address] [place] [address] Care Team Providers Care Presales Engineer Name Role Phone Roslainda Marinelli APRN Primary Care Provider Reason for Visit * Reason Comments Med Refill Encounter Details Date Type Department Care Team (Late st Contact Info) Description 04/26/2020 Refill [place] [address] [place] [address] Nara Reyes MD 1705 [facility] 20 [place] [address] Chronic pain due to trauma Social History [...] Answer Date Recorded PHQ-2 Score 0 05/22/2019 [facility] [place] of Occupat ional Health - Occupational Stress [...] 04/30/2020 4:53 PM CDT Fax rx to [facility] * Telephone Encounter - Randi Nuñez [...] documented as of this encounter Care Teams Presales Engineer Relationship Specialty Start Date End Date Rosalinda Marinelli, HOTEL SERVICE MANAGER [address] [place] [address] PCP - General 08/26/23 06/06/24 documented as of this encounter
--- OUTSIDE RECORDS SUMMARY | 2024-08-31 15:09 | XMS_ITS | Encounter Summary ---
Author Organization [facility] er Address [address] [place] [address] Care Team Providers Care Structural Worker Name Role Phone Rosalinda Marinelli APRN Primary Care Provider Encounter Details Date Type Department Care Team (Late st Contact Info) Description 06/10/2020 Telephone [facility] Medical/Surgical [address] [place] [address] Lesli Valadez RN [address] [place] [address] Social History Tobacco Use Types [...] Answer Date Recorded PHQ-2 Score 0 05/22/2019 [facility] [place] of Occupat ional Health - Occupational Stress [...] on filedocumented in this encounter Care Teams Structural Worker Relationship Specialty Start Date End Date Rosalinda Marinelli, SVP MONETIZATION [address] [place] [address] PCP - General 08/26/23 06/06/24 documented as of this encounter
--- OUTSIDE RECORDS SUMMARY | 2024-08-31 15:09 | XMS_ITS | Encounter Summary ---
Author Organization [facility] er Address [address] [place] [address] Care Team Providers Care Occupational Health Professional Name Role Phone Rosalinda Marinelli APRN Primary Care Provider Encounter Details Date Type Department Care Team (Late st Contact Info) Description 06/10/[address] [facility] Medical/Surgical [address] [place] [address] [place] [address] [place] [phone] Social History Tobacco Use Types Packs/Day [...] Score 0 05/22/2019 [facility] [place] of Occupat ional Health - Occupational Stress [...] on filedocumented in this encounter Care Teams Occupational Health Professional Relationship Specialty Start Date End Date Rosalinda Marinelli, IN SERVICE EDUCATION TEACHER [address] [place] [address] PCP - General 08/26/23 06/06/24 documented as of this encounter
--- OUTSIDE RECORDS SUMMARY | 2024-08-31 15:09 | XMS_ITS | Encounter Summary ---
Author Organization [facility] er Address [address] [place] [address] Care Team Providers Care Differential Specialist Name Role Phone Rosalinda Marinelli APRN Primary Care Provider Reason for Visit * Reason Comments Med Refill Encounter Details Date Type Department Care Team (Late st Contact Info) Description 01/20/2021 Refill [place] [address] [place] [address] Nara Reyes MD [address] [place] [address] Encounter for screening colonoscopy Social History Tobacco [...] PHQ-2 Score 0 05/22/2019 [facility] [place] of Occupat ional Health - Occupational Stress [...] AND DRINK ACCORDING TO DIRECTIONS ON YOUR [facility] COLONOSCOPY PREP SHEET Pre-procedural rx, no refill. Pharmacy notified. documented in this encounter Plan of Treatment Not on file documented as of this encounter Visit Diagnoses Diagnosis Encounter for screening colonoscopy documented in this encounter Care Teams Differential Specialist Relationship Specialty Start Date End Date Rosalinda Marinelli APRN [address] [place] [address] PCP - General 08/26/23 06/06/24 documented as of this encounter
--- NOTE | 2024-08-31 15:20 | CRLHL7_ITS ---
For Patients: As a result of the Century Cures Act, medical imaging exams and procedure reports are released immediately into your electronic medical record. You may view this report before your referring provider. If you have questions, please contact your health care provider. BILATERAL SCREENING MAMMOGRAM WITH COMPUTER-AIDED DETECTION AND TOMOSYNTHESIS TECHNIQUE: CC and MLO views were obtained. These mammographic images have been obtained using full-field digital technique. These mammographic images were interpreted with the benefit of computer-aided detection. Breast Tomosynthesis was used in this interpretation. COMPARISON FILM: 06/04/23, 04/01/22, 01/14/21. FINDINGS: There are scattered areas of fibroglandular density IMPRESSION: There is no radiographic evidence for malignancy. ASSESSMENT: BI-RADS Category 1: Negative RECOMMENDATION: Routine screening mammogram in 1 year. A lay language report of this examination will be provided to the patient. Vince Escobar M.D. Diagnostic Radiologist [email or web address] BELEN/Dictated by: Vince Escobar MD @ 09/01/2024 10:20:00 AM (Electronically Signed)
== END 2024-08-31 15:06 | disposition home or self-care (01) ==
LOC: MAMMO 15:06
PROVIDERS: PCP Family Medicine; Visit Provider Family Medicine
DX: Z12.31 Encounter for screening mammogram for malignant neoplasm of breast (principal)
CPT/HCPCS: 77063; 77067

== ENCOUNTER 2024-09-21 13:15 | Outpatient (CLI) | payer MEDICARE, SELFPAY ==
--- OUTSIDE RECORDS SUMMARY | 2024-09-21 13:17 | XMS_ITS | Encounter Summary ---
Author Organization [facility] er Address [address] [place] [address] Care Team Providers Care Machine Rough Rounder Name Role Phone Rosalinda Marinelli APRN Primary Care Provider Encounter Details Date Type Department Care Team (Late st Contact Info) Description 05/07/2023 Telephone [facility] [address] [place] [address] Rad Cerda RN [address] [place] [address] Social History Tobacco Use Types [...] Date Recorded PHQ-9 Total Score 0 12/24/2021 [facility] [place] of Occupat ional Health - Occupational Stress Questionnaire Answer Date Recorded Feeling of Stress Not at all 06/14/2019 Exercise Vital Sign Answer Date Recorde d Days of Exercise per Week 0 days 2018 Minutes of Exercise per Session 0 min 06/14/2019 Comments No Sex and Gender Information Value Date Recorded Sex Assigned at Not on file Legal Sex Female 8:15 PM CDT Gender Identity Not on file Sexual Orientation Not on file Occupation Industry Job Start Date Job End Date Retired Not on file Not on file Not on file documented as of this encounter Plan of Treatment Not on file documented as of this encounter Visit Diagnoses Not on filedocumented in this encounter Care Teams Machine Rough Rounder Relationship Specialty Start Date End Date Rosalinda Marinelli APRN [address] [place] [address] PCP - General 08/26/23 06/06/24 documented as of this encounter
--- OUTSIDE RECORDS SUMMARY | 2024-09-21 13:17 | XMS_ITS | Encounter Summary ---
Author Organization [facility] er Address [address] [place] [address] Care Team Providers Care Veneer Manufacturer Name Role Phone Rosalinda Marinelli APRN Primary Care Provider Encounter Details Date Type Department Care Team (Late st Contact Info) Description 06/10/2020 Telephone [facility] Medical/Surgical [address] [place] [address] [place] [address] [place] [phone] Social History Tobacco Use Types Packs/Day [...] Answer Date Recorded PHQ-2 Score 0 05/22/2019 [facility] [place] of Occupat ional Health - Occupational Stress Questionnaire Answer Date Recorded Feeling of Stress Not at all 06/14/2019 Exercise Vital Sign Answer Date Recorde d Days of Exercise per Week 0 days 2018 Minutes of Exercise per Session 0 min 06/14/2019 Comments Unknown Sex and Gender Information Value Date Recorded [...] on filedocumented in this encounter Care Teams Veneer Manufacturer Relationship Specialty Start Date End Date Rosalinda Marinelli APRN [address] [place] [address] PCP - General 08/26/23 06/06/24 documented as of this encounter
--- OUTSIDE RECORDS SUMMARY | 2024-09-21 13:17 | XMS_ITS | Encounter Summary ---
Author Organization [facility] er Address [address] [place] [address] Care Team Providers Care Microwave Radio Technician Name Role Phone Rosalinda Marinelli APRN Primary Care Provider Reason for Visit * Reason Comments Med Refill Encounter Details Date Type Department Care Team (Late st Contact Info) Description 01/20/2021 Refill [place] [address] [place] [address] Nara Reyes MD [address] [place] [address] Encounter for screening colonoscopy Social History Tobacco [...] Date Recorded PHQ-2 Score 0 05/22/2019 [facility] of Occupat ional Health - Occupational [...] AND DRINK ACCORDING TO DIRECTIONS ON YOUR [facility] COLONOSCOPY PREP SHEET Pre-procedural rx, no refill. Pharmacy notified. documented in this encounter Plan of Treatment Not on file documented as of this encounter Visit Diagnoses Diagnosis Encounter for screening colonoscopy documented in this encounter Care Teams Microwave Radio Technician Relationship Specialty Start Date End Date Rosalinda Marinelli APRN [address] [place] [address] PCP - General 08/26/23 06/06/24 documented as of this encounter
--- OUTSIDE RECORDS SUMMARY | 2024-09-21 13:17 | XMS_ITS | Encounter Summary ---
Author Organization [facility] er Address [address] [place] [address] Care Team Providers Care Feed Adviser Name Role Phone Rosalinda Marinelli APRN Primary Care Provider Encounter Details Date Type Department Care Team (Late st Contact Info) Description 06/10/2020 Telephone [facility] Medical/Surgical [address] [place] [address] Lesli Valadez RN [address] [place] [address] Social History Tobacco Use Types [...] Answer Date Recorded PHQ-2 Score 0 05/22/2019 [facility] [place] of Occupat ional Health - Occupational Stress [...] on filedocumented in this encounter Care Teams Feed Adviser Relationship Specialty Start Date End Date Rosalinda Marinelli APRN [address] [place] [address] PCP - General 08/26/23 06/06/24 documented as of this encounter
--- OUTSIDE RECORDS SUMMARY | 2024-09-21 13:17 | XMS_ITS | Encounter Summary ---
Author Organization [facility] er Address [address] [place] [address] Care Team Providers Care Lithographing Machine Operator Name Role Phone Rosalinda Marinelli APRN Primary Care Provider Reason for Visit * Reason Comments Med Refill Encounter Details Date Type Department Care Team (Late st Contact Info) Description 04/26/2020 Refill [place] [address] [place] [address] Nara Reyes MD 1705 [facility] 20 [place] [address] Chronic pain due to trauma Social History [...] Date Recorded PHQ-2 Score 0 05/22/2019 [facility] [place] of Occupat ional Health - Occupational Stress [...] 04/30/2020 4:53 PM CDT Fax rx to [facility] * Telephone Encounter - Randi Nuñez LPN [...] documented as of this encounter Care Teams Lithographing Machine Operator Relationship Specialty Start Date End Date Rosalinda Marinelli APRN [address] [place] [address] PCP - General 08/26/23 06/06/24 documented as of this encounter
--- OUTSIDE RECORDS SUMMARY | 2024-09-21 13:17 | XMS_ITS | Encounter Summary ---
Author Organization [facility] er Address [address] [place] [address] Care Team Providers Care Monotype Caster Name Role Phone Rosalinda Marinelli APRN Primary Care Provider Reason for Visit * Reason Comments Med Refill Encounter Details Date Type Department Care Team (Late st Contact Info) Description 12/03/2020 Refill [place] [address] [place] [address] Nara Reyes MD [address] [place] [address] Chronic pain syndrome Social History Tobacco Use [...] Answer Date Recorded PHQ-2 Score 0 05/22/2019 [facility] [place] of Occupat ional Health - Occupational Stress [...] Zamudio MA - 12/05/2020 11:27 AM CST Icaindiana Calles Fare 12/05/2020 and its a WC. It was filled 12/03/2020 # [phone], 3 refill. EAR AUXILIARY OPERATOR documented in this encounter Plan of Treatment Not on file documented as of this encounter Visit Diagnoses Diagnosis Chronic pain syndrome documented in this encounter Care Teams Monotype Caster Relationship Specialty Start Date End Date Rosalinda Marinelli, GLUE WHEEL OPERATOR [address] [place] [address] PCP - General 08/26/23 06/06/24 documented as of this encounter
--- OUTSIDE RECORDS SUMMARY | 2024-09-21 13:17 | XMS_ITS | Encounter Summary ---
Author Organization [facility] er Address [address] [place] [address] Care Team Providers Care Distribution Center Associate Name Role Phone Rosalinda Marinelli APRN Primary Care Provider Reason for Visit * Reason Onset Date Comments Med Refill 08/25/2018 Encounter Details Date Type Department Care Team (Late st Contact Info) Description 08/25/2018 Refill [place] [address] [place] [address] Nara Reyes MD [address] [place] [address] Chronic pain due to trauma (Primary Dx) Social History Tobacco Use Types Packs/Day Years Used Date Smoking Tobacco: Never Assessed Comments Unknown Sex and Gender Information Value Date Recorded Sex Assigned at Not on file Legal Sex Female 8:15 PM CDT Gender Identity Not on file Sexual Orientation Not on file documented as of this encounter Miscellaneous Notes * Telephone Encounter - Deja Hart - 08/26/2018 8:51 AM CDT Rx faxed to [facility]. * Telephone Encounter - Kamilah Mayberry RN - 08/26/2018 8:24 AM CDT Please fax Rx to [facility]. * Telephone Encounter - Frida Almazan [...] documented as of this encounter Care Teams Distribution Center Associate Relationship Specialty Start Date End Date Rosalinda Marinelli, TRAVELING ELECTRICIAN [address] [place] [address] PCP - General 08/26/23 06/06/24 documented as of this encounter
--- OUTSIDE RECORDS SUMMARY | 2024-09-21 13:17 | XMS_ITS | Clinical Summary ---
Author Organization [facility] er Address [address] [place] [address] Care Team Providers Care Certified Nutritionist Name Role Phone Unavailable Primary Care Provider [...] Hives 04/21/2021 Nuts Nystatin Other 08/26/2018 Trees, [place], [place], wool, feathers, Penicillins Most of this family Ragweed Medications aspirin 81 MG chewable tablet Chew 1 tablet (81 mg total) 1 (one) time each day Active cetirizine (ZyrTEC) 10 MG tablet Take 1 tablet (10 mg total) by mouth 1 (one) time each day Seasonal allergies Active EPINEPHrine (EpiPen 2-Christ) 0.3 MG/0.3ML injection syringeIndications :Bee sting allergy Inject 0.3 mL (0.3 mg total) into the thigh if needed for anaphylaxis. Call 911 after use. Use as directed for severe allergy reaction 1 each 2 05/15/20 Active Additional Information Patient not taking.Reported on 08/25/2023 hydroCHLOROthiazid e (HYDRODIURIL) 12.5 MG tabletIndications: Essential hypertension TAKE ONE TABLET BY MOUTH EVERY DAY FOR BLOOD PRESSURE/FLUID 90 tablet 3 07/30/20 Active Additional Information Patient not taking.Reported on 08/25/2023 ondansetron (ZOFRAN) 4 MG tabletIndications: Nausea TAKE ONE TABLET BY MOUTH EVERY 6 HOURS NEEDED FOR NAUSEA 30 tablet 3 09/02/20 Active insulin NPH-insulin regular (NovoLIN 70/30 FlexPen) (70-30) 100 UNIT/ML injectionIndicatio ns:Type 2 diabetes mellitus without complication, with long-term current use of insulin (HCC) Inject 70/30 insulin twice a day: Current doses: Mornin units. Evenin units. Doses will be titrated. (Doses adjusted: 02/05/2023). 36 mL 5 02/14/20 Active Additional Information Patient taking differently: Inject 70/30 insulin twice a day: Current doses: Mornin units. Evenin units. (Doses adjusted: 09/10/2023)., Reported on 09/10/2023 TechLite Pen [place] 31G X 5 MM [facility] 06/29/20 Active Fluocinonide Emulsified Base 0.05 % creamIndications:E czema, unspecified type May use a SMALL amount up to twice a day for eczema/itchy skin sparingly. Do not use of face/groin or sensitive skin areas. 60 g 08/02/20 Active methocarbamol (ROBAXIN) 500 MG tabletIndications: Muscle spasm May take 1/2 to one tab every 4-6 hours if needed for muscle spasm/pain limit four tabs in a day. 60 tablet 2 08/05/20 Active Additional Information Patient taking differently: 500 mg Oral, May take 1/2 to one tab every 4-6 hours if needed for muscle spasm/pain limit four tabs in a day., Reported on 08/25/2023 DULoxetine (CYMBALTA) [address] capsuleIndications :Depression, unspecified depression type TAKE ONE CAPSULE BY MOUTH ONCE EVERY DAY FOR PAIN DO NOT CRUSH OR CHEW 90 capsule 3 08/15/20 Active traMADol (ULTRAM) 50 MG tabletIndications: Chronic pain due to trauma TAKE TWO TABLETS BY MOUTH THREE TIMES A DAY CAUTION: OPIOID - RISK OF OVERDOSE AND ADDICTION . 180 tablet 5 08/19/20 23 Active Additional Information Patient taking differently: 100 mg Oral 2 times daily, TAKE TWO TABLETS BY MOUTH THREE TIMES A DAY CAUTION: OPIOID - RISK OF OVERDOSE AND ADDICTION .Patient reports will go back to TID when done with Oxycodone, Reported on 08/25/2023 lisinopril (ZESTRIL) 10 MG tabletIndications: Essential hypertension TAKE ONE TABLET BY MOUTH ONCE EVERY DAY 90 tablet 3 09/09/20 23 Active simvastatin (ZOCOR) 40 MG tabletIndications: Mixed hyperlipidemia TAKE ONE TABLET BY MOUTH EVERY EVENING 90 tablet 3 09/09/20 23 Active oxyCODONE (ROXICODONE) 10 MG immediate release tabletIndications: Postoperative pain May take 1/2 to one tab every 6-8 hours if needed for pain 20 tablet 09/13/20 23 Active levothyroxine (SYNTHROID) 125 MCG tabletIndications: Hypothyroidism, unspecified type TAKE ONE TABLET BY MOUTH EVERY DAY 90 tablet 3 09/23/20 23 Active gabapentin (NEURONTIN) 800 MG tabletIndications: Neuropathy TAKE ONE AND ONE-HALF TABLET (1200MG) BY MOUTH EVERY MORNING AND AFTERNOON, AND ONE TABLET AT BEDTIME DIRECTED 360 tablet 3 10/11/20 23 Active atenolol (TENORMIN) 50 MG tabletIndications: Essential hypertension TAKE ONE TABLET BY MOUTH ONCE EVERY DAY . 90 tablet 1 12/10/19 24 Active lansoprazole (PREVACID) [address] capsuleIndications :Gastroesophageal reflux disease without esophagitis TAKE ONE CAPSULE BY MOUTH TWICE A DAY FOR SEVERE HEART BURN 180 capsule 06/07/20 24 Active Active Problems Problem Noted Date Diagnosed Date Elevated blood pressure read ing in office with diagnosis of hypertension 08/24/2023 Assessment & Plan (08/24/2023 4:00 PM CDT): Return in 1-2 weeks for blood pressure recheck when not in pain Suspected DVT (deep vein thrombosis) 08/24/2023 Assessment & Plan (08/24/2023 4:02 PM CDT): Ultrasound of left upper extremity to rule out DVT today at 5 pm at [facility]. LINDA (acute kidney injury) 01/09/2022 Normocytic anemia [...] mellitus without complications 1 12/26/2014 Asthma 10/07/2011 Overview (05/16/2020): Asthma (bronchial) (allergic) Asthma GERD (gastroesophageal reflux [...] 0 05/16/2020 Essential (primary) hypertension 11/13/2010 12/03/2020 Overview (05/16/2020): Benign Essential Hypertension Essential hypertension, benign Immunizations [...] often do you attend chur ch or buddhism services? Never 08/02/2023 Do you belong to any clubs o r organizations such as faith groups, unions, fraternal or athletic groups, or [...] Date Recorded PHQ-9 Total Score 9 08/02/2023 [facility] [place] of Occupat ional Health - Occupational Stress [...] place to sleep or slept in a alf (including now)? No 08/02/2023 Comments No Sex and Gender Information Value Date Recorded Sex Assigned at Not on file Legal Sex Female 8:15 PM CDT Gender Identity Not on file Sexual Orientation Not on file Occupation Industry Job Start Date Job End Date Retired Not on file Not on file Not on file Last Filed Vital Signs [...] Additional history exists Mammogram 06/04/2024 06/04/2023, 04/01/2022 Diabetes: Foot Exam 06/23/2024 06/23/2023, 02/04/2022, 12/02/2020, Additional [...] this topic Medical Devices Implanted Type Area Bushel Girl Device Identifier Shelf Expiration Date Model / Serial / Lot Infinity Tibial Tray Sz 3 Lng Total Ankle System - [id number] Implanted:Qty: 1 on 06/07/2020 by Jordan Tan MD at [facility] Right: Ankle 06/19/2027 REF [id number] / / [id number] Infinity Talar Dome Sz 2 Total Ankle System - [id number] Implanted:Qty: 1 on 06/07/2020 by Jordan Tan MD at [facility] Right: Ankle 03/19/2028 REF# [id number] / / [id number] Infinity Poly Sz 2+ 6mm Total Ankle System - [id number] Implanted:Qty: 1 on 06/07/2020 by Jordan Tan MD at [facility] Right: Ankle 04/19/2027 REF# [id number] / / [id number] Procedures Procedure Name Priority Date/Time Associated Diagnosis Comments HEMOGLOBIN A1C Routine 06/23/2023 3:18 PM CDT Preop examination LIPID PANEL Routine 08/27/2022 2:43 PM CDT Screening cholesterol level MICROALBUMIN/CREATI NINE RATIO Routine 02/04/2022 3:35 PM CDT Type 2 diabetes mellitus without complication, without long-term current use of insulin (HCC) DEXA BONE DENSITY Routine 11/07/2014 1:5 1 PM INSTRUMENT MAKER from Last 3 Months or Most Recently Relevant to Health Maintenance Results * (ABNORMAL) Hemoglobin A1c (06/23/2023 3:18 PM CDT) Hemoglobin A1C 6.9(H) 4.0 - 5.6 % A1C 06/24/2023 4:13 PM T [facility] Comment: Reference Range 4.0-5.6% is for non- adults >=18 yrs <5.6% ? Non-Diabetic 5.7-6.4% ??Increased risk of Diabetes >=6.5% ?Indicative of Diabetes <7.0% ? ADA goal for glycemic control Methodology may not detect all hemoglobin variants which can affect A1c results. Method certified by National Glycohemoglobin Standardization Program. Blood 06/23/2023 3:18 PM CDT 06/24/2023 12:41 PM CDT us D. Abilio Reyes MD LAB BLOOD ORDERABLES Final R esult [facility] [address] [place] [address] * (ABNORMAL) Lipid panel (08/27/2022 2:43 PM CDT) [facility] Cholesterol 205(H) 0 - 199 mg/dL 08/28/2022 2:05 PM T [facility] Comment: Recommended by National Cholesterol Education Program (ATP III) -------- Cholesterol Ranges -------- <200 ?Desirable 200-239 ? Borderline high >=240 ? High Triglycerides 190(H) 0 - 149 mg/dL 08/28/2022 2:05 PM T [facility] Comment: -------- TRIG Ranges -------- <150 ?Normal 150-199 ? Borderline high 200-499 ? High >=500 ? Very high HDL 41 40 - 250 mg/dL 08/28/2022 2:05 PM T [facility] Comment: -------- HDL Ranges -------- <40 ?Low 40-59 ?Normal >=60 ? Optimal LDL Calculated 126(H) 0 - 99 mg/dL 08/28/2022 2:05 PM CDT [facility] Comment: -------- LDL Ranges -------- <100 ? Optimal 100-129 ?Near optimal/above optimal 130-159 ?Borderline high 160-189 ?High >=190 ?Very high Blood 08/27/2022 2:43 PM CDT 08/28/2022 12:45 PM CDT us Nara Reyes MD LAB BLOOD ORDERABLES Final R [employer] Performing Organization Address [facility] de Phone Number [facility] [address] [place] [address] * (ABNORMAL) Microalbumin/Creatinine Ratio (02/04/2022 3:35 PM CDT) Microalbumin,mg/ day 94.1(H) 0.0 - 16.6 mg/L 02/05/2022 2:26 PM CDT [facility] Comment: . Creatinine, Urine 182 mg/dL 02/05/2022 2:26 PM CDT [facility] Comment: No established reference range. Microalb/Creat Ratio 52(H) 0 - 24 mg/g 02/05/2022 2:26 PM CDT [facility] Urine 02/04/2022 3:35 PM CDT 02/05/2022 12:33 PM CDT us Nara Reyes MD LAB URINE ORDERABLES Final R esult Performing Organization Address [facility] de Phone Number [facility] [address] [place] [address] * Dexa bone density axial skeleton (11/07/2014 1:51 PM INSTRUMENT MAKER) Anatomical Region Laterality Modality Wrist, Hip, L-spine Radiographic Imaging 11/07/2014 1:51 PM INSTRUMENT MAKER Narrative 11/07/2014 5:10 PM INSTRUMENT MAKER Clinical History Hyperthyroidism/Post menopause; Indication for [...] at or below -2.5 Giovanna Jimenez MD [facility] DXA PROCEDURES Edited R esult - Final from Last 3 Months or Most Recently Relevant to Health Maintenance Insurance [address] [place] [address] [employer] MED[employer]ARE ADVANTAGE [facility] Member Subscriber Plan / Payer (Ef fective 2009-Present) Name:Yesica Cancino Member ID:Not on file Relation to Subscriber:Employee Name:[employer] (Work) Address: [place] [address] Payer ID:[id number] Group ID:Not on file Type:Not on file Address: [address] [address] [place] [address] WORK [facility] Advance Directives For more information, please contact: [phone] * Full Code (Latest Code Status on File) Date Activated Date Inactivated Comments 06/07/2020 11:29 AM 06/08/2020 12:03 PM
--- OUTSIDE RECORDS SUMMARY | 2024-09-21 13:17 | XMS_ITS | Encounter Summary ---
Author Organization [facility] er Address [address] [place] [address] Care Team Providers Care Transmission Calibration Engineer Name Role Phone Rosalinda Marinelli APRN Primary Care Provider Encounter Details Date Type Department Care Team (Late st Contact Info) Description 05/24/[address] [facility] Medical/Surgical [address] [place] [id number] [place] [address] [place] [phone] Social History Tobacco Use Types Packs/Day [...] Answer Date Recorded PHQ-2 Score 0 05/22/2019 [facility] [place] of Occupat ional Health - Occupational Stress [...] documented as of this encounter Care Teams Transmission Calibration Engineer Relationship Specialty Start Date End Date Rosalinda Marinelli APRN [address] [place] [id number] PCP - General 08/26/23 06/06/24 documented as of this encounter
--- OUTSIDE RECORDS SUMMARY | 2024-09-21 13:17 | XMS_ITS | Continuity of Care Document ---
Author Organization [facility] Address [address] [place] [address] Care Team Providers Care Forensic Computer Examiner Name Role Phone Nithin Hooper CRNA Unavailable Unavailable Procedures Procedure Date ANESTH, HEAD/NECK/PTRUNK Percutaneous Image guided neuromodulatio n or intra Advance Directives Directive Yes / No Effective Date File Name No Information Encounters Encounter Description Practice Location Reason(s) For Visit Diagnoses Date Provider Providers Copied on Encounter [facility], [address] [place] [address], [id number], [facility] No Information 4 Rufus Weller. [address] [place], [place], [id number] , . tel:[phone] Referring Provider: Rad Gleason, [address] [facility], [place], [address] . tel:[phone] [facility], [address] [place], [place], [id number], [facility] No Information 4 Rufus Weller. [address] [facility] [address], [place], [place], [id number] , . tel:[phone] Referring Provider: Rad Gleason, [address] [facility], [place], [address] . tel:[phone] Family History Family Member Type Diagnosis Age At Onset No Information Payers Payer name Insurance type Covered libertarian ID Tami burroughs(s) [facility] Medicare Advantage Replacement [id number] Social History Type Description Quantity Date Captured [...]
--- OUTSIDE RECORDS SUMMARY | 2024-09-21 13:17 | XMS_ITS | Continuity of Care Document ---
Author Organization [facility] enter Address [address] [place] [phone] Phone Care Team Providers Care Nuclear Control Operator Name Role Phone [facility] Unavailable Unava ilable Procedures Procedure Date IMPLANT NEUROELECTRODES INSRT/REDO SPINE N GENERATOR Implt neurostim elctr each IMPLANT NEUROELECTRODES IMPLANT NEUROELECTRODES IMPLANT NEUROELECTRODES Advance Directives Directive Yes / No Effective Date File Name No Information Encounters Encounter Description Practice Location Reason(s) For Visit Diagnoses Date Provider Providers Copied on Encounter [facility], [address] [place] [address], [id number], tel:[phone] [place] [address] No Information 4 [facility]. [address] [place] [address], [id number], [place]. tel:[phone] Referring Provider: Rad Gleason, [address] [facility], [place], [address] . tel:[phone] [facility], [address] [place] [address], [id number], tel:[phone] [place] [address] No Information [facility]. [address] [place] [address], [id number], [place]. tel:[phone] Referring Provider: Rad Gleason, [address] [facility], [place], [address] . tel:[phone] Family History Family Member Type Diagnosis Age At Onset No Information Payers Payer name Insurance type Covered green party ID Tami burroughs(s) [facility] Medicare Advantage Replacement [id number] Social History Type Description Quantity Date Captured [...]
--- OUTSIDE RECORDS SUMMARY | 2024-09-21 13:17 | XMS_ITS | Clinical Summary ---
Author Organization [facility] Address [place], [place] [address] Care Team Providers Care Student Recruiter Name Role Phone Makenzie Quijano MD Primary Care Provider + Allergies Active Allergy Reactions Criticality Noted Date Comments Animal Dander Shortness Of Breath High 12/14/2013 Clarithromycin Anaphylaxis,Dyspnea High 04/05/2007 Asthma attack Cinnamon Shortness Of Breath,Other - Describe In Comment Field Medium 01/06/2022 Dust , gives asthma attack Dulaglutide Nausea Only,Syncope High 09/04/2024 Trulicity Erythromycin Hives High 02/15/2012 Fish Containing Products Anaphylaxis,Karime rtnes s Of Breath High 08/02/2019 Facial swelling Pt can eat shellfish Iodine Hives,Dyspnea High 04/05/2007 Contrast dye Cephalexin Hives,Dyspnea High 04/05/2007 Allergies to other abx ; doesn't not know the names Lanolin Hives Medium 01/07/2022 Levofloxacin Other - Describe In Comment Field High 01/05/2012 Pain, tendon damage Metformin Hives Medium 04/21/2021 Tree Nut Anaphylaxis High 01/07/2022 Nystatin Hives,Shortness Of Breath High 01/07/2022 Penicillins Anaphylaxis,Rash,Dys pnea High 04/05/2007 Pollen Extracts Other - Describe In Comment Field Low 01/06/2022 Asthma, breathing ,Environmental, trees Quinolones Other - Describe In Comment Field Low 07/06/2023 Pain and tendon damage Ragweed Runny Nose,Other - Describe In Comment Field Medium 01/07/2022 Sneezing, irritated eyes Unlisted Allergen (Include Detail In Comments) Runny Nose 08/26/2018 Trees, [place], [place], wool, feathers, Venom-Honey Bee Anaphylaxis High 12/14/2013 Medications Medication Sig Dispensed Refills Start Date End Date Status LANSOPRAZOLE (PREVACID ORAL)Indications:sy mptomatic gastroesophageal reflux disease Take 15 mg by mouth once daily. Active gabapentin (NEURONTIN) 800 mg tablet Take by mouth three times daily. 1.5 tablets (1200 mg) in morning, 1 tablet at 5 pm, and 1.5 tablets at bedtime. 0 08/02/20 19 Active cetirizine (ZYRTEC) 10 mg tabletIndications:p erennial allergic rhinitis Take 10 mg by mouth once daily. 0 08/02/20 19 Active DULoxetine (CYMBALTA) 60 mg Delayed-release capsuleIndications: diabetic peripheral neuropathy Take 60 mg by mouth once daily. Active levothyroxine (SYNTHROID) 125 mcg tabletIndications:h ypothyroidism Take 125 mcg by mouth before breakfast. Active sennosides-docusate (SENOKOT S) (8.6-50 mg) tabletIndications:C onstipation due to opioid therapy Take 2 Tablets by mouth 2 times daily if needed for Constipation. 20 tablet. 01/12/20 22 Active atenoloL (TENORMIN) 50 mg tabletIndications:h ypertension Take 50 mg by mouth once daily. 03/16/20 23 Active NovoLIN 70-30 FlexPen U-100 100 unit/mL (70-30) penIndications:Type 2 diabetes mellitus without complication, with long-term current use of insulin (HC) Inject 12 units subcutaneous two times daily before meals. 0 07/14/20 23 Active Additional Information Patient taking differently: (No dose reported), Subcutaneous,(No frequency reported), 8 units every am and 12 units every evening, Informant: Patient's Recall, Reported on 09/04/2024 lisinopriL (PRINIVIL; ZESTRIL) 10 mg tabletIndications:H TN (hypertension) Take 10 mg by mouth once daily in the evening. Hold if SBP if under 110 0 07/20/20 23 Active oxyCODONE (ROXICODONE) 5 mg immediate release tabletIndications:S pondylolisthesis of lumbar region Take 1-2 Tablets (5-10 mg) by mouth every 4 hours if needed for Pain. 50 Tablet 07/20/20 Active CALCIUM CARBONATE ORAL Take 600 mg by mouth two times daily. Active cholecalciferol, Vitamin D3, 2,000 unit tablet Take 2,000 units by mouth once daily. Active cyanocobalamin (VITAMIN B12) 1,000 mcg tablet Take 1,000 mcg by mouth once every other day. Active fluticasone (50 mcg per actuation) nasal solution (FLONASE) Inhale 2 Sprays into affected nostril(s) once daily if needed. Active medication order composer Take 1 tablet. by mouth every 8 hours if needed (pain). Hydrocodone-acet aminophen 7.5-500 mg Active rosuvastatin (CRESTOR) 10 mg tablet Take 10 mg by mouth once daily. Active tiZANidine (ZANAFLEX) 4 mg tablet Take 4 mg by mouth at bedtime. Active aspirin (ECOTRIN) 81 mg enteric coated tabletIndications:H TN (hypertension) Take 1 Tablet (81 mg) by mouth once daily with a meal. Okay to restart 09/07/2024 09/06/20 24 Active naproxen (ALEVE) 220 mg tabletIndications:S pondylolisthesis of lumbar region Take 1 Tablet (220 mg) by mouth 2 times daily if needed for Pain. Do note mix Naproxen and Ibuprofen 09/06/20 24 Active acetaminophen (TYLENOL EXTRA STRGTH) 500 mg tabletIndications:H x of superficial parotidectomy,Posto perative state Take 2 Tablets (1,000 mg) by mouth every 6 hours if needed for Pain (For mild pain). Max acetaminophen dose: 4000mg in 24 hrs. 09/06/20 24 Active ondansetron (ZOFRAN) 4 mg tabletIndications:P ostoperative state Take one-half to 1 Tablet (2-4 mg) by mouth every 8 hours if needed for Nausea/Vomiting. 10 Tablet 09/06/20 24 Active oxyCODONE (ROXICODONE) 5 mg immediate release tabletIndications:H x of superficial parotidectomy,Posto perative state Take 1-2 Tablets (5-10 mg) by mouth every 4 hours if needed for Pain. 10 Tablet 09/06/20 24 Active ibuprofen (ADVIL; MOTRIN) 800 mg tabletIndications:H x of superficial parotidectomy,Posto perative state Take 1 Tablet (800 mg) by mouth every 6 hours if needed for Pain (For mild pain). Do note mix with naproxen 09/06/20 24 Active simvastatin (ZOCOR) 40 mg tabletIndications:m ixed hyperlipidemia Take 1 tablet by mouth at bedtime. 0 08/02/20 19 024 Discontinued(*P atient states no longer taking) aspirin (ECOTRIN) 81 mg enteric coated tablet Take 1 tablet by mouth once daily with a meal. 0 08/02/20 19 024 Discontinued ondansetron (ZOFRAN) 4 mg tablet Take 4 mg by mouth every 8 hours if needed for Nausea/Vomiting. Discontinued(*P atient states no longer taking) methocarbamoL (ROBAXIN) 500 mg tabletIndications:S tatus post lumbar spine surgery for decompression of spinal cord Take 250 mg every 4 hours as needed for muscle spasm, pain. 0 07/20/20 23 024 Discontinued(*P atient states no longer taking) naproxen (ALEVE) 220 mg tablet Take 220 mg by mouth 2 times daily if needed. 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 Hypothyroidism 09/05/2024 Depression 09/05/2024 Peripheral neuropathy 09/05/2024 B12 deficiency 09/05/2024 Hx of superficial parotidectomy 09/05/2024 LINDA (acute kidney injury) 01/09/2022 Normocytic anemia [...] Encounters Date Type Department Care Team Description 09/05/2024 1:16 PM CDT Anesthesia Event [address] [address] Jon Richter, Licha Bonner MD 09/05/2024 12:45 PM CDT - 09/05/2024 3:48 PM CDT Surgery [address] [address] Daniel Vazquez MD right superficial parotidectomy with facial nerve monitoring 09/05/2024 10:28 AM CDT - 09/06/2024 12:45 PM CDT Hospital Encounter [address] [address] Daniel Vazquez MD HTN (hypertension) (Primary Dx); Spondylolisthesis of lumbar region; Hx of superficial parotidectomy; Postoperative state Discharge Disposition: Home Self Care 09/04/2024 Travel from Last 3 Months Family History Medical History Relation Name Comments Hypertrophic cardiomyopathy Mother Relation Name Status Comments Mother Social History Tobacco Use Types Packs/Day Years Used Date Smoking Tobacco: Former Cigarettes Q uit: 04/05/2005 Passive Smoke Exposure: Never Smokeless Tobacco: Never Tobacco Cessation:Counseling Given: Not Answered Alcohol Use Standard Drinks/Week Comments No 0 [...] Sign Reading Time Taken Comments Blood Pressure 140/75 09/06/2024 7:39 AM CDT Pulse 61 09/06/2024 8:05 AM CDT Temperature 36.9 ??C (98.5 ??F) 09/06/2024 7:39 AM CD T Respiratory Rate 16 09/06/2024 7:39 AM CDT Oxygen Saturation 98% 09/06/2024 8:05 AM CDT Inhaled Oxygen Concentration - - Weight 106.3 kg (234 lb 5.6 oz) 024 11:00 AM CDT Height 162.6 cm (5' 4) 09/05/2024 11:0 0 AM CDT Body Mass Index 40.23 09/05/2024 11:00 AM CDT Plan of Treatment Health Maintenance [...] 1 - PCV) 021 COVID-19 vaccine series (2023- season) 4 Influenza for age 65+ 07/09/2024 Medical Devices Implanted Type Area Solution Director Device Identifier Shelf Expiration Date Model / Serial / Lot Bone 1-4mm 90cc Medtronic Chips Canclls Freeze Dried - Sabino: [id number] Implanted:Qty: 1 on 01/07/2022 by Doug Resendez MD at [facility] Lumbar Vertebrae Medtronic Spine/Ortho 02/21/2026 [id number] / ID: [id number] / [id number] Description:Implanted milling 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 superintendent ior spine L4-S1 Screw Lmbr Post 7.5x45mm Solera 5.5/6 Va Cocr - [id number] Implanted:Qty: 1 on 07/07/2023 by Doug Resendez MD at [facility] N/A: Lumbar Vertebrae Medtronic Spine/Ortho [id number] / / Screw Lmbr Post 8.5x45mm Solera 5.5/6 Va Cocr - [id number] Implanted:Qty: 3 on 07/07/2023 by Doug Resendez MD at [facility] N/A: Lumbar Vertebrae Medtronic Spine/Ortho [id number] / / Screw Lmbr Post 9.5x40mm Solera 5.5/6 Va Cocr - [id number] Implanted:Qty: 2 on 07/07/2023 by Doug Resendez MD at [facility] N/A: Lumbar Vertebrae Medtronic Spine/Ortho [id number] / / Nawaf Lmbr 70x5.5mm Solera 5.5/6 Cvd Titnm - [id number] Implanted:Qty: 2 on 07/07/2023 by Doug Resendez MD at [facility] N/A: Lumbar Vertebrae Medtronic Spine/Ortho [id number] / / Putty Easypack 5cc Magnetos - [id number] Implanted:Qty: 1 on 07/07/2023 by Doug Resendez MD at [facility] N/A: Lumbar Vertebrae [employer] 10/08/2025 [id number] / / [id number] Endoskeleton Tas Implant Implanted:Qty: 1 on 07/07/2023 by Doug Resendez MD at [facility] N/A: Lumbar Vertebrae Medtronic 10/08/2026 [id number] / / [id number] 5.5x25 Screw Implanted:Qty: 3 on 07/07/2023 by Doug Resendez MD at [facility] N/A: Lumbar Vertebrae Medtronic [id number] / / Description:anterior Bone Matrix 3cc Umberto Dbf Putty Dbm - [id number] Implanted:Qty: 1 on 07/07/2023 by Doug Resendez MD at [facility] N/A: Lumbar Vertebrae Medtronic Spine/Ortho 05/24/2025 [id number] / [id number] / Bone Matrix 3cc Umberto Dbf Putty Dbm - [id number] Implanted:Qty: 1 on 07/07/2023 by oDug Resendez MD at [facility] N/A: Lumbar Vertebrae Medtronic Spine/Ortho 05/24/2025 [id number] / [id number] / Bone Matrix Sm Infuse Bmp - [id number] Implanted:Qty: 1 on 07/07/2023 by Doug Resendez MD at [facility] N/A: Lumbar Vertebrae Medtronic Spine/Ortho 11/08/2024 [id number] / / [id number] Bone 1-4mm 60cc Medtronic Fine Canclls Freeze Dried - [id number] Implanted:Qty: 1 on 07/07/2023 by Doug Resendez MD at [facility] N/A: Lumbar Vertebrae Medtronic Spine/Ortho 01/20/2027 [id number] / [id number] / Set Screw Lmbr Ant 5.5mm Solera Break Off - [id number] Implanted:Qty: 6 on 07/07/2023 by Doug Resendez MD at [facility] N/A: Lumbar Vertebrae Medtronic Spine/Ortho [id number] / / Explanted Type Area Solution Director Device Identifier Shelf Expiration Date Model / Serial / Lot Set Screw Lmbr Ant 5.5mm Solera Break Off - [id number] Implanted:Qty : 6 on 01/07/2022 by Doug Resendez MD at [facility] Explanted:Qty : 6 on 07/07/2023 by Doug Resendez MD at [facility] Lumbar Vertebrae Medtronic Spine/Ortho [id number] / / Description:Implanted milling general superintendent ior spine L4-S1 Screw Lmbr Post 6.5x45mm Solera 5.5/6 Va Cocr - [id number] Implanted:Qty : 1 on 01/07/2022 by Doug Resendez MD at [facility] Explanted:Qty : 1 on 07/07/2023 by Doug Resendez MD at [facility] Lumbar Vertebrae Medtronic Spine/Ortho [id number] / / Description:Implanted milling general superintendent ior spine L4-S1 Screw Lmbr Post 7.5x40mm Solera 5.5/6 Va Cocr - [id number] Implanted:Qty : 2 on 01/07/2022 by Doug Resendez MD at [facility] Explanted:Qty : 2 on 07/07/2023 by Doug Resendez MD at [facility] Lumbar Vertebrae Medtronic Spine/Ortho [id number] / / Description:Implanted milling general superintendent ior spine L4-S1 Screw Lmbr Post 7.5x45mm Solera 5.5/6 Va Cocr - [id number] Implanted:Qty : 3 on 01/07/2022 by Doug Resendez MD at [facility] Explanted:Qty : 3 on 07/07/2023 by Doug Resendez MD at [facility] Lumbar Vertebrae Medtronic Spine/Ortho [id number] / / Description:Implanted milling general superintendent ior spine L4-S1 Nawaf Lmbr 70x5.5mm Solera 5.5/6 Cvd Titnm - [id number] Implanted:Qty : 2 on 01/07/2022 by Doug Resendez MD at [facility] Explanted:Qty : 2 on 07/07/2023 by Doug Resendez MD at [facility] Lumbar Vertebrae Medtronic Spine/Ortho [id number] / / Description:Implanted milling general superintendent ior spine L4-S1 Procedures Procedure Name Priority Date/Time Associated Diagnosis Comments GLUCOSE METER Timed 09/06/2024 12:26 PM CDT GLUCOSE METER Timed 09/06/2024 7:35 AM CDT HEMOGLOBIN Early AM 09/06/2024 6:25 AM CDT MAGNESIUM Early AM 09/06/2024 6:25 AM CDT BASIC METABOLIC PANEL Early AM 09/06/2024 6:25 AM CDT GLUCOSE METER Timed 09/06/2024 3:06 AM CDT GLUCOSE METER Timed 09/06/2024 2:08 AM CDT GLUCOSE METER Timed 09/05/2024 8:41 PM CDT GLUCOSE METER Timed 09/05/2024 5:09 PM CDT GLUCOSE METER Timed 09/05/2024 2:59 PM CDT PATH TISSUE EXAM Today 09/05/2024 2:16 PM CDT ENDOTRACHEAL TUBE Routine 09/05/2024 1:48 PM CDT ENDOTRACHEAL TUBE Routine 09/05/2024 1:48 PM CDT ENDOTRACHEAL TUBE Routine 09/05/2024 1:48 PM CDT PAROTIDECTOMY 09/05/2024 1:01 PM CDT Other diseases of salivary glands Case Notes 150 MIN 1300-start time d/t clinic NERVE MONITORINGPA TO ASSIST Special Needs HT 5' 3.5 WT 105.7 Kg BMI 40.63DM 2Continuous glucose monitorChronic PainSpinal Stimulator-will bring remote to turn offOSA no CPAPPONVDifficult IV StickWalker from Last 3 Months Results * (ABNORMAL) GLUCOSE METER (09/06/2024 12:26 PM CDT) Only the most recent of7 resultswithin the time period is included. GLUCOSE METER 241(H) 65 - 100 mg/dL 09/06/2024 12:27 PM CDT [facility] Blood BLOOD SPECIMEN / Unknown 09/06/2024 12:26 PM CDT 09/06/2024 12:27 PM CDT Daniel Vazquez MD CHEMISTRY [facility] SENDOUT INTERNAL ZIP [id number] [place] [id number] * HEMOGLOBIN (09/06/2024 6:25 AM CDT) HEMOGLOBIN 12.4 12.0 - 16.0 g/dL 09/06/2024 6:44 AM CDT [facility] MCV 82 80 - 100 fL 09/06/2024 6:44 AM CDT [facility] Blood BLOOD SPECIMEN / Unknown Butterfly / Unknown 09/06/2024 6:25 AM CDT 09/06/2024 6:29 AM CDT Gokul Duffy MD HEMATOLOGY [facility] SENDOUT [place] [address] [phone] [place] [address] * MAGNESIUM (09/06/2024 6:25 AM CDT) Pathologist [facility] MAGNESIUM 2.2 1.6 - 2.4 mg/dL 09/06/2024 6:59 AM CDT [facility] Blood BLOOD SPECIMEN / Unknown Butterfly / Unknown 09/06/2024 6:25 AM CDT 09/06/2024 6:29 AM CDT Gokul Duffy MD CHEMISTRY Performing Organization Address City/[facility]/ZIP Co de Phone Number [facility] SENDOUT [place] ZIP [phone] [place] [address] * (ABNORMAL) BASIC METABOLIC PANEL (09/06/2024 6:25 AM CDT) Pathologist [facility] SODIUM 140 136 - 145 mmol/L 09/06/2024 6:59 AM T [facility] POTASSIUM 4.7 3.5 - 5.1 mmol/L 09/06/2024 6:59 AM T [facility] CHLORIDE 104 98 - 107 mmol/L 09/06/2024 6:59 AM T [facility] CO2,TOTAL 28 22 - 29 mmol/L 09/06/2024 6:59 AM T [facility] ANION GAP 8 5 - 18 09/06/2024 6:59 AM T [facility] GLUCOSE 208(H) 70 - 99 mg/dL 09/06/2024 6:59 AM T [facility] CALCIUM 9.6 8.8 - 10.2 mg/dL 09/06/2024 6:59 AM T [facility] BUN 20 8 - 23 mg/dL 09/06/2024 6:59 AM T [facility] CREATININE 0.94(H) 0.50 - 0.90 mg/dL 09/06/2024 6:59 AM T [facility] BUN/CREAT RATIO 21(H) 10 - 20 6:59 AM T [facility] eGFR 66(L) >90 mL/min/1.7 3m2 09/06/2024 6:59 AM CDT [facility] Comment:As of 2022, eG FR is calculated by the CKD-EPI creatinine equation without race adjustment. ??eGFR can be influenced by muscle mass, exercise, and diet. ??The reported eGFR is an estimation only and is only applicable if the renal function is stable. Blood BLOOD SPECIMEN / Unknown Butterfly / Unknown 09/06/2024 6:25 AM CDT 09/06/2024 6:29 AM CDT Gokul Duffy MD CHEMISTRY [facility] SENDOUT INTERNAL ZIP [phone] [place] [address] * PATH TISSUE EXAM (09/05/2024 2:16 PM CDT) Case Report Pathology Report ?Case: [id number] ? Authorizing Provider: ??Daniel Vazquez MD Collected: ? 09/05/2024 1416 ? Ordering Location: ? [facility] ?Received: ?09/05/2024 1453 ? Pathologist: ? Carla Hastings MD ? Specimen: ?Right Parotid ? 09/07/2024 1:57 PM CDT [facility] Final Diagnosis PAROTID, RIGHT, PAROTIDECTOMY: 1. Warthin tumor, 1.8 cm in greatest dimension, appears completely resected 2. Negative for atypia and malignancy 3. One benign lymph node 09/07/2024 1:[address] 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 09/07/2024 1:[address] [facility] Gross Description Received fresh, labeled with the patient's name and right parotid, is a 1.8 g, 2.1 x 1.6 x 1.4 cm pink-arias lobular slightly disrupted mass. ??The specimen is inked blue and serially sectioned. ??The entire specimen is replaced by a pink solid lobular mass extending to the inked resection margins. ??The specimen is entirely sequentially submitted in 3 cassettes. Time and date in formalin: 1456 on 09/05/2024 TRS 09/05/2024 09/07/2024 1:[address] [facility] Microscopic Description The final diagnosis is based on microscopic examination of appropriate sections of all specimens. 09/07/2024 1:57 PM CDT [facility] Additional Information Interpreted at [facility] - [address] [address] 09/07/2024 1:[address] [facility] Tissue (Right Parotid) 09/05/2024 2:16 PM CDT 09/05/2024 2:53 PM CDT Daniel Vazquez MD PATHOLOGY/CYTOL OGY [facility] [address] [place] [address], [facility] SENDOUT [place] ZIP [address] [address] [place] [address] * HCHG TUBE PR1, HCHG STYLET PR1, HCHG MOUTHPIECE PR1 (09/05/2024 1:48 PM CDT) Narrative Jon Richter CRNA - 09/05/2024 1:48 PM CDT Jon Richter CRNA ? 09/05/2024 ??1:48 PM Procedure: ETT Patient location during procedure: OR ETT Properties Mask Ventilation: easy Final Technique: direct laryngoscopy Type: straight Location: oral Cuffed: yes Tube Size: 7.0 mm Stylet: yes Laryngoscope Blade: Montes Blade Size: 2 Cormack-Lehane Grade View: 1 Insertion Attempts: 1 Placement Verification: auscultation, end tidal CO2 and symmetrical chest wall movement Assessment: pharynx clear, atraumatic and dentition unchanged Secured at: 22 Measured From: lips Tooth guard used and removed: yes Difficulty: 0 (not difficult) Mark Crowell MD ANESTHESIA PX NOTE ORDERABLES from Last 3 Months Advance Directives * Full Code (Latest Code Status on File) Date Activated Date Inactivated Comments 09/05/2024 4:19 PM 09/06/2024 2:45 PM Question Answer Comments Code Status Discussion: Unable to Assess Preferences, Provider to review later * Full Code Date Activated Date Inactivated Comments 09/05/2024 12:14 PM 09/05/2024 4:19 PM Question Answer Comments Code Status Discussion: Unable to Assess Preferences, Provider to review later * Full Code Date Activated Date Inactivated Comments 07/07/2023 3:37 PM 07/14/2023 6:19 PM Question Answer Comments Code Status Discussion: Reviewed Preferences * Full Code Date Activated Date Inactivated Comments 01/07/2022 5:14 PM 01/13/2022 12:20 PM Question Answer Comments Code Status Discussion: Reviewed Preferences * Full Code Date Activated Date Inactivated Comments 02/15/2012 8:07 AM 02/15/2012 1:49 PM Care Teams Student Recruiter Relationship Specialty Start Date End Date Makenzie Quijano MD [address] [place] [id number] PCP - General Family Practice 08/16/24
--- OUTSIDE RECORDS SUMMARY | 2024-09-21 13:17 | XMS_ITS | Continuity of Care Document ---
Author Organization [facility] Address [address] [place] [address] Phone Care Team Providers Care Auto Driver Name Role Phone Rad Gleason DO Unavailable [...] 25 MG - Active Procedures Procedure Date PT EVAL MOD COMPLEX 30 MIN SELF CARE MNGMENT TRAINING OFFICE VISIT, EST TELEMEDICINE No Charge For Visit Per Prov IMPLANT NEUROELECTRODES IMPLANT NEUROELECTRODES INSRT/REDO SPINE N GENERATOR OFFICE VISIT, EST TELEMEDICINE No Charge For Visit Per Prov ORTHOTIC MGMT AND TRAINING Lower Back LSO Brace IMPLANT NEUROELECTRODES IMPLANT NEUROELECTRODES OFFICE/OUTPATIENT VISIT, EST Psych Dx Eval OFFICE/OUTPATIENT VISIT, EST OFFICE/OUTPATIENT VISIT, NEW Drug test def 8-14 classes Drug Urine Toxology With Chromatography Advance Directives Directive Yes / No Effective Date File Name No Information Encounters Encounter Description Practice Location Reason(s) For Visit Diagnoses Date Provider Providers Copied on Encounter [facility], [address] [place] [address], [id number] , [place] tel: [phone] [facility] [place] No Information 4 Rosibel Leroy. [address] [place], [place], [id number] , [place]. tel: [phone] [facility], [address] [place] [address], [id number] , [place] tel: [phone] [facility] lumbago (chief complaint) Postlaminectomy syndrome, not elsewhere classifiedRadicul opathy, lumbar region 4 Raheel Guzman. [address] [place], [place], [id number] , [place]. tel: [phone] OFFICE VISIT, EST TELEMEDICINE [facility], [address] [place], [place], [id number] , [place] tel: [phone] [facility] [place] low back pain (chief complaint) Postlaminectomy syndrome, not elsewhere classifiedRadicul opathy, lumbar regionLong term (current) use of opiate analgesicPain in left shoulderPain in right shoulderChronic pain syndrome 4 Rosibel Leroy. [address] [place], [place], [id number] , [place]. tel: [phone] [facility], [address] [place], [place], [id number] , [place] tel: [phone] [facility] [place] Postlaminectomy syndrome, not elsewhere classified 4 Rosibel Leroy. [address] [place] [address] [facility] [place], [place], [place], [id number] , [place]. tel:[phone] Referring Provider: Makenzie Márquez [facility] [address] [place], [address]. [phone] [facility], [address] [place] [address], [id number] , [place] tel: [phone] [facility] No Information Jul- 4 Pito Manjinder. [address] [place] [address], [id number] , [place]. tel:[phone] [facility], [address] [place] [address], [id number] , [place] tel:[phone] [facility] Postlaminectomy syndrome, not elsewhere classified 4 Rosibel Leroy. [address] [place] [address] [facility] [place], [place], [place], [id number] , [place]. tel:[phone] Referring Provider: Makenzie Márquez, [facility] [address] [place], [address]. tel:[phone] OFFICE VISIT, EST TELEMEDICINE [facility], [address] [place] [address], [id number] , [place] tel: [phone] [facility] Postlaminectomy syndrome, not elsewhere classified 4 Rosibel Leroy. [address] [place] [address] [facility] [place], [place], [place], [id number] , [place]. tel:[phone] [facility], [address] [place] [address], [id number] , [place] tel:[phone] [facility] [place] Postlaminectomy syndrome, not elsewhere classified 4 Rosibel Leroy. [address] [place] [address] [facility] [place], [place], [place], [id number] , [place]. tel:[phone] Referring Provider: Makenzie Márquez [facility] [address] [place], [address]. tel:[phone] [facility], [address] [place] [address], [id number] , [place] tel: [phone] [facility] [place] No Information 4 Rosibel Leroy. [address] [place] [address] [facility] [place], [place], [place], [id number] , [place]. tel: [phone] Referring Provider: Makenzie Márquez [address], [address]. tel:[phone] [facility], [address] [place] [address], [id number] , [place] tel: [phone] [facility] Postlaminectomy syndrome, not elsewhere classified 4 Rosibel Leroy. [address] [place] [address], [place], [place], [id number] , [place]. tel: [phone] Referring Provider: Makenzie Márquez [address], [address]. tel:[phone] [facility], [address] [place] [address], [id number] , [place] tel: [phone] [facility] No Information 4 Rosibel Leroy. [address] [place] [address], [place], [place], [id number] , [place]. tel: [phone] OFFICE/OUTPAT IENT VISIT, EST [facility], [address] [place] [address], [id number] , [place] tel: [phone] [facility] Postlaminectomy syndrome, not elsewhere classified 4 Rosibel Leroy. [address] [place] [address], [place], [place], [id number] , [place]. tel: [phone] Referring Provider: Makenzie Márquez[address], [address]. tel:[phone] Psych Dx Eval [facility], [address] [place] [address], [id number] , [place] tel:[phone] Telehealth Pain disorder with related psychological factors 4 Beth Morales. [address] [place], [place], [id number] , [place]. tel:[phone] OFFICE/OUTPAT IENT VISIT, [facility], [address] [place] [address], [id number] , [place] tel:[phone] [facility] [place] low back pain (chief complaint) Chronic pain syndromePostlamin ectomy syndrome, not elsewhere classifiedRadicul opathy, lumbar regionLong term (current) use of opiate analgesicPain in left shoulderPain in right shoulder 4 Rosibel Leroy. [address] [facility] [place], [place], [id number] , [place]. [phone] Referring Provider: Makenzie Márquez[address], [address]. tel:[phone] OFFICE/OUTPAT IENT VISIT, [facility], [address] [place] [address], [id number] , [place] tel:[phone] [facility] [place] low back pain (chief complaint) Chronic pain syndromePostlamin ectomy syndrome, not elsewhere classifiedRadicul opathy, lumbar regionEncounter for therapeutic drug level monitoringLong term (current) use of opiate analgesicPain in left shoulderPain in right shoulder 4 Rosibel Leroy. [address] [facility] [place], [place], [id number] , [place]. tel:[phone] Referring Provider: Makenzie Márquez [address], [address]. tel:[phone] Family History Family Member Type Diagnosis Age At Onset Problem Family history of Back pain Payers Payer name Insurance type Covered alliance party ID Tami burroughs(s) [facility] Medicare Advantage Replacement [id number] Social History Type Description Quantity Date Captured Comments Alcohol Use Details Unknown Caffeine Use Details Unknown Tobacco Use Status Smoking Status No Information Sex Female Chief Complaint And Reason For Visit No Information Reason For Referral Reason For Referral No Information Plan Of Treatment Date Type Action Status Goal Zoster vaccine ( 1st). Due on due Goal FIT. Due on due Goal Medication Recon ciliation. Due on due Goal CONCRETE PRECAST MOULDER Scanned. Due on due Goal Order Annual PT. Due on due Goal Update Social Hi story. Due on due Goal Unhealthy drug u se screening. Due on due Goal Weight. Due on d ue Goal Tobacco Use. Due on due Goal UDT. Due on due Goal FIT-DNA. Due on due Goal Lipid panel. Due on due Goal Creatinine. Due on due Goal PHQ-9. Due on du e Goal ALT (SGPT). Due on due Goal Height. Due on d ue Goal Review Allergy L ist. Due on due Goal OARS. Due on due Goal CT-Colonography. Due on due Goal AST (SGOT). Due on due Goal ASSET SPECIALIST Paperwork. Due on due Goal Hepatitis C scre ening. Due on due Goal Creatinine. Due on due Goal Weight. Due on d ue Goal PHQ-9. Due on du e Goal Height. Due on d ue Goal Update Social Hi story. Due on due Goal ASSET SPECIALIST Paperwork. Due on due Goal Hepatitis C scre ening. Due on due Goal UDT. Due on due Goal FIT-DNA. Due on due Goal OARS. Due on due Goal CONCRETE PRECAST MOULDER Scanned. Due on due Goal Lipid panel. Due on due Goal ALT (SGPT). Due on due Goal Medication Recon ciliation. Due on due Goal Zoster vaccine ( 1st). Due on due Goal FIT. Due on due Goal Unhealthy drug u se screening. Due on due Goal Order Annual PT. Due on due Goal AST (SGOT). Due on due Goal Tobacco Use. Due on due Goal Review Allergy L ist. Due on due Goal CT-Colonography. Due on due Goal PHQ-9. Due on du e Goal FIT. Due on due Goal CT-Colonography. Due on due Goal Height. [...] Social Hi story. Due on due Goal CONCRETE PRECAST MOULDER Scanned. Due on due Goal OARS. Due on due Goal Order Annual PT. Due on due Goal AST (SGOT). Due on due Goal UDT. Due on due Goal ALT (SGPT). Due on due Goal Creatinine. Due on due Goal ASSET SPECIALIST Paperwork. Due on due Goal Height. Due on d ue Goal FIT. Due on due Goal AST (SGOT). Due on due Goal Lipid panel. Due on due Goal PHQ-9. Due on du e Goal UDT. Due on due Goal Order Annual PT. Due on due Goal Weight. Due on d ue Goal Creatinine. Due on due Goal OARS. Due on due Goal Tobacco Use. Due on due Goal Medication Recon ciliation. Due on due Goal Review Allergy L ist. Due on due Goal CONCRETE PRECAST MOULDER Scanned. Due on due Goal CT-Colonography. Due on due Goal FIT-DNA. Due on due Goal Zoster vaccine ( ). Due on due Goal ALT (SGPT). Due on due Goal Hepatitis C scre ening. Due on due Goal Update Social Hi story. Due on due Goal ASSET SPECIALIST Paperwork. Due on due Goal Unhealthy drug u se screening. Due on due Goal Unhealthy drug u se screening. Due on due Goal OARS. Due on due Goal Order Annual PT. Due on due Goal Update Social Hi story. Due on due Goal Creatinine. Due on due Goal Zoster vaccine ( ). Due on due Goal ASSET SPECIALIST Paperwork. Due on due Goal UDT. Due on due Goal PHQ-9. Due on du e Goal Weight. Due on d ue Goal Tobacco Use. Due on due Goal AST (SGOT). Due on due Goal ALT (SGPT). Due on due Goal CONCRETE PRECAST MOULDER Scanned. Due on due Goal Lipid panel. [...] due Goal FIT. Due on due Goal Medication Recon ciliation. Due on due Goal Zoster vaccine ( 1st). Due on due Goal UDT. Due on due Goal CT-Colonography. Due on due Goal Creatinine. Due on due Goal PHQ-9. Due on du e Goal AST (SGOT). Due on due Goal Lipid panel. Due on due Goal Order Annual PT. Due on due Goal ASSET SPECIALIST Paperwork. Due on due Goal ALT (SGPT). Due on due Goal CONCRETE PRECAST MOULDER Scanned. Due on due Goal Hepatitis C scre ening. Due on due Goal Weight. Due on d ue Goal Unhealthy drug u se screening. Due on due Goal FIT-DNA. Due on due Goal OARS. Due on due Goal Hepatitis C scre [...] due Goal FIT-DNA. Due on due Goal ASSET SPECIALIST Paperwork. Due on due Goal AST (SGOT). Due on due Goal UDT. Due on due Goal CT-Colonography. Due on due Goal CONCRETE PRECAST MOULDER Scanned. Due on due Goal Zoster vaccine ( ). Due on due Goal OARS. Due on due Goal Height. Due on d ue Goal Order Annual PT. Due on due Goal ALT (SGPT). Due on due Goal ASSET SPECIALIST Paperwork. Due on due Goal Creatinine. Due on due Goal CONCRETE PRECAST MOULDER Scanned. Due on due Goal ALT (SGPT). Due on due Goal AST (SGOT). Due on due Goal OARS. Due on due Goal Order Annual PT. Due on due Goal Review Allergy L [...] due Goal UDT. Due on due Goal Weight. Due on [...] due Goal UDT. Due on due Goal ASSET SPECIALIST Paperwork. Due on due Goal Creatinine. Due on due Goal ALT (SGPT). Due on due Goal Update Social Hi story. Due on due Goal AST (SGOT). Due on due Goal Lipid panel. Due on due Goal FIT-DNA. Due on due Goal OARS. Due on due Goal Medication Recon ciliation. Due on due Goal Height. Due on d ue Goal CONCRETE PRECAST MOULDER Scanned. Due on due Goal Weight. Due on d ue Goal Zoster vaccine ( 1st). Due on due Goal Tobacco Use. Due on due Goal FIT. Due on due Goal Tobacco Use. Due on due Goal Review Allergy L ist. Due on due Goal Zoster vaccine ( 1st). Due on due Goal Unhealthy drug u se screening. Due on due Goal FIT. Due on due Goal ASSET SPECIALIST Paperwork. Due on due Goal CT-Colonography. Due on due Goal FIT-DNA. Due on due Goal UDT. Due on due Goal Update Social Hi story. Due on due Goal Order Annual PT. Due on due Goal ALT (SGPT). Due on due Goal CONCRETE PRECAST MOULDER Scanned. Due on due Goal Height. Due on d ue Goal Lipid panel. Due on due Goal Weight. Due on d ue Goal Medication Recon ciliation. Due on due Goal Creatinine. Due on due Goal OARS. Due on due Goal PHQ-9. Due on du e Goal AST (SGOT). Due on due Goal Hepatitis C scre ening. Due on due Goal CT-Colonography. Due on [...] regarding diet completed Future Order: Radiology Order X- Ray Exam Of Thoracic Spine (XTHOS), Ordered on: Ordered Future Order: Radiology Order MR Thoracic WO [...] longer constant, but walking is still challenging. She has been able to be more active following her implant. She has been utilizing her brace and following her movement restrictions. She would like to continue to decrease her overall discomfort to allow her to perform her daily, functional activities with less limitation and an improved quality of life. Comments: Yesica is present here via [facility] [...] night. Has been following with Lanny from [facility] for reprogrammings. Reports current medication regimen provides [...] her PCP Makenzie Quijano MD at [facility]. Pain began several [...] to follow with Dr. Resendez at [facility] and recently completed an updated [...] recently in 07/07/2023- PT, last completed at [facility] in 2022 and 2023 with limited relief- HEP- Oxycodone, hydrocodone, and naproxenCurrently managed on Tramadol 50mg TID, Gabapentin 800mg TID, Duloxetine 60mg, and tizandine HS with limited relief Yesica is interested in pain management through [facility]. Reports no other concerns today. Functional Status Date Functional Assessmen t No Information Instructions Date Instruction Additional Infor dante Lifestyle education regarding di et Related to Body mass index [BMI] 40.0-44.9, adult Assessments Type Assessment Date No Information Patient Care Teams Name Effective Dates (start - stop) Status Members No Information
--- OUTSIDE RECORDS SUMMARY | 2024-09-21 13:17 | XMS_ITS | Encounter Summary ---
Author Organization [facility] Address [address] [place] [address] Care Team Providers Care Neurology Teacher Name Role Phone Rosalinda Marinleli APRN Primary Care Provider Reason for Visit * Reason Comments Med Refill Encounter Details Date Type Department Care Team (Late st Contact Info) Description 07/20/2022 Refill [facility] [address] [place] [address] Nara Reyes MD [address] [place] [address] Chronic pain due to trauma Social History [...] Date Recorded PHQ-9 Total Score 0 12/24/2021 [facility] Occupat ional Health - Occupational Stress [...] 10:00 AM CDT Tramadol Rx faxed to [facility]. * Telephone Encounter - Lesli Bryant [...] trauma documented in this encounter Care Teams Neurology Teacher Relationship Specialty Start Date End Date Rosalinda Marinelli APRN [address] [place] [id number] PCP - General 08/26/23 06/06/24 documented as of this encounter
--- NOTE | 2024-09-21 13:30 | CRLHL7_ITS ---
For Patients: As a result of the Century Cures Act, medical imaging exams and procedure reports are released immediately into your electronic medical record. You may view this report before your referring provider. If you have questions, please contact your health care provider. Indication: Chronic spine pain Technique: Thoracic spine two views Comparison: Lumbar spine CT 08/25/2023 IMPRESSION: Rightward curvature midthoracic spine. Neurostimulator wires. Vascular calcifications. Discogenic spurring mid and lower thoracic spine. Chronic wedging lower thoracic spine. No acute fracture. Dictated by Vince Escobar MD @ 09/22/2024 1:35:13 PM (Electronically Signed)
== END 2024-09-21 13:16 | disposition home or self-care (01) ==
LOC: RAD 13:15
PROVIDERS: PCP Family Medicine; Visit Provider Anesthesiology Pain Medicine
DX: M54.6 Pain in thoracic spine (principal); M43.8X4 Other specified deforming dorsopathies, thoracic region; G89.4 Chronic pain syndrome
CPT/HCPCS: 72070

== ENCOUNTER 2024-10-31 21:20 | Emergency (ER) | payer MEDICARE, SELFPAY ==
[2024-10-31] VITALS (31 sets, daily range): BP systolic 54–132; BP diastolic 20–118; PULSE 52–69; RESP 16–20; TEMP 33.4; O2SAT 86–98; BMI 40.2
--- NOTE | 2024-10-31 21:25 | CRLHL7_ITS ---
For Patients: As a result of the Cures Act, medical imaging exams and procedure reports are released immediately into your electronic medical record. You may view this report before your referring provider. If you have questions, please contact your health care provider. INDICATION: Chest pain/upper chest pressure. TECHNIQUE: Chest 1 views. COMPARISON: CT lung screen 08/30/2023. FINDINGS: The cardiac silhouette is not abnormally enlarged. The trachea is midline. Nonspecific retrocardiac opacity. No pleural effusion or pneumothorax. No acute osseous abnormality. IMPRESSION: Nonspecific retrocardiac opacity most likely corresponds to hiatal hernia noted on prior CT chest, however atelectasis or developing infectious process is not definitively excluded in the appropriate clinical context. Dictated by Manjinder Palomares MD @ 10/31/2024 10:46:09 PM (Electronically Signed)
--- NOTE | 2024-10-31 21:40 | ED_ITS ---
HPI - General Adult General Chief complaint: Chest Pain Stated complaint: sweating, short of breath Time Seen by Provider: 10/31/24 21:25 History of Present Illness HPI narrative: sudden onset sever pain epigastric and into upper back . diaphoretic, SOB 69-year-old Woman presenting to the emergency Department via EMS with concern of chest pain. Describes a sudden onset of an deep ache in her upper chest radiating into the back that occurred while seated on the couch. Was also then feeling dizzy; things are spinning. Is improved if she closes her eyes and worse with eyes open or moving her head. She is not nauseated however. Noted to be quite diaphoretic. Did have a bowel movement at home and has an urgency to have another one here. This is not diarrheal. She has not had a fever. later notes her prone to dizziness with neck discomfort or when it is ? out of alignment?. Dizziness is not an atypical symptom. Related Data Home Medications ?Medication ?Instructions ?Recorded ?Confirmed cetirizine 10 mg tablet (Zyrtec) 10 mg PO QDAY PRN 11/12/23 08/24/24 naproxen sodium 220 mg capsule 220 mg PO BID PRN 11/12/23 08/24/24 hydrocodone 7.5 mg-acetaminophen 1 tab PO Q8H PRN 06/20/24 08/24/24 500 mg tablet Previous Rx's ?Medication ?Instructions ?Recorded atenolol 50 mg tablet 50 mg PO QDAY #90 tabs 12/17/23 calcium carbonate (Calcium 600) 600 mg PO BID #180 tabs 12/17/23 duloxetine 60 mg capsule,delayed 60 mg PO QDAY #90 caps 12/17/23 release fluticasone propionate 50 2 spray intranasal QDAY #16 grams 12/17/23 mcg/actuation nasal spray,suspension (Allergy Relief (fluticasone)) lansoprazole 15 mg capsule,delayed 15 mg PO BID #180 caps 12/17/23 release (Prevacid 24Hr) levothyroxine 125 mcg tablet 125 mcg PO DAILY #90 tabs 12/17/23 lisinopril 10 mg tablet 10 mg PO DAILY #90 tabs 12/17/23 cyanocobalamin (vitamin B-12) 1,000 mcg PO .every other day #90 03/24/24 1,000 mcg tablet (Vitamin B-12) tabs gabapentin 800 mg tablet 1,200 mg (1.5 x 800 mg) PO 03/24/24 .COMPLEX #360 tabs rosuvastatin 10 mg tablet 10 mg PO QDAY #90 tabs 03/24/24 flash glucose sensor (FreeStyle #1 ea 03/29/24 Dafne 2 Sensor kit) tizanidine 4 mg capsule (Zanaflex) 4 mg PO QHS PRN muscle spasticity 05/02/24 #14 caps cholecalciferol (vitamin D3) 50 50 mcg PO QDAY #90 caps 06/13/24 mcg (2,000 unit) capsule insulin NPH-regular 70-30 U-100 See Rx Instructions subcut 08/03/24 insulin 100 unit/mL subcutaneous .COMPLEX #15 mL pen (Novolin 70-30 FlexPen U-100 Insulin) Allergies Allergy/AdvReac Type Severity Reaction Status Date / Time clarithromycin (From Biaxin) Allergy Severe Anaphylaxis Verified 08/24/24 13:57 Penicillins Allergy Severe Anaphylaxis Verified 08/24/24 13:57 nystatin Allergy Intermediate Hives Verified 08/24/24 13:57 Quinolones Allergy Unknown Pain & Verified 08/24/24 13:57 Tendon Damage Fish Containing Products AdvReac Severe Facial Verified 08/24/24 13:57 Edema & Breathing Difficulty cephalexin (From Keflex) AdvReac Intermediate Hives Verified 08/24/24 13:57 iodine AdvReac Intermediate Hives Verified 08/24/24 13:57 dulaglutide (From Trulicity) AdvReac Mild Nausea Verified 08/24/24 13:57 metformin AdvReac Unknown Hives Verified 08/24/24 13:57 cinnamon AdvReac Verified 08/24/24 13:57 erythromycin base AdvReac Verified 08/24/24 13:57 lanolin AdvReac Hives Verified 08/24/24 13:57 bioxin Allergy Uncoded 08/24/24 13:57 contrast dye Allergy Uncoded 08/24/24 13:57 Review of Systems Status of ROS: Reports: 6 or more systems reviewed and unremarkable except as noted in History and below [facility] Medical History Stuffy nose ?R09.81 - Nasal congestion (ICD-10) Ex-smoker ?Z87.891 - Personal history of nicotine dependence (ICD-10) Allergic rhinitis ?J30.9 - Allergic rhinitis, unspecified (ICD-10) Anemia of chronic disease ?D63.8 - Anemia in other chronic diseases classified elsewhere (ICD-10) Eczema ?L30.9 - Dermatitis, unspecified (ICD-10) Basilic vein thrombosis (08/25/23) ?I82.619 - Acute embolism and thrombosis of superficial veins of unspecified upper extremity (ICD-10) Hypothyroidism ?E03.9 - Hypothyroidism, unspecified (ICD-10) History of asthma ?Z87.09 - Personal history of other diseases of the respiratory system (ICD- 10) History of adenomatous polyp of colon ?Z86.010 - Personal history of colonic polyps (ICD-10) Migraines ?G43.909 - Migraine, unspecified, not intractable, without status migrainosus (ICD-10) Osteopenia ?M85.80 - Other specified disorders of bone density and structure, unspecified site (ICD-10) Obesity ?E66.9 - Obesity, unspecified (ICD-10) Type 2 diabetes mellitus ?E11.9 - Type 2 diabetes mellitus without complications (ICD-10) HTN (hypertension) ?I10 - Essential (primary) hypertension (ICD-10) JESS (obstructive sleep apnea) (2020) ?G47.33 - Obstructive sleep apnea (adult) (pediatric) (ICD-10) GERD (gastroesophageal reflux disease) ?K21.9 - Gastro-esophageal reflux disease without esophagitis (ICD-10) DJD (degenerative joint disease) ?M19.90 - Unspecified osteoarthritis, unspecified site (ICD-10) Depression ?F32.A - Depression, unspecified (ICD-10) Chronic low back pain ?M54.50 - Low back pain, unspecified (ICD-10) ?G89.29 - Other chronic pain (ICD-10) History of anesthesia complications ?Z87.898 - Personal history of other specified conditions (ICD-10) Surgical History History of spinal surgery (07/2024) ?Z98.890 - Other specified postprocedural states (ICD-10) History of bilateral cataract extraction (11/2023) ?Z98.41 - Cataract extraction status, right eye (ICD-10) ?Z98.42 - Cataract extraction status, left eye (ICD-10) History of arthroscopy of left knee ?Z98.890 - Other specified postprocedural states (ICD-10) History of repair of left rotator cuff ?Z98.890 - Other specified postprocedural states (ICD-10) History of phacoemulsification of cataract of both eyes with intraocular lens implantation (11/2023) ?Z98.41 - Cataract extraction status, right eye (ICD-10) ?Z98.42 - Cataract extraction status, left eye (ICD-10) ?Z96.1 - Presence of intraocular lens (ICD-10) History of thyroidectomy (~2006) ?E89.0 - Postprocedural hypothyroidism (ICD-10) History of lumbar surgery ?Z98.890 - Other specified postprocedural states (ICD-10) 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) ?Z96.661 - Presence of right artificial ankle joint (ICD-10) History of colonoscopy ?Z98.890 - Other specified postprocedural states (ICD-10) History of hysterectomy (2005) ?Z90.710 - Acquired absence of both cervix and uterus (ICD-10) Family History Sister Breast cancer, Onset Age: 40 Father Alcohol dependence Lung cancer Mother Osteoporosis Valvular heart disease High blood pressure Brother Primary cancer of aortic body Cardiomyopathy Adrenal cancer Clotting disorder Paternal Grandmother Diabetes Maternal Grandmother Stroke, Onset Age: 70 Family/Other Kidney disease Social History Narrative: , 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 is blind No regular exercise Nonsmoker, quit 2011 before then 45 pack years Rare alcohol use No drug use What is your current living situation?: I presently have a place to live Problems where you live: no known problems In the past 12 months, utilities in danger of being shut off: no In past 12 months, lack of transportation kept you from medical appts, meetings, work, or getting things needed for daily living: no In the past 12 mos, have been you worried that your food would run out before you had money to buy more?: never true In the past 12 mos, the food you bought just didn't last and you didn't have money to buy more?: never true Smoking Status: Former smoker Do you use any of these nicotine containing products: None Second hand tobacco smoke exposure: No How often do you have a drink containing alcohol: monthly or less Alcohol type: beer How many standard drinks containing alcohol do you have on a typical day: 1 or 2 How often do you have six or more drinks on one occasion: Never AUDIT-C Alcohol total score: 1 Non-prescribed substance use: denies use Caffeine: Yes How often does anyone, including family, friends and others, physically hurt you : never How often does anyone, including family, friends and others, insult or talk down to you: rarely How often does anyone, including family, friends and others, threaten you with harm: never How often does anyone, including family, friends and others, scream or curse at you: rarely Are you using contraception or practicing any form of control: No Health Related Social Needs: Other personal risk factors, not elsewhere classified (Z91.89) Exam Narrative: Exam Narrative: Demonstrating discomfort. Diaphoretic. Tremulous. Prefers to keep eyes closed. Pupils are 4 mm and equal. Appropriately reactive. Cranial nerves 2- 12 are intact. Heart is in a slow regular rhythm. Distant. Upper extremities are cool. Lower extremities without edema Not able to reproduce discomfort to palpation of the chest. No supraclavicular crepitus. No pulsatile masses about the neck. Lungs appear to be clear. Const: Vital Signs, click to edit/add: Vital Signs - 24 hr 10/31/24 21:29 10/31/24 21:31 10/31/24 21:37 Temperature 92.1 F L Pulse Rate 59 L 66 Pulse Rate [Pulse Oximeter] 69 Respiratory Rate 16 Blood Pressure Blood Pressure [Ri ght Upper Arm] 108/92 H Pulse Oximetry 92 90 92 Oxygen Delivery Me thod Room Air 10/31/24 21:45 10/31/24 21:52 10/31/24 22:30 Temperature Pulse Rate 67 Pulse Rate [Pulse Oximeter] Respiratory Rate Blood Pressure Blood Pressure [Ri ght Upper Arm] Pulse Oximetry 89 86 L 93 Oxygen Delivery Me thod 10/31/24 22:32 10/31/24 22:35 10/31/24 22:37 Temperature Pulse Rate 66 59 L 59 L Pulse Rate [Pulse Oximeter] Respiratory Rate 20 20 Blood Pressure 54/28 L 79/20 L 57/39 L Blood Pressure [Ri ght Upper Arm] Pulse Oximetry 88 96 94 Oxygen Delivery Me thod 10/31/24 22:45 10/31/24 22:51 10/31/24 22:59 Temperature Pulse Rate 56 L 56 L Pulse Rate [Pulse Oximeter] Respiratory Rate Blood Pressure 69/40 L 99/56 L Blood Pressure [Ri ght Upper Arm] Pulse Oximetry 95 94 Oxygen Delivery Me thod 10/31/24 23:00 10/31/24 23:02 10/31/24 23:04 Temperature Pulse Rate 53 L 54 L 54 L Pulse Rate [Pulse Oximeter] Respiratory Rate Blood Pressure 64/24 L 57/42 L Blood Pressure [Ri ght Upper Arm] Pulse Oximetry 95 94 96 Oxygen Delivery Me thod 10/31/24 23:08 10/31/24 23:15 10/31/24 23:17 Temperature Pulse Rate 56 L 56 L 53 L Pulse Rate [Pulse Oximeter] Respiratory Rate Blood Pressure 67/56 L 76/33 L Blood Pressure [Ri ght Upper Arm] Pulse Oximetry 94 98 97 Oxygen Delivery Me thod 10/31/24 23:22 10/31/24 23:26 10/31/24 23:30 Temperature Pulse Rate 56 L 59 L 61 Pulse Rate [Pulse Oximeter] Respiratory Rate Blood Pressure 86/75 L 117/92 H Blood Pressure [Ri ght Upper Arm] Pulse Oximetry 95 92 93 Oxygen Delivery Me thod 10/31/24 23:32 10/31/24 23:36 10/31/24 23:37 Temperature Pulse Rate 60 55 L 52 L Pulse Rate [Pulse Oximeter] Respiratory Rate Blood Pressure 101/74 117/81 Blood Pressure [Ri ght Upper Arm] Pulse Oximetry 93 94 94 Oxygen Delivery Me thod 10/31/24 23:41 10/31/24 23:42 10/31/24 23:45 Temperature Pulse Rate 52 L 52 L 53 L Pulse Rate [Pulse Oximeter] Respiratory Rate Blood Pressure 132/118 H Blood Pressure [Ri ght Upper Arm] Pulse Oximetry 94 93 96 Oxygen Delivery Me thod 10/31/24 23:47 10/31/24 23:52 10/31/24 23:57 Temperature Pulse Rate 52 L 56 L 54 L Pulse Rate [Pulse Oximeter] Respiratory Rate Blood Pressure 130/56 L 119/75 130/77 Blood Pressure [Ri ght Upper Arm] Pulse Oximetry 94 94 96 Oxygen Delivery Me thod 10/31/24 23:58 11/01/24 00:18 11/01/24 00:19 Temperature Pulse Rate 54 L 64 65 Pulse Rate [Pulse Oximeter] Respiratory Rate Blood Pressure Blood Pressure [Ri ght Upper Arm] Pulse Oximetry 97 97 98 Oxygen Delivery Me thod 11/01/24 00:30 11/01/24 00:45 11/01/24 00:52 Temperature 98.2 F Pulse Rate 53 L 56 L 64 Pulse Rate [Pulse Oximeter] Respiratory Rate Blood Pressure 133/82 Blood Pressure [Ri ght Upper Arm] Pulse Oximetry 95 95 95 Oxygen Delivery Me thod 11/01/24 01:00 Temperature Pulse Rate 60 Pulse Rate [Pulse Oximeter] Respiratory Rate Blood Pressure Blood Pressure [Ri ght Upper Arm] Pulse Oximetry 95 Oxygen Delivery Me thod Documenting provider has reviewed patient's vital signs: yes Course Vital Signs Vital signs: Initial Vital Signs Pulse Rate 59 L 10/31/24 21:29 Pulse Oximetry 92 10/31/24 21:29 Vital Signs Pulse Rate 59 L 10/31/24 21:29 Pulse Oximetry 92 10/31/24 21:29 Temperature 98.2 F 11/01/24 00:52 Pulse Rate 60 11/01/24 01:00 Respiratory Rate 20 10/31/24 22:37 Blood Pressure 133/82 11/01/24 00:52 Pulse Oximetry 95 11/01/24 01:00 Oxygen Delivery Method Room Air 10/31/24 21:31 Medications Administered Medications: Discontinued Medications Generic Name Dose Route Start Last Admin Trade Name Freq PRN Reason Stop Dose Admin Diphenhydramine HCl 25 mg 10/31/24 22:47 10/31/24 23:49 Diphenhydramine 50 Mg/Ml Inj IVP 10/31/24 22:48 25 mg ONCE ONE Administration Diphenhydramine HCl 25 mg 10/31/24 23:45 11/01/24 01:20 Diphenhydramine 50 Mg/Ml Inj IVP 10/31/24 23:46 25 mg ONCE ONE Administration Hydrocortisone Sodium Succinate 200 mg 10/31/24 23:45 10/31/24 23:53 Hydrocortisone Sod Succinate 50 Mg/Ml Inj IVP 10/31/24 23:46 200 mg ONCE ONE Administration Sodium Chloride 500 mls @ 1,000 mls/hr 10/31/24 21:25 10/31/24 22:58 0.9 % Sodium Chloride 500 Ml IV 10/31/24 21:54 Infused .Q30M ONE Infusion Sodium Chloride 1,000 mls @ 1,000 mls/hr 10/31/24 22:45 11/01/24 00:20 0.9 % Sodium Chloride 1000 Ml IV 10/31/24 23:44 Infused .Q1H ONE Infusion Norepinephrine/Dextrose 4,000 mcg in 250 mls @ 39.803 mls/hr 10/31/24 23:15 10/31/24 23:45 Norepinephrine Infusion IV 0.1 mcg/kg/min CONT SUSANNAH 39.8 mls/hr Titration Protocol 0.1 MCG/KG/MIN Imipenem/Cilastatin Sodium 500 100 mls @ 200 mls/hr 10/31/24 23:26 11/01/24 01:18 mg/ Sodium Chloride IVPB 10/31/24 23:27 Infused ONCE ONE Infusion Vancomycin HCl 2,000 mg/ 520 mls @ 260 mls/hr 10/31/24 23:26 11/01/24 00:51 Sodium Chloride IVPB 11/01/24 01:25 260 mls/hr ONCE ONE Administration Protocol Promethazine HCl 12.5 mg 10/31/24 22:16 10/31/24 22:31 Promethazine 25 Mg/Ml Inj IVP 10/31/24 22:17 12.5 mg ONCE ONE Administration Medical Decision Making [facility] Narrative Medical decision making narrative: Spinal stimulator complicating efforts to get initial EKG Is a tachyarrhythmia contributing to symptoms. Is this peripheral vertigo? Central vertigo? Ischemic cardiovascular event? Influenza? GERD? D-dimer returns at a little over 2. With this chest discomfort I would have concerns of dissection or pulmonary embolus. Attempting to place another larger IV for contrasted imaging. Did request anesthesia to assist with secondary line. Complaining of pain all over and blood pressure 50s over 30s. Has received 500 mL fluid bolus and will be bolusing another L. Will continue fluid as may well be septic. Uncomfortable giving nitroglycerin for the chest discomfort. EKGs are difficult to interpret with wandering baseline but I have concerns of some inferior lead elevation. Have discussed with Cardiology. Also noting difficult to read with irregular baseline. Recommending repeat EKG now the 3rd. Repeat troponin at about 90 minute is negative. EKG does not look to be with ischemic changes. CBC is unremarkable but will be initiating Primaxin and vanco considering allergies. Pressures initially seem to be improving but then worsening again with 60s over 20s. Initiated on norepinephrine drip. Had discussed with machine rigger at [facility] would be accepting pending CT imaging. Did discuss more immediate transfer but finally with some stable blood pressures sent to CT. She was given 50 mg of diphenhydramine and 200 mg of Solu-Cortef prior to CT imaging. I am reluctant to wait for protocol time for steroid effect. Waited some minutes for diphenhydramine. After returning from contrasted chest CT we do see broad faintly erythematous speckling somewhat confluent rash starting over abdomen and legs. Unclear if this rash is related to contrast or antibiotic or illness otherwise. Did review CT images. Thankfully do not see large pulmonary emboli or vascular anomaly. TECHNIQUE: CT chest PE was acquired with 100 cc Omnipaque 370 IV contrast. COMPARISON: Chest x-ray 10/31/2024, CT chest 08/30/2023. FINDINGS: Heart and vasculature: Contrast opacification of the pulmonary arterial tree is adequate. No pulmonary embolism identified. Main pulmonary artery normal in caliber. No thoracic aortic aneurysm. There are coronary artery calcifications. No cardiomegaly or pericardial effusion. Lungs and pleura: No focal consolidation. No pleural effusion or pneumothorax. No suspicious pulmonary nodule or mass. Lymph nodes/mediastinum: No suspicious lymphadenopathy. Chest wall: No suspicious mass. Upper abdomen: Large hiatal hernia. Bones: No acute abnormality. IMPRESSION: 1. No pulmonary embolism identified. 2. Clear lungs. 3. Large hiatal hernia. With placement of second-line able to obtain lactate and VBGs. Lactate is 3.8 and this is after received probably a L of normal saline. On reassessment before departure, less flushed and more alert, attending to conversation. Overall reporting feeling better. I favor septic shock. Unknown source at this point. Unusual initial presentation, constellation of symptoms. Have not obtained urine. Medical Records Medical records reviewed: Yes I reviewed the patient's medical records Lab Data Lab results reviewed: Yes I reviewed the patient's lab results Labs: Lab Results 10/31/24 10/31/24 10/31/24 Range/Units 21:40 23:13 23:31 WBC 5.29 (4.50-11.00) K/uL RBC 5.10 (4.00-5.20) m/uL Hgb 13.2 (12.0-16.0) gm/dL Hct 42.4 (33.0-51.0) % MCV 83 (80-100) fL MCH 26 (26-34) pg MCHC 31 L (32-36) gm/dL RDW Coeff of Edwin 15.8 H (11.5-15.5) % Plt Count 228 (140-440) K/uL Neut % (Auto) 56.4 (42.0-72.0) % Lymph % (Auto) 41.0 (20-44) % [place] % (Auto) 1.1 (0.0-11.0) % Eos % (Auto) 0.9 (0.0-7.0) % Baso % (Auto) 0.2 (0.0-3.0) % Neut # (Auto) 2.98 (1.7-7.0) K/uL Lymph # (Auto) 2.17 (0.90-2.90) K/uL [place] # (Auto) 0.10 (0.00-0.90) K/UL Eos # (Auto) 0.05 (0.00-0.50) K/uL Baso # (Auto) 0.01 (0.00-0.30) K/uL Abs Immat Gran (auto) 0.02 (0.00-0.30) K/uL Imm/Tot Granulo (auto) 0.4 % D-Dimer Quant (PE/DVT) 2.05 H (0.00-0.50) ug/ml VBG pH 7.274 L (7.32-7.43) VBG pCO2 45 (40-50) mmHG VBG pO2 56.1 H (25-47) mmHG VBG HCO3 21 (21-28) mmol/L Sodium 135 (135-149) mmol/L Potassium 3.5 L (3.6-5.1) mmol/L Chloride 105 (96-114) mmol/L Carbon Dioxide 20 (20-32) mmol/L Anion Gap 10 (7-15) mEq/L BUN 33 H (7-30) mg/dL Creatinine 1.6 H (0.5-1.5) mg/dL Estimated Creat Clear 29.06 Estimated GFR 35 ml/min Glucose 186 H (60-115) mg/dL Lactate 3.8 H (0.5-1.9) mmol/L Calcium 8.7 (8.4-10.6) mg/dL Troponin I < 0.01 L (0.01-0.04) ng/mL C-Reactive Protein < 0.5 L (0.5-1.0) mg/dL NT-Pro-B Natriuret Pep 71 pg/mL SARS-CoV-2 (PCR) Negative SARS-CoV-2 (Negative) Influenza Type A (PCR) Negative PCR FLU A (Negative) Influenza Type B (PCR) Negative PCR FLU B (Negative) Lab Acknowledgement POC Troponin I 0.00 L 0.00 L (0.01-0.04) ng/ml 11/01/24 Range/Units 00:00 WBC (4.50-11.00) K/uL RBC (4.00-5.20) m/uL Hgb (12.0-16.0) gm/dL Hct (33.0-51.0) % MCV (80-100) fL MCH (26-34) pg MCHC (32-36) gm/dL RDW Coeff of Edwin (11.5-15.5) % Plt Count (140-440) K/uL Neut % (Auto) (42.0-72.0) % Lymph % (Auto) (20-44) % [place] % (Auto) (0.0-11.0) % Eos % (Auto) (0.0-7.0) % Baso % (Auto) (0.0-3.0) % Neut # (Auto) (1.7-7.0) K/uL Lymph # (Auto) (0.90-2.90) K/uL [place] # (Auto) (0.00-0.90) K/UL Eos # (Auto) (0.00-0.50) K/uL Baso # (Auto) (0.00-0.30) K/uL Abs Immat Gran (auto) (0.00-0.30) K/uL Imm/Tot Granulo (auto) % D-Dimer Quant (PE/DVT) (0.00-0.50) ug/ml VBG pH (7.32-7.43) VBG pCO2 (40-50) mmHG VBG pO2 (25-47) mmHG VBG HCO3 (21-28) mmol/L Sodium (135-149) mmol/L Potassium (3.6-5.1) mmol/L Chloride (96-114) mmol/L Carbon Dioxide (20-32) mmol/L Anion Gap (7-15) mEq/L BUN (7-30) mg/dL Creatinine (0.5-1.5) mg/dL Estimated Creat Clear Estimated GFR ml/min Glucose (60-115) mg/dL Lactate (0.5-1.9) mmol/L Calcium (8.4-10.6) mg/dL Troponin I (0.01-0.04) ng/mL C-Reactive Protein (0.5-1.0) mg/dL NT-Pro-B Natriuret Pep pg/mL SARS-CoV-2 (PCR) (Negative) Influenza Type A (PCR) (Negative) Influenza Type B (PCR) (Negative) Lab Acknowledgement Test Added POC Troponin I (0.01-0.04) ng/ml ECG Data Attestation: I personally reviewed and interpreted this ECG as follows: (Normal sinus rhythm with a QTC of 499. Rate of 63. 2. With challenging baseline sinus bradycardia rate of 54. 3. With sinus bradycardia which seems to show some elevation in ST segments of 2 and 3 and AVF although irregular baseline here as well. 4. With more reliable baseline I think in nsr) Critical Care Time Critical Care Time Critical Care Time: Yes Attestation: The patient required my highest level preparedness to intervene emergently and I personally spent this critical care time directly and personally managing the patient. This critical care time included: Obtaining a history; Examining the patient; Pulse oximetry; Ordering and reviewing of studies; Arranging urgent treatment with development of a management plan; Evaluation of patients response to treatment; Frequent reassessment discussions with other providers. This critical care time was performed to assess and manage the high probability of imminent life-threatening deterioration that could result in multiorgan failure. It was exclusive of separate billable procedures and treating other patients and teaching time. Total Critical Care Time in Minutes: 100 Discharge Plan Discharge Clinical Impression: Septic shock Patient Disposition: [facility] Condition: Guarded Prescriptions: No Action cetirizine [Zyrtec] 10 mg tablet 10 mg PO QDAY PRN naproxen sodium 220 mg capsule 220 mg PO BID PRN cyanocobalamin (vitamin B-12) [Vitamin B-12] 1,000 mcg tablet 1,000 mcg PO .every other day Qty: 90 1RF rosuvastatin 10 mg tablet 10 mg PO QDAY Qty: 90 3RF gabapentin 800 mg tablet 1,200 mg PO .COMPLEX Qty: 360 3RF Rx Instructions: Take 1.5 tablet in the morning, 1 tablet 5:00 p.m. and 1.5 tablets at bedtime lansoprazole [Prevacid 24Hr] 15 mg capsule,delayed release(DR/EC) 15 mg PO BID Qty: 180 3RF levothyroxine 125 mcg tablet 125 mcg PO DAILY Qty: 90 3RF lisinopril 10 mg tablet 10 mg PO DAILY Qty: 90 3RF atenolol 50 mg tablet 50 mg PO QDAY Qty: 90 3RF duloxetine 60 mg capsule,delayed release(DR/EC) 60 mg PO QDAY Qty: 90 3RF calcium carbonate [Calcium 600] 600 mg calcium (1,500 mg) tablet 600 mg PO BID Qty: 180 4RF fluticasone propionate [Allergy Relief (fluticasone)] 50 mcg/actuation spray,suspension 2 spray intranasal QDAY Qty: 16 3RF Rx Instructions: 2 sprays each nostril once a day hydrocodone-acetaminophen 7.5-500 mg tablet 1 tab PO Q8H PRN (DME) FreeStyle Dafne 2 Sensor Kit See Rx Instructions .Route Qty: 1 11RF Rx Instructions: As directed tizanidine [Zanaflex] 4 mg capsule 4 mg PO QHS PRN (Reason: muscle spasticity) Qty: 14 0RF cholecalciferol (vitamin D3) 50 mcg (2,000 unit) capsule 50 mcg PO QDAY Qty: 90 0RF Novolin 70-30 FlexPen U-100 100 unit/mL (70-30) insulin pen See Rx Instructions subcut .COMPLEX Qty: 15 12RF Rx Instructions: 8 units QAM and 12 units QPM Stand Alone Forms: MyHealth Info Instructions
[2024-10-31 21:54] LABS: Basophils Absolute Auto 0.01 K/uL (0.00-0.30); Basophils Percent Auto 0.2 % (0.0-3.0); Eosinophils Absolute Auto 0.05 K/uL (0.00-0.50); Eosinophils Percent Auto 0.9 % (0.0-7.0); Hematocrit 42.4 % (33.0-51.0); Hemoglobin* 13.2 gm/dL (12.0-16.0); Immature Granulocytes Abs Auto 0.02 K/uL (0.00-0.30); Immature Granulocytes Pct Auto 0.4 %; Lymphocytes Absolute Auto 2.17 K/uL (0.90-2.90); Mean Corpuscular HGB Conc 31 gm/dL (32-36); Mean Corpuscular Hemoglobin 26 pg (26-34); Mean Corpuscular Volume 83 fL (80-100); Monocytes Percent Auto 1.1 % (0.0-11.0); Neutrophils Absolute Auto 2.98 K/uL (1.7-7.0); Neutrophils Percent Auto 56.4 % (42.0-72.0); Platelet Count* 228 K/uL (140-440); RDW Coefficient of Variation % 15.8 % (11.5-15.5); White Blood Count* 5.29 K/uL (4.50-11.00)
[2024-10-31 22:04] LABS: Slide Review Reflex No
[2024-10-31 22:09] LABS: Chloride* 105 mmol/L (96-114); Potassium* 3.5 mmol/L (3.6-5.1); Sodium* 135 mmol/L (135-149)
[2024-10-31] MEDS: 0.9 % SODIUM CHLORIDE 500 ML 500 ML 1000 ML IV (22:10)
[2024-10-31 22:11] LABS: Creatinine* 1.6 mg/dL (0.5-1.5); Est. Creatinine Clearance* 29.06; Estimated Glomerular Filt Rate 35 ml/min
[2024-10-31 22:12] LABS: Anion Gap 10 mEq/L (7-15); Blood Urea Nitrogen* 33 mg/dL (7-30); Carbon Dioxide* 20 mmol/L (20-32); Glucose* 186 mg/dL (60-115)
[2024-10-31 22:13] LABS: Calcium* 8.7 mg/dL (8.4-10.6)
[2024-10-31 22:14] LABS: D Dimer Quantitative* 2.05 ug/ml (0.00-0.50)
--- NOTE | 2024-10-31 22:16 | CRLHL7_ITS ---
For Patients: As a result of the Century Cures Act, medical imaging exams and procedure reports are released immediately into your electronic medical record. You may view this report before your referring provider. If you have questions, please contact your health care provider. INDICATION: Pulmonary embolism (PE) suspected, positive D-dimer. Chest pain. TECHNIQUE: CT chest PE was acquired with 100 cc Omnipaque 370 IV contrast. COMPARISON: Chest x-ray 10/31/2024, CT chest 08/30/2023. FINDINGS: Heart and vasculature: Contrast opacification of the pulmonary arterial tree is adequate. No pulmonary embolism identified. Main pulmonary artery normal in caliber. No thoracic aortic aneurysm. There are coronary artery calcifications. No cardiomegaly or pericardial effusion. Lungs and pleura: No focal consolidation. No pleural effusion or pneumothorax. No suspicious pulmonary nodule or mass. Lymph nodes/mediastinum: No suspicious lymphadenopathy. Chest wall: No suspicious mass. Upper abdomen: Large hiatal hernia. Bones: No acute abnormality. IMPRESSION: 1. No pulmonary embolism identified. 2. Clear lungs. 3. Large hiatal hernia. Please note that all CT scans at this facility use dose modulation, iterative reconstruction, and/or weight-based dosing when appropriate to reduce radiation dose to as low as reasonably achievable. Dictated by Manjinder Palomares MD @ 11/01/2024 12:38:56 AM (Electronically Signed)
[2024-10-31] MEDS: PROMETHAZINE 25 MG/ML INJ 12.5 MG IVP (22:31)
[2024-10-31 22:32] LABS: C Reactive Protein* < 0.5 mg/dL (0.5-1.0); NT Pro B Type NatriureticPept* 71 pg/mL; Troponin I* < 0.01 ng/mL (0.01-0.04)
[2024-10-31] MEDS: 0.9 % SODIUM CHLORIDE 1000 ml 1,000 ML IV (22:58)
[2024-10-31 23:08] LABS: PCR FLU A Negative PCR FLU A (Negative); PCR FLU B Negative PCR FLU B (Negative); SARS PCR* Negative SARS-CoV-2 (Negative)
[2024-10-31 23:39] LABS: HCO3 VBG 21 mmol/L (21-28); Lactate* 3.8 mmol/L (0.5-1.9); PCO2 VBG 45 mmHG (40-50); PO2 VBG 56.1 mmHG (25-47); pH VBG 7.274 (7.32-7.43)
[2024-10-31] MEDS: diphenhydrAMINE 50 MG/ML inj 25 MG IVP (23:49)
[2024-10-31] MEDS: HYDROCORTISONE SOD SUCCINATE 50 MG/ML inj 200 MG IVP (23:53)
[2024-11-01 00:18] VITALS: PULSE 64; O2SAT 97
[2024-11-01 00:19] VITALS: PULSE 65; O2SAT 98
[2024-11-01 00:30] VITALS: PULSE 53; O2SAT 95
[2024-11-01 00:45] VITALS: PULSE 56; O2SAT 95
[2024-11-01 00:52] VITALS: BP 133/82; PULSE 64; TEMP 36.8; O2SAT 95
[2024-11-01 01:00] VITALS: PULSE 60; O2SAT 95
[2024-11-01] MEDS: diphenhydrAMINE 50 MG/ML inj 25 MG IVP (01:20)
== END 2024-11-01 01:24 | disposition short-term general hospital (02) ==
PROVIDERS: Emergency Provider Family Medicine; PCP Family Medicine
DX: B99.9 Unspecified infectious disease (principal); R65.21 Severe sepsis with septic shock; R06.02 Shortness of breath
CPT/HCPCS: 36415; 71045; 71275; 80048; 82803; 83605; 83880; 84484; 85025; 85379; 86140; 87040; 87186; 87631; 93005; 94761; 96365; 96366; 96375; 99284; 99291; 99292; J0743; J1200; J1720; J2550; J3370; J7030; Q9967

== ENCOUNTER 2024-11-01 01:05 | Outpatient (CLI) | payer MEDICARE, SELFPAY | END 2024-11-01 01:06 | disposition home or self-care (01) | PROVIDERS: PCP Family Medicine; Visit Provider Family Medicine | DX: R07.89 Other chest pain (principal) | CPT/HCPCS: A0425; A0434 ==

== ENCOUNTER 2024-11-15 14:03 | Outpatient (CLI) | payer MEDICARE, SELFPAY | END 2024-11-15 14:04 | disposition home or self-care (01) | LOC: NFLDREF 11-24 02:26 | PROVIDERS: PCP Family Medicine; Referring Provider Family Medicine; Visit Provider Family Medicine | DX: E53.8 Deficiency of other specified B group vitamins (principal); I10 Essential (primary) hypertension; E11.36 Type 2 diabetes mellitus with diabetic cataract; E61.1 Iron deficiency; E55.9 Vitamin D deficiency, unspecified; E66.9 Obesity, unspecified; E78.5 Hyperlipidemia, unspecified; E03.9 Hypothyroidism, unspecified; Z79.4 Long term (current) use of insulin | CPT/HCPCS: 80053; 80061; 82306; 82607; 82728 ==

== ENCOUNTER 2025-01-02 15:25 | Outpatient (CLI) | payer MEDICARE, SELFPAY | END 2025-01-02 15:26 | disposition home or self-care (01) | LOC: NFLDREF 15:26 | PROVIDERS: PCP Family Medicine; Visit Provider Family Medicine | DX: I10 Essential (primary) hypertension (principal); Z01.818 Encounter for other preprocedural examination | CPT/HCPCS: 80048 ==

== ENCOUNTER 2025-02-16 13:30 | Outpatient (CLI) | payer MEDICARE, SELFPAY | END 2025-02-16 13:31 | disposition home or self-care (01) | LOC: NFLDREF 02-20 02:41 | PROVIDERS: PCP Family Medicine; Referring Provider Family Medicine; Visit Provider Family Medicine | DX: E78.5 Hyperlipidemia, unspecified (principal); I10 Essential (primary) hypertension; E11.36 Type 2 diabetes mellitus with diabetic cataract; Z79.4 Long term (current) use of insulin | CPT/HCPCS: 80053; 80061 ==

== ENCOUNTER 2025-03-06 14:43 | Outpatient (CLI) | payer MEDICARE, SELFPAY ==
--- NOTE | 2025-03-06 15:00 | CRLHL7_ITS ---
For Patients: As a result of the Cures Act, medical imaging exams and procedure reports are released immediately into your electronic medical record. You may view this report before your referring provider. If you have questions, please contact your health care provider. INDICATION: Lung cancer screening. History of smoking. High risk patient with greater than 40 pack-year smoking history. TECHNIQUE: Low-dose lung cancer screening non-contrast CT chest. Dose reduction techniques were used. COMPARISON: Low-dose lung screening CT 08/30/2023 FINDINGS: NODULES: Calcified granuloma within the lingula. No other nodules. LUNGS AND PLEURA: Clear lungs. No pleural effusion or pneumothorax. MEDIASTINUM: No mediastinal or hilar lymphadenopathy. Moderate/large gastric hiatus hernia, unchanged. CORONARY ARTERY CALCIFICATION: Moderate/severe coronary artery calcification. LIMITED UPPER ABDOMEN: Normal. MUSCULOSKELETAL: Degenerative spondylosis of the thoracic spine. No fracture or suspicious bone lesion. Spine stimulator leads within the thoracic spinal canal with lead tips at the level of the T8 superior endplate. IMPRESSION: 1. LUNG-RADS CATEGORY: 1: Negative. Continue annual screening with low-dose CT in 12 months. 2. Other nonemergent findings as detailed above. Please note that all CT scans at this facility use dose modulation, iterative reconstruction, and/or weight-based dosing when appropriate to reduce radiation dose to as low as reasonably achievable. Dictated by Yehuda Vanegas MD @ 03/07/2025 12:59:24 PM (Electronically Signed)
--- NOTE | 2025-03-06 15:30 | CRLHL7_ITS ---
For Patients: As a result of the Century Cures Act, medical imaging exams and procedure reports are released immediately into your electronic medical record. You may view this report before your referring provider. If you have questions, please contact your health care provider. INDICATION: Thoracic pain. TECHNIQUE: Thoracic spine MRI without contrast. COMPARISON: CT chest from 10/31/2024. FINDINGS: Accentuated thoracic kyphosis. Mild dextroconvex thoracic curvature. No acute fracture or aggressive marrow lesion. No cord signal abnormality. Susceptibility artifact posterior dorsal lower thoracic spinal canal from a spinal stimulator, which terminates at the T8 level. No significant abnormalities of the mediastinal, paraspinous or retroperitoneal soft tissues. Disc/endplates: Advanced disc height loss, disc desiccation and endplate remodeling at C6-7, T7-8 and T8-9 on the left, as well as T11-12. [id number] disc degeneration elsewhere. Spinal canal/neural foramina: T6-7 right central protrusion contacts the cord without deforming it. Additional scattered small thoracic disc protrusions at T7-8 through T11-12 which flattens the thecal sac without deforming the cord. Scattered thoracic facet arthrosis. Multilevel mild thoracic neural foraminal stenosis without compression of thoracic nerve roots. IMPRESSION: 1. No acute fracture or marrow replacing process. 2. Posterior dorsal lower thoracic spinal stimulator which terminates at the T8 level. 3. Multilevel thoracic spondylosis without high-grade spinal canal/neural foraminal stenosis. T6-7 right central protrusion mildly flattens the ventral cord. Thoracic cord signal is normal. 4. Accentuated thoracic kyphosis and mild dextroconvex curvature as positioned. Dictated by Parker Llanos MD @ 03/07/2025 4:10:47 PM (Electronically Signed)
== END 2025-03-06 14:44 | disposition home or self-care (01) ==
LOC: CT 14:44
PROVIDERS: PCP Family Medicine; Visit Provider Specialist
DX: Z12.2 Encounter for screening for malignant neoplasm of respiratory organs (principal); Z87.891 Personal history of nicotine dependence; M54.6 Pain in thoracic spine; M47.894 Other spondylosis, thoracic region; M48.04 Spinal stenosis, thoracic region; M40.294 Other kyphosis, thoracic region
CPT/HCPCS: 71271; 72146

== ENCOUNTER 2025-03-28 13:41 | Outpatient (CLI) | payer MEDICARE, SELFPAY | END 2025-03-28 13:42 | disposition home or self-care (01) | LOC: NFLDREF 04-04 16:19 | PROVIDERS: PCP Family Medicine; Referring Provider Family Medicine; Visit Provider Family Medicine | DX: E89.0 Postprocedural hypothyroidism (principal) | CPT/HCPCS: 84439; 84443 ==

== ENCOUNTER 2025-05-15 15:21 | Outpatient (CLI) | payer MEDICARE, SELFPAY | END 2025-05-15 15:22 | disposition home or self-care (01) | LOC: NFLDREF 15:24 | PROVIDERS: PCP Family Medicine; Visit Provider Family Medicine | DX: I10 Essential (primary) hypertension (principal) | CPT/HCPCS: 80048 ==

== ENCOUNTER 2025-08-21 13:08 | Outpatient (CLI) | payer MEDICARE, SELFPAY | END 2025-08-21 13:09 | disposition home or self-care (01) | LOC: NFLDREF 08-27 18:36 | PROVIDERS: PCP Family Medicine; Referring Provider Family Medicine; Visit Provider Family Medicine | DX: I10 Essential (primary) hypertension (principal); E11.36 Type 2 diabetes mellitus with diabetic cataract; Z79.4 Long term (current) use of insulin; E78.5 Hyperlipidemia, unspecified | CPT/HCPCS: 80053; 80061; 82043; 82570; 84439; 84443 ==

== ENCOUNTER 2025-08-23 13:44 | Outpatient (CLI) | payer MEDICARE, SELFPAY | END 2025-08-23 13:45 | disposition home or self-care (01) | PROVIDERS: PCP Family Medicine; Visit Provider Family Medicine | DX: E05.80 Other thyrotoxicosis without thyrotoxic crisis or storm (principal); D51.9 Vitamin B12 deficiency anemia, unspecified; E55.9 Vitamin D deficiency, unspecified; M25.571 Pain in right ankle and joints of right foot; Z79.4 Long term (current) use of insulin; E11.36 Type 2 diabetes mellitus with diabetic cataract | CPT/HCPCS: 82306; 82607; 84439; 84443 ==

== ENCOUNTER 2025-10-02 08:23 | Outpatient (CLI) | payer MEDICARE, SELFPAY ==
--- NOTE | 2025-10-02 08:45 | CRLHL7_ITS ---
For Patients: As a result of the Century Cures Act, medical imaging exams and procedure reports are released immediately into your electronic medical record. You may view this report before your referring provider. If you have questions, please contact your health care provider. INDICATION: BILATERAL SCREENING MAMMOGRAM, ASYMPTOMATIC 70 Y/O FEMALE COMPARISON: 08/31/2024, 06/04/2023, 04/01/2022 TECHNIQUE: Digital mammogram in CC and MLO projections including computer-aided detection (CAD) and tomosynthesis. BREAST COMPOSITION: There are scattered areas of fibroglandular density. FINDINGS: No suspicious findings. ASSESSMENT: BI-RADS 1 Negative RECOMMENDATION: Annual screening mammogram. A lay language report of this examination will be provided to the patient. Dictated by: Edith Newberry MD @ 10/03/2025 18:52:32 (Electronically Signed)
== END 2025-10-02 08:24 | disposition home or self-care (01) ==
LOC: MAMMO 08:23
PROVIDERS: PCP Family Medicine; Visit Provider Family Medicine
DX: Z12.31 Encounter for screening mammogram for malignant neoplasm of breast (principal)
CPT/HCPCS: 77063; 77067

== ENCOUNTER 2025-10-09 14:09 | Outpatient (CLI) | payer MEDICARE, SELFPAY | END 2025-10-09 14:10 | disposition home or self-care (01) | LOC: NFLDREF 14:11 | PROVIDERS: PCP Family Medicine; Visit Provider Family Medicine | DX: E11.36 Type 2 diabetes mellitus with diabetic cataract (principal); I10 Essential (primary) hypertension; Z01.818 Encounter for other preprocedural examination; Z79.4 Long term (current) use of insulin | CPT/HCPCS: 80048 ==